=== PATIENT | male | born 1945 | race Caucasian/White ===

== ENCOUNTER → 2018-06-22 08:08 | Outpatient (CLI) | payer OTHER, SELFPAY ==
[2018-06-22 09:08] LABS: Hemoglobin A1C% w Est Avg Glu 6.1 % (4.0-6.0)
== END ==
PROVIDERS: PCP Family Medicine; Visit Provider Family Medicine
DX: R73.09 Other abnormal glucose (principal); R73.03 Prediabetes
CPT/HCPCS: 36415; 83036

== ENCOUNTER → 2019-02-23 07:59 | Outpatient (CLI) | payer OTHER, SELFPAY ==
[2019-02-23 10:01] LABS: Hemoglobin A1C% w Est Avg Glu 6.3 % (4.0-6.0)
[2019-02-23 10:44] LABS: Alanine Aminotransferase 43 IU/L (21-72); Albumin 4.4 g/dL (3.5-5.0); Alkaline Phosphatase 59 U/L (38-126); Aspartate Aminotransferase 32 IU/L (17-59); BUN Creatinine Ratio 23.8 (6-22); Bilirubin Total 0.6 mg/dL (0.2-1.3); Blood Urea Nitrogen 19 mg/dL (9-20); Calcium 9.7 mg/dL (8.4-10.2); Carbon Dioxide 29 mmol/L (22-32); Chloride 102 mmol/L (98-107); Cholesterol 106 mg/dL (140-199); Estimated Glomerular Filt Rate > 60.0 mL/min (>60); Globulin 2.2 g/dL (1.7-4.1); Glucose 120 mg/dL (80-110); HDL Cholesterol 24 mg/dL (40-60); HEMOLYSIS < 15 (0-50); LDL Cholesterol Calculated 39 mg/dL (<100); Potassium 4.8 mmol/L (3.4-5.1); Sodium 141 mmol/L (137-145); Total Protein 6.6 g/dL (6.3-8.2); Triglycerides 216 mg/dL (35-150)
== END ==
PROVIDERS: PCP Family Medicine; Visit Provider Family Medicine
DX: R73.03 Prediabetes (principal); E78.2 Mixed hyperlipidemia
CPT/HCPCS: 36415; 80053; 80061; 83036

== ENCOUNTER → 2020-04-17 08:29 | Outpatient (CLI) | payer MEDICARE, SELFPAY ==
[2020-04-17 09:35] LABS: Hemoglobin A1C% w Est Avg Glu 6.8 % (4.0-6.0)
[2020-04-17 10:03] LABS: Alanine Aminotransferase 45 IU/L (<50); Albumin 4.7 g/dL (3.5-5.0); Albumin Globulin Ratio 1.9 (1.0-2.8); Alkaline Phosphatase 66 U/L (38-126); Aspartate Aminotransferase 47 IU/L (17-59); BUN Creatinine Ratio 21.3 (6-22); Bilirubin Total 0.7 mg/dL (0.2-1.3); Blood Urea Nitrogen 17 mg/dL (9-20); Calcium 9.8 mg/dL (8.4-10.2); Carbon Dioxide 30 mmol/L (22-32); Chloride 105 mmol/L (98-107); Estimated Glomerular Filt Rate > 60.0 mL/min (>60); Globulin 2.5 g/dL (1.7-4.1); Glucose 126 mg/dL (80-110); HEMOLYSIS < 15 (0-50); Potassium 4.4 mmol/L (3.4-5.1); Sodium 143 mmol/L (137-145); Total Protein 7.2 g/dL (6.3-8.2)
[2020-04-17 11:15] LABS: Creatinine Urine Random 111.9 mg/dL
[2020-04-17 11:17] LABS: Microalbumi Creatinin Ratio Ur 17.8 ug/mg CR (<30)
== END ==
PROVIDERS: PCP Family Medicine; Referring Provider Family Medicine; Visit Provider Family Medicine
DX: E66.01 Morbid (severe) obesity due to excess calories (principal); E78.2 Mixed hyperlipidemia; I10 Essential (primary) hypertension; Z68.41 Body mass index [BMI] 40.0-44.9, adult
CPT/HCPCS: 36415; 80053; 82043; 82570; 83036

== ENCOUNTER → 2020-07-26 08:01 | Outpatient (CLI) | payer MEDICARE, SELFPAY ==
[2020-07-26 09:57] LABS: Hemoglobin A1C% w Est Avg Glu 6.7 % (4.0-6.0)
== END ==
PROVIDERS: PCP Family Medicine; Referring Provider Family Medicine; Visit Provider Family Medicine
DX: E11.9 Type 2 diabetes mellitus without complications (principal)
CPT/HCPCS: 36415; 83036

== ENCOUNTER 2020-11-23 14:43 | Emergency (ER) | payer MEDICARE, SELFPAY ==
[2020-11-23 14:49] VITALS: BP 185/97; PULSE 82; RESP 17; TEMP 36.9; O2SAT 95; BMI 40.1
--- NOTE | 2020-11-23 18:22 | ED.SKABFB ---
HPI - Skin/Abscess/Foreign Bdy General Chief complaint: Skin/Abscess/Foreign Body Stated complaint: bump on right inner thigh Time Seen by Provider: 11/23/20 18:03 Source: patient Mode of arrival: Ambulatory Limitations: no limitations History of Present Illness HPI narrative: Patient is a 75-year-old male here for evaluation of redness and discomfort to his left upper thigh. He states that the symptoms occurred when his dog was approximately 70 lb jumped up on his lap to lay down. This was a couple days ago. He does not remember the dog injuring his leg. He has had no procedures on his leg. He is not having any fevers. Has not tried anything for symptoms prior to arrival. Related Data Home Medications Medication Instructions Recorded Confirmed amlodipine [Norvasc] 5 mg PO QDAY #30 tab 07/19/16 08/01/20 aspirin 325 mg PO QDAY #0 tab 07/19/16 08/01/20 atorvastatin 40 mg PO QDAY #0 tab 07/19/16 08/01/20 carvedilol [Coreg] 25 mg PO BID #0 tab 07/19/16 08/01/20 omeprazole 20 mg PO QDAY #0 cap 07/19/16 08/01/20 [HERBAL DRUG CAP] 1 cap PO QDAY #0 01/09/18 08/01/20 guaifenesin 1,200 mg tablet, 1,200 mg PO Q12H 03/30/18 08/01/20 extended release 12 hr multivitamin 1 cap PO DAILY 03/30/18 08/01/20 nitroglycerin 0.4 mg sublingual 0.4 mg SUBLINGUAL PRN #0 tab 07/09/19 08/01/20 tablet Previous Rx's Medication Instructions Recorded fluticasone propionate 110 1 puff INHALATION BID #12 gram 04/27/20 mcg/actuation HFA aerosol inhaler losartan 100 mg tablet See Rx Instructions .ROUTE 07/04/20 .COMPLEX #90 tablet metformin 500 mg tablet 500 mg PO DAILY #90 tab 08/11/20 fenofibrate nanocrystallized 145 See Rx Instructions .ROUTE 09/18/20 mg tablet .COMPLEX #90 tablet albuterol sulfate 90 mcg/actuation See Rx Instructions .ROUTE 11/06/20 aerosol inhaler .COMPLEX #8.5 gram cephalexin [Keflex] 500 mg PO QID 5 Days #20 cap 11/23/20 Allergies Allergy/AdvReac Type Severity Reaction Status Date / Time hops [HOPS] Allergy Mild Verified 11/23/20 14:49 Review of Systems Constitutional Constitutional: Denies fever(s) and Denies headache(s) ENT Ears, Nose, Mouth, and Throat: Denies headache(s) Cardiovascular Cardiovascular: Denies chest pain and Denies dyspnea Respiratory Respiratory: Denies dyspnea Gastrointestinal Gastrointestinal: Denies abdominal pain Musculoskeletal Musculoskeletal: Denies arthralgias Integumentary/Breasts Comments: Redness and lump to left upper thigh Neurologic Neurologic: Denies behavioral changes and Denies headache(s) Psychiatric Psychiatric: Denies behavioral changes Hematologic/Lymphatic On Anticoagulants: No Allergic/Immunologic Allergic/Immunologic: Denies urticaria Patient History Medical History Asthma Carotid artery disease (~2002) Chronic back pain Chronic cough Colon polyps Gout Hay fever Hearing deficit Hyperlipidemia Hypertension LEONARD (obstructive sleep apnea) Psoriasis Type 2 diabetes mellitus Surgical History History of angioplasty Family History Mother Heart disease High cholesterol Stroke Hypertension Father No problems noted. Social History marital status: unmarried,single housing: house pets and animals: Yes current occupational exposures/hazards: Yes ([facility]) Smoking Status: Former smoker alcohol intake: current substance use type: does not use Smoking Status: Former smoker alcohol intake frequency: a few times a week Substance Use Type: does not use Exam Initial Vital Signs Initial Vital Signs: Vital Signs Temperature 98.4 F 11/23/20 14:49 Pulse Rate 82 11/23/20 14:49 Respiratory Rate 17 11/23/20 14:49 Blood Pressure 185/97 H 11/23/20 14:49 Pulse Oximetry 95 11/23/20 14:49 Const General: cooperative and comfortable Limitations: mental status not altered HENMT Head: normal to inspection and normocephalic Resp Effort & Inspection: normal respiratory effort Cardio Rate: regular rate Skin Other: Patient with a area of redness and firmness to the anterior/medial portion of the left upper thigh. It is warm to the touch. Does have surrounding erythema that is also warm to the touch. There is no blistering. Neuro General: patient alert and patient awake Cognition: normal cognition Speech: speech normal Extrem General: normal to inspection and capillary refill normal Psych Appearance: grossly normal and well kempt Course Vital Signs Vital signs: Vital Signs - 8 hr 11/23/20 14:49 Temperature 98.4 F Pulse Rate 82 Respiratory Rate 17 Blood Pressure 185/97 H Pulse Oximetry 95 MDM - Skin/Abscess/Foreign Bdy Imaging Data US - DVT: Radiologist's Impression: [address] [address]Hngvkorons ReportSigned Patient: Noble Garcia [facility]#: [id number]: [id number]:[id number]/Sex: 75 / MDate of Service: 11/23/20Loc: EDAccession Number: [id number] Procedure: US perip venous low extrem lt Ordering Provider: Rohit Worthington D.O. PROCEDURE: US PERIPH VENOUS LOW EXTREM LT INDICATIONS: eval for DVT TECHNIQUE: Real-time imaging, as well as color and pulse Doppler interrogation, were performed of the lower extremity deep veins from the inguinal ligament to the popliteal fossa. COMPARISON: None. FINDINGS: Thrombus is seen within the greater saphenous vein, which is occlusive. IMPRESSION: Superficial thrombophlebitis involving the greater saphenous vein. Dictated by: Marv Lal M.D. on 11/23/2020 at 19:27 Approved by: Marv Lal M.D. on 11/23/2020 at 19:28 [facility] Narrative Medical decision making narrative: Patient does have what appeared to be induration and redness to his left upper thigh. A bedside ultrasound showed what appeared to be of a pocket of fluid in this area however I was not 100% convinced that this was an abscess so a small area was anesthetized and I attempted to aspirate any purulent material. This was unsuccessful and only a small amount of blood was returned. Given the appearance he did have concern that this was now a clot and he potentially had a thrombophlebitis. A formal ultrasound was obtained and he had no DVT but did confirm a superficial thrombophlebitis of the left greater saphenous vein. This does fit with the bedside ultrasound in his presentation. There is surrounding erythema and also warmth to the area. I have some concern about infection so I will start him on antibiotics. We did discuss the use of anti-inflammatories. We also discussed other conservative measures. He was given return precautions and follow-up instructions. He expressed understanding and agreement. Discharge Plan Departure Patient Disposition: Home Clinical Impression: Superficial thrombophlebitis, Cellulitis Instructions: Cellulitis, DI for Superficial Thrombophlebitis Activity Restrictions/Additional Instructions: A prescription for antibiotics as electronically transmitted to [facility]. You can take anti-inflammatories for the discomfort. Contact your primary provider for follow-up. Return to the emergency department for any new or worsening symptoms Prescriptions: New cephalexin [Keflex] 500 mg capsule 500 mg PO QID 5 Days Qty: 20 RF: 0 No Action amlodipine [Norvasc] 5 MG tablet 5 mg PO QDAY Qty: 30 RF: 0 atorvastatin 40 MG tablet 40 mg PO QDAY Qty: 0 RF: 0 aspirin 325 MG tablet 325 mg PO QDAY Qty: 0 RF: 0 carvedilol [Coreg] 25 MG tablet 25 mg PO BID Qty: 0 RF: 0 omeprazole 20 MG capsule,delayed release(DR/EC) 20 mg PO QDAY Qty: 0 RF: 0 [HERBAL DRUG CAP] 1 cap PO QDAY Qty: 0 RF: 0 nitroglycerin [Nitrostat] 0.4 mg tablet, sublingual 0.4 mg Sublingual PRNQty: 0 RF: 0 Flovent HFA 110 mcg/actuation HFA aerosol inhaler 1 puff INHALATION BID Qty: 12 RF: 6 losartan 100 mg tablet See Rx Instructions .ROUTE .COMPLEX Qty: 90 RF: 3 metformin 500 mg tablet 500 mg PO DAILY Qty: 90 RF: 3 fenofibrate nanocrystallized 145 mg tablet See Rx Instructions .ROUTE .COMPLEX Qty: 90 RF: 3 albuterol sulfate [ProAir HFA] 90 mcg/actuation HFA aerosol inhaler See Rx Instructions .ROUTE .COMPLEX Qty: 8.5 RF: 6 guaifenesin [Mucinex] 1,200 mg tablet extended release 12hr 1,200 mg PO Q12H RF: 0 multivitamin capsule 1 cap PO DAILY RF: 0 Referrals: Michelle Anthony DO [Primary Care Provider] -
--- NOTE | 2020-11-23 20:16 | PC.NURSE ---
Sterile 4 by 4 dressing with boston wrap to left thigh aspiration site,no bleeding.f
== END 2020-11-23 20:17 | disposition home or self-care (01) ==
PROVIDERS: Emergency Provider Emergency Medicine; PCP Family Medicine
DX: I80.02 Phlebitis and thrombophlebitis of superficial vessels of left lower extremity (principal); L03.116 Cellulitis of left lower limb; E11.9 Type 2 diabetes mellitus without complications; E78.5 Hyperlipidemia, unspecified; I10 Essential (primary) hypertension
CPT/HCPCS: 93971; 99283

== ENCOUNTER → 2020-11-30 14:43 | Outpatient (CLI) | payer MEDICARE, SELFPAY ==
--- NOTE | 2020-11-30 14:46 | DI.RAD.S_ITS ---
PROCEDURE: XR CHEST 2V INDICATIONS: coughs; thrombophlebitis TECHNIQUE: 2 views of the chest were acquired. COMPARISON: [facility], , CHEST 2 VIEW, 01/09/2018, 18:27. FINDINGS: Surgical changes and devices: None. Lungs and pleura: Mild prominence of the central pulmonary vasculature may be related to mildly low lung volumes. No pleural effusions or pneumothorax. The appearance does not appear significantly changed when compared to the radiographs from 01/09/2018. Mediastinum: Mediastinal contours are normal. Heart size is normal. Bones and chest wall: No suspicious bony abnormalities. Soft tissues appear unremarkable. IMPRESSION: No acute cardiopulmonary abnormality. Dictated by: Jarad Dunbar M.D. on 11/30/2020 at 15:06 Approved by: Jarad Dunbar M.D. on 11/30/2020 at 15:08
--- NOTE | 2020-11-30 14:46 | DI.US.S_ITS ---
PROCEDURE: [facility]3] VENOUS LOW EXTREM LT INDICATIONS: thrombophlebitis, left TECHNIQUE: Real-time imaging, as well as color and pulse Doppler interrogation, were performed of the lower extremity deep veins from the inguinal ligament to the popliteal fossa. COMPARISON: [facility], [facility]] VENOUS LOW EXTREM LT, 11/23/2020, 18:58. FINDINGS: There is occlusion of the greater saphenous vein. Partial occlusion is noted in the common femoral vein as well as profundal and popliteal veins. The lesser saphenous vein is occluded. The superficial femoral vein appears patent. IMPRESSION: Deep venous thrombosis as above. Dictated by: Martha Tabor M.D. on 11/30/2020 at 14:38 Approved by: Martha Tabor M.D. on 11/30/2020 at 14:40
== END ==
PROVIDERS: PCP Family Medicine; Referring Provider Registered Nurse; Visit Provider Registered Nurse
DX: I82.412 Acute embolism and thrombosis of left femoral vein (principal); I82.432 Acute embolism and thrombosis of left popliteal vein; I82.812 Embolism and thrombosis of superficial veins of left lower extremity; R05 Cough; L03.90 Cellulitis, unspecified
CPT/HCPCS: 71046; 93971

== ENCOUNTER 2020-11-30 15:25 | Emergency (ER) | payer MEDICARE, SELFPAY ==
[2020-11-30] VITALS (9 sets, daily range): BP systolic 141–163; BP diastolic 77–87; PULSE 79–91; RESP 17–27; TEMP 37.1; O2SAT 91–95; BMI 39.9
--- NOTE | 2020-11-30 15:59 | ED_ITS ---
HPI - Extremity Problem General Chief complaint: Extremity Problem,Nontraumatic Stated complaint: sent by doctor for blood clots Time Seen by Provider: 11/30/20 15:30 Source: patient Mode of arrival: Wheelchair Limitations: no limitations History of Present Illness HPI Narrative: 75-year-old male who I saw in the emergency department a few days ago and diagnosed with superficial thrombophlebitis. He was also placed on a short course of antibiotics as I was concerned about cellulitis. He has followed up with his primary doctor and had an outpatient left lower extremity ultrasound performed today. This was secondary to pain and swelling to his left calf region. He was told to come to the emergency department after having this ultrasound performed. He does have a history of asthma but states that he has been somewhat more short of breath recently. He denies any chest pain. He states that the redness for which I evaluated him for a couple days ago has improved tremendously since that time. Related Data Home Medications Medication Instructions Recorded Confirmed amlodipine [Norvasc] 5 mg PO QDAY #30 tab 07/19/16 11/30/20 aspirin 325 mg PO QDAY #0 tab 07/19/16 11/30/20 atorvastatin 40 mg PO QDAY #0 tab 07/19/16 11/30/20 carvedilol [Coreg] 25 mg PO BID #0 tab 07/19/16 11/30/20 omeprazole 20 mg PO QDAY #0 cap 07/19/16 11/30/20 guaifenesin 1,200 mg tablet, 1,200 mg PO Q12H 03/30/18 11/30/20 extended release 12 hr multivitamin 1 cap PO DAILY 03/30/18 11/30/20 nitroglycerin 0.4 mg sublingual 0.4 mg SUBLINGUAL PRN #0 tab 07/09/19 11/30/20 tablet Previous Rx's Medication Instructions Recorded fluticasone propionate 110 1 puff INHALATION BID #12 gram 04/27/20 mcg/actuation HFA aerosol inhaler losartan 100 mg tablet See Rx Instructions .ROUTE 07/04/20 .COMPLEX #90 tablet metformin 500 mg tablet 500 mg PO DAILY #90 tab 08/11/20 fenofibrate nanocrystallized 145 See Rx Instructions .ROUTE 09/18/20 mg tablet .COMPLEX #90 tablet albuterol sulfate 90 mcg/actuation See Rx Instructions .ROUTE 11/06/20 aerosol inhaler .COMPLEX #8.5 gram rivaroxaban [Xarelto] 15 mg PO BID 21 Days #42 tab 11/30/20 Allergies Allergy/AdvReac Type Severity Reaction Status Date / Time hops [HOPS] Allergy Mild Verified 11/30/20 15:36 Review of Systems Constitutional Constitutional: Denies fever(s) Cardiovascular Cardiovascular: Denies chest pain and Reports dyspnea Respiratory Respiratory: Reports cough and Reports dyspnea Gastrointestinal Gastrointestinal: Denies abdominal pain, Denies nausea and Denies vomiting Musculoskeletal Comments: Left lower extremity swelling Integumentary/Breasts Comments: Redness improving of left thigh Neurologic Neurologic: Denies behavioral changes Psychiatric Psychiatric: Denies behavioral changes Hematologic/Lymphatic On Anticoagulants: No Allergic/Immunologic Allergic/Immunologic: Denies urticaria Patient History Medical History Asthma Carotid artery disease (~2002) Chronic back pain Chronic cough Colon polyps Gout Hay fever Hearing deficit Hyperlipidemia Hypertension LEONARD (obstructive sleep apnea) Psoriasis Type 2 diabetes mellitus Surgical History History of angioplasty Family History Mother Heart disease High cholesterol Stroke Hypertension Father No problems noted. Social History marital status: unmarried,single housing: house pets and animals: Yes current occupational exposures/hazards: Yes ([facility]) Smoking Status: Former smoker alcohol intake: current substance use type: does not use Smoking Status: Former smoker alcohol intake frequency: a few times a week Substance Use Type: does not use Exam Initial Vital Signs Initial Vital Signs: Vital Signs Temperature 98.8 F 11/30/20 15:30 Pulse Rate 87 11/30/20 15:30 Respiratory Rate 24 11/30/20 15:30 Blood Pressure 141/87 H 11/30/20 15:30 Pulse Oximetry 94 11/30/20 15:30 Const General: cooperative and comfortable Limitations: mental status not altered HENMT Head: normal to inspection and normocephalic Resp Effort & Inspection: normal respiratory effort, not labored and tachypneic Auscultation: clear to auscultation bilaterally Cardio Rate: regular rate Rhythm: regular rhythm GI Inspection: non-distended Palpation: soft Skin Other: Patient with much improved redness to his left anterior the proximal fine. Neuro General: patient alert, patient awake and patient oriented x3 Cognition: normal cognition Speech: speech normal Extrem Other: Patient with swelling left lower extremity specifically in the calf region. Psych Appearance: grossly normal and well kempt Scores GCS Peter coma scale eye opening: Spontaneous [place] coma scale verbal response: Orientated Peter coma scale motor response: Obey commands Peter coma scale total score: 15 Course Orders Ordered: ED Orders 11/30/20 16:01 CT angio chest PE protocol Stat 11/30/20 16:07 Basic Metabolic Panel Stat Complete Blood Count AUTO DIFF Stat NT-proBNP (BNP-Adult 18+) Stat Partial Thromboplastin Time Stat Prothrombin Time INR Stat Troponin I Stat 11/30/20 17:02 COVID19 Stat Discontinued Medications Sodium Chloride (Normal Saline 0.9%) 1,000 mls @ 1,000 mls/hr IV BOLUS ONE Stop: 11/30/20 16:59 Last Admin: 11/30/20 16:21 Dose: 1,000 mls/hr Documented by: JOSEPHINE Rivaroxaban (Rivaroxaban 10 Mg Tablet) 15 mg PO NOW ONE Stop: 11/30/20 17:50 Vital Signs Vital signs: Vital Signs - 8 hr 11/30/20 15:30 11/30/20 16:35 Temperature 98.8 F Pulse Rate 87 79 Respiratory Rate 24 24 Blood Pressure 141/87 H 147/77 H Pulse Oximetry 94 95 MDM - Extremity (Nontraumatic) Lab Data Result diagrams: 11/30/20 16:07 11/30/20 16:07 Labs: Lab Results 11/30/20 11/30/20 11/30/20 Range/Units 16:07 16:07 16:07 WBC 16.8 H (4.5-11.0) X10^3/uL RBC 7.47 H (4.5-5.9) X10^6/uL Hgb 15.1 (13.5-17.5) g/dL Hct 49.9 (41-53) % MCV 66.8 L (80-100) fL MCH 20.2 L (26-34) PG MCHC 30.3 (30-36) % RDW 19.0 H (11.6-14.8) % Plt Count 217 (150-400) X10^3/uL Neut % (Auto) 79.8 H (50-75) % Lymph % (Auto) 13.1 L (25-40) % [place] % (Auto) 4.8 (3-14) % Eos % (Auto) 1.8 L (2-4) % Baso % (Auto) 0.5 (0-2) % Neut # (Auto) 31619 H (8535-1557) /uL Lymph # (Auto) 2200 (4322-0309) /uL [place] # (Auto) 800 (0-900) /uL Eos # (Auto) 300 (0-450) /uL Baso # (Auto) 100 (0-100) /uL Plt Morphology Comment 1+ large platelets RBC Morphology See below Polychromasia 2+ H Microcytosis 2+ H PT 14.2 H (10.1-12.7) SECONDS INR 1.2 (0.9-1.3) APTT 20 L (26.4-36.2) SECONDS Sodium 138 (137-145) mmol/L Potassium 4.3 (3.4-5.1) mmol/L Chloride 104 (98-107) mmol/L Carbon Dioxide 28 (22-32) mmol/L BUN 22 H (9-20) mg/dL Creatinine 0.90 (0.66-1.25) mg/dL Estimated GFR > 60.0 (>60) mL/min BUN/Creatinine Ratio 24.4 H (6-22) Glucose 113 H (80-110) mg/dL Calcium 9.7 (8.4-10.2) mg/dL Troponin I (0.01-0.034) ng/mL NT-Pro-B Natriuret Pep 153 H (<125) pg/mL SARS-CoV-2 (PCR) (Negative) 11/30/20 11/30/20 Range/Units 16:07 17:02 WBC (4.5-11.0) X10^3/uL RBC (4.5-5.9) X10^6/uL Hgb (13.5-17.5) g/dL Hct (41-53) % MCV (80-100) fL MCH (26-34) PG MCHC (30-36) % RDW (11.6-14.8) % Plt Count (150-400) X10^3/uL Neut % (Auto) (50-75) % Lymph % (Auto) (25-40) % [place] % (Auto) (3-14) % Eos % (Auto) (2-4) % Baso % (Auto) (0-2) % Neut # (Auto) (4780-8474) /uL Lymph # (Auto) (3003-0859) /uL [place] # (Auto) (0-900) /uL Eos # (Auto) (0-450) /uL Baso # (Auto) (0-100) /uL Plt Morphology Comment RBC Morphology Polychromasia Microcytosis PT (10.1-12.7) SECONDS INR (0.9-1.3) APTT (26.4-36.2) SECONDS Sodium (137-145) mmol/L Potassium (3.4-5.1) mmol/L Chloride (98-107) mmol/L Carbon Dioxide (22-32) mmol/L BUN (9-20) mg/dL Creatinine (0.66-1.25) mg/dL Estimated GFR (>60) mL/min BUN/Creatinine Ratio (6-22) Glucose (80-110) mg/dL Calcium (8.4-10.2) mg/dL Troponin I < 0.012 (0.01-0.034) ng/mL NT-Pro-B Natriuret Pep (<125) pg/mL SARS-CoV-2 (PCR) Negative (Negative) Imaging Data US - DVT: Radiologist's Impression: [address] [address]Aphptatxou ReportSigned Patient: Noble Garcia SMR#: [id number]: 7Acct:[id number]/Sex: 75 / MDate of Service: 11/30/20[id number] Procedure: US periph venous low extrem lt Ordering Provider: Sven Lopez PROCEDURE: US PERIPH VENOUS LOW EXTREM LT INDICATIONS: thrombophlebitis, left TECHNIQUE: Real-time imaging, as well as color and pulse Doppler interrogation, were performed of the lower extremity deep veins from the inguinal ligament to the popliteal f mary. COMPARISON: [facility], , US PERIPH VENOUS LOW EXTREM LT, 11/23/2020, 18:58. FINDINGS: There is occlusion of the greater saphenous vein. Partial occlusion is noted in the common femoral vein as well as profundal and popliteal veins. The lesser saphenous vein is occluded. The superficial femoral vein appears patent. IMPRESSION: Deep venous thrombosis as above. Dictated by: Martha Tabor M.D. on 11/30/2020 at 14:38 Approved by: Martha Tabor M.D. on 11/30/2020 at 14:40 CT scan - chest: Radiologist's Impression: [facility] [place] [id number] Scan ReportSigned Patient: Noble Garcia [facility]#: [id number]: 1945cct:[id number]/Sex: 75 / MDate of Service: 11/30/20Loc: EDAccession Number: [id number] Procedure: CT angio chest PE protocol Ordering Provider: Rohit Worthington D.O. PROCEDURE: CT ANGIO CHEST PE PROTOCOL INDICATIONS: Chest pain, shortness of breath, tachycardia TECHNIQUE: After the administration of intravenous contrast, 2 mm thick sections acquired from the pulmonary apices to the posterior costophrenic angles. 3-dimensional maximum intensity projection (MIP) coronal and sagittal reformats were then acquired through the thorax. For radiation dose reduction, the following was used: automated exposure control, adjustment of mA and/or kV according to patient size. COMPARISON: None. FINDINGS: Image quality: Excellent. Pulmonary arteries: Pulmonary arteries are normal in size, and demonstrate no intraluminal filling defects to suggest central pulmonary embolism. Scattered subsegmental atelectasis and/or scarring. No focal consolidation. No pleural effusions or pneumothorax. Airway thickening in keeping with nonspecific bronchitis and/or reactive airways disease. Mediastinum: Heart size is normal, without pericardial effusion. Coronary artery calcifications are present. No mediastinal or hilar adenopathy. Thoracic aorta is normal in caliber and enhancement. Esophagus is normal in caliber, without hiatal hernia. Bones and chest wall: No suspicious bony lesions. Ribs and thoracic spine appear intact throughout. Thyroid gland demonstrates a large hypodense nodule in the right lobe partially visualized measuring 4 cm. No axillary or supraclavicular adenopathy. Abdomen: Incidental cholelithiasis. IMPRESSION: No evidence of pulmonary embolism. No aortic dissection identified. Large right thyroid nodule. Recommend further evaluation with dedicated ultrasound. This is only partially visualized. Additional chronic and incidental findings as above. Dictated by: Jesus Knapp M.D. on 11/30/2020 at 17:23 Approved by: Jesus Knapp M.D. on 11/30/2020 at 17:27 ECG Data Attestation EKG: I personally reviewed and interpreted this ECG as follows: Prior ECG tracings: not available for review Interpretation: Sinus rhythm Ventricular rate 83 Left axis deviation Normal QRS Nonspecific ST T wave changes MDM Narrative Medical decision making narrative: The left lower extremity ultrasound included in this note is for reference purposes only. It was obtained prior to this ED visit. The redness around the skin and the superficial clot area from a couple days ago looks very well. He does have a left lower extremity DVT noticed on a ultrasound that was done prior to this ER visit. Secondary to his reported shortness of breath a CT scan of his chest was ordered for evaluation of PE. Which was negative. Will start on Xarelto. Is given his 1st dose here in the ER. He is given follow-up instructions and return precautions. He expressed understanding and agreement. Discharge Plan Departure Patient Disposition: Home Clinical Impression: DVT (deep venous thrombosis) Instructions: DI for Deep Vein Thrombosis Activity Restrictions/Additional Instructions: Continue all of your medications as directed. Contact your primary provider for follow-up. A prescription for the anticoagulation was electronically transmitted to the pharmacy of your choice. Please take it as directed. It does require a refill by your primary doctor because the dose of the medicine changes after 21 days. Return to the emergency department for any new or worsening symptoms Prescriptions: New Xarelto 15 mg tablet 15 mg PO BID 21 Days Qty: 42 RF: 0 No Action amlodipine [Norvasc] 5 MG tablet 5 mg PO QDAY Qty: 30 RF: 0 atorvastatin 40 MG tablet 40 mg PO QDAY Qty: 0 RF: 0 aspirin 325 MG tablet 325 mg PO QDAY Qty: 0 RF: 0 carvedilol [Coreg] 25 MG tablet 25 mg PO BID Qty: 0 RF: 0 omeprazole 20 MG capsule,delayed release(DR/EC) 20 mg PO QDAY Qty: 0 RF: 0 nitroglycerin [Nitrostat] 0.4 mg tablet, sublingual 0.4 mg Sublingual PRNQty: 0 RF: 0 Flovent HFA 110 mcg/actuation HFA aerosol inhaler 1 puff INHALATION BID Qty: 12 RF: 6 losartan 100 mg tablet See Rx Instructions .ROUTE .COMPLEX Qty: 90 RF: 3 metformin 500 mg tablet 500 mg PO DAILY Qty: 90 RF: 3 fenofibrate nanocrystallized 145 mg tablet See Rx Instructions .ROUTE .COMPLEX Qty: 90 RF: 3 albuterol sulfate [ProAir HFA] 90 mcg/actuation HFA aerosol inhaler See Rx Instructions .ROUTE .COMPLEX Qty: 8.5 RF: 6 guaifenesin [Mucinex] 1,200 mg tablet extended release 12hr 1,200 mg PO Q12H RF: 0 multivitamin capsule 1 cap PO DAILY RF: 0 Referrals: Michelle Anthony DO [Primary Care Provider] -
[2020-11-30 16:15] LABS: Add Manual Diff / Slide Review NO; Basophils Absolute Auto 100 /uL (0-100); Basophils Percent Auto 0.5 % (0-2); Eosinophils Absolute Auto 300 /uL (0-450); Eosinophils Percent Auto 1.8 % (2-4); Hematocrit 49.9 % (41-53); Hemoglobin 15.1 g/dL (13.5-17.5); Lymphocytes Absolute Auto 2200 /uL (1100-4500); Lymphocytes Percent Auto 13.1 % (25-40); Mean Corpuscular HGB Conc 30.3 % (30-36); Mean Corpuscular Hemoglobin 20.2 PG (26-34); Mean Corpuscular Volume 66.8 fL (80-100); Monocytes Absolute Auto 800 /uL (0-900); Monocytes Percent Auto 4.8 % (3-14); Neutrophils Absolute Auto 13400 /uL (1500-7000); Neutrophils Percent Auto 79.8 % (50-75); White Blood Cell Count 16.8 X10^3/uL (4.5-11.0)
[2020-11-30 16:18] LABS: Red Blood Cell Count 7.47 X10^6/uL (4.5-5.9)
[2020-11-30] MEDS: SODIUM CHLORIDE 0.9% 1,000 ML 1000 ML IV (16:21)
[2020-11-30 16:22] LABS: INR 1.2 (0.9-1.3); Prothrombin Time 14.2 SECONDS (10.1-12.7)
[2020-11-30 16:24] LABS: PTT Partial Thromboplastin Tim 20 SECONDS (26.4-36.2)
[2020-11-30 16:28] LABS: BUN Creatinine Ratio 24.4 (6-22); Blood Urea Nitrogen 22 mg/dL (9-20); Calcium 9.7 mg/dL (8.4-10.2); Carbon Dioxide 28 mmol/L (22-32); Chloride 104 mmol/L (98-107); Estimated Glomerular Filt Rate > 60.0 mL/min (>60); Glucose 113 mg/dL (80-110); HEMOLYSIS 32 (0-50); Potassium 4.3 mmol/L (3.4-5.1); Sodium 138 mmol/L (137-145)
[2020-11-30 16:37] LABS: NT-proBNP (BNP-Adult 18+) 153 pg/mL (<125)
[2020-11-30 16:39] LABS: Microcytosis 2+; Platelet Count 217 X10^3/uL (150-400); Polychromasia 2+
[2020-11-30 16:40] LABS: Troponin I < 0.012 ng/mL (0.01-0.034)
[2020-11-30 17:17] LABS: COVID19 -Nasal RAPID Negative (Negative)
[2020-11-30] MEDS: RIVAROXABAN 10 MG TABLET 15 MG PO (17:56)
== END 2020-11-30 18:16 | disposition home or self-care (01) ==
PROVIDERS: Emergency Provider Emergency Medicine; PCP Family Medicine
DX: I82.402 Acute embolism and thrombosis of unspecified deep veins of left lower extremity (principal); R06.02 Shortness of breath; R05 Cough; Z20.822 Contact with and (suspected) exposure to COVID-19; R07.9 Chest pain, unspecified; R00.0 Tachycardia, unspecified; I82.412 Acute embolism and thrombosis of left femoral vein; I82.432 Acute embolism and thrombosis of left popliteal vein; I82.812 Embolism and thrombosis of superficial veins of left lower extremity; L03.90 Cellulitis, unspecified
CPT/HCPCS: 36415; 71046; 71275; 80048; 83880; 84484; 85025; 85610; 85730; 87635; 93005; 93971; 96360; 99283; 99284; C9803; Q9967

== ENCOUNTER → 2020-12-18 15:33 | Outpatient (CLI) | payer MEDICARE, SELFPAY ==
[2020-12-18 16:24] LABS: Add Manual Diff / Slide Review NO; Basophils Absolute Auto 100 /uL (0-100); Basophils Percent Auto 0.7 % (0-2); Eosinophils Absolute Auto 300 /uL (0-450); Eosinophils Percent Auto 1.8 % (2-4); Hematocrit 51.9 % (41-53); Hemoglobin 15.8 g/dL (13.5-17.5); Lymphocytes Absolute Auto 2400 /uL (1100-4500); Lymphocytes Percent Auto 15.3 % (25-40); Mean Corpuscular HGB Conc 30.4 % (30-36); Mean Corpuscular Hemoglobin 20.4 PG (26-34); Mean Corpuscular Volume 67.1 fL (80-100); Monocytes Absolute Auto 600 /uL (0-900); Monocytes Percent Auto 3.6 % (3-14); Neutrophils Absolute Auto 12100 /uL (1500-7000); Neutrophils Percent Auto 78.6 % (50-75); Platelet Count 325 X10^3/uL (150-400); Red Cell Distribution Width 19.7 % (11.6-14.8); White Blood Cell Count 15.4 X10^3/uL (4.5-11.0)
[2020-12-18 16:27] LABS: Red Blood Cell Count 7.73 X10^6/uL (4.5-5.9)
[2020-12-18 16:31] LABS: Hemoglobin A1C% w Est Avg Glu 6.3 % (4.0-6.0)
[2020-12-18 16:36] LABS: Alanine Aminotransferase 21 IU/L (<50); Albumin 4.5 g/dL (3.5-5.0); Albumin Globulin Ratio 1.9 (1.0-2.8); Alkaline Phosphatase 63 U/L (38-126); Aspartate Aminotransferase 28 IU/L (17-59); BUN Creatinine Ratio 21.9 (6-22); Bilirubin Total 0.7 mg/dL (0.2-1.3); Blood Urea Nitrogen 23 mg/dL (9-20); Calcium 9.6 mg/dL (8.4-10.2); Carbon Dioxide 24 mmol/L (22-32); Chloride 104 mmol/L (98-107); Estimated Glomerular Filt Rate > 60.0 mL/min (>60); Globulin 2.4 g/dL (1.7-4.1); Glucose 91 mg/dL (80-110); HEMOLYSIS 33 (0-50); Potassium 4.7 mmol/L (3.4-5.1); Sodium 137 mmol/L (137-145); Total Protein 6.9 g/dL (6.3-8.2)
[2020-12-18 16:52] LABS: Microcytosis 2+; Poikilocytosis 1+
== END ==
PROVIDERS: PCP Family Medicine; Referring Provider Registered Nurse; Visit Provider Registered Nurse
DX: I82.409 Acute embolism and thrombosis of unspecified deep veins of unspecified lower extremity (principal); E11.9 Type 2 diabetes mellitus without complications
CPT/HCPCS: 36415; 80053; 83036; 85025

== ENCOUNTER → 2021-04-06 07:09 | Outpatient (CLI) | payer MEDICARE, SELFPAY ==
[2021-04-06 08:09] LABS: Add Manual Diff / Slide Review NO; Basophils Absolute Auto 100 /uL (0-100); Basophils Percent Auto 0.4 % (0-2); Eosinophils Absolute Auto 200 /uL (0-450); Eosinophils Percent Auto 1.5 % (2-4); Hematocrit 48.7 % (41-53); Hemoglobin 14.8 g/dL (13.5-17.5); Lymphocytes Absolute Auto 2500 /uL (1100-4500); Lymphocytes Percent Auto 16.1 % (25-40); Mean Corpuscular HGB Conc 30.4 % (30-36); Mean Corpuscular Hemoglobin 19.3 PG (26-34); Mean Corpuscular Volume 63.5 fL (80-100); Monocytes Absolute Auto 600 /uL (0-900); Monocytes Percent Auto 3.7 % (3-14); Neutrophils Absolute Auto 12200 /uL (1500-7000); Neutrophils Percent Auto 78.3 % (50-75); Platelet Count 251 X10^3/uL (150-400); Red Cell Distribution Width 20.7 % (11.6-14.8); White Blood Cell Count 15.5 X10^3/uL (4.5-11.0)
[2021-04-06 08:10] LABS: Red Blood Cell Count 7.67 X10^6/uL (4.5-5.9)
[2021-04-06 08:18] LABS: Alanine Aminotransferase 26 IU/L (<50); Albumin 4.3 g/dL (3.5-5.0); Albumin Globulin Ratio 1.8 (1.0-2.8); Alkaline Phosphatase 59 U/L (38-126); Aspartate Aminotransferase 31 IU/L (17-59); BUN Creatinine Ratio 30.1 (6-22); Bilirubin Total 0.6 mg/dL (0.2-1.3); Blood Urea Nitrogen 22 mg/dL (9-20); Calcium 9.5 mg/dL (8.4-10.2); Carbon Dioxide 25 mmol/L (22-32); Chloride 108 mmol/L (98-107); Cholesterol 97 mg/dL (140-199); Estimated Glomerular Filt Rate > 60.0 mL/min (>60); Globulin 2.4 g/dL (1.7-4.1); Glucose 121 mg/dL (80-110); HDL Cholesterol 26 mg/dL (40-60); HEMOLYSIS < 15 (0-50); LDL Cholesterol Calculated 44 mg/dL (<100); Potassium 4.1 mmol/L (3.4-5.1); Sodium 140 mmol/L (137-145); Total Protein 6.7 g/dL (6.3-8.2); Triglycerides 136 mg/dL (35-150)
[2021-04-06 08:51] LABS: Anisocytosis 2+; Microcytosis 2+
[2021-04-06 09:08] LABS: Creatinine Urine Random 128.2 mg/dL
[2021-04-06 09:11] LABS: Microalbumi Creatinin Ratio Ur 52.2 ug/mg CR (<30); Microalbumin Urine Random 6.7 mg/dL (0-1.6)
== END ==
PROVIDERS: PCP Family Medicine; Referring Provider Family Medicine; Visit Provider Family Medicine
DX: E11.9 Type 2 diabetes mellitus without complications (principal); I10 Essential (primary) hypertension; E78.2 Mixed hyperlipidemia
CPT/HCPCS: 36415; 80053; 80061; 82043; 82570; 85025

== ENCOUNTER → 2021-04-07 08:41 | Outpatient (CLI) | payer MEDICARE, SELFPAY ==
[2021-04-07 10:21] LABS: Hemoglobin A1C% w Est Avg Glu 6.2 % (4.0-6.0)
== END ==
PROVIDERS: PCP Family Medicine; Visit Provider Family Medicine
DX: E11.9 Type 2 diabetes mellitus without complications (principal); D75.1 Secondary polycythemia
CPT/HCPCS: 83036

== ENCOUNTER → 2021-04-23 15:29 | Outpatient (CLI) | payer MEDICARE, SELFPAY ==
[2021-04-23 18:06] LABS: Hematocrit 49.6 % (41-53); Hemoglobin 15.1 g/dL (13.5-17.5); Mean Corpuscular HGB Conc 30.5 % (30-36); Mean Corpuscular Hemoglobin 19.3 PG (26-34); Mean Corpuscular Volume 63.3 fL (80-100); Platelet Count 255 X10^3/uL (150-400); Red Cell Distribution Width 21.3 % (11.6-14.8)
[2021-04-23 18:08] LABS: HEMOLYSIS 21 (0-50); Iron 52 ug/dL (49-181); Red Blood Cell Count 7.84 X10^6/uL (4.5-5.9)
[2021-04-23 18:17] LABS: Neutrophils Absolute Manual 12750 /uL (3000-5900); Nucleated Red Blood Cells 2 #/Diff; Total Cells Counted 100
[2021-04-23 18:18] LABS: Microcytosis 2+
[2021-04-23 18:19] LABS: Polychromasia 1+
[2021-04-23 18:20] LABS: Anisocytosis 2+
[2021-04-23 18:22] LABS: Percent Iron Saturation 11 % (20-50); Total Iron Binding Capacity 474 ug/dL (261-462); Transferrin 373 mg/dL (206-381)
== END ==
PROVIDERS: PCP Family Medicine; Referring Provider Family Medicine; Visit Provider Family Medicine
DX: D72.829 Elevated white blood cell count, unspecified (principal)
CPT/HCPCS: 36415; 83540; 83550; 85025

== ENCOUNTER 2021-11-14 02:12 | Emergency (ER) | payer MEDICARE, SELFPAY ==
[2021-11-14] VITALS (10 sets, daily range): BP systolic 123–161; BP diastolic 71–87; PULSE 71–86; RESP 15–29; TEMP 36.6; O2SAT 92–96; BMI 39.1
--- NOTE | 2021-11-14 02:19 | DI.RAD.S_ITS ---
PROCEDURE: XR CHEST 1V INDICATIONS: chest pain TECHNIQUE: One view of the chest was acquired. COMPARISON: [facility], , XR CHEST 2V, 11/30/2020, 14:47. FINDINGS: Surgical changes and devices: None. Lungs and pleura: Shallow inspiration. No pleural effusions or pneumothorax. Mediastinum: Mediastinal contours appear normal. Heart size is mildly increased. Bones and chest wall: No suspicious bony lesions. Overlying soft tissues appear unremarkable. IMPRESSION: 1. Mild cardiomegaly. 2. Shallow inspiration. No significant discrepancy with the data support specialist radiology preliminary report. Dictated by: Aram Palmer M.D. on 11/14/2021 at 7:59 Approved by: Aram Palmer M.D. on 11/14/2021 at 7:59
[2021-11-14] MEDS: NITROGLYCERIN 0.4 MG SL TAB SL ×2 (02:38→02:58)
[2021-11-14] MEDS: ASPIRIN 81 MG CHEW TAB 324 MG PO (02:38)
[2021-11-14 02:41] LABS: Add Manual Diff / Slide Review NO; Basophils Absolute Auto 100 /uL (0-100); Basophils Percent Auto 0.6 % (0-2); Eosinophils Absolute Auto 300 /uL (0-450); Eosinophils Percent Auto 1.4 % (2-4); Hematocrit 44.9 % (41-53); Hemoglobin 13.7 g/dL (13.5-17.5); Lymphocytes Absolute Auto 2400 /uL (1100-4500); Mean Corpuscular HGB Conc 30.6 % (30-36); Mean Corpuscular Hemoglobin 18.7 PG (26-34); Monocytes Absolute Auto 600 /uL (0-900); Monocytes Percent Auto 3.3 % (3-14); Neutrophils Absolute Auto 15200 /uL (1500-7000); Neutrophils Percent Auto 81.7 % (50-75); Platelet Count 265 X10^3/uL (150-400); Red Cell Distribution Width 21.9 % (11.6-14.8); White Blood Cell Count 18.6 X10^3/uL (4.5-11.0)
[2021-11-14 02:48] LABS: Red Blood Cell Count 7.36 X10^6/uL (4.5-5.9)
[2021-11-14 02:52] LABS: Alanine Aminotransferase 27 IU/L (<50); Albumin 4.5 g/dL (3.5-5.0); Albumin Globulin Ratio 1.9 (1.0-2.8); Alkaline Phosphatase 58 U/L (38-126); Aspartate Aminotransferase 28 IU/L (17-59); BUN Creatinine Ratio 24.7 (6-22); Bilirubin Total 0.6 mg/dL (0.2-1.3); Blood Urea Nitrogen 24 mg/dL (9-20); Carbon Dioxide 28 mmol/L (22-32); Chloride 106 mmol/L (98-107); Creatine Kinase 29 U/L (55-170); Estimated Glomerular Filt Rate > 60.0 mL/min (>60); Globulin 2.4 g/dL (1.7-4.1); Glucose 125 mg/dL (80-110); HEMOLYSIS < 15 (0-50); Lipase 131 U/L (23-300); Magnesium 1.9 mg/dL (1.6-2.3); Sodium 143 mmol/L (137-145); Total Protein 6.9 g/dL (6.3-8.2)
--- NOTE | 2021-11-14 03:02 | ED.CHESTPAIN ---
HPI - Chest Pain General Chief Complaint: Chest Pain Stated Complaint: tightness in chest Time Seen by Provider: 11/14/21 02:45 Source: patient Mode of arrival: Ambulatory Limitations: no limitations History of Present Illness HPI narrative: 76-year-old gentleman with history of hypertension, hyperlipidemia, coronary disease followed by cardiology at [facility]. He has had multiple stents and frequently uses nitroglycerin. Over the last week he has had increasing symptoms that he relates to angina. He describes a tightness and achiness across his chest associated with diaphoresis. 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 He has been using nitroglycerin at least daily if not more and has run out. He has been having difficulty lying down flat over the last week which he attributes to his asthma. He has developed dry cough complains of being increasingly fatigued. This evening he went to bed and woke up approximately an hour later with his anginal-type complaints which included this evening chest tightness, substernal pressure and increased cough. He denies any fevers. 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 On further review he notes that in September he had a left lower extremity DVT for which he was given Xarelto 20 mg. He is also on Plavix. States he took to the Xarelto for approximately 6 weeks. Since he still had some around the house, he has taken a couple of doses over the last week to help with his anginal-type pain. He noticed 3 days ago that he had gross hematuria which he attributed to initially the Xarelto and then was fairly convinced it was related to the cranberry juice that he had consumed. Additionally, he complains of pruritus all over his upper chest and abdomen that is been worsening over the last number of weeks. Related Data Home Medications Medication Instructions Recorded Confirmed amlodipine 5 mg tablet (Norvasc) 5 mg PO QDAY #30 tab 07/19/16 04/23/21 aspirin 325 mg tablet 325 mg PO QDAY #0 tab 07/19/16 04/23/21 atorvastatin 40 mg tablet 40 mg PO QDAY #0 tab 07/19/16 04/23/21 carvedilol 25 mg tablet (Coreg) 25 mg PO BID #0 tab 07/19/16 04/23/21 omeprazole 20 mg capsule,delayed 20 mg PO QDAY #0 cap 07/19/16 04/23/21 release multivitamin 1 cap PO DAILY 03/30/18 04/23/21 nitroglycerin 0.4 mg sublingual 0.4 mg SUBLINGUAL PRN #0 tab 07/09/19 04/23/21 tablet (Nitrostat) clopidogrel 75 mg tablet 75 mg PO DAILY 01/02/21 04/23/21 Previous Rx's Medication Instructions Recorded albuterol sulfate 90 mcg/actuation See Rx Instructions .ROUTE 11/06/20 aerosol inhaler (ProAir HFA) .COMPLEX #8.5 gram rivaroxaban 20 mg tablet (Xarelto) 20 mg PO DAILY #30 tab 03/06/21 fluticasone propionate 110 See Rx Instructions .ROUTE 05/07/21 mcg/actuation HFA aerosol inhaler .COMPLEX #12 g (Flovent HFA) losartan 100 mg tablet See Rx Instructions .ROUTE 06/25/21 .COMPLEX #90 tablet metformin 500 mg tablet 500 mg PO DAILY #90 tab 08/06/21 fenofibrate nanocrystallized 145 See Rx Instructions .ROUTE 09/24/21 mg tablet .COMPLEX #90 tablet nitroglycerin 0.4 mg sublingual 0.4 mg SUBLINGUAL Q5M PRN #25 tab 11/14/21 tablet (Nitrostat) Allergies Allergy/AdvReac Type Severity Reaction Status Date / Time hops [HOPS] Allergy Mild Verified 11/14/21 02:19 Review of Systems Review of Systems Narrative: Remainder of complete review of systems is otherwise unremarkable except for that included in the HPI. Patient History Medical History Asthma Carotid artery disease (~2002) Chronic back pain Chronic cough Colon polyps Gout Hay fever Hearing deficit Hyperlipidemia Hypertension Obesity (BMI 30-39.9) LEONARD (obstructive sleep apnea) Psoriasis Skin cancer Type 2 diabetes mellitus Surgical History History of angioplasty Family History Mother Heart disease High cholesterol Stroke Hypertension Father No problems noted. Social History marital status: unmarried,single housing: house pets and animals: Yes current occupational exposures/hazards: Yes ([employer]) Smoking Status: Former smoker alcohol intake: current substance use type: does not use Smoking Status: Former smoker alcohol intake frequency: a few times a week Substance Use Type: does not use Exam Initial Vital Signs Initial Vital Signs: Vital Signs Temperature 98 F 11/14/21 02:15 Pulse Rate 86 11/14/21 02:15 Respiratory Rate 18 11/14/21 02:15 Blood Pressure 144/83 H 11/14/21 02:15 Pulse Oximetry 95 11/14/21 02:15 General: Morbidly overweight, in no acute distress. Able to give a complete and coherent history. Able to speak in full sentences, occasional dry cough HEENT: Moist mucous membranes, normal sclera with reactive pupils, Neck: No JVD, supple Respiratory: Lungs are clear to auscultation, no wheezing no rales no rhonchi. Full and symmetrical air movement Cardiac: Regular rate and rhythm no murmurs no bruits Abdomen: Obese,Soft, nontender, good bowel tones, no flank pain Skin: Warm and dry, no rashes Neurologic: Grossly neurologically intact with no obvious asymmetries or abnormalities Extremities: No trauma, well perfused Psych: Cooperative, appropriate insight and affect Course Orders Ordered: ED Orders 11/14/21 02:19 XR chest 1V Stat 11/14/21 02:29 EKG-12 Lead Stat 11/14/21 02:30 Complete Blood Count AUTO DIFF Stat Comprehensive Metabolic Panel Stat Lipase Stat Magnesium Stat Troponin & CK Cardiac Panel Stat 11/14/21 02:41 COVID19 -Nasal swab/Pre-Proc Stat 11/14/21 04:39 Trop I [Troponin I] Stat Nitroglycerin (Nitroglycerin 0.4 Mg Sl Tab) 0.4 mg SL [id number] PRN PRN Reason: Chest Pain Last Admin: 11/14/21 02:58 Dose: 0.4 mg Documented by: Admin: 11/14/21 02:38 Dose: 0.4 mg Documented by: EUGENIO Discontinued Medications Albuterol/Ipratropium (Albuterol/Ipratropium 3 Ml Ampul) 3 ml INH NOW ONE Stop: 11/14/21 03:13 Last Admin: 11/14/21 03:23 Dose: 3 ml Documented by: CORDELL Aspirin (Aspirin 81 Mg Chew Tab) 324 mg PO NOW ONE Stop: 11/14/21 02:20 Last Admin: 11/14/21 02:38 Dose: 324 mg Documented by: EUGENIO Vital Signs Vital signs: Vital Signs - 8 hr 11/14/21 02:15 11/14/21 02:58 11/14/21 03:00 Temperature 98 F Pulse Rate 86 79 80 Respiratory Rate 18 Blood Pressure 144/83 H 135/79 Pulse Oximetry 95 92 92 11/14/21 03:23 Temperature Pulse Rate 73 Respiratory Rate 20 Blood Pressure Pulse Oximetry 94 MDM - Chest Pain Lab Data Result diagrams: 11/14/21 02:30 11/14/21 02:30 Labs: Lab Results 11/14/21 11/14/21 11/14/21 Range/Units 02:30 02:30 02:41 WBC 18.6 H (4.5-11.0) X10^3/uL RBC 7.36 H (4.5-5.9) X10^6/uL Hgb 13.7 (13.5-17.5) g/dL Hct 44.9 (41-53) % MCV 61.0 L (80-100) fL MCH 18.7 L (26-34) PG MCHC 30.6 (30-36) % RDW 21.9 H (11.6-14.8) % Plt Count 265 (150-400) X10^3/uL Neut % (Auto) 81.7 H (50-75) % Lymph % (Auto) 13.0 L (25-40) % [place] % (Auto) 3.3 (3-14) % Eos % (Auto) 1.4 L (2-4) % Baso % (Auto) 0.6 (0-2) % Neut # (Auto) 22561 H (6248-4439) /uL Lymph # (Auto) 2400 (4926-5393) /uL [place]ard # (Auto) 600 (0-900) /uL Eos # (Auto) 300 (0-450) /uL Baso # (Auto) 100 (0-100) /uL RBC Morphology See below Polychromasia 1+ H Anisocytosis 2+ H Microcytosis 2+ H Sodium 143 (137-145) mmol/L Potassium 4.0 (3.4-5.1) mmol/L Chloride 106 (98-107) mmol/L Carbon Dioxide 28 (22-32) mmol/L BUN 24 H (9-20) mg/dL Creatinine 0.97 (0.66-1.25) mg/dL Estimated GFR > 60.0 (>60) mL/min BUN/Creatinine Ratio 24.7 H (6-22) Glucose 125 H (80-110) mg/dL Calcium 10.0 (8.4-10.2) mg/dL Magnesium 1.9 (1.6-2.3) mg/dL Total Bilirubin 0.6 (0.2-1.3) mg/dL AST 28 (17-59) IU/L ALT 27 (<50) IU/L Alkaline Phosphatase 58 (38-126) U/L Total Creatine Kinase 29 L (55-170) U/L CK-MB (CK-2) TNP CK-MB (CK-2) Rel Index TNP Troponin I < 0.012 (0.01-0.034) ng/mL Total Protein 6.9 (6.3-8.2) g/dL Albumin 4.5 (3.5-5.0) g/dL Globulin 2.4 (1.7-4.1) g/dL Albumin/Globulin Ratio 1.9 (1.0-2.8) Lipase 131 (23-300) U/L SARS-CoV-2 (PCR) Negative (Negative) 11/14/21 Range/Units 04:39 WBC (4.5-11.0) X10^3/uL RBC (4.5-5.9) X10^6/uL Hgb (13.5-17.5) g/dL Hct (41-53) % MCV (80-100) fL MCH (26-34) PG MCHC (30-36) % RDW (11.6-14.8) % Plt Count (150-400) X10^3/uL Neut % (Auto) (50-75) % Lymph % (Auto) (25-40) % Sew[place] % (Auto) (3-14) % Eos % (Auto) (2-4) % Baso % (Auto) (0-2) % Neut # (Auto) (2498-7443) /uL Lymph # (Auto) (2625-7195) /uL Seward # (Auto) (0-900) /uL Eos # (Auto) (0-450) /uL Baso # (Auto) (0-100) /uL RBC Morphology Polychromasia Anisocytosis Microcytosis Sodium (137-145) mmol/L Potassium (3.4-5.1) mmol/L Chloride (98-107) mmol/L Carbon Dioxide (22-32) mmol/L BUN (9-20) mg/dL Creatinine (0.66-1.25) mg/dL Estimated GFR (>60) mL/min BUN/Creatinine Ratio (6-22) Glucose (80-110) mg/dL Calcium (8.4-10.2) mg/dL Magnesium (1.6-2.3) mg/dL Total Bilirubin (0.2-1.3) mg/dL AST (17-59) IU/L ALT (<50) IU/L Alkaline Phosphatase (38-126) U/L Total Creatine Kinase (55-170) U/L CK-MB (CK-2) CK-MB (CK-2) Rel Index Troponin I < 0.012 (0.01-0.034) ng/mL Total Protein (6.3-8.2) g/dL Albumin (3.5-5.0) g/dL Globulin (1.7-4.1) g/dL Albumin/Globulin Ratio (1.0-2.8) Lipase (23-300) U/L SARS-CoV-2 (PCR) (Negative) Imaging Data Chest x-ray: Radiologist's Impression: Cardiomegaly. No active disease in the chest Dr Power Post MD ECG Data Interpretation: Sinus rhythm at a rate of 77 Mild left axis deviation Normal intervals No acute ischemic changes MDM Narrative Medical decision making narrative: 76-year-old gentleman with the a confusing interpretation of his constellation of symptoms. At this point it sounds like he has been having increased difficulty laying flat, increased dry cough, increased chest tightness that response to nitro all worsening over the last week. Episode of hematuria after he took a couple of days of Xarelto that was left over after only a 6 week course taken for his recent left lower Extremity DVT. In reviewing previous labs it looks like he has a mild chronic leukocytosis and has a slightly elevated white blood cell count again today. He has no clinical evidence of infectious etiology. EKG, chest x-ray and labs are reassuring. Troponin and repeat troponin are unremarkable. He did respond nicely to that DuoNeb treatment and his chest tightness completely resolved with 2 doses of nitroglycerin. I am wondering if many of his symptoms of increasing over the last week or actually more asthma related than cardiac related. Will ask him to increase his albuterol, make sure he is continuing to use his inhaled steroid and will also refill his sublingual nitro. Will also strongly encouraged him to follow-up with his sheet metal worker apprentice when the clinic opens later today regarding his increased use of nitrates in the past week. At this time there is no evidence of acute coronary syndrome, congestive heart failure, pneumothorax, acute infectious etiology and patient is feeling significantly improved at this time. Discharge Plan Departure Patient Disposition: Home Clinical Impression: Asthma exacerbation, Chest pain Instructions: DI for Asthma -- Adult Activity Restrictions/Additional Instructions: Thank you for coming in today I am wondering if the worsening symptoms that you been noticing over the last week that you are attributing to your heart are actually your asthma. Your workup today was very reassuring. There is no evidence of heart attack, infection, collapsed lung, congestive heart failure or alternative explanations for the symptoms that you have when your laying flat, your dry cough and that tightening chest feeling. Please make sure that you are using your steroid inhaler regularly and please increase your albuterol to 2 puffs 4 times a day. Would encourage you to contact her sheet metal worker apprentice later today and let them know that you have been using your nitroglycerin more frequently. Please let the no urine the emergency room with a reassuring EKG and normal blood work. If you have worsening symptoms please feel free to return to the ER Prescriptions: New nitroglycerin [Nitrostat] 0.4 mg tablet, sublingual 0.4 mg sublingual Q5M PRN (Reason: chest pain) Qty: 25 1RF Rx Instructions: do not exceed 3 doses per episode No Action amlodipine [Norvasc] 5 MG tablet 5 mg PO QDAY Qty: 30 0RF atorvastatin 40 MG tablet 40 mg PO QDAY Qty: 0 0RF aspirin 325 MG tablet 325 mg PO QDAY Qty: 0 0RF carvedilol [Coreg] 25 MG tablet 25 mg PO BID Qty: 0 0RF omeprazole 20 MG capsule,delayed release(DR/EC) 20 mg PO QDAY Qty: 0 0RF nitroglycerin [Nitrostat] 0.4 mg tablet, sublingual 0.4 mg Sublingual PRNQty: 0 0RF albuterol sulfate [ProAir HFA] 90 mcg/actuation HFA aerosol inhaler See Rx Instructions .ROUTE .COMPLEX Qty: 8.5 6RF Dose Instruction: inhale 1 to 2 puffs by mouth every 4 hours if needed for shortness of breath Rx Instructions: inhale 1 to 2 puffs by mouth every 4 hours if needed for shortness of breath clopidogrel 75 mg tablet 75 mg PO DAILY 0RF Xarelto 20 mg tablet 20 mg PO DAILY Qty: 30 3RF Rx Instructions: must administer with evening meal Flovent HFA 110 mcg/actuation HFA aerosol inhaler See Rx Instructions .ROUTE .COMPLEX Qty: 12 11RF Dose Instruction: inhale 1 puff by mouth and INTO THE LUNGS twice a day Rx Instructions: inhale 1 puff by mouth and INTO THE LUNGS twice a day losartan 100 mg tablet See Rx Instructions .ROUTE .COMPLEX Qty: 90 3RF Dose Instruction: take 1 tablet by mouth once daily Rx Instructions: take 1 tablet by mouth once daily metformin 500 mg tablet 500 mg PO DAILY Qty: 90 3RF fenofibrate nanocrystallized 145 mg tablet See Rx Instructions .ROUTE .COMPLEX Qty: 90 3RF Dose Instruction: take 1 tablet by mouth once daily Rx Instructions: take 1 tablet by mouth once daily multivitamin capsule 1 cap PO DAILY 0RF Referrals: Michelle Anthony DO [Primary Care Provider] -
[2021-11-14 03:03] LABS: Troponin I < 0.012 ng/mL (0.01-0.034)
[2021-11-14 03:09] LABS: COVID19 -Nasal RAPID Negative (Negative)
--- NOTE | 2021-11-14 03:11 | PC.NURSE ---
Pain 0/10 after 2nd nitro. VS WNL
[2021-11-14] MEDS: ALBUTEROL/IPRATROPIUM 3 ML AMPUL INH (03:23)
[2021-11-14 03:41] LABS: Anisocytosis 2+; Microcytosis 2+; Polychromasia 1+
[2021-11-14 05:08] LABS: Troponin I < 0.012 ng/mL (0.01-0.034)
== END 2021-11-14 06:10 | disposition home or self-care (01) ==
PROVIDERS: Emergency Provider Emergency Medicine; PCP Family Medicine
DX: J45.901 Unspecified asthma with (acute) exacerbation (principal); R07.9 Chest pain, unspecified; Z87.891 Personal history of nicotine dependence; Z20.822 Contact with and (suspected) exposure to COVID-19
CPT/HCPCS: 36415; 71045; 80053; 82550; 83690; 83735; 84484; 85025; 87635; 93005; 93010; 94640; 99284; C9803

== ENCOUNTER 2021-11-21 21:22 | Observation (INO) | payer MEDICARE, SELFPAY ==
[2021-11-21 21:25] VITALS: BP 156/81; PULSE 90; RESP 18; TEMP 36.5; O2SAT 97; BMI 39.1
--- NOTE | 2021-11-21 21:39 | DI.RAD.S_ITS ---
PROCEDURE: XR CHEST 1V INDICATIONS: chest pain TECHNIQUE: One view of the chest was acquired. COMPARISON: [facility], [place], XR CHEST 1V, 11/14/2021, 2:36. FINDINGS: Surgical changes and devices: None. Lungs and pleura: Shallow inspiration. Mild left perihilar infiltrate. No pleural effusions or pneumothorax. Mediastinum: Mediastinal contours appear normal. Heart size is mildly increased. Bones and chest wall: No suspicious bony lesions. Overlying soft tissues appear unremarkable. IMPRESSION: 1. Mild left perihilar infiltrate may be secondary to mild asymmetric pulmonary edema or perihilar pneumonia. 2. Mild cardiomegaly. Dictated by: Aram Palmer M.D. on 11/21/2021 at 21:53 Approved by: Aram Palmer M.D. on 11/21/2021 at 21:54
[2021-11-21 21:50] LABS: Basophils Absolute Auto 200 /uL (0-100); Basophils Percent Auto 1.2 % (0-2); Eosinophils Absolute Auto 200 /uL (0-450); Hemoglobin 13.5 g/dL (13.5-17.5); Lymphocytes Absolute Auto 2100 /uL (1100-4500); Lymphocytes Percent Auto 10.3 % (25-40); Mean Corpuscular HGB Conc 30.7 % (30-36); Mean Corpuscular Hemoglobin 18.6 PG (26-34); Mean Corpuscular Volume 60.7 fL (80-100); Monocytes Absolute Auto 700 /uL (0-900); Monocytes Percent Auto 3.3 % (3-14); Neutrophils Absolute Auto 17300 /uL (1500-7000); Neutrophils Percent Auto 84.2 % (50-75); Platelet Count 264 X10^3/uL (150-400); Red Cell Distribution Width 21.3 % (11.6-14.8); White Blood Cell Count 20.5 X10^3/uL (4.5-11.0)
[2021-11-21 21:51] LABS: Add Manual Diff / Slide Review SLIDE REVIEW; Red Blood Cell Count 7.25 X10^6/uL (4.5-5.9)
[2021-11-21 21:52] LABS: Alanine Aminotransferase 27 IU/L (<50); Albumin 4.4 g/dL (3.5-5.0); Albumin Globulin Ratio 1.7 (1.0-2.8); Alkaline Phosphatase 52 U/L (38-126); Aspartate Aminotransferase 31 IU/L (17-59); BUN Creatinine Ratio 22.8 (6-22); Bilirubin Total 0.7 mg/dL (0.2-1.3); Blood Urea Nitrogen 21 mg/dL (9-20); Calcium 9.8 mg/dL (8.4-10.2); Carbon Dioxide 27 mmol/L (22-32); Chloride 104 mmol/L (98-107); Creatine Kinase 41 U/L (55-170); Estimated Glomerular Filt Rate > 60.0 mL/min (>60); Globulin 2.6 g/dL (1.7-4.1); Glucose 214 mg/dL (80-110); HEMOLYSIS < 15 (0-50); Lipase 141 U/L (23-300); Magnesium 1.9 mg/dL (1.6-2.3); Potassium 3.9 mmol/L (3.4-5.1); Sodium 139 mmol/L (137-145)
[2021-11-21 22:03] LABS: Troponin I < 0.012 ng/mL (0.01-0.034)
[2021-11-21 22:43] LABS: NT-proBNP (BNP-Adult 18+) 122 pg/mL (<125)
[2021-11-21 22:49] LABS: COVID19 -Nasal RAPID Negative (Negative)
--- NOTE | 2021-11-21 22:49 | ED.CHESTPAIN ---
HPI - Chest Pain General Chief Complaint: Chest Pain Stated Complaint: chest/back pain/left hand tingle x2 hours Time Seen by Provider: 11/21/21 22:21 Source: patient, RN notes reviewed and old records reviewed Mode of arrival: Ambulatory Limitations: no limitations Limitations: no limitations History of Present Illness HPI narrative: This is a 76-year-old male with history of hypertension, dyslipidemia, coronary artery disease followed by cardiology in [place]. Patient has multiple cardiac stents and has frequent use of nitroglycering. Patient presents today with complaint of chest pain. Patient states that he has a history of angina. He saw Cardiology today. He was prescribed Imdur or isosorbide but has not started it and supposed to start in the morning. Patient states pain is substernal radiates towards the back. He states it started after food. He had a heavy dinner, wine which he states often can cause symptoms and felt like he had some indigestion. He tried 3 nitro at home with no change. He tried Tums which was helpful. He states that he came to emergency department but symptoms resolved so he left for checking in. They came back so he returned again and ultimately checked in. He states resolved at this time. He denies fevers, chills, no shortness of breath that is new. No diaphoresis. Patient denies any nausea or vomiting. He does note that his right arm has been red since last Friday with some increasing swelling, warmth and spreading redness up the arm. He has had some occasional tingling sensation. He states that he did have an IV on that side when he was here for episode of angina at that time as well. At that time he was told his symptoms were out asthma and he was recommended to increase his albuterol to 4 times daily. He is on Plavix daily. Related Data Home Medications Medication Instructions Recorded Confirmed amlodipine 5 mg tablet (Norvasc) 5 mg PO QDAY #30 tab 07/19/16 11/22/21 carvedilol 25 mg tablet (Coreg) 25 mg PO BID #0 tab 07/19/16 11/22/21 omeprazole 20 mg capsule,delayed 20 mg PO QDAY #0 cap 07/19/16 11/22/21 release clopidogrel 75 mg tablet 75 mg PO DAILY 01/02/21 11/22/21 albuterol sulfate 90 mcg/actuation 1 puff INHALATION Q4HR PRN 11/22/21 11/22/21 aerosol inhaler (ProAir HFA) fenofibrate nanocrystallized 145 145 mg PO DAILY 11/22/21 11/22/21 mg tablet fluticasone propionate 110 1 puff INHALATION BID 11/22/21 11/22/21 mcg/actuation HFA aerosol inhaler (Flovent HFA) losartan 100 mg tablet 100 mg PO QPM 11/22/21 11/22/21 metformin 500 mg tablet 500 mg PO QPM 11/22/21 11/22/21 montelukast 10 mg tablet 10 mg PO DAILY 11/22/21 11/22/21 (Singulair) Previous Rx's Medication Instructions Recorded nitroglycerin 0.4 mg sublingual 0.4 mg SUBLINGUAL Q5M PRN #25 tab 11/14/21 tablet (Nitrostat) apixaban 5 mg tablet (Eliquis) 5 mg PO BID 90 Days #180 tab 11/23/21 aspirin 325 mg tablet 81 mg PO QPM 90 Days #23 tab 11/23/21 atorvastatin 20 mg tablet (Lipitor) 80 mg PO BEDTIME 90 Days tab 11/23/21 Allergies Allergy/AdvReac Type Severity Reaction Status Date / Time hops [HOPS] Allergy Mild Verified 11/14/21 02:19 Review of Systems Review of Systems ROS Unobtainable: All systems reviewed & are unremarkable except as noted in HPI and below Patient History Medical History Asthma Carotid artery disease (~2002) Chronic back pain Chronic cough Colon polyps Gout Hay fever Hearing deficit Hyperlipidemia Hypertension Obesity (BMI 30-39.9) LEONARD (obstructive sleep apnea) Psoriasis Skin cancer Type 2 diabetes mellitus Surgical History History of angioplasty Family History (Updated 11/22/21 @ 04:23 by MARILU oPwell) Mother Heart disease High cholesterol Stroke Hypertension Father No problems noted. Sister Myocardial infarction Sister Myocardial infarction Social History marital status: unmarried,single household members: significant other housing: house pets and animals: Yes current occupational exposures/hazards: Yes ([facility]) Smoking Status: Former smoker alcohol intake: current substance use type: does not use Smoking Status: Former smoker alcohol intake frequency: a few times a week Substance Use Type: does not use Exam Narrative Exam Narrative: GENERAL: Alert and oriented x three, obese male in mild distress. HEENT: Head normocephalic, atraumatic, EOMI, pupils reactive, face symmetric, moist mucous membranes NECK: Supple, full range of motion CARDIOVASCULAR: Regular rate and rhythm without murmurs, rubs or gallops. Nontender to palpation of the chest. RESPIRATORY: Breath sounds equal bilaterally, no wheezes rales or rhonchi. ABDOMEN: Soft, nontender. Normoactive bowel sounds all 4 quadrants. No guarding or rebound, rigidity, no mass : No CVA tenderness EXTREMITIES: Normal range of motion, no clubbing. Patient has localized swelling of the right upper extremity with warmth and erythema extending from mid just above the right AC. There is some slight induration. No fluctuance. Patient does have abrasion over the dorsum of his hand which he states is from a dog's nails scraping his skin. Patient has full range of motion 2+ radial pulse bilaterally. Sensation intact. NEUROLOGICAL: Cranial nerves II through XII grossly intact. Moving all extremities SKIN: Warm, dry, no petechiae, no rashes or lesions. Initial Vital Signs Initial Vital Signs: Vital Signs Temperature 97.7 F 11/21/21 21:25 Pulse Rate 90 11/21/21 21:25 Respiratory Rate 18 11/21/21 21:25 Blood Pressure 156/81 H 11/21/21 21:25 Pulse Oximetry 97 11/21/21 21:25 Course Orders Ordered: Discontinued Medications Albuterol (Albuterol Hfa Mdi 60 Puff/8 Gm Inhaler) 1 puff INH Q4HR PRN PRN Reason: Shortness Of Breath Albuterol (Albuterol 2.5 Mg/3 Ml Neb (Adult)) 2.5 mg INH Q4H PRN PRN Reason: SHORTNESS OF BREATH Amlodipine Besylate (Amlodipine 5 Mg Tablet) 5 mg PO DAILY [facility] Admin: 11/23/21 08:39 Dose: 5 mg Documented by: Admin: 11/22/21 09:21 Dose: 5 mg Documented by: JV Apixaban (Apixaban 5 Mg Tablet) 10 mg PO BID [facility] Aspirin (Aspirin 325 Mg Tablet) 325 mg PO QPM [facility] Last Admin: 11/22/21 17:04 Dose: 325 mg Documented by: JV Aspirin (Aspirin Ec 81 Mg Tablet) 81 mg PO QPM [facility] Atorvastatin Calcium (Atorvastatin 20 Mg Tablet) 40 mg PO BEDTIME [facility] Last Admin: 11/22/21 20:39 Dose: 40 mg Documented by: RFUENT Carvedilol (Carvedilol 12.5 Mg Tablet) 25 mg PO BID [facility] Last Admin: 11/23/21 08:39 Dose: 25 mg Documented by: Admin: 11/22/21 20:38 Dose: 25 mg Documented by: Admin: 11/22/21 09:21 Dose: 25 mg Documented by: JV Clopidogrel Bisulfate (Clopidogrel 75 Mg Tablet) 75 mg PO DAILY [facility] Last Admin: 11/23/21 08:40 Dose: 75 mg Documented by: Admin: 11/22/21 09:22 Dose: 75 mg Documented by: JV Dextrose (Dextrose 50 % In Water 25 Gm/50 Ml Syringe) 25 gm IV PRN PRN PRN Reason: Hypoglycemia Enoxaparin Sodium (Enoxaparin 40 Mg/0.4 Ml Syringe) 115 mg 1 mg/kg (115 mg) SUBCUT NOW ONE Stop: 11/22/21 01:35 Last Admin: 11/22/21 01:42 Dose: 115 mg Documented by: ROYRE Enoxaparin Sodium (Enoxaparin 80 Mg/0.8 Ml Syringe) 110 mg SUBCUT BID [facility] Last Admin: 11/23/21 08:42 Dose: 110 mg Documented by: Admin: 11/22/21 20:39 Dose: 110 mg Documented by: [email or web address] Fenofibrate (Fenofibrate, Micronized 67 Mg Capsule) 201 mg PO DAILY [facility] Last Admin: 11/23/21 08:41 Dose: 201 mg Documented by: Admin: 11/22/21 09:20 Dose: 201 mg Documented by: JV Clindamycin Phosphate (Cleocin) 900 mg in 50 mls @ 50 mls/hr IV NOW ONE Stop: 11/22/21 00:12 Last Infusion: 11/22/21 00:40 Dose: 0 mls/hr Documented by: Admin: 11/21/21 23:38 Dose: 50 mls/hr Documented by: ROYER Ceftriaxone Sodium 1,000 mg/ (Sodium Chloride) 100 mls @ 200 mls/hr IV Q24H [facility] Last Infusion: 11/23/21 04:17 Dose: 0 mls/hr Documented by: [email or web address] Admin: 11/23/21 03:47 Dose: 200 mls/hr Documented by: Infusion: 11/22/21 05:37 Dose: 200 mls/hr Documented by: Admin: 11/22/21 05:07 Dose: 200 mls/hr Documented by: DANII Insulin Human Lispro (Insulin Lispro 100 Unit/Ml 3ml Vial) 0 unit SUBCUT ACHS [facility]; Protocol Last Admin: 11/23/21 08:39 Dose: Not Given Documented by: Admin: 11/22/21 21:33 Dose: Not Given Documented by: Admin: 11/22/21 16:56 Dose: Not Given Documented by: Admin: 11/22/21 12:07 Dose: Not Given Documented by: Admin: 11/22/21 08:39 Dose: Not Given Documented by: JV Losartan Potassium (Losartan 50 Mg Tablet) 100 mg PO QPM [facility] Last Admin: 11/22/21 17:04 Dose: 100 mg Documented by: JV Montelukast Sodium (Montelukast 10 Mg Tablet) 10 mg PO DAILY [facility] Last Admin: 11/23/21 08:48 Dose: 10 mg Documented by: Admin: 11/22/21 09:23 Dose: Not Given Documented by: VJ Naloxone HCl (Naloxone 0.4 Mg/Ml Vial) 0.2 mg IV Q2MIN PRN PRN Reason: Opiate Reversal Non-Formulary Medication (Carvedilol [Coreg]) 25 mg PO BID [facility] Non-Formulary Medication (Fenofibrate Nanocrystallized) 145 mg PO DAILY [facility] Stored In Pharmacy 0 each PO . [facility] Ondansetron HCl (Ondansetron 4 Mg/2 Ml Inj) 4 mg IV Q8HR PRN PRN Reason: Nausea And Vomiting Reevaluation(s) Reevaluation #1: Patient US shows dvt with recurrent chest pain patient sent for CT angio. Reevaluation #2: Patient updated on recent findings including PE. Patient vitals are appropriate his PESI score is 3 and with his known cardiac history feels appropriate to be observed have echo in the morning and if reassuing with persistently reassuring vitals patient likely be discharged home on appropriate anticoagulation tomorrow. Patient is agreeable. Consultations Consultation #1: RUDDY Knapp, this is a 76-year-old male comes in with complaint of recurrent chest pain with known cardiac history. As noted patient had what appeared to be a cellulitis over his right arm but has had recent IVs with recent ER visits. Ultrasound showed DVT, CT angio shows PE. Patient's vitals are reassuring but his PESI score is 3 and would like to keep overnight for observation with his cardiac history for echo in the a.m. and likely discharge home on appropriate oral anticoagulants. They asked that we give a dose of Lovenox here in the department and accept for observation. Vital Signs Vital signs: Vital Signs - 8 hr 11/21/21 21:25 11/21/21 23:06 11/21/21 23:10 Temperature 97.7 F Pulse Rate 90 90 90 Respiratory Rate 18 Blood Pressure 156/81 H 178/88 H Pulse Oximetry 97 95 96 11/21/21 23:30 11/21/21 23:59 11/22/21 00:00 Temperature Pulse Rate 105 H 85 85 Respiratory Rate Blood Pressure 162/89 H 152/81 H Pulse Oximetry 95 95 11/22/21 00:30 11/22/21 00:46 Temperature Pulse Rate 86 92 H Respiratory Rate 24 Blood Pressure 155/80 H 163/90 H Pulse Oximetry 94 95 MDM - Chest Pain Lab Data Result diagrams: 11/22/21 05:00 11/21/21 21:30 Labs: Lab Results 11/21/21 11/21/21 11/21/21 Range/Units 21:30 21:30 21:30 WBC 20.5 H (4.5-11.0) X10^3/uL RBC 7.25 H (4.5-5.9) X10^6/uL Hgb 13.5 (13.5-17.5) g/dL Hct 44.0 (41-53) % MCV 60.7 L (80-100) fL MCH 18.6 L (26-34) PG MCHC 30.7 (30-36) % RDW 21.3 H (11.6-14.8) % Plt Count 264 (150-400) X10^3/uL Neut % (Auto) 84.2 H (50-75) % Lymph % (Auto) 10.3 L (25-40) % Mower % (Auto) 3.3 (3-14) % Eos % (Auto) 1.0 L (2-4) % Baso % (Auto) 1.2 (0-2) % Neut # (Auto) 97588 H (2729-2059) /uL Lymph # (Auto) 2100 (3208-7664) /uL Mower # (Auto) 700 (0-900) /uL Eos # (Auto) 200 (0-450) /uL Baso # (Auto) 200 H (0-100) /uL RBC Morphology See below Anisocytosis 3+ H Microcytosis 1+ H Sodium 139 (137-145) mmol/L Potassium 3.9 (3.4-5.1) mmol/L Chloride 104 (98-107) mmol/L Carbon Dioxide 27 (22-32) mmol/L BUN 21 H (9-20) mg/dL Creatinine 0.92 (0.66-1.25) mg/dL Estimated GFR > 60.0 (>60) mL/min BUN/Creatinine Ratio 22.8 H (6-22) Glucose 214 H (80-110) mg/dL Hemoglobin A1c (4.0-6.0) % Lactate (0.7-2.1) mmol/L Calcium 9.8 (8.4-10.2) mg/dL Magnesium 1.9 (1.6-2.3) mg/dL Total Bilirubin 0.7 (0.2-1.3) mg/dL AST 31 (17-59) IU/L ALT 27 (<50) IU/L Alkaline Phosphatase 52 (38-126) U/L Total Creatine Kinase 41 L (55-170) U/L CK-MB (CK-2) TNP CK-MB (CK-2) Rel Index TNP Troponin I < 0.012 (0.01-0.034) ng/mL NT-Pro-B Natriuret Pep 122 (<125) pg/mL Total Protein 7.0 (6.3-8.2) g/dL Albumin 4.4 (3.5-5.0) g/dL Globulin 2.6 (1.7-4.1) g/dL Albumin/Globulin Ratio 1.7 (1.0-2.8) Lipase 141 (23-300) U/L SARS-CoV-2 (PCR) (Negative) 11/21/21 11/21/21 11/21/21 Range/Units 21:30 21:30 22:31 WBC (4.5-11.0) X10^3/uL RBC (4.5-5.9) X10^6/uL Hgb (13.5-17.5) g/dL Hct (41-53) % MCV (80-100) fL MCH (26-34) PG MCHC (30-36) % RDW (11.6-14.8) % Plt Count (150-400) X10^3/uL Neut % (Auto) (50-75) % Lymph % (Auto) (25-40) % Mower % (Auto) (3-14) % Eos % (Auto) (2-4) % Baso % (Auto) (0-2) % Neut # (Auto) (1479-3970) /uL Lymph # (Auto) (1201-8567) /uL Mower # (Auto) (0-900) /uL Eos # (Auto) (0-450) /uL Baso # (Auto) (0-100) /uL RBC Morphology Anisocytosis Microcytosis Sodium (137-145) mmol/L Potassium (3.4-5.1) mmol/L Chloride (98-107) mmol/L Carbon Dioxide (22-32) mmol/L BUN (9-20) mg/dL Creatinine (0.66-1.25) mg/dL Estimated GFR (>60) mL/min BUN/Creatinine Ratio (6-22) Glucose (80-110) mg/dL Hemoglobin A1c 6.9 H (4.0-6.0) % Lactate 1.7 (0.7-2.1) mmol/L Calcium (8.4-10.2) mg/dL Magnesium (1.6-2.3) mg/dL Total Bilirubin (0.2-1.3) mg/dL AST (17-59) IU/L ALT (<50) IU/L Alkaline Phosphatase (38-126) U/L Total Creatine Kinase (55-170) U/L CK-MB (CK-2) CK-MB (CK-2) Rel Index Troponin I (0.01-0.034) ng/mL NT-Pro-B Natriuret Pep (<125) pg/mL Total Protein (6.3-8.2) g/dL Albumin (3.5-5.0) g/dL Globulin (1.7-4.1) g/dL Albumin/Globulin Ratio (1.0-2.8) Lipase (23-300) U/L SARS-CoV-2 (PCR) Negative (Negative) 11/21/21 Range/Units 23:30 WBC (4.5-11.0) X10^3/uL RBC (4.5-5.9) X10^6/uL Hgb (13.5-17.5) g/dL Hct (41-53) % MCV (80-100) fL MCH (26-34) PG MCHC (30-36) % RDW (11.6-14.8) % Plt Count (150-400) X10^3/uL Neut % (Auto) (50-75) % Lymph % (Auto) (25-40) % Mower % (Auto) (3-14) % Eos % (Auto) (2-4) % Baso % (Auto) (0-2) % Neut # (Auto) (8902-2819) /uL Lymph # (Auto) (4843-2103) /uL Mower # (Auto) (0-900) /uL Eos # (Auto) (0-450) /uL Baso # (Auto) (0-100) /uL RBC Morphology Anisocytosis Microcytosis Sodium (137-145) mmol/L Potassium (3.4-5.1) mmol/L Chloride (98-107) mmol/L Carbon Dioxide (22-32) mmol/L BUN (9-20) mg/dL Creatinine (0.66-1.25) mg/dL Estimated GFR (>60) mL/min BUN/Creatinine Ratio (6-22) Glucose (80-110) mg/dL Hemoglobin A1c (4.0-6.0) % Lactate (0.7-2.1) mmol/L Calcium (8.4-10.2) mg/dL Magnesium (1.6-2.3) mg/dL Total Bilirubin (0.2-1.3) mg/dL AST (17-59) IU/L ALT (<50) IU/L Alkaline Phosphatase (38-126) U/L Total Creatine Kinase (55-170) U/L CK-MB (CK-2) CK-MB (CK-2) Rel Index Troponin I 0.015 (0.01-0.034) ng/mL NT-Pro-B Natriuret Pep (<125) pg/mL Total Protein (6.3-8.2) g/dL Albumin (3.5-5.0) g/dL Globulin (1.7-4.1) g/dL Albumin/Globulin Ratio (1.0-2.8) Lipase (23-300) U/L SARS-CoV-2 (PCR) (Negative) Imaging Data Chest x-ray: Radiologist's Impression: [address] [address] XRay Report Signed Patient: Noble Garcia MR#: [id number] : 1945 Acct:[id number] Age/Sex: 76 / M Date of Service: 11/21/21 Loc: ED Accession Number: [id number] ?? Procedure: XR chest 1V Ordering Provider: Shakira Perdue D.O. PROCEDURE:? XR CHEST 1V ? INDICATIONS:? chest pain ? TECHNIQUE:? One view of the chest was acquired.? ? COMPARISON:? [facility], CR, XR CHEST 1V, 11/14/2021, 2:36. ? FINDINGS:? ? Surgical changes and devices:? None.? ? Lungs and pleura:? Shallow inspiration.? Mild left perihilar infiltrate.? No pleural effusions or pneumothorax.? ? Mediastinum:? Mediastinal contours appear normal.? Heart size is mildly increased.? ? Bones and chest wall:? No suspicious bony lesions.? Overlying soft tissues appear unremarkable.? ? IMPRESSION:? ? 1. Mild left perihilar infiltrate may be secondary to mild asymmetric pulmonary edema or perihilar pneumonia. 2. Mild cardiomegaly.? ? ? Dictated by: Aram Palmer M.D. on 11/21/2021 at 21:53 ? ? Approved by: Aram Palmer M.D. on 11/21/2021 at 21:54?? CT scan - chest: Radiologist's Impression: Close Chest CTA 11/22/21 Peripheral Vascular Ultrasound (Signed) Estela,Surendralawsonkimberly - 11/21/21 Chest X-Ray (Signed) Pranav Palmerkimberly - 11/21/21 Chest X-Ray (Signed) EstelaPranav ferrarikimberly - 11/14/21 Chest CTA (Signed) Jesus Knapp - 11/30/20 Vascular Ultrasound (Signed) Martha Tabor - 11/30/20 Chest X-Ray (Signed) Jarad Dunbar - 11/30/20 Vascular Ultrasound (Signed) Marv Lal - 11/23/20 DI Result CC 02/09/18 Radiology - Historical 06/23/17 Launch?[place] [address] Ultrasound Report Signed Patient: Noble Garcia MR#: [id number] : 1945 Acct:[id number] Age/Sex: 76 / M Date of Service: 11/21/21 Loc: Accession Number: [id number] ?? Procedure: US periph venous up extrem rt Ordering Provider: Shakira Perdue D.O. PROCEDURE:? US PERIPH VENOUS UP EXTREM RT ? INDICATIONS:? WARMTH, ERYTHEMA; RECENT IV ? TECHNIQUE:? Real-time imaging, as well as color and pulse Doppler interrogation, was performed of the right upper extremity deep veins from the inferior neck to the antecubital fossa.? ? COMPARISON:? [facility], CT, CT ANGIO CHEST PE PROTOCOL, 11/22/2021, 0:19. ? FINDINGS:? The internal jugular vein, visualized portions of the subclavian vein, axillary, and brachial veins are free of intraluminal thrombus.? Where physically possible, the veins are normally compressible.? Color and pulse Doppler demonstrate normal intraluminal flow, with expected phasicity and pulsatility.? Additional scanning of the suprasellar lungs are obtained.? There is intraluminal filling defect involving the basilic vein consistent with thrombus.? Cephalic vein is patent. ? IMPRESSION:? ? 1. Thrombosis of the basilic vein.? ? ? Dictated by: Aram Palmer M.D. on 11/22/2021 at 0:52 ? ? Approved by: Aram Palmer M.D. on 11/22/2021 at 0:56? ECG Data Attestation: I personally reviewed and interpreted this ECG as follows: Prior ECG tracings: available for review Interpretation: Sinus rhythm, possible left atrial enlargement. Left axis deviation. Incomplete right bundle branch. Rate 81 IA 190 QRS of 110 and QTC 462. Prior EKG from 11/14/2021 appears similar to todays EKG 2. Sinus rhythm. Left axis deviation. Incomplete right bundle branch. Rate 86 IA 188. QRS of 114 and QTC of 471. MDM Narrative Medical decision making narrative: 76-year-old male with history of recurrent chest pain and angina presents again today for similar. During his evaluation it was noted he had what appeared to be a cellulitis in his right upper extremity he had recent IV placement there with ER visit so DVT was ordered which does show a basilic vein DVT and with his recurrent chest pain CT angio was performed which does show a PE. Patient's troponin is negative, his chest x-ray does not show acute changes otherwise. His vital signs have been reassuring but with his cardiac history and multiple medical issues, PESI score of 3 was felt to be appropriate to keep for observation for echo and likely disposition home on oral anticoagulation tomorrow. It is noted patient has had one prior DVT he was anticoagulated for about 6 weeks but had issues with scratching his skin and bleeding and he in conjunction with his physician stopped that medication. Patient was given initial dose of IV antibiotics as suspected to have cellulitis with his white count of 20s but this may be more of a thrombophlebitis. Discharge Plan Departure Patient Disposition: Admitted as Observation Clinical Impression: Cellulitis of arm, right, Basilic vein thrombosis, Pulmonary embolism Admit Date/Time: 11/22/21 01:45 Admit Provider: Maddie Knapp
[2021-11-21 23:06] VITALS: PULSE 90; O2SAT 95
[2021-11-21 23:10] VITALS: BP 178/88; PULSE 90; O2SAT 96
--- NOTE | 2021-11-21 23:13 | DI.US.S_ITS ---
PROCEDURE: US PERIPH VENOUS UP EXTREM RT INDICATIONS: WARMTH, ERYTHEMA; RECENT IV TECHNIQUE: Real-time imaging, as well as color and pulse Doppler interrogation, was performed of the right upper extremity deep veins from the inferior neck to the antecubital fossa. COMPARISON: [facility], CT, CT ANGIO CHEST PE PROTOCOL, 11/22/2021, 0:19. FINDINGS: The internal jugular vein, visualized portions of the subclavian vein, axillary, and brachial veins are free of intraluminal thrombus. Where physically possible, the veins are normally compressible. Color and pulse Doppler demonstrate normal intraluminal flow, with expected phasicity and pulsatility. Additional scanning of the suprasellar lungs are obtained. There is intraluminal filling defect involving the basilic vein consistent with thrombus. Cephalic vein is patent. IMPRESSION: 1. Thrombosis of the basilic vein. Dictated by: Aram Palmer M.D. on 11/22/2021 at 0:52 Approved by: Aram Palmer M.D. on 11/22/2021 at 0:56
[2021-11-21 23:30] VITALS: BP 162/89; PULSE 105
[2021-11-21 23:30] LABS: Lactate (Lactic Acid) 1.7 mmol/L (0.7-2.1)
[2021-11-21] MEDS: CLINDAMYCIN 900 MG/50 ML PIGGYBACK 50 MG IV (23:38)
[2021-11-21 23:59] VITALS: PULSE 85; O2SAT 95
[2021-11-22] VITALS (16 sets, daily range): BP systolic 129–173; BP diastolic 66–93; PULSE 79–92; RESP 14–26; TEMP 36.1–36.7; O2SAT 92–97; BMI 39.4
[2021-11-22 00:02] LABS: Troponin I 0.015 ng/mL (0.01-0.034)
--- NOTE | 2021-11-22 00:14 | DI.CT.S_ITS ---
PROCEDURE: CT ANGIO CHEST PE PROTOCOL INDICATIONS: chest pain, hx angina, + cellulitis/dvt in right arm. TECHNIQUE: After the administration of intravenous contrast, 2 mm thick sections acquired from the pulmonary apices to the posterior costophrenic angles. 3-dimensional maximum intensity projection (MIP) coronal and sagittal reformats were then acquired through the thorax. For radiation dose reduction, the following was used: automated exposure control, adjustment of mA and/or kV according to patient size. COMPARISON: [facility], CT, CT ANGIO CHEST PE PROTOCOL, 11/30/2020, 16:59. FINDINGS: Image quality: Suboptimal due to respiratory motion artifacts. Pulmonary arteries: Pulmonary arteries are normal in size. There are intraluminal filling defects in the right middle lobe and lower lobe segmental arteries consistent with pulmonary embolism. Lungs and pleura: Right medial lobe and lingular atelectasis. Lungs are otherwise clear. No pleural effusions or pneumothorax. Central and peripheral airways are patent. Mediastinum: Heart size is mildly increased. No pericardial effusion. There is moderate to severe coronary artery calcification. No mediastinal or hilar adenopathy. Thoracic aorta is normal in caliber and enhancement. Esophagus is normal in caliber, without hiatal hernia. Bones and chest wall: No suspicious bony lesions. Ribs and thoracic spine appear intact throughout. There is a large right thyroid nodule measuring 4.4 x 4.1 cm. No axillary or supraclavicular adenopathy. Abdomen: There is hepatosplenomegaly. IMPRESSION: 1. There are pulmonary emboli involving the right middle lobe and lower lobe segmental arteries consistent with pulmonary embolism. 2. Mild cardiomegaly. There is moderate to severe coronary artery atherosclerosis. 3. Hepatosplenomegaly. 4. A large right thyroid nodule. Recommend thyroid ultrasound for follow-up evaluation. Dictated by: Aram Palmer M.D. on 11/22/2021 at 1:00 Approved by: Aram Palmer M.D. on 11/22/2021 at 1:10
[2021-11-22 00:52] LABS: Anisocytosis 3+; Microcytosis 1+
[2021-11-22] MEDS: ENOXAPARIN 40 MG/0.4 ML SYRINGE 115 MG SUBCUT (01:42)
--- NOTE | 2021-11-22 03:58 | DI.ECHO.S_ITS ---
[facility] +---------+ [facility] +---------+ : : [address] : : : : [id number] : : : : Phone: [phone]+ Echocardiogram Report + + :Name: JUSTIN BENTON Study Date: 11/22/2021 Height: 67 in : :[facility] ReadingLocation: Weight: 252 lb : : Gender: Male BSA: 2.2 m2 : :: 1945 Age: 76 yrs BP: 155/83 mmHg: :Reason For Study: PE : :Ordering Physician: Dave YOUSIFformed By: Dejah Dubose : :Referring: BREN YOUSIF : + + Interpretation Summary The ejection fraction is estimated to be 55-60%. Diastolic function is indeterminate. Possible mild RV dilation. The right ventricular systolic function is normal. The left atrium is moderately dilated. No significant valvular abnormalities. Unable to estimate PASP. The ascending aorta is mildly enlarged. Procedure: A two-dimensional transthoracic echocardiogram with color flow and Doppler was performed. The study quality was technically adequate. There is no prior echocardiogram noted for this patient. The patient was in sinus rhythm with heart rates between 76-80 bpm during the exam. Left Ventricle: The left ventricle is normal in size and wall thickness. The ejection fraction is estimated to be 55-60%. Diastolic function is indeterminate. Right Ventricle: The right ventricle is not well visualized. Possible mild RV dilation. The right ventricular systolic function is normal. Atria: The left atrium is moderately dilated. The right atrium is normal in size. There is no Doppler evidence for an interatrial shunt. Mitral Valve: The mitral valve is normal in structure and function. There is trace mitral regurgitation. Aortic Valve: The aortic valve is trileaflet. The aortic valve opens well. The aortic valve is slightly calcified. There is no aortic valve stenosis. No aortic regurgitation is present. Tricuspid Valve: The tricuspid valve is normal in structure and function. There is trace tricuspid regurgitation. Pulmonic Valve: The pulmonic valve leaflets are thin and pliable; valve motion is normal. There is no pulmonic valvular regurgitation. Great Vessels: The aortic root is normal size. The ascending aorta is mildly enlarged. The inferior vena cava was not well visualized. Pericardium/ Pleura There is no pericardial effusion. There is no pleural effusion. MMode/2D Measurements & Calculations LVIDd: 5.2 cm LVOT diam: 2.1 cm LVIDs: 3.6 cm Ao root diam: 3.5 cm FS: 31.0 % asc Aorta Diam: 4.0 cm IVSd: 0.75 cm LVPWd: 0.96 cm LV finnegan. diameter/BSA (cm/m^2): 2.3 LV sys. diameter/BSA (cm/m^2): 1.6 LA A2 area: 30.1 cm2 RA long axis: 6.0 cm LA A4 area: 25.5 cm2 RA area: 21.4 cm2 LA length (vol): 6.3 cm RA vol: 64.6 ml LA vol: 103.7 ml RA : 28.9 ml/m2 LA vol index: 46.5 ml/m2 RVD1 (basal): 4.0 cm RVD2 (mid): 4.5 cm TAPSE: 2.1 cm Doppler Measurements & Calculations Ao V2 max: 130.5 cm/sec LVOT Max Dada: 107.1 cm/sec Ao V2 mean: 95.4 cm/sec LV V1 max P.6 mmHg Ao max P.8 mmHg LV V1 VTI: 20.8 cm Ao mean P.0 mmHg CHERELLE(I,D): 2.7 cm2 Ao V2 VTI: 27.3 cm CHERELLE(V,D): 2.9 cm2 sev ratio: 0.76 CHERELLE indexed to BSA (cm^2/m^2): 1.2 MV E max dada: 71.9 cm/sec PA V2 max: 85.4 cm/sec MV A max dada: 83.0 cm/sec PA V2 mean: 63.2 cm/sec MV E/A: 0.87 PA mean P.7 mmHg Med Peak E' Dada: 4.3 cm/sec PA pr(Accel): 39.6 mmHg E/E' med: 16.7 Lat Peak E' Dada: 8.6 cm/sec E/E' lat: 8.3 E/e' average: 12.5 MV dec time: 0.20 sec SV(LVOT): 72.8 ml Reading Physician:12:09 PM
--- NOTE | 2021-11-22 04:11 | P.HP_ITS ---
History of Present Illness History of Present Illness Date Patient Seen: 11/22/21 Time Patient Seen: 04:11 Chief complaint: chest/back pain/left hand tingle x2 hours Narrative: Noble Garcia a 80-year-old male a history of a left-sided femoral DVT, coronary artery disease with stents placed in 2002, ?prediabetes? remote history of an inferior [place], who presented to the emergency department with a complaint of chest pain. He was seen by Dr. Rodriguez in cardiology at [facility] today as he was using more more nitroglycerin for angina. He states that the pain is under his chest and radiates to his back. He told the ED provider that he had taken 3 nitro followed by Tums which seemed to relieve some of his symptoms. He also has a complaint of pain in his right arm. He was seen in the emergency department a week ago and had an IV placed and it appeared to be infected. He denies fevers sweats or chills, denies shortness of breath, denies nausea or vomiting, denies abdominal pain but appears to be developing a ventral hernia, he complains of having gout which is chronic, denies have any any upper lower extremity neuropathy. He denies any recent air travel, long driving trips, but did endorse being very physically sedentary. Upon review of the records he had developed a left-sided femoral clot earlier this month and was seen initially for what was initially thought to be an abscess and then on 2nd visit was diagnosed with diagnosed with the DVT. He was discharged on a 21 day course of Xarelto with instructions to follow-up with his PCP. Per the patient he states that he had a one-week supply left with no refills when he quit taking the Xarelto due to having a rash on his belly and scratching it and having quite a bit of bleeding. He thought at that point he is DVT was resolved. When he presented today to the emergency department, there was concern for a phlebitis on his right arm, ultrasound of that arm indicated a thrombosis of the basilic vein. He was then ordered for a CTA to determine if he had a PE which indicated presence of pulmonary embolus in the right middle lobe and the lower lobe. He was given a 1 time dose of enoxaparin 115 mg subQ once in the ED. Patient is afebrile, blood pressure 155-83, heart rate 89, respiratory rate 16, oxygen saturation of 97% on room air, he weighs 114.4 kg with a BMI of 39.4. Hi s WBC is markedly elevated at 20.5, RBC 7.25, platelet count 264, he does have a left shift with a neutrophil count of over 17,000, glucose is 214, A1c is pending, rest of his chemistries are normal and COVID-19 PCR is negative. Patient History Medical History Asthma Carotid artery disease (~2002) Chronic back pain Chronic cough Colon polyps Gout Hay fever Hearing deficit Hyperlipidemia Hypertension Obesity (BMI 30-39.9) LEONARD (obstructive sleep apnea) Psoriasis Skin cancer Type 2 diabetes mellitus Surgical History History of angioplasty Family & Social History Family History (Updated 11/22/21 @ 04:23 by MARILU Powell) Mother Heart disease High cholesterol Stroke Hypertension Father No problems noted. Sister Myocardial infarction Sister Myocardial infarction Social History: household members friend(s) Prior Living Arrangements House Safety & Behavioral: Feels Safe in Current Yes Environment Been Physically Hurt or No Threatened By a Person Suicidal Ideation Description None Suicide Plan Description No Plan Tobacco & Substance use: Smoking Status Former smoker alcohol intake current alcohol intake frequency a few times a week Substance Use Type does not use Meds Home Medications and Allergies Home Medications Medication Instructions Recorded Confirmed Type amlodipine 5 mg tablet (Norvasc) 5 mg PO QDAY #30 tab 07/19/16 11/22/21 History aspirin 325 mg tablet 325 mg PO QPM #0 tab 07/19/16 11/22/21 History atorvastatin 40 mg tablet 40 mg PO QPM #0 tab 07/19/16 11/22/21 History carvedilol 25 mg tablet (Coreg) 25 mg PO BID #0 tab 07/19/16 11/22/21 History omeprazole 20 mg capsule,delayed 20 mg PO QDAY #0 cap 07/19/16 11/22/21 History release clopidogrel 75 mg tablet 75 mg PO DAILY 01/02/21 11/22/21 History nitroglycerin 0.4 mg sublingual 0.4 mg SUBLINGUAL Q5M PRN #25 tab 11/14/21 11/22/21 Rx tablet (Nitrostat) albuterol sulfate 90 mcg/actuation 1 puff INHALATION Q4HR PRN 11/22/21 11/22/21 History aerosol inhaler (ProAir HFA) fenofibrate nanocrystallized 145 145 mg PO DAILY 11/22/21 11/22/21 History mg tablet fluticasone propionate 110 1 puff INHALATION BID 11/22/21 11/22/21 History mcg/actuation HFA aerosol inhaler (Flovent HFA) losartan 100 mg tablet 100 mg PO QPM 11/22/21 11/22/21 History metformin 500 mg tablet 500 mg PO QPM 11/22/21 11/22/21 History montelukast 10 mg tablet 10 mg PO DAILY 11/22/21 11/22/21 History (Travisulair) Allergies Allergy/AdvReac Type Severity Reaction Status Date / Time hops [HOPS] Allergy Mild Verified 11/14/21 02:19 Review of Systems Review of Systems ROS: Yes All systems reviewed with the patient and are negative except as othe rwise documented Exam Vital Signs (past 8 hours): - 11/21/21 21:25 11/21/21 23:06 11/21/21 23:10 Temperature 97.7 F Pulse Rate 90 90 90 Respiratory Rate 18 Blood Pressure 156/81 H 178/88 H Pulse Oximetry 97 95 96 11/21/21 23:30 11/21/21 23:59 11/22/21 00:00 Temperature Pulse Rate 105 H 85 85 Respiratory Rate Blood Pressure 162/89 H 152/81 H Pulse Oximetry 95 95 11/22/21 00:30 11/22/21 00:46 11/22/21 01:00 Temperature Pulse Rate 86 92 H 85 Respiratory Rate 24 23 Blood Pressure 155/80 H 163/90 H 129/66 Pulse Oximetry 94 95 94 11/22/21 01:15 11/22/21 01:30 11/22/21 01:45 Temperature Pulse Rate 87 83 90 Respiratory Rate 23 23 26 H Blood Pressure 130/70 135/82 154/93 H Pulse Oximetry 93 94 95 11/22/21 02:00 11/22/21 02:27 Temperature 97.5 F L Pulse Rate 86 89 Respiratory Rate 23 16 Blood Pressure 155/83 H Pulse Oximetry 94 97 Oxygen Delivery Method Room Air Oxygen Flow Rate 0 Narrative Exam Narrative: Gen: Alert, oriented,obese 76 y.o. male, NAD HEENT: normocephalic, atraumatic, conjunctiva clear, sclera non-icteric, oral mucosa pink and moist Neck: supple, full ROM, no JVD, trachea is midline Resp: Lungs CTA, non-labored breathing CV: RRR, no murmur or rubs Abd: obese soft, non-tender, normoactive BTs, appears to be developing a ventral hernia Skin: Right upper extremity is erythematous and tender, multiple superficial scars on his abdomen, dry and intact Neuro: Alert and oriented X 4 w/no focal deficits. Speech clear and coherent. Extremities: moves all 4 extremities, is ambulatory, negative Ciera?s sign Psyche: talkative, normal mood and affect. Objective Labs Result Diagrams: 11/21/21 21:30 11/21/21 21:30 Labs: Laboratory Results - last 24 hr 11/21/21 11/21/21 11/21/21 21:30 21:30 21:30 WBC 20.5 H RBC 7.25 H Hgb 13.5 Hct 44.0 MCV 60.7 L MCH 18.6 L MCHC 30.7 RDW 21.3 H Plt Count 264 Neut % (Auto) 84.2 H Lymph % (Auto) 10.3 L [place] % (Auto) 3.3 Eos % (Auto) 1.0 L Baso % (Auto) 1.2 Neut # (Auto) 58174 H Lymph # (Auto) 2100 [place] # (Auto) 700 Eos # (Auto) 200 Baso # (Auto) 200 H RBC Morphology See below Anisocytosis 3+ H Microcytosis 1+ H Sodium 139 Potassium 3.9 Chloride 104 Carbon Dioxide 27 BUN 21 H Creatinine 0.92 Estimated GFR > 60.0 BUN/Creatinine Ratio 22.8 H Glucose 214 H Lactate Calcium 9.8 Magnesium 1.9 Total Bilirubin 0.7 AST 31 ALT 27 Alkaline Phosphatase 52 Total Creatine Kinase 41 L CK-MB (CK-2) TNP CK-MB (CK-2) Rel Index TNP Troponin I < 0.012 NT-Pro-B Natriuret Pep 122 Total Protein 7.0 Albumin 4.4 Globulin 2.6 Albumin/Globulin Ratio 1.7 Lipase 141 SARS-CoV-2 (PCR) 02/16/22 02/16/22 02/16/22 21:30 22:31 23:30 WBC RBC Hgb Hct MCV MCH MCHC RDW Plt Count Neut % (Auto) Lymph % (Auto) [place] % (Auto) Eos % (Auto) Baso % (Auto) Neut # (Auto) Lymph # (Auto) [place] # (Auto) Eos # (Auto) Baso # (Auto) RBC Morphology Anisocytosis Microcytosis Sodium Potassium Chloride Carbon Dioxide BUN Creatinine Estimated GFR BUN/Creatinine Ratio Glucose Lactate 1.7 Calcium Magnesium Total Bilirubin AST ALT Alkaline Phosphatase Total Creatine Kinase CK-MB (CK-2) CK-MB (CK-2) Rel Index Troponin I 0.015 NT-Pro-B Natriuret Pep Total Protein Albumin Globulin Albumin/Globulin Ratio Lipase SARS-CoV-2 (PCR) Negative Assessment & Plan Assessment & Plan narrative: Noble Garcia will be overserved overnight in order to start anticoagulation therapy and to undergo echocardiogram testing for a pulmonary embolism to determine if he has right-sided heart strain. 1. Pulmonary embolism and right-sided upper extremity DVT, acute, present on admission * Patient did not complete his course of anticoagulation therapy for prior left leg DVT * He will undergo echocardiogram later today * Will inform Dr. Rodriguez of his admission * He will receive therapeutic Lovenox and may be discharged on rivaroxaban 2. Cellulitis/thrombophlebitis of the right upper extremity * He received a 1 time dose of clindamycin in the emergency department * I have put him on ceftriaxone 1 g IV daily 3. Coronary artery disease, chronic * Continue home dose of aspirin 325 mg p.o. daily, carvedilol 25 mg p.o. b.i.d., clopidogrel 75 mg p.o. daily * Continue home dose of nitroglycerin as needed for angina 4. Essential hypertension, chronic * Continue home dose of amlodipine 5 mg p.o. daily, losartan 100 mg in the evening 5. Diabetes type 2 * He will receive low-dose correctional insulin * A1c is 6.9 * He will need diabetic education is he has been being monitored for this. 6. Hyperlipidemia, chronic * Continue home dose of atorvastatin 40 mg p.o. daily VTE Prophylaxis: Wells risk score 9 Enoxaparin 115 mg subQ twice daily therapeutic dose Patient is placed into observation as his stay is not expected to exceed 2 midnights. FEN: IV fluids: saline lock, diet: carb control, labs: CBC, C/BMP, liver enzymes, Mag, PT/INR Consultants None Dispo: Probable discharge to home Code status: Full code as discussed with the patient. [X] I have utilized all available immediate resources to obtain, update, or review of the patient's current medications COVID-19 COVID-19 status: Negative Result date/Date tested (Pos, Neg/Pending): 11/22/21 Scores Wells' Criteria for PE Clinical signs and symptoms of DVT: Yes PE is #1 Dx or equally likely: Yes Heart rate > 100: No Immobilization at least 3 days or surg in previous 4 weeks: Yes History of PE or DVT: Yes Hemoptysis: No Malignancy w/Treatment within 6 months or palliative: No Wells' PE Score total: 9.0 Quality VTE Deep Vein Thrombosis/Pulmonary Embolism Present on Admission: Yes MIPS - Admit I confirm the patient?s Advance Care Plan is present, Code status is documented, Surrogate decision maker is in patient?s record [If Yes, STOP here]: Yes MIPS - DC The patient has current or prior documentation of left ventricular ejection fraction (LVEF) less than 40%, or moderate or severely depressed left ventricular systolic function.: No
[2021-11-22 04:39] LABS: Hemoglobin A1C% w Est Avg Glu 6.9 % (4.0-6.0)
[2021-11-22] MEDS: cefTRIAXone 1,000 MG in SODIUM CHLORIDE 0.9% 100 ML 200 ML IV (05:07)
[2021-11-22 05:28] LABS: Add Manual Diff / Slide Review SLIDE REVIEW; Basophils Absolute Auto 100 /uL (0-100); Basophils Percent Auto 0.3 % (0-2); Eosinophils Absolute Auto 200 /uL (0-450); Eosinophils Percent Auto 1.3 % (2-4); Hematocrit 44.7 % (41-53); Hemoglobin 13.8 g/dL (13.5-17.5); Lymphocytes Absolute Auto 2400 /uL (1100-4500); Lymphocytes Percent Auto 13.7 % (25-40); Mean Corpuscular HGB Conc 30.8 % (30-36); Mean Corpuscular Hemoglobin 18.6 PG (26-34); Mean Corpuscular Volume 60.3 fL (80-100); Monocytes Absolute Auto 600 /uL (0-900); Monocytes Percent Auto 3.2 % (3-14); Neutrophils Absolute Auto 14500 /uL (1500-7000); Neutrophils Percent Auto 81.5 % (50-75); Platelet Count 249 X10^3/uL (150-400); Red Blood Cell Count 7.41 X10^6/uL (4.5-5.9); Red Cell Distribution Width 21.3 % (11.6-14.8); White Blood Cell Count 17.8 X10^3/uL (4.5-11.0)
[2021-11-22 05:32] LABS: Alanine Aminotransferase 25 IU/L (<50); Albumin 4.5 g/dL (3.5-5.0); Albumin Globulin Ratio 1.8 (1.0-2.8); Alkaline Phosphatase 64 U/L (38-126); Aspartate Aminotransferase 31 IU/L (17-59); Bilirubin Total 0.7 mg/dL (0.2-1.3); Bilirubin Unconjugated 0.7 mg/dL (0.0-1.1); Globulin 2.5 g/dL (1.7-4.1); HEMOLYSIS < 15 (0-50); Magnesium 1.9 mg/dL (1.6-2.3)
[2021-11-22 05:40] LABS: NT-proBNP (BNP-Adult 18+) 138 pg/mL (<125)
[2021-11-22 06:54] LABS: Anisocytosis 3+; Microcytosis 1+
[2021-11-22] MEDS: FENOFIBRATE, MICRONIZED 67 MG CAPSULE 201 MG PO (09:20)
[2021-11-22] MEDS: carvediloL 12.5 MG TABLET 25 MG PO ×2 (09:21→20:38)
[2021-11-22] MEDS: AMLODIPINE 5 MG TABLET PO (09:21)
[2021-11-22] MEDS: CLOPIDOGREL 75 MG TABLET PO (09:22)
--- NOTE | 2021-11-22 13:24 | PC.NURSE ---
pt A&Ox4, 94%RA, slightly sob w/exertion but improved from yesterday. no chest pain. Rt. FA erythema and edema. pt has been ambulating independently in his room.
--- NOTE | 2021-11-22 15:26 | CM.IDA ---
Initial DCP Assessment Note Pt is a 76 yo male, resident of [place], arrives w/chest pain and admitted; H+P: to start anticoagulation therapy and to undergo echocardiogram testing for a pulmonary embolism to determine if he has right-sided heart strain. Patient w/multiple co-morbidities to include H+P: history of a left-sided femoral DVT, coronary artery disease with stents placed in 2002, ?prediabetes? remote history of an inferior [place] PCP:Michelle Anthony Payer: Rossi ARMAS Reviewed chart, met w/patient, introduced role. Patient is very pleasant, mostly in good spirits, becomes tearful at times talking about his partner of 40+ years, Wilfrido, who patient states worries about him often. Patient is indp at baseline, retired, expects to DC back home upon DC, no needs expected from this [employer]. Will plan to follow closely in case thins changes before patient's medical DC TOM Parikh Discharge Planning/Care Management CM Discharge Assessment Start: 11/22/21 15:22 Freq: Status: Active Protocol: Document 11/22/21 15:23 MAISHA (Rec: 11/22/21 15:26 MAISHA [id number]) Discharge Planning Assessment Assigned Quality Management Nurse TOM Ochoa DPOA/Assigned Designee Name Wilfrido Wade, partner Contact Information [phone] Advance Directives? Yes Advance Directives on File No History Provided By Patient Prior Living Arrangements House Household Members significant other Comment Partner 40+ years Type of transporation used prior to Drives own vehicle admit Independent with ADL's Yes Is patient alert and oriented? Yes Barriers to Discharge No Comment Expect patient will DC back w/ partner upon DC, both are retired Discharge Plan Home Transportation Arrangement Partner Referrals Initiated None needed Additional Comment No referrals needed at this time
[2021-11-22] MEDS: LOSARTAN 50 MG TABLET 100 MG PO (17:04)
[2021-11-22] MEDS: ASPIRIN 325 MG TABLET PO (17:04)
[2021-11-22] MEDS: ATORVASTATIN 20 MG TABLET 40 MG PO (20:39)
[2021-11-22] MEDS: ENOXAPARIN 80 MG/0.8 ML SYRINGE 110 MG SUBCUT (20:39)
[2021-11-23 00:48] VITALS: BP 106/64; PULSE 77; RESP 17; TEMP 36.4; O2SAT 92
[2021-11-23] MEDS: cefTRIAXone 1,000 MG in SODIUM CHLORIDE 0.9% 100 ML 200 ML IV (03:47)
--- NOTE | 2021-11-23 04:41 | PC.NURSE ---
Shift Note: Patient was alert and orientedx4, denies any pain/discomfort. Afebrile, vital signs within acceptable limits, no signs of cardiorespiratory distress. O2 sat maintained >90% at room air. Will continue to monitor.
[2021-11-23 05:48] VITALS: BP 133/84; PULSE 77; RESP 17; TEMP 36.7; O2SAT 93
[2021-11-23 07:41] VITALS: O2SAT 92
[2021-11-23 08:39] VITALS: BP 132/61; PULSE 87
[2021-11-23] MEDS: AMLODIPINE 5 MG TABLET PO (08:39)
[2021-11-23] MEDS: carvediloL 12.5 MG TABLET 25 MG PO (08:39)
[2021-11-23] MEDS: CLOPIDOGREL 75 MG TABLET PO (08:40)
[2021-11-23] MEDS: FENOFIBRATE, MICRONIZED 67 MG CAPSULE 201 MG PO (08:41)
[2021-11-23] MEDS: ENOXAPARIN 80 MG/0.8 ML SYRINGE 110 MG SUBCUT (08:42)
[2021-11-23] MEDS: MONTELUKAST 10 MG TABLET PO (08:48)
[2021-11-23 11:37] VITALS: BP 118/63; PULSE 85
--- NOTE | 2021-11-23 11:38 | PC.NURSE ---
Addendum entered by Juan Umana R.N. 11/23/21 15:31: Pt readied for d/c. Seen by Pharmacist for med teaching. IV d/c'd intact. Instructions given Pt escorted to car via w/c with PARTS REMOVER Original Note: Pt's alert and oriented, follows commands, offers no complaint. Will continue to monitor. Continues on Tele. Up in room with SBA.
--- NOTE | 2021-11-23 12:43 | P.PN_ITS ---
Subjective Subjective Interval history: The patient denies any acute complaints this morning. We discussed that he should be on baby aspirin at home with his Plavix, and not full dose aspirin, as he will be started on anticoagulation now, too, with Eliquis. We also discussed NSAID's like Motrin, Advil, etc., should be avoided by him, and use Tylenol instead. Patient was also advised to follow-up outpatient for sleep study, and CPAP for likely LEONARD. Exam Vital Signs (past 8 hours): - 11/23/21 05:48 11/23/21 07:41 11/23/21 08:39 Temperature 98.0 F Pulse Rate 77 87 Respiratory Rate 17 Blood Pressure 133/84 132/61 Pulse Oximetry 93 92 11/23/21 11:37 Temperature Pulse Rate 85 Respiratory Rate Blood Pressure 118/63 Pulse Oximetry Oxygen Delivery Method Room Air Oxygen Flow Rate 0 Const Other: Patient sitting up in bed comfortably upon my entering the room, speaking with his partner at bedside HENMT Other: Facial hair complexion appreciated Eyes Other: No scleral icterus appreciated Neck Other: No carotid bruits appreciated Resp Other: Lungs clear to auscultation bilaterally, without adventitious breath sounds Cardio Other: RRR, S1 and S2 heart sounds normal, with no extra heart sounds or murmurs appreciated GI Other: Soft, non-distended, non-tender, bowel sounds present Skin Other: Hair skin complexion appreciated Extrem Other: Good dorsalis pedis pulses bilaterally Objective Labs Result Diagrams: 11/22/21 05:00 11/21/21 21:30 [facility] Medical History Asthma Carotid artery disease (~2002) Chronic back pain Chronic cough Colon polyps Gout Hay fever Hearing deficit Hyperlipidemia Hypertension Obesity (BMI 30-39.9) LEONARD (obstructive sleep apnea) Psoriasis Skin cancer Type 2 diabetes mellitus Surgical History History of angioplasty Family History (Updated 11/22/21 @ 04:23 by MARILU Powell) Mother Heart disease High cholesterol Stroke Hypertension Father No problems noted. Sister Myocardial infarction Sister Myocardial infarction Social History marital status: unmarried,single household members: significant other housing: house pets and animals: Yes current occupational exposures/hazards: Yes ([facility]) Smoking Status: Former smoker alcohol intake: current substance use type: does not use Assessment & Plan Assessment & Plan narrative: Noble Garcia is here to start anticoagulation therapy and to undergo echocardiogram testing for a pulmonary embolism to determine if he has right- sided heart strain. 1. Pulmonary embolism and right-sided upper extremity DVT, acute, present on admission * Patient did not complete his course of anticoagulation therapy for prior left leg DVT * Echocardiogram does not show significant right heart strain * Will discharge on PO Eliquis 10 mg bid for 7 days, afterward he can take Eliquis 5 mg bid indefinitely 2. Thrombophlebitis of the right upper extremity * Will continue conservative therapy with warm compresses 3. Coronary artery disease, chronic * Home dose of aspirin 325 mg daily changed to aspirin 81 mg daily, given that he's on Plavix and Eliquis, too * We extensively discussed that he's on dual antiplatelet therapy and anticoagulation, and must avoid NSAIDS or other blood thinning medications, and watch out for bleeds while on these meds * Continue home carvedilol 25 mg p.o. b.i.d., clopidogrel 75 mg p.o. daily 4. Essential hypertension, chronic * Continue home dose of amlodipine 5 mg p.o. daily, losartan 100 mg in the evening 5. Diabetes type 2 * Can continue home medication regimen 6. Hyperlipidemia, chronic * Uptitrated home dose of atorvastatin 40 mg p.o. daily to 80 mg daily, given severe CAD VTE Prophylaxis: Eliquis for DVT/PE, as above Code status: Full code? I have utilized all available immediate resources to obtain, update, or review of the patient's current medications Time Spent With Patient Critical Care time: I spent a total of [] minutes of critical care time on this patient's care today; this time is exclusive of procedural time. Quality VTE Deep Vein Thrombosis/Pulmonary Embolism Present on Admission: Yes MIPS - Admit I confirm the patient?s Advance Care Plan is present, Code status is documented, Surrogate decision maker is in patient?s record [If Yes, STOP here]: Yes
--- NOTE | 2021-11-23 12:53 | P.DS_ITS ---
History of Present Illness History of Present Illness Chief complaint: chest/back pain/left hand tingle x2 hours Narrative: Noble Garcia a 80-year-old male a history of a left-sided femoral DVT, coronary artery disease with stents placed in 2002, ?prediabetes? remote history of an inferior NE, who presented to the emergency department with a complaint of chest pain.? He was seen by Dr. Rodriguez in cardiology at [facility] today as he was using more more nitroglycerin for angina.? He states that the pain is under his chest and radiates to his back.? He told the ED provider that he had taken 3 nitro followed by Tums which seemed to relieve some of his symptoms.? He also has a complaint of pain in his right arm.? He was seen in the emergency department a week ago and had an IV placed and it appeared to be infected.? He denies fevers sweats or chills, denies shortness of breath, denies nausea or vomiting, denies abdominal pain but appears to be developing a ventral hernia, he complains of having gout which is chronic, denies have any any upper lower extremity neuropathy.? He denies any recent air travel, long driving trips, but did endorse being very physically sedentary. Upon review of the records he had developed a left-sided femoral clot earlier this month and was seen initially for what was initially thought to be an abscess and then on 2nd visit was diagnosed with diagnosed with the DVT.? He was discharged on a 21 day course of Xarelto with instructions to follow-up with his PCP.? Per the patient he states that he had a one-week supply left with no refills when he quit taking the Xarelto due to having a rash on his belly and scratching it and having quite a bit of bleeding.? He thought at that point he is DVT was resolved.? When he presented today to the emergency department, there was concern for a phlebitis on his right arm, ultrasound of that arm indicated a thrombosis of the basilic vein.? He was then ordered for a CTA to determine if he had a PE which indicated presence of pulmonary embolus in the right middle lobe and the lower lobe.? He was given a 1 time dose of enoxaparin 115 mg subQ once in the ED. Patient is afebrile, blood pressure 155-83, heart rate 89, respiratory rate 16, oxygen saturation of 97% on room air, he weighs 114.4 kg with a BMI of 39.4.? His WBC is markedly elevated at 20.5, RBC 7.25, platelet count 264, he does have a left shift with a neutrophil count of over 17,000, glucose is 214, A1c is pending, rest of his chemistries are normal and COVID-19 PCR is negative. Written by the admitting provider Discharge Providers Provider Date of admission: 11/22/21 01:45 Discharge Date: 11/23/21 Primary care physician: Michelle Anthony DO Discharge provider: Andrea Mcconnell MD Summary Hospital Course Discharge Diagnosis: Noble Garcia is here to start anticoagulation therapy and to undergo echocardiogram testing for a pulmonary embolism to determine if he has right- sided heart strain. 1. Pulmonary embolism and right-sided upper extremity DVT, acute, present on admission * Patient did not complete his course of anticoagulation therapy for prior left leg DVT * Echocardiogram does not show significant right heart strain * Will discharge on PO Eliquis 10 mg bid for 7 days, afterward he can take Eliquis 5 mg bid indefinitely 2. Thrombophlebitis of the right upper extremity * Will continue conservative therapy with warm compresses 3. Coronary artery disease, chronic * Home dose of aspirin 325 mg daily changed to aspirin 81 mg daily, given that he's on Plavix and Eliquis, too * We extensively discussed that he's on dual antiplatelet therapy and anticoagulation, and must avoid NSAIDS or other blood thinning medications, and watch out for bleeds while on these meds * Continue home carvedilol 25 mg p.o. b.i.d., clopidogrel 75 mg p.o. daily 4. Essential hypertension, chronic * Continue home dose of amlodipine 5 mg p.o. daily, losartan 100 mg in the evening 5. Diabetes type 2 * Can continue home medication regimen 6. Hyperlipidemia, chronic * Uptitrated home dose of atorvastatin 40 mg p.o. daily to 80 mg daily, given severe CAD Exam Vital Signs (past 8 hours): - 11/23/21 05:48 11/23/21 07:41 11/23/21 08:39 Temperature 98.0 F Pulse Rate 77 87 Respiratory Rate 17 Blood Pressure 133/84 132/61 Pulse Oximetry 93 92 11/23/21 11:37 Temperature Pulse Rate 85 Respiratory Rate Blood Pressure 118/63 Pulse Oximetry Oxygen Delivery Method Room Air Oxygen Flow Rate 0 Objective Labs Result Diagrams: 11/22/21 05:00 11/21/21 21:30 [facility] Medical History Asthma Carotid artery disease (~2002) Chronic back pain Chronic cough Colon polyps Gout Hay fever Hearing deficit Hyperlipidemia Hypertension Obesity (BMI 30-39.9) LEONARD (obstructive sleep apnea) Psoriasis Skin cancer Type 2 diabetes mellitus Surgical History History of angioplasty Family History (Updated 11/22/21 @ 04:23 by MARILU Powell) Mother Heart disease High cholesterol Stroke Hypertension Father No problems noted. Sister Myocardial infarction Sister Myocardial infarction Social History marital status: unmarried,single household members: significant other housing: house pets and animals: Yes current occupational exposures/hazards: Yes ([facility]) Smoking Status: Former smoker alcohol intake: current substance use type: does not use Discharge Assessment & Plan Assessment and Plan Assessment: Noble Garcia is here to start anticoagulation therapy and to undergo echocardiogram testing for a pulmonary embolism to determine if he has right- sided heart strain. 1. Pulmonary embolism and right-sided upper extremity DVT, acute, present on admission ? Patient did not complete his course of anticoagulation therapy for prior left leg DVT ? Echocardiogram does not show significant right heart strain ? Will discharge on PO Eliquis 10 mg bid for 7 days, afterward he can take Eliquis 5 mg bid indefinitely 2. Thrombophlebitis of the right upper extremity ? Will continue conservative therapy with warm compresses 3. Coronary artery disease, chronic ? Home dose of aspirin 325 mg daily changed to aspirin 81 mg daily, given that he's on Plavix and Eliquis, too ? We extensively discussed that he's on dual antiplatelet therapy and anti coagulation, and must avoid NSAIDS or other blood thinning medications, and watch out for bleeds while on these meds ? Continue home carvedilol 25 mg p.o. b.i.d., clopidogrel 75 mg p.o. daily 4. Essential hypertension, chronic ? Continue home dose of amlodipine 5 mg p.o. daily, losartan 100 mg in the evening 5. Diabetes type 2 ? Can continue home medication regimen 6. Hyperlipidemia, chronic ? Uptitrated home dose of atorvastatin 40 mg p.o. daily to 80 mg daily, given severe CAD Discharge Plan Discharge Plan Patient Disposition: Home Discharge orders & Medications Prescriptions: New atorvastatin [Lipitor] 20 mg Tablet 80 mg PO BEDTIME 90 Days 0RF aspirin 325 mg Tablet 81 mg PO QPM 90 Days Qty: 23 4RF Eliquis 5 mg Tablet 5 mg PO BID 90 Days Qty: 180 4RF Rx Instructions: Take apixaban 10 mg (2 pills) every 12 hours, by mouth, for 7 days. Afterward, take apixaban 5 mg (1 pill) every 12 hours indefinitely. Continued amlodipine [Norvasc] 5 MG tablet 5 mg PO QDAY Qty: 30 0RF carvedilol [Coreg] 25 MG tablet 25 mg PO BID Qty: 0 0RF omeprazole 20 MG capsule,delayed release(DR/EC) 20 mg PO QDAY Qty: 0 0RF clopidogrel 75 mg tablet 75 mg PO DAILY 0RF montelukast [Singulair] 10 mg Tablet 10 mg PO DAILY 0RF metformin 500 mg tablet 500 mg PO QPM 0RF albuterol sulfate [ProAir HFA] 90 mcg/actuation HFA aerosol inhaler 1 puff inhalation Q4HR PRN (Reason: Shortness Of Breath) 0RF Rx Instructions: inhale 1 to 2 puffs by mouth every 4 hours if needed for shortness of breath losartan 100 mg tablet 100 mg PO QPM 0RF Rx Instructions: take 1 tablet by mouth once daily Flovent HFA 110 mcg/actuation HFA aerosol inhaler 1 puff inhalation BID 0RF Rx Instructions: inhale 1 puff by mouth and INTO THE LUNGS twice a day fenofibrate nanocrystallized 145 mg tablet 145 mg PO DAILY 0RF Rx Instructions: take 1 tablet by mouth once daily nitroglycerin [Nitrostat] 0.4 mg tablet, sublingual 0.4 mg sublingual Q5M PRN (Reason: chest pain) Qty: 25 1RF Rx Instructions: do not exceed 3 doses per episode Discontinued atorvastatin 40 MG tablet 40 mg PO QPM Qty: 0 0RF aspirin 325 MG tablet 325 mg PO QPM Qty: 0 0RF Follow up/Referrals: Michelle Anthony, [Primary Care Provider] - Discharge Data Primary Care Provider: Michelle Anthony Quality VTE Deep Vein Thrombosis/Pulmonary Embolism Present on Admission: Yes
--- NOTE | 2021-11-23 14:10 | CM.DPNOTE ---
DC Note Patient discharged home w/partner today, eager to return home. 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 Close outpatient f/u JW
== END 2021-11-23 14:17 | disposition home or self-care (01) | DRG 176 ==
LOC: ED 11-22 01:35 → AC 11-22 08:09
PROVIDERS: Admitting Provider Nurse Practitioner Family; Emergency Provider Emergency Medicine; PCP Family Medicine; Referring Provider Emergency Medicine; Visit Provider Nurse Practitioner Family
DX: I26.99 Other pulmonary embolism without acute cor pulmonale (principal); I80.8 Phlebitis and thrombophlebitis of other sites; E66.9 Obesity, unspecified; I25.10 Atherosclerotic heart disease of native coronary artery without angina pectoris; I10 Essential (primary) hypertension; E78.5 Hyperlipidemia, unspecified; E11.9 Type 2 diabetes mellitus without complications; J45.909 Unspecified asthma, uncomplicated; Z79.84 Long term (current) use of oral hypoglycemic drugs; Z95.5 Presence of coronary angioplasty implant and graft; Z68.39 Body mass index [BMI] 39.0-39.9, adult; Z20.822 Contact with and (suspected) exposure to COVID-19; Z87.891 Personal history of nicotine dependence
CPT/HCPCS: 36415; 71045; 71275; 80053; 80076; 82550; 82962; 83036; 83605; 83690; 83735; 83880; 84484; 85025; 87040; 87635; 93005; 93010; 93306; 93971; 94640; 94762; 96365; 96372; 99285; C9803; G0378; J0696; J1650; J1815; Q9967

== ENCOUNTER 2021-12-12 01:52 | Emergency (ER) | payer MEDICARE, SELFPAY ==
[2021-11-22 02:29] VITALS: BMI 39.4
[2021-12-12] VITALS (15 sets, daily range): BP systolic 135–178; BP diastolic 69–98; PULSE 75–84; RESP 19–29; TEMP 36.6; O2SAT 90–97; BMI 39.1
--- NOTE | 2021-12-12 02:16 | DI.RAD.S_ITS ---
PROCEDURE: XR CHEST 1V INDICATIONS: chest pain TECHNIQUE: One view of the chest was acquired. COMPARISON: None. FINDINGS: Surgical changes and devices: None. Lungs and pleura: Lungs are clear. Mild prominence of the central pulmonary vasculature. No pleural effusions or pneumothorax. Mediastinum: Mediastinal contours appear normal. Heart is mildly enlarged. Bones and chest wall: No suspicious bony lesions. Overlying soft tissues appear unremarkable. IMPRESSION: Cardiomegaly with mild prominent central pulmonary vasculature concerning for CHF. Dictated by: Barb Moore MD, PhD on 12/12/2021 at 8:11 Approved by: Barb Moore MD, PhD on 12/12/2021 at 8:11
--- NOTE | 2021-12-12 02:19 | ED_ITS ---
HPI - Chest Pain General Chief Complaint: Chest Pain Stated Complaint: chest pain Time Seen by Provider: 12/12/21 02:00 Source: patient Mode of arrival: EMS Limitations: no limitations History of Present Illness HPI narrative: 76-year-old male former smoker with extensive cardiac history including multiple heart catheterization, 6 stents, hypertension, hyperlipidemia, diabetes, pulmonary embolism presents by EMS with a chief complaint of chest pain that woke him from rest at about midnight. He states that it was a 9/10, heavy and squeezing in nature and radiated into his left shoulder and arm. He became adonay rt of breath, nauseated and diaphoretic. He took 2 of his own nitro and had minimal relief and called EMS. On their arrival they had instructed him to take a full-dose aspirin and after giving a few of their nitro his symptoms resolved, however while in route his chest pain came back again and in the similar location and radiation. He is in the process of being scheduled for an outpatient stress test because he has been complaining of increasing exercise intolerance over the past few weeks. He states that earlier in the day yesterday he had 2 episodes of chest pressure brought on by exertion, walking across the room approximately 10 ft that resolved after rest. At our facility on November 21 and was found to have a basilic vein thrombosis in his right arm, given his frequent episodes of chest pain as of late he had a CT angiogram which noted pulmonary embolism. His PESI score was 3, he was admitted here and started on Eliquis. He had an echo at that time and found EF to be 55-60% with possible mild RV dilatation. He is followed by the [facility]. Related Data Home Medications Medication Instructions Recorded Confirmed amlodipine 5 mg tablet (Norvasc) 5 mg PO QDAY #30 tab 07/19/16 11/22/21 carvedilol 25 mg tablet (Coreg) 25 mg PO BID #0 tab 07/19/16 11/22/21 omeprazole 20 mg capsule,delayed 20 mg PO QDAY #0 cap 07/19/16 11/22/21 release clopidogrel 75 mg tablet 75 mg PO DAILY 01/02/21 11/22/21 albuterol sulfate 90 mcg/actuation 1 puff INHALATION Q4HR PRN 11/22/21 11/22/21 aerosol inhaler (ProAir HFA) fenofibrate nanocrystallized 145 145 mg PO DAILY 11/22/21 11/22/21 mg tablet fluticasone propionate 110 1 puff INHALATION BID 11/22/21 11/22/21 mcg/actuation HFA aerosol inhaler (Flovent HFA) losartan 100 mg tablet 100 mg PO QPM 11/22/21 11/22/21 metformin 500 mg tablet 500 mg PO QPM 11/22/21 11/22/21 montelukast 10 mg tablet 10 mg PO DAILY 11/22/21 11/22/21 (Singulair) Previous Rx's Medication Instructions Recorded nitroglycerin 0.4 mg sublingual 0.4 mg SUBLINGUAL Q5M PRN #25 tab 11/14/21 tablet (Nitrostat) apixaban 5 mg tablet (Eliquis) 5 mg PO BID 90 Days #180 tab 11/23/21 aspirin 325 mg tablet 81 mg PO QPM 90 Days #23 tab 11/23/21 atorvastatin 20 mg tablet (Lipitor) 80 mg PO BEDTIME 90 Days tab 11/23/21 Allergies Allergy/AdvReac Type Severity Reaction Status Date / Time hops [HOPS] Allergy Mild Verified 11/14/21 02:19 Review of Systems Review of Systems Narrative: GENERAL: See HPI HEENT: Denies sinus pain, ear pain, sore throat, difficulty swallowing, dizziness. RESPIRATORY: See HPI CARDIOVASCULAR: See HPI GASTROINTESTINAL: See HPI : Denies dysuria, frequency, incontinence, hematuria, urinary retention. MUSCULOSKELETAL: denies weakness, joint pain, or bony pain SKIN: Denies rash, skin lesions, or other NEUROLOGIC: Denies weakness, headache, numbness, change in speech, confusion, seizures, incoordination. PSYCHIATRIC: No concerning psychosocial issues. 12 point review of systems is negative except for those stated above Patient History Medical History Asthma Carotid artery disease (~2002) Chronic back pain Chronic cough Colon polyps Gout Hay fever Hearing deficit Hyperlipidemia Hypertension Obesity (BMI 30-39.9) LEONARD (obstructive sleep apnea) Psoriasis Skin cancer Type 2 diabetes mellitus Surgical History History of angioplasty Family History Mother Heart disease High cholesterol Stroke Hypertension Father No problems noted. Sister Myocardial infarction Sister Myocardial infarction Social History marital status: unmarried,single household members: significant other housing: house pets and animals: Yes current occupational exposures/hazards: Yes ([employer]) Smoking Status: Former smoker alcohol intake: current substance use type: does not use Smoking Status: Former smoker alcohol intake frequency: 0-2 drinks per day Substance Use Type: does not use Exam Narrative Exam Narrative: GENERAL: [76 year old patient appears stated age. Well-developed patient, in mild distress. HEAD: Atraumatic. Normocephalic. EYES: Pupils equal round and reactive. Extraocular motions intact. No scleral icterus. No injection or drainage. ENT: Nose without bleeding, purulent drainage. Throat without erythema, tonsillar hypertrophy or exudate. Airway patent. NECK: Trachea midline. Non tender CARDIOVASCULAR: Regular rate and rhythm without murmurs, gallops, or rubs. RESPIRATORY: Clear to auscultation. Breath sounds equal bilaterally. No wheezes, rales, or rhonchi. GASTROINTESTINAL: Abdomen soft, non-tender, nondistended. EXTREMITIES: No edema or joint tenderness. BACK: Nontender without deformity or crepitance. No flank tenderness. NEURO: AOx3. SKIN: No rash or erythema of visible areas Initial Vital Signs Initial Vital Signs: Vital Signs Pulse Rate 82 12/12/21 01:56 Respiratory Rate 22 12/12/21 01:56 Course Orders Ordered: ED Orders 12/12/21 EKG-12 Lead Routine 12/12/21 01:40 Complete Blood Count AUTO DIFF Stat Comprehensive Metabolic Panel Stat Lipase Stat Magnesium Stat Troponin & CK Cardiac Panel Stat 12/12/21 01:58 EKG-12 Lead Routine 12/12/21 02:16 XR chest 1V Stat EKG-12 Lead Stat 12/12/21 03:18 COVID19 -Nasal swab/Pre-Proc Stat Heparin Sodium/Dextrose (Heparin Drip) 25,000 unit in 500 mls @ 20 mls/hr IV CONT TRENT; Protocol Last Admin: 12/12/21 03:10 Dose: 1,000 units/hr, 20 mls/hr Documented by: CTRJADA Discontinued Medications Heparin Sodium (Porcine) (Heparin 5,000 Unit/Ml Vial) 5,000 unit IV NOW ONE Stop: 12/12/21 02:59 Last Admin: 12/12/21 03:10 Dose: 5,000 unit Documented by: UDAY Metoprolol Tartrate (Metoprolol Tartrate 5 Mg/5 Ml Inj) 5 mg IV Q5M TRENT Stop: 12/12/21 03:11 Last Admin: 12/12/21 03:13 Dose: 5 mg Documented by: Admin: 12/12/21 03:03 Dose: 5 mg Documented by: Admin: 12/12/21 03:00 Dose: Not Given Documented by: UDAY Morphine Sulfate (Morphine 4 Mg/Ml Inj) 4 mg IV NOW ONE Stop: 12/12/21 02:47 Last Admin: 12/12/21 02:51 Dose: 4 mg Documented by: UDAY Morphine Sulfate (Morphine 4 Mg/Ml Inj) 4 mg IV NOW ONE Stop: 12/12/21 04:55 Last Admin: 12/12/21 04:57 Dose: 4 mg Documented by: UDAY Nitroglycerin (Nitroglycerin Oint 1 Inch/Gm Oint...G.) 1 inch TOP NOW ONE Stop: 12/12/21 02:41 Last Admin: 12/12/21 02:45 Dose: 1 inch Documented by: UDAY Reevaluation(s) Reevaluation #1: called to see patient having significant increase in pain, repeat EKG ordered, nitro paste ordered, second line placed. call to [facility]. Time: 03:00 Reevaluation #2: pain down to 1/10 after above stated therapies Consultations Consultation #1: call to cardiology at [facility] ([facility]). Agrees with treatment plan, diagnosis, and need for transfer. Discussed Heparin in the setting of Aspirin, Plavix, and Eliquis and he recommends it's use. NG drip if needed. Call to hospitalist when labs back. Consultation #2: Dr. Spencer ([facility] hospitalist) is happy to accept patient in transfer Vital Signs Vital signs: Vital Signs - 8 hr 12/12/21 01:56 12/12/21 01:57 12/12/21 02:00 Temperature 97.9 F Pulse Rate 82 79 76 Respiratory Rate 22 22 19 Blood Pressure 146/78 H 135/69 Pulse Oximetry 97 96 12/12/21 02:30 12/12/21 02:31 12/12/21 02:45 Temperature Pulse Rate 80 79 84 Respiratory Rate 24 23 23 Blood Pressure 157/75 H 178/96 H Pulse Oximetry 95 95 97 12/12/21 02:52 12/12/21 03:00 12/12/21 03:02 Temperature Pulse Rate 80 77 75 Respiratory Rate 24 24 28 H Blood Pressure 169/98 H 172/92 H 160/87 H Pulse Oximetry 97 93 92 12/12/21 03:06 12/12/21 03:17 12/12/21 03:30 Temperature Pulse Rate 77 75 78 Respiratory Rate 21 29 H 26 H Blood Pressure 161/88 H 155/85 H 175/90 H Pulse Oximetry 92 91 92 12/12/21 04:00 12/12/21 04:30 Temperature Pulse Rate 79 81 Respiratory Rate 22 Blood Pressure 152/77 H 157/85 H Pulse Oximetry 90 L 91 MDM - Chest Pain Lab Data Result diagrams: 12/12/21 01:40 12/12/21 01:40 Labs: Lab Results 12/12/21 12/12/21 12/12/21 Range/Units 01:40 01:40 03:18 WBC 19.4 H (4.5-11.0) X10^3/uL RBC 6.87 H (4.5-5.9) X10^6/uL Hgb 12.4 L (13.5-17.5) g/dL Hct 41.2 (41-53) % MCV 60.0 L (80-100) fL MCH 18.0 L (26-34) PG MCHC 29.9 L (30-36) % RDW 21.3 H (11.6-14.8) % Plt Count 240 (150-400) X10^3/uL Neut % (Auto) 83.5 H (50-75) % Lymph % (Auto) 11.5 L (25-40) % [place] % (Auto) 3.7 (3-14) % Eos % (Auto) 1.1 L (2-4) % Baso % (Auto) 0.2 (0-2) % Neut # (Auto) 08078 H (7644-9501) /uL Lymph # (Auto) 2200 (7410-3542) /uL [place] # (Auto) 700 (0-900) /uL Eos # (Auto) 200 (0-450) /uL Baso # (Auto) 0 (0-100) /uL RBC Morphology See below Hypochromasia 1+ H Anisocytosis 3+ H Microcytosis 2+ H Ovalocytes 1+ H Sodium 137 (137-145) mmol/L Potassium 3.9 (3.4-5.1) mmol/L Chloride 103 (98-107) mmol/L Carbon Dioxide 27 (22-32) mmol/L BUN 25 H (9-20) mg/dL Creatinine 0.94 (0.66-1.25) mg/dL Estimated GFR > 60.0 (>60) mL/min BUN/Creatinine Ratio 26.6 H (6-22) Glucose 164 H (80-110) mg/dL Calcium 9.7 (8.4-10.2) mg/dL Magnesium 1.7 (1.6-2.3) mg/dL Total Bilirubin 1.1 (0.2-1.3) mg/dL AST 28 (17-59) IU/L ALT 26 (<50) IU/L Alkaline Phosphatase 52 (38-126) U/L Total Creatine Kinase 23 L (55-170) U/L CK-MB (CK-2) TNP CK-MB (CK-2) Rel Index TNP Troponin I < 0.012 (0.01-0.034) ng/mL Total Protein 7.2 (6.3-8.2) g/dL Albumin 4.4 (3.5-5.0) g/dL Globulin 2.8 (1.7-4.1) g/dL Albumin/Globulin Ratio 1.6 (1.0-2.8) Lipase 97 (23-300) U/L SARS-CoV-2 (PCR) Negative (Negative) ECG Data Interpretation: EKG 1 @ 0158: EKG is normal sinus rhythm rate [76 ] and free of any signs of ischemia or ectopy. No ST segmental elevation or depression. No T wave inversions EKG @ 0451: NSR with ST depressions worsening in lateral leads. Critical Care Time Critical Care Time Critical Care Time: Yes Total Critical Care Time: 60 Attestation: The high probability of a clinically significant, sudden or life threatening deterioration of the [CV] system(s) required my full and direct attention, intervention and personal management. The aggregate critical care time was [60] minutes. This time is in addition to time spent performing reported procedures but includes the following: [x] Data Review and interpretation [x] Patient assessment and monitoring of vital signs [x] Documentation []x Medication orders and management Discharge Plan Departure Patient Disposition: [facility] Clinical Impression: Angina pectoris, unstable Prescriptions: No Action amlodipine [Norvasc] 5 MG tablet 5 mg PO QDAY Qty: 30 0RF carvedilol [Coreg] 25 MG tablet 25 mg PO BID Qty: 0 0RF omeprazole 20 MG capsule,delayed release(DR/EC) 20 mg PO QDAY Qty: 0 0RF clopidogrel 75 mg tablet 75 mg PO DAILY 0RF montelukast [Singulair] 10 mg Tablet 10 mg PO DAILY 0RF metformin 500 mg tablet 500 mg PO QPM 0RF albuterol sulfate [ProAir HFA] 90 mcg/actuation HFA aerosol inhaler 1 puff inhalation Q4HR PRN (Reason: Shortness Of Breath) 0RF Rx Instructions: inhale 1 to 2 puffs by mouth every 4 hours if needed for shortness of breath losartan 100 mg tablet 100 mg PO QPM 0RF Rx Instructions: take 1 tablet by mouth once daily Flovent HFA 110 mcg/actuation HFA aerosol inhaler 1 puff inhalation BID 0RF Rx Instructions: inhale 1 puff by mouth and INTO THE LUNGS twice a day fenofibrate nanocrystallized 145 mg tablet 145 mg PO DAILY 0RF Rx Instructions: take 1 tablet by mouth once daily atorvastatin [Lipitor] 20 mg Tablet 80 mg PO BEDTIME 90 Days 0RF aspirin 325 mg Tablet 81 mg PO QPM 90 Days Qty: 23 4RF Eliquis 5 mg Tablet 5 mg PO BID 90 Days Qty: 180 4RF Rx Instructions: Take apixaban 10 mg (2 pills) every 12 hours, by mouth, for 7 days. Afterward, take apixaban 5 mg (1 pill) every 12 hours indefinitely. nitroglycerin [Nitrostat] 0.4 mg tablet, sublingual 0.4 mg sublingual Q5M PRN (Reason: chest pain) Qty: 25 1RF Rx Instructions: do not exceed 3 doses per episode Referrals: Michelle Anthony, [Primary Care Provider] -
[2021-12-12 02:39] LABS: Add Manual Diff / Slide Review NO; Basophils Absolute Auto 0 /uL (0-100); Basophils Percent Auto 0.2 % (0-2); Eosinophils Absolute Auto 200 /uL (0-450); Eosinophils Percent Auto 1.1 % (2-4); Hematocrit 41.2 % (41-53); Hemoglobin 12.4 g/dL (13.5-17.5); Lymphocytes Absolute Auto 2200 /uL (1100-4500); Lymphocytes Percent Auto 11.5 % (25-40); Mean Corpuscular HGB Conc 29.9 % (30-36); Monocytes Absolute Auto 700 /uL (0-900); Monocytes Percent Auto 3.7 % (3-14); Neutrophils Absolute Auto 16100 /uL (1500-7000); Neutrophils Percent Auto 83.5 % (50-75); Platelet Count 240 X10^3/uL (150-400); Red Blood Cell Count 6.87 X10^6/uL (4.5-5.9); Red Cell Distribution Width 21.3 % (11.6-14.8); White Blood Cell Count 19.4 X10^3/uL (4.5-11.0)
[2021-12-12] MEDS: NITROGLYCERIN OINT 1 INCH/GM OINT...G. TOP (02:45)
[2021-12-12] MEDS: MORPHINE 4 MG/ML INJ IV ×3 (02:51→05:30)
[2021-12-12] MEDS: METOPROLOL TARTRATE 5 MG/5 ML INJ IV ×3 (02:55→03:13)
[2021-12-12 03:08] LABS: Alanine Aminotransferase 26 IU/L (<50); Albumin 4.4 g/dL (3.5-5.0); Albumin Globulin Ratio 1.6 (1.0-2.8); Alkaline Phosphatase 52 U/L (38-126); Aspartate Aminotransferase 28 IU/L (17-59); BUN Creatinine Ratio 26.6 (6-22); Bilirubin Total 1.1 mg/dL (0.2-1.3); Blood Urea Nitrogen 25 mg/dL (9-20); Calcium 9.7 mg/dL (8.4-10.2); Carbon Dioxide 27 mmol/L (22-32); Chloride 103 mmol/L (98-107); Creatine Kinase 23 U/L (55-170); Estimated Glomerular Filt Rate > 60.0 mL/min (>60); Globulin 2.8 g/dL (1.7-4.1); Glucose 164 mg/dL (80-110); HEMOLYSIS < 15 (0-50); Lipase 97 U/L (23-300); Magnesium 1.7 mg/dL (1.6-2.3); Potassium 3.9 mmol/L (3.4-5.1); Sodium 137 mmol/L (137-145); Total Protein 7.2 g/dL (6.3-8.2)
[2021-12-12 03:10] LABS: Hypochromasia 1+; Microcytosis 2+
[2021-12-12] MEDS: HEPARIN DRIP 25,000 UNIT/500 ML IV.SOLN 20 UNIT IV (03:10)
[2021-12-12] MEDS: HEPARIN 5,000 UNIT/ML VIAL 5000 UNIT IV (03:10)
--- NOTE | 2021-12-12 03:10 | PC.NURSE ---
pt states pain is relieved, pt is laughing and joking
[2021-12-12 03:12] LABS: Anisocytosis 3+; Ovalocytes 1+
[2021-12-12 03:18] LABS: Troponin I < 0.012 ng/mL (0.01-0.034)
[2021-12-12 03:41] LABS: COVID19 -Nasal RAPID Negative (Negative)
--- NOTE | 2021-12-12 05:01 | PC.NURSE ---
pt states the pain is starting to return doctor informed and pt medicated for pain
--- NOTE | 2021-12-12 05:51 | PC.NURSE ---
called to give report @ [phone] and now nurse on break she will call back
== END 2021-12-12 05:40 | disposition short-term general hospital (02) ==
PROVIDERS: Emergency Provider Emergency Medicine; PCP Family Medicine
DX: I25.110 Atherosclerotic heart disease of native coronary artery with unstable angina pectoris (principal); Z20.822 Contact with and (suspected) exposure to COVID-19; Z95.5 Presence of coronary angioplasty implant and graft; Z87.891 Personal history of nicotine dependence
CPT/HCPCS: 71045; 80053; 82550; 83690; 83735; 84484; 85025; 87635; 93005; 93010; 96374; 96375; 96376; 99284; 99291; C9803; J1644; J2270

== ENCOUNTER → 2022-02-27 07:38 | Outpatient (CLI) | payer MEDICARE, SELFPAY ==
[2021-11-22 02:29] VITALS: BMI 39.4
[2022-02-27 09:04] LABS: Add Manual Diff / Slide Review NO; Basophils Absolute Auto 100 /uL (0-100); Basophils Percent Auto 0.6 % (0-2); Eosinophils Absolute Auto 200 /uL (0-450); Eosinophils Percent Auto 1.4 % (2-4); Hematocrit 29.4 % (41-53); Hemoglobin 8.7 g/dL (13.5-17.5); Lymphocytes Absolute Auto 2200 /uL (1100-4500); Lymphocytes Percent Auto 15.3 % (25-40); Mean Corpuscular HGB Conc 29.6 % (30-36); Mean Corpuscular Hemoglobin 17.8 PG (26-34); Mean Corpuscular Volume 60.2 fL (80-100); Monocytes Absolute Auto 400 /uL (0-900); Monocytes Percent Auto 2.7 % (3-14); Neutrophils Absolute Auto 11400 /uL (1500-7000); Platelet Count 195 X10^3/uL (150-400); Red Blood Cell Count 4.88 X10^6/uL (4.5-5.9); White Blood Cell Count 14.3 X10^3/uL (4.5-11.0)
[2022-02-27 09:12] LABS: Hemoglobin A1C% w Est Avg Glu 5.6 % (4.0-6.0)
[2022-02-27 09:24] LABS: Alanine Aminotransferase 12 IU/L (<50); Albumin 4.3 g/dL (3.5-5.0); Alkaline Phosphatase 52 U/L (38-126); Aspartate Aminotransferase 23 IU/L (17-59); BUN Creatinine Ratio 21.6 (6-22); Bilirubin Total 0.7 mg/dL (0.2-1.3); Blood Urea Nitrogen 22 mg/dL (9-20); Calcium 9.3 mg/dL (8.4-10.2); Carbon Dioxide 24 mmol/L (22-32); Chloride 106 mmol/L (98-107); Estimated Glomerular Filt Rate > 60 mL/min (>60); Globulin 2.2 g/dL (1.7-4.1); Glucose 84 mg/dL (80-110); HEMOLYSIS < 15 (0-50); Potassium 4.3 mmol/L (3.4-5.1); Sodium 141 mmol/L (137-145); Total Protein 6.5 g/dL (6.3-8.2)
[2022-02-27 09:52] LABS: Microcytosis 3+
[2022-02-27 09:53] LABS: Anisocytosis 3+; Hypochromasia 3+
[2022-02-27 09:54] LABS: Poikilocytosis 2+; Polychromasia 2+
== END ==
PROVIDERS: PCP Family Medicine; Referring Provider Family Medicine; Visit Provider Family Medicine
DX: D45 Polycythemia vera (principal); E11.9 Type 2 diabetes mellitus without complications; I25.10 Atherosclerotic heart disease of native coronary artery without angina pectoris
CPT/HCPCS: 36415; 80053; 83036; 85025

== ENCOUNTER 2022-03-31 08:05 | Observation (INO) | payer MEDICARE, SELFPAY ==
[2021-11-22 02:29] VITALS: BMI 39.4
[2022-03-31] VITALS (31 sets, daily range): BP systolic 111–152; BP diastolic 65–86; PULSE 92–117; RESP 13–35; TEMP 36.3–36.8; O2SAT 95–99; BMI 31.3
--- NOTE | 2022-03-31 08:43 | DI.RAD.S_ITS ---
PROCEDURE: XR CHEST 2V INDICATIONS: cough TECHNIQUE: 2 views of the chest were acquired. COMPARISON: Merged With [facility], CR, XR CHEST 1V, 12/12/2021, 2:16. FINDINGS: Surgical changes and devices: Status post median sternotomy and CABG. Lungs and pleura: Small left-sided pleural effusion. Left basilar opacity. Mediastinum: Mediastinal contours are normal. Heart size is along the upper limits of normal, unchanged. Bones and chest wall: No suspicious bony abnormalities. Soft tissues appear unremarkable. IMPRESSION: Small left-sided pleural effusion along with left basilar opacity which may represent atelectasis versus developing consolidation. Dictated by: Javier Resendez D.O. on 03/31/2022 at 8:36 Approved by: Javier Resendez D.O. on 03/31/2022 at 8:37
[2022-03-31 09:58] LABS: Add Manual Diff / Slide Review NO; Basophils Absolute Auto 100 /uL (0-100); Basophils Percent Auto 0.4 % (0-2); Eosinophils Absolute Auto 300 /uL (0-450); Hematocrit 30.8 % (41-53); Hemoglobin 8.9 g/dL (13.5-17.5); Lymphocytes Absolute Auto 2400 /uL (1100-4500); Lymphocytes Percent Auto 9.4 % (25-40); Mean Corpuscular Hemoglobin 17.3 PG (26-34); Mean Corpuscular Volume 59.7 fL (80-100); Monocytes Absolute Auto 900 /uL (0-900); Monocytes Percent Auto 3.6 % (3-14); Neutrophils Absolute Auto 21600 /uL (1500-7000); Neutrophils Percent Auto 85.6 % (50-75); Platelet Count 291 X10^3/uL (150-400); Red Blood Cell Count 5.16 X10^6/uL (4.5-5.9); White Blood Cell Count 25.3 X10^3/uL (4.5-11.0)
[2022-03-31 10:09] LABS: Alanine Aminotransferase 14 IU/L (<50); Albumin 3.8 g/dL (3.5-5.0); Albumin Globulin Ratio 1.4 (1.0-2.8); Alkaline Phosphatase 54 U/L (38-126); Aspartate Aminotransferase 24 IU/L (17-59); BUN Creatinine Ratio 18.9 (6-22); Bilirubin Total 0.6 mg/dL (0.2-1.3); Blood Urea Nitrogen 18 mg/dL (9-20); Calcium 8.9 mg/dL (8.4-10.2); Carbon Dioxide 25 mmol/L (22-32); Chloride 108 mmol/L (98-107); Estimated Glomerular Filt Rate > 60 mL/min (>60); Globulin 2.7 g/dL (1.7-4.1); Glucose 141 mg/dL (80-110); HEMOLYSIS < 15 (0-50); Potassium 4.1 mmol/L (3.4-5.1); Sodium 138 mmol/L (137-145); Total Protein 6.5 g/dL (6.3-8.2)
[2022-03-31 10:10] LABS: Lactate (Lactic Acid) 1.5 mmol/L (0.7-2.1)
[2022-03-31 10:16] LABS: Anisocytosis 3+; Microcytosis 2+; Platelet Estimate Adequate on smear
[2022-03-31 10:17] LABS: Hypochromasia 2+; Ovalocytes 1+; Poikilocytosis 1+; Polychromasia 2+
[2022-03-31] MEDS: SODIUM CHLORIDE 0.9% 1,000 ML 1000 ML IV (10:19)
[2022-03-31 10:21] LABS: Troponin I < 0.012 ng/mL (0.01-0.034)
[2022-03-31 10:37] LABS: Appearance Urine UA SL CLOUDY; Bilirubin Urine UA NEGATIVE (NEGATIVE); Color Urine UA YELLOW; Glucose Urine UA NEGATIVE (Negative); Ketones Urine UA NEGATIVE (NEGATIVE); Leukocyte Esterase Urine UA TRACE (NEGATIVE); Nitrite Urine UA NEGATIVE (Negative); Occult Blood Urine UA TRACE-INTACT (Negative); Protein Urine UA 2+ (Negative); pH Urine UA 6.5 (4.5-8.0)
[2022-03-31 10:39] LABS: Amorphous Sediment Urine 1+; Bacteria Urine Moderate (10-30); Culture Indicated Urine Specimen Cultured; Mucus Urine 1+ (Negative); RBC Urine 0-1/HPF (0-5/HPF); Squamous Epithelial Cell Urine 1-5 /HPF (0-5/HPF); WBC Urine 30-100/HPF (0-5/HPF)
[2022-03-31 10:40] LABS: Thyroid Stimulating Hormone 1.59 uIU/mL (0.47-4.68)
--- NOTE | 2022-03-31 14:01 | DI.CT.S_ITS ---
PROCEDURE: CT ANGIO CHEST PE PROTOCOL INDICATIONS: tachycardia, pleural effusion history of PE TECHNIQUE: After the administration of intravenous contrast, 2 mm thick sections acquired from the pulmonary apices to the posterior costophrenic angles. 3-dimensional maximum intensity projection (MIP) coronal and sagittal reformats were then acquired through the thorax. For radiation dose reduction, the following was used: automated exposure control, adjustment of mA and/or kV according to patient size. COMPARISON: [facility], CT, CT ANGIO CHEST PE PROTOCOL, 11/22/2021, 0:19. FINDINGS: Image quality: Excellent. Pulmonary arteries: Pulmonary arteries are normal in size. Previously noted right-sided emboli are not well appreciated on today's examination. There are however a few new filling defects of the left lower lobe distal segmental and subsegmental vessels. Lungs and pleura: Small-moderate left-sided pleural effusion with adjacent atelectasis/partial collapse of the left lower lobe. Mild atelectasis of the anterior aspect of the right upper and right middle lobes. Mediastinum: Heart size is normal, without pericardial effusion. Marked multi-vessel coronary vascular calcifications. Small -moderate high pericardial effusion. No evidence of right heart strain. No mediastinal or hilar adenopathy. Thoracic aorta is normal in caliber and enhancement. Esophagus is normal in caliber, without hiatal hernia. Bones and chest wall: No suspicious bony lesions. Ribs and thoracic spine appear intact throughout. Thyroid gland again demonstrates a large right heterogeneous thyroid nodule measuring up to the 3.8 cm. No axillary or supraclavicular adenopathy. Abdomen: Again noted is enlargement of the liver and spleen. There are multiple calcified gallstones without evidence of cholecystitis. IMPRESSION: Multiple new distal segmental and subsegmental emboli noted within the left lower lobe. Small-moderate left-sided pleural effusion with adjacent atelectasis. Small-moderate pericardial effusion. Marked coronary vascular calcifications. Large right thyroid nodule. Recommend thyroid ultrasound for further evaluation. Dictated by: Javier Resendez D.O. on 03/31/2022 at 13:47 Approved by: Javier Resendez D.O. on 03/31/2022 at 14:06
[2022-03-31 14:34] LABS: Procalcitonin 0.13 ng/mL (<0.5)
[2022-03-31 16:53] LABS: NT-proBNP (BNP-Adult 18+) 615 pg/mL (<125)
--- NOTE | 2022-03-31 18:21 | DI.US.S_ITS ---
PROCEDURE: US PERIPH VENOUS LOW EXTREM RT INDICATIONS: Pulmonary emboli, eval for right heart strain TECHNIQUE: Real-time imaging, as well as color and pulse Doppler interrogation, were performed of the lower extremity deep veins from the inguinal ligament to the popliteal fossa. COMPARISON: None. FINDINGS: The common femoral, femoral and popliteal veins are normally compressible, and free of intraluminal thrombus. Color and pulse Doppler demonstrate normal phasic intraluminal flow. There is normal augmentation response to distal compression maneuver. IMPRESSION: 1. No evidence of deep venous thrombosis in the right lower extremity. Dictated by: Clifton Shook M.D. on 04/01/2022 at 0:02 Approved by: Clifton Shook M.D. on 04/01/2022 at 0:02
--- NOTE | 2022-03-31 18:21 | DI.ECHO.S_ITS ---
[place] [facility]---------+ [facility] +---------+ : : [address] : : : : [id number] : : : : Phone: [phone] Echocardiogram Report + + :Name: JUSTIN BENTON Study Date: 04/01/2022 Height: 67 in : :[facility] ReadingLocation: Weight: 200 lb : : Gender: Male BSA: 2.0 m2 : :: 1945 Age: 76 yrs BP: 131/81 mmHg: :Reason For Study: RIGHT HEART STRAIN, PULMONARY EMBOLISM : :Ordering Physician: ALESIA, : :ALFRED ZABALA Performed By: Dejah Dubose : :Referring: ALFRED DUMAS MD : + + Interpretation Summary Normal left ventricle size with ejection fraction 60-65%. Borderline dilated right ventricle with normal right ventricular systolic function. Mildly dilated left atrium. Mild to moderately dilated right atrium. Comparison is made with the echocardiogram of 11/22/2021, there has been no significant change. Procedure: A two-dimensional transthoracic echocardiogram with color flow and Doppler was performed in limited views only to assess Right Heart Strain.. Comparison is made with the echocardiogram of 11/22/2021. Left Ventricle: The left ventricle is normal in size. The ejection fraction is estimated to be 60-65%. There are no focal wall motion abnormalities. Right Ventricle: The right ventricle is borderline dilated. The right ventricular systolic function is normal. Atria: The left atrium is mildly dilated. The right atrium is mild to moderately dilated. Tricuspid Valve: There is trace tricuspid regurgitation. Great Vessels: The IVC is of normal diameter and collapses greater than 50% with a sniff. This suggests a low right atrial pressure of 3 mm Hg. Pericardium/ Pleura There is no pericardial effusion. MMode/2D Measurements & Calculations LVIDd: 4.5 cm LA A2 area: 22.0 cm2 LVIDs: 3.1 cm LA A4 area: 26.3 cm2 FS: 31.3 % LA length (vol): 6.7 cm IVSd: 1.0 cm LA vol: 73.7 ml LVPWd: 1.1 cm LA vol index: 36.5 ml/m2 LV finnegan. diameter/BSA (cm/m^2): 2.2 LV sys. diameter/BSA (cm/m^2): 1.5 RA long axis: 6.8 cm RVD1 (basal): 4.0 cm RA area: 27.0 cm2 RVD2 (mid): 4.2 cm RA vol: 91.8 ml TAPSE: 1.7 cm RA : 45.4 ml/m2 IVC diam: 2.0 cm Electronically signed by: Kristen Box on Reading Physician:04/01/2022 03:13 PM
--- NOTE | 2022-03-31 18:21 | DI.US.S_ITS ---
PROCEDURE: US PERIPH VENOUS LOW EXTREM LT INDICATIONS: Pulmonary emboli, eval for right heart strain TECHNIQUE: Real-time imaging, as well as color and pulse Doppler interrogation, were performed of the lower extremity deep veins from the inguinal ligament to the popliteal fossa. COMPARISON: None. FINDINGS: The common femoral, femoral and popliteal veins are normally compressible, and free of intraluminal thrombus. Color and pulse Doppler demonstrate normal phasic intraluminal flow. There is normal augmentation response to distal compression maneuver. IMPRESSION: 1. No evidence of deep venous thrombosis in the left lower extremity. Dictated by: Clifton Shook M.D. on 04/01/2022 at 0:02 Approved by: Clifton Shook M.D. on 04/01/2022 at 0:03
--- NOTE | 2022-03-31 18:23 | PM.HP.1 ---
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 Patient reports in December of this year he thought he had an asthma attack and presented to the emergency department. He states that it was here but there is no record of this. He evidently was found to have had left lower extremity DVT and right-sided pulmonary emboli. He states he had been on some type of anticoagulant prior to that. They subsequently elected to place him on Eliquis as they felt it would be a better anticoagulant. He had been doing well since that time with the exception of his cancer treatments as listed above and his 4 vessel CABG in mid December. He started BCG treatments on March 29 and was advised that he would be feeling poorly as a result. He was also advised that he has leukocytosis as part of his malignancy and that is to be expected. He was feeling poorly yesterday but attributed it to the BCG. However, symptoms persisted today and he presented to the emergency department for further evaluation. On arrival to the emergency department, he was found to have a heart rate of 130. He also was noted to be mildly hypotensive at home with a systolic pressure of 86. Blood pressures have been normal in the emergency department. In the emergency department, he underwent workup inclusive of labs with a white blood cell count of 25, hemoglobin of 9, and normal platelet count. There were no priors for comparison. He had a normal lactate, normal TSH, normal procalcitonin. UA was performed and unremarkable. Troponin was within normal limits. Chest x-ray revealed a new left-sided pleural effusion. Given symptoms as well as the chest x-ray abnormalities, a CT pulmonary angiogram was performed to evaluate for PEs. He was found to have multiple new distal segmental and subsegmental emboli in the left lower lobe. There is a small to moderate size left pleural effusion with adjacent atelectasis. As well it was noted he had a small to moderate pericardial effusion. An enlarged right thyroid was noted with recommendation for thyroid ultrasound. Apparently, patient reports he is feeling slightly short of breath. He is able to ambulate to and from the bathroom without difficulty. He denies any chest pain. He has not noted any leg swelling but has had some chronic mild right lower extremity edema related to his vein harvesting for his CABG. Patient History Comment: Past medical history: Coronary artery disease status post four-vessel CABG in December of 2021 -he reports he has been weaned off of beta-blockers, Plavix and aspirin since his surgery. Currently treated with losartan and statin therapy Hyperlipidemia Diabetes mellitus type 2 now diet controlled Class 1 obesity, previously intentionally lost 40 lb Hypertension Paroxysmal atrial fibrillation for which he was treated with amiodarone for 2 weeks after his CABG Bladder cancer, recently diagnosed Splenomegaly/SILVINA 2 mutation followed by [facility], Dr. Mcmahon, presently treated with hydroxyurea Family & Social History Social History: household members significant other Prior Living Arrangements House Safety & Behavioral: Feels Safe in Current Yes Environment Been Physically Hurt or No Threatened By a Person Tobacco & Substance use: Tobacco type cigars Smoking Status Former smoker alcohol intake frequency 0-2 drinks per day Substance Use Type does not use Comment: Family history: Paternal aunt had type 1 diabetes, multiple other paternal Relatives have type 2 diabetes social history: Patient used to drink a bottle of wine nightly, now he drinks only occasionally, he has a hops allergy Smoked for 10 years remotely Lives in [place] his partner Wilfrido, they have been together for 43 years Meds Home Medications and Allergies Home Medications Medication Instructions Recorded Confirmed Type albuterol sulfate 90 mcg/actuation 1 inh inhalation PRN PRN Shortness 03/31/22 03/31/22 History aerosol inhaler Of Breath apixaban 5 mg tablet (Eliquis) 5 tab PO BID 03/31/22 03/31/22 History aspirin 81 mg tablet,delayed 81 mg PO DAILY 03/31/22 03/31/22 History release atorvastatin 40 mg tablet 40 tab PO BEDTIME 03/31/22 03/31/22 History bisacodyl 5 mg tablet,delayed 5 mg PO BID 03/31/22 03/31/22 History release (Dulcolax (bisacodyl)) fenofibrate nanocrystallized 145 1 tab PO DAILY 03/31/22 03/31/22 History mg tablet ferrous sulfate 325 mg (65 mg 325 mg PO DAILY 03/31/22 03/31/22 History iron) tablet fluticasone propionate 50 2 spray intranasal PRN PRN Allergy 03/31/22 03/31/22 History mcg/actuation nasal Symptoms spray,suspension (Flonase Allergy Relief) hydroxyurea 500 mg capsule 1 cap PO DAILY 03/31/22 03/31/22 History losartan 25 mg tablet 1 tab PO DAILY 03/31/22 03/31/22 History omeprazole 20 mg capsule,delayed 20 mg PO DAILY 03/31/22 03/31/22 History release Review of Systems Review of Systems Narrative: All other systems were reviewed negative Exam Vital Signs (past 8 hours): - 03/31/22 10:30 03/31/22 10:30 03/31/22 10:46 Temperature Pulse Rate 97 H 100 H Respiratory Rate Blood Pressure 120/70 Pulse Oximetry 95 97 03/31/22 10:46 03/31/22 11:00 03/31/22 11:00 Temperature Pulse Rate 100 H Respiratory Rate Blood Pressure 122/72 120/75 Pulse Oximetry 96 03/31/22 11:30 03/31/22 12:00 03/31/22 12:30 Temperature Pulse Rate 101 H 95 H 96 H Respiratory Rate 20 13 20 Blood Pressure Pulse Oximetry 98 97 96 03/31/22 13:00 03/31/22 13:30 03/31/22 13:53 Temperature Pulse Rate 99 H 96 H 97 H Respiratory Rate 21 Blood Pressure Pulse Oximetry 99 97 97 03/31/22 13:53 03/31/22 14:00 03/31/22 14:00 Temperature Pulse Rate 97 H Respiratory Rate 24 Blood Pressure 145/82 H 150/83 H Pulse Oximetry 97 03/31/22 14:30 03/31/22 15:00 03/31/22 15:15 Temperature Pulse Rate 102 H 98 H Respiratory Rate 16 18 Blood Pressure 147/84 H Pulse Oximetry 98 97 03/31/22 15:15 03/31/22 15:30 03/31/22 15:30 Temperature Pulse Rate 100 H 101 H Respiratory Rate 31 H 21 Blood Pressure 146/86 H Pulse Oximetry 97 97 03/31/22 16:00 03/31/22 16:30 03/31/22 17:00 Temperature Pulse Rate 104 H 101 H 104 H Respiratory Rate 28 H 22 26 H Blood Pressure Pulse Oximetry 97 96 96 03/31/22 17:19 03/31/22 17:20 03/31/22 17:20 Temperature Pulse Rate 98 H 97 H Respiratory Rate 35 H 14 Blood Pressure 147/75 H Pulse Oximetry 96 96 03/31/22 17:30 Temperature 97.7 F Pulse Rate 98 H Respiratory Rate 16 Blood Pressure 143/85 H Pulse Oximetry 96 Oxygen Delivery Method Room Air Narrative Exam Narrative: GEN: Very pleasant elderly male, Alert and oriented x3, no acute distress HEENT: Normocephalic, face symmetric, pupils equal round reactive to light, extraocular movements intact, sclerae anicteric, conjunctiva clear, nares patent, oropharynx reveals an intact soft and hard palate with moist mucous membranes, dentition is fair NECK: Supple, no lymphadenopathy, thyroid without enlargement or nodularity, carotids no bruits CHEST: Respiratory excursions symmetric, clear to auscultation bilaterally CV: Regular rate and rhythm, no murmurs, rubs, gallops, PMI cannot be palpated ABD: Soft, obese, nontender, nondistended, bowel sounds present in all 4 quadrants, no organomegaly or masses appreciated EXTR: Warm, well perfused, no clubbing/cyanosis, moderate right ankle/lower extremity swelling at site of previous vein harvesting SKIN: Warm and dry, without rash NEURO: Alert and oriented x3, cranial nerves 2 through 12 are intact and symmetric bilaterally, motor strength 5/5 throughout, sensation intact throughout PSYCH: Mood and affect is within normal limits, judgment and insight are appropriate Objective Labs Result Diagrams: 03/31/22 09:35 03/31/22 09:35 Labs: Laboratory Results - last 24 hr 03/31/22 03/31/22 03/31/22 09:35 09:35 09:35 WBC 25.3 H RBC 5.16 Hgb 8.9 L Hct 30.8 L MCV 59.7 L MCH 17.3 L MCHC 29.0 L RDW 25.0 H Plt Count 291 Neut % (Auto) 85.6 H Lymph % (Auto) 9.4 L [place] % (Auto) 3.6 Eos % (Auto) 1.0 L Baso % (Auto) 0.4 Neut # (Auto) 62702 H Lymph # (Auto) 2400 [place] # (Auto) 900 Eos # (Auto) 300 Baso # (Auto) 100 Platelet Estimate Adequate on smear RBC Morphology See below Polychromasia 2+ H Hypochromasia 2+ H Poikilocytosis 1+ H Anisocytosis 3+ H Microcytosis 2+ H Ovalocytes 1+ H Sodium 138 Potassium 4.1 Chloride 108 H Carbon Dioxide 25 BUN 18 Creatinine 0.95 Estimated GFR > 60 BUN/Creatinine Ratio 18.9 Glucose 141 H Lactate Calcium 8.9 Total Bilirubin 0.6 AST 24 ALT 14 Alkaline Phosphatase 54 Troponin I < 0.012 NT-Pro-B Natriuret Pep Total Protein 6.5 Albumin 3.8 Globulin 2.7 Albumin/Globulin Ratio 1.4 Procalcitonin TSH Urine Color Urine Appearance Urine pH Ur Specific [place] Urine Protein Urine Glucose (UA) Urine Ketones Urine Occult Blood Urine Nitrate Urine Bilirubin Urine Urobilinogen Ur Leukocyte Esterase Urine RBC Urine WBC Ur Squamous Epith Cells Amorphous Sediment Urine Bacteria Urine Mucus Ur Culture Indicated? 03/31/22 03/31/22 03/31/22 09:35 09:35 09:35 WBC RBC Hgb Hct MCV MCH MCHC RDW Plt Count Neut % (Auto) Lymph % (Auto) [place] % (Auto) Eos % (Auto) Baso % (Auto) Neut # (Auto) Lymph # (Auto) [place] # (Auto) Eos # (Auto) Baso # (Auto) Platelet Estimate RBC Morphology Polychromasia Hypochromasia Poikilocytosis Anisocytosis Microcytosis Ovalocytes Sodium Potassium Chloride Carbon Dioxide BUN Creatinine Estimated GFR BUN/Creatinine Ratio Glucose Lactate 1.5 Calcium Total Bilirubin AST ALT Alkaline Phosphatase Troponin I NT-Pro-B Natriuret Pep Total Protein Albumin Globulin Albumin/Globulin Ratio Procalcitonin 0.13 TSH 1.59 Urine Color Urine Appearance Urine pH Ur Specific [place] Urine Protein Urine Glucose (UA) Urine Ketones Urine Occult Blood Urine Nitrate Urine Bilirubin Urine Urobilinogen Ur Leukocyte Esterase Urine RBC Urine WBC Ur Squamous Epith Cells Amorphous Sediment Urine Bacteria Urine Mucus Ur Culture Indicated? 03/31/22 03/31/22 09:35 09:45 WBC RBC Hgb Hct MCV MCH MCHC RDW Plt Count Neut % (Auto) Lymph % (Auto) [place] % (Auto) Eos % (Auto) Baso % (Auto) Neut # (Auto) Lymph # (Auto) [place] # (Auto) Eos # (Auto) Baso # (Auto) Platelet Estimate RBC Morphology Polychromasia Hypochromasia Poikilocytosis Anisocytosis Microcytosis Ovalocytes Sodium Potassium Chloride Carbon Dioxide BUN Creatinine Estimated GFR BUN/Creatinine Ratio Glucose Lactate Calcium Total Bilirubin AST ALT Alkaline Phosphatase Troponin I NT-Pro-B Natriuret Pep 615 H Total Protein Albumin Globulin Albumin/Globulin Ratio Procalcitonin TSH Urine Color Yellow Urine Appearance Sl cloudy Urine pH 6.5 Ur Specific [place] 1.010 Urine Protein 2+ H Urine Glucose (UA) Negative Urine Ketones Negative Urine Occult Blood Trace-intact Urine Nitrate Negative Urine Bilirubin Negative Urine Urobilinogen 1.0 Ur Leukocyte Esterase Trace H Urine RBC 0-1/hpf Urine WBC 30-100/hpf H Ur Squamous Epith Cells 1-5 /hpf Amorphous Sediment 1+ Urine Bacteria Moderate (10-30) H Urine Mucus 1+ H Ur Culture Indicated? Specimen cultured Assessment & Plan Assessment & Plan narrative: 1. Acute left lower lobe segmental and subsegmental pulmonary emboli in the setting of a known hypercoagulable state and chronically anticoagulated with Eliquis Patient presents with acute left-sided pulmonary emboli. He does have evidence of pleural effusion as well as a pericardial effusion on imaging. Patient is admitted and will be placed on Lovenox tonight. Would be prudent to discuss the his oncologist given his now having had 2 discrete episodes of pulmonary emboli in the setting of anticoagulation. As noted he is followed by [facility]. Will obtain an echocardiogram and lower extremity duplex ultrasounds to evaluate for any additional clot burden. No evidence of right heart strain by CT. 2. Tachycardia As noted, patient had sinus tachycardia on admission. Negative troponin. Echocardiogram has been ordered. Likely etiology is pulmonary emboli. 3. Leukocytosis White blood cell count is 25 on admission. We have no prior labs for comparison. He is not endorsing any acute ill symptoms. This may be related to his hematologic disorder versus his bladder cancer. 4. Microcytic anemia Patient has a pretty profound microcytosis with an MCV of 59.7. Hemoglobin is 8.9. Significant polychromasia, hypochromasia, anisocytosis, Val[place]te ptosis, and poikilocytosis. This is all consistent with his known hematologic disorder. Will repeat labs in the morning to rule out any active bleeding. No evidence of bleeding at this time. 5. Coronary artery disease status post four-vessel CABG 3 months ago Patient is chest pain-free. He has been weaned off of his beta-fuad. He remains on an Arb and statin only. 6. Diabetes mellitus type 2 Blood sugar is mildly elevated in the emergency department. He was previously treated with medications but after losing 40 lb is now diet controlled. We will plan a cardiac/controlled carb diet. 7. Bladder cancer Presently receiving BCG infusions weekly x6 weeks. His 1st infusion was March 29. 8. Hypertension Patient is on losartan at baseline. This will be continued. 9. Splenomegaly/SILVINA 2 mutation Followed by [facility] is noted. Continue hydroxyurea. 10. . History of paroxysmal atrial fibrillation post operatively from his bypass surgery Patient is in sinus rhythm presently. Will be placed on telemetry. Code status Full, his partner is his POA in the event he is unable to make decisions Prophylaxis Will place on treatment dose Lovenox Disposition Possible discharge home tomorrow once recommendations are obtained from Oncology on the best anticoagulant moving forward. Time Spent With Patient Critical Care time: I spent a total of [] minutes of critical care time on this patient's care today; this time is exclusive of procedural time.
--- NOTE | 2022-03-31 19:11 | ED.ARRPALP ---
HPI - Arrhythmia/Palpitations General Chief Complaint: Arrhythmia/Palpitations Stated Complaint: general unwellness Mode of arrival: EMS History of Present Illness HPI narrative: This gentleman had bladder tumor resection about 6 weeks ago and then subsequently was found to have splenomegaly and has been receiving chemotherapy as of Friday for this. He also did an infusion of BCG into the bladder yesterday for the 1st time. The specifics of the cancer are unknown at this point. Yesterday he was spending most of the day in bed because he was so fatigued and felt clammy with a little bit of a cough yesterday which is subsequently resolved. He says he took some of his ?electrolyte pills? which usually help him feel better but have not helped so much this weekend. He has not had a fever. He says this morning he noticed an increased heart rate which she had not previously experienced and was tempted to attribute this to the recent chemotherapy both the bladder infusion and the chemo received on Friday. He also reports having had a DVT and pulmonary embolism and has had a hypercoagulable workup and is on Eliquis chronically. Paramedics reported blood pressure 86 systolic and a heart rate of 128 prior to arrival. He also endorses some sweats. Related Data Home Medications Medication Instructions Recorded Confirmed albuterol sulfate 90 mcg/actuation 1 inh inhalation PRN PRN Shortness 03/31/22 03/31/22 aerosol inhaler Of Breath apixaban 5 mg tablet (Eliquis) 5 tab PO BID 03/31/22 03/31/22 aspirin 81 mg tablet,delayed 81 mg PO DAILY 03/31/22 03/31/22 release atorvastatin 40 mg tablet 40 tab PO BEDTIME 03/31/22 03/31/22 bisacodyl 5 mg tablet,delayed 5 mg PO BID 03/31/22 03/31/22 release (Dulcolax (bisacodyl)) fenofibrate nanocrystallized 145 1 tab PO DAILY 03/31/22 03/31/22 mg tablet ferrous sulfate 325 mg (65 mg 325 mg PO DAILY 03/31/22 03/31/22 iron) tablet fluticasone propionate 50 2 spray intranasal PRN PRN Allergy 03/31/22 03/31/22 mcg/actuation nasal Symptoms spray,suspension (Flonase Allergy Relief) hydroxyurea 500 mg capsule 1 cap PO DAILY 03/31/22 03/31/22 losartan 25 mg tablet 1 tab PO DAILY 03/31/22 03/31/22 omeprazole 20 mg capsule,delayed 20 mg PO DAILY 03/31/22 03/31/22 release Review of Systems Review of Systems Narrative: Negative review of systems other than as noted above. Patient History Social History household members: significant other Smoking Status: Former smoker Smoking Status: Former smoker alcohol intake frequency: 0-2 drinks per day Substance Use Type: does not use Exam Narrative Exam Narrative: GENERAL: Alert, cooperative and in no distress. HEAD: Atraumatic. Normocephalic. EYES: Sclera are clear without icterus. Extraocular movements are full. ENT: No rhinorrhea. Oropharynx is moist. Mouth exam is benign. NECK: Supple. Full range of motion. CARDIOVASCULAR: Tachycardia and regular rhythm without murmur gallop or rub. RESPIRATORY: Clear to auscultation. Breath sounds equal bilaterally. No wheezes, rales, or rhonchi. GASTROINTESTINAL: Abdomen soft, non-tender, nondistended. EXTREMITIES: No edema, full range of motion. No obvious trauma. BACK: Normal inspection, no CVA tenderness. NEURO: Nonfocal examination, normal speech, normal gait. SKIN: No rash or erythema of visible areas PSYCH: Normally oriented. Normal range of affect. Appropriate behavior Initial Vital Signs Initial Vital Signs: Vital Signs Temperature 98.3 F 03/31/22 08:22 Pulse Rate 117 H 03/31/22 08:22 Respiratory Rate 18 03/31/22 08:22 Blood Pressure 135/65 03/31/22 08:22 Pulse Oximetry 97 03/31/22 08:22 Oxygen Delivery Method 03/31/22 08:22 Course Orders Ordered: ED Orders 03/31/22 14:01 CT angio chest PE protocol Stat Acetaminophen (Acetaminophen 325 Mg Tablet) 650 mg PO Q6HR PRN PRN Reason: Fever/Mild Pain (1-3) Atorvastatin Calcium (Atorvastatin 20 Mg Tablet) 40 mg PO BEDTIME TRENT Enoxaparin Sodium (Enoxaparin 100 Mg/Ml Syringe) 90 mg SUBCUT BID TRENT Hydroxyurea (Hydroxyurea 500 Mg Capsule) 500 mg PO DAILY TRENT Ondansetron HCl (Ondansetron 4 Mg Odt) 4 mg PO Q8HR PRN PRN Reason: Nausea And Vomiting Discontinued Medications Sodium Chloride (Normal Saline 0.9%) 1,000 mls @ 1,000 mls/hr IV BOLUS ONE Stop: 03/31/22 09:45 Last Infusion: 03/31/22 12:23 Dose: 0 mls/hr Documented By: Admin: 03/31/22 10:19 Dose: 1,000 mls/hr Documented By: LUZ MARIA Vital Signs Vital signs: Vital Signs - 8 hr 03/31/22 11:30 03/31/22 12:00 03/31/22 12:30 Pulse Rate 101 H 95 H 96 H Respiratory Rate 20 13 20 Blood Pressure Pulse Oximetry 98 97 96 03/31/22 13:00 03/31/22 13:30 03/31/22 13:53 Pulse Rate 99 H 96 H 97 H Respiratory Rate 21 Blood Pressure Pulse Oximetry 99 97 97 03/31/22 13:53 03/31/22 14:00 03/31/22 14:00 Pulse Rate 97 H Respiratory Rate 24 Blood Pressure 145/82 H 150/83 H Pulse Oximetry 97 03/31/22 14:30 03/31/22 15:00 03/31/22 15:15 Pulse Rate 102 H 98 H Respiratory Rate 16 18 Blood Pressure 147/84 H Pulse Oximetry 98 97 03/31/22 15:15 03/31/22 15:30 03/31/22 15:30 Pulse Rate 100 H 101 H Respiratory Rate 31 H 21 Blood Pressure 146/86 H Pulse Oximetry 97 97 03/31/22 16:00 Pulse Rate 104 H Respiratory Rate 28 H Blood Pressure Pulse Oximetry 97 MDM - Arrhythmia/Palpitations Lab Data Result diagrams: 03/31/22 09:35 03/31/22 09:35 Labs: Lab Results 03/31/22 03/31/22 03/31/22 Range/Units 09:35 09:35 09:35 WBC 25.3 H (4.5-11.0) X10^3/uL RBC 5.16 (4.5-5.9) X10^6/uL Hgb 8.9 L (13.5-17.5) g/dL Hct 30.8 L (41-53) % MCV 59.7 L (80-100) fL MCH 17.3 L (26-34) PG MCHC 29.0 L (30-36) % RDW 25.0 H (11.6-14.8) % Plt Count 291 (150-400) X10^3/uL Neut % (Auto) 85.6 H (50-75) % Lymph % (Auto) 9.4 L (25-40) % [place] % (Auto) 3.6 (3-14) % Eos % (Auto) 1.0 L (2-4) % Baso % (Auto) 0.4 (0-2) % Neut # (Auto) 42719 H (6807-6961) /uL Lymph # (Auto) 2400 (1867-4027) /uL [place] # (Auto) 900 (0-900) /uL Eos # (Auto) 300 (0-450) /uL Baso # (Auto) 100 (0-100) /uL Platelet Estimate Adequate on smear RBC Morphology See below Polychromasia 2+ H Hypochromasia 2+ H Poikilocytosis 1+ H Anisocytosis 3+ H Microcytosis 2+ H Ovalocytes 1+ H Sodium 138 (137-145) mmol/L Potassium 4.1 (3.4-5.1) mmol/L Chloride 108 H (98-107) mmol/L Carbon Dioxide 25 (22-32) mmol/L BUN 18 (9-20) mg/dL Creatinine 0.95 (0.66-1.25) mg/dL Estimated GFR > 60 (>60) mL/min BUN/Creatinine Ratio 18.9 (6-22) Glucose 141 H (80-110) mg/dL Lactate (0.7-2.1) mmol/L Calcium 8.9 (8.4-10.2) mg/dL Total Bilirubin 0.6 (0.2-1.3) mg/dL AST 24 (17-59) IU/L ALT 14 (<50) IU/L Alkaline Phosphatase 54 (38-126) U/L Troponin I < 0.012 (0.01-0.034) ng/mL NT-Pro-B Natriuret Pep (<125) pg/mL Total Protein 6.5 (6.3-8.2) g/dL Albumin 3.8 (3.5-5.0) g/dL Globulin 2.7 (1.7-4.1) g/dL Albumin/Globulin Ratio 1.4 (1.0-2.8) Procalcitonin (<0.5) ng/mL TSH (0.47-4.68) uIU/mL Urine Color Urine Appearance Urine pH (4.5-8.0) Ur Specific [place] (1.000-1.035) Urine Protein (Negative) Urine Glucose (UA) (Negative) g/dL Urine Ketones (NEGATIVE) Urine Occult Blood (Negative) Urine Nitrate (Negative) Urine Bilirubin (NEGATIVE) Urine Urobilinogen (0.2) E.U./dL Ur Leukocyte Esterase (NEGATIVE) Urine RBC (0-5/HPF) Urine WBC (0-5/HPF) Ur Squamous Epith Cells (0-5/HPF) Amorphous Sediment Urine Bacteria (None) Urine Mucus (Negative) Ur Culture Indicated? 03/31/22 03/31/22 03/31/22 Range/Units 09:35 09:35 09:35 WBC (4.5-11.0) X10^3/uL RBC (4.5-5.9) X10^6/uL Hgb (13.5-17.5) g/dL Hct (41-53) % MCV (80-100) fL MCH (26-34) PG MCHC (30-36) % RDW (11.6-14.8) % Plt Count (150-400) X10^3/uL Neut % (Auto) (50-75) % Lymph % (Auto) (25-40) % [place] % (Auto) (3-14) % Eos % (Auto) (2-4) % Baso % (Auto) (0-2) % Neut # (Auto) (5700-5034) /uL Lymph # (Auto) (8324-3164) /uL [place] # (Auto) (0-900) /uL Eos # (Auto) (0-450) /uL Baso # (Auto) (0-100) /uL Platelet Estimate RBC Morphology Polychromasia Hypochromasia Poikilocytosis Anisocytosis Microcytosis Ovalocytes Sodium (137-145) mmol/L Potassium (3.4-5.1) mmol/L Chloride (98-107) mmol/L Carbon Dioxide (22-32) mmol/L BUN (9-20) mg/dL Creatinine (0.66-1.25) mg/dL Estimated GFR (>60) mL/min BUN/Creatinine Ratio (6-22) Glucose (80-110) mg/dL Lactate 1.5 (0.7-2.1) mmol/L Calcium (8.4-10.2) mg/dL Total Bilirubin (0.2-1.3) mg/dL AST (17-59) IU/L ALT (<50) IU/L Alkaline Phosphatase (38-126) U/L Troponin I (0.01-0.034) ng/mL NT-Pro-B Natriuret Pep (<125) pg/mL Total Protein (6.3-8.2) g/dL Albumin (3.5-5.0) g/dL Globulin (1.7-4.1) g/dL Albumin/Globulin Ratio (1.0-2.8) Procalcitonin 0.13 (<0.5) ng/mL TSH 1.59 (0.47-4.68) uIU/mL Urine Color Urine Appearance Urine pH (4.5-8.0) Ur Specific [place] (1.000-1.035) Urine Protein (Negative) Urine Glucose (UA) (Negative) g/dL Urine Ketones (NEGATIVE) Urine Occult Blood (Negative) Urine Nitrate (Negative) Urine Bilirubin (NEGATIVE) Urine Urobilinogen (0.2) E.U./dL Ur Leukocyte Esterase (NEGATIVE) Urine RBC (0-5/HPF) Urine WBC (0-5/HPF) Ur Squamous Epith Cells (0-5/HPF) Amorphous Sediment Urine Bacteria (None) Urine Mucus (Negative) Ur Culture Indicated? 03/31/22 03/31/22 Range/Units 09:35 09:45 WBC (4.5-11.0) X10^3/uL RBC (4.5-5.9) X10^6/uL Hgb (13.5-17.5) g/dL Hct (41-53) % MCV (80-100) fL MCH (26-34) PG MCHC (30-36) % RDW (11.6-14.8) % Plt Count (150-400) X10^3/uL Neut % (Auto) (50-75) % Lymph % (Auto) (25-40) % [place] % (Auto) (3-14) % Eos % (Auto) (2-4) % Baso % (Auto) (0-2) % Neut # (Auto) (2358-5661) /uL Lymph # (Auto) (5023-0903) /uL [place] # (Auto) (0-900) /uL Eos # (Auto) (0-450) /uL Baso # (Auto) (0-100) /uL Platelet Estimate RBC Morphology Polychromasia Hypochromasia Poikilocytosis Anisocytosis Microcytosis Ovalocytes Sodium (137-145) mmol/L Potassium (3.4-5.1) mmol/L Chloride (98-107) mmol/L Carbon Dioxide (22-32) mmol/L BUN (9-20) mg/dL Creatinine (0.66-1.25) mg/dL Estimated GFR (>60) mL/min BUN/Creatinine Ratio (6-22) Glucose (80-110) mg/dL Lactate (0.7-2.1) mmol/L Calcium (8.4-10.2) mg/dL Total Bilirubin (0.2-1.3) mg/dL AST (17-59) IU/L ALT (<50) IU/L Alkaline Phosphatase (38-126) U/L Troponin I (0.01-0.034) ng/mL NT-Pro-B Natriuret Pep 615 H (<125) pg/mL Total Protein (6.3-8.2) g/dL Albumin (3.5-5.0) g/dL Globulin (1.7-4.1) g/dL Albumin/Globulin Ratio (1.0-2.8) Procalcitonin (<0.5) ng/mL TSH (0.47-4.68) uIU/mL Urine Color Yellow Urine Appearance Sl cloudy Urine pH 6.5 (4.5-8.0) Ur Specific [place] 1.010 (1.000-1.035) Urine Protein 2+ H (Negative) Urine Glucose (UA) Negative (Negative) g/dL Urine Ketones Negative (NEGATIVE) Urine Occult Blood Trace-intact (Negative) Urine Nitrate Negative (Negative) Urine Bilirubin Negative (NEGATIVE) Urine Urobilinogen 1.0 (0.2) E.U./dL Ur Leukocyte Esterase Trace H (NEGATIVE) Urine RBC 0-1/hpf (0-5/HPF) Urine WBC 30-100/hpf H (0-5/HPF) Ur Squamous Epith Cells 1-5 /hpf (0-5/HPF) Amorphous Sediment 1+ Urine Bacteria Moderate (10-30) H (None) Urine Mucus 1+ H (Negative) Ur Culture Indicated? Specimen cultured Urine Dip Bedside Urine Glucose Negative Bedside Urine Bilirubin - Negative Bedside Urine Ketone - Negative Urine Specific [place] 1.015 Bedside Urine Occult Blood + Bedside Urine pH 6 Bedside Urine Protein ++ 100 Bedside Urine Urobilinogen +/- 1mg Bedside Urine Nitrite - Negative Bedside Urine Leukocytes + [address] scan - chest: Radiologist's Impresson: [address] [address] [address] Scan Report Signed Patient: Noble Garcia MR#: [id number] : 1945 Acct:[id number] Age/Sex: 76 / M Date of Service: 03/31/22 Loc: Accession Number: [id number] ?? Procedure: CT angio chest PE protocol Ordering Provider: Eran Duong MD PROCEDURE:? CT ANGIO CHEST PE PROTOCOL ? INDICATIONS:? tachycardia, pleural effusion history of PE ? TECHNIQUE:? After the administration of intravenous contrast, 2 mm thick sections acquired from the pulmonary apices to the posterior costophrenic angles.? 3-dimensional maximum intensity projection (MIP) coronal and sagittal reformats were then acquired through the thorax.? For radiation dose reduction, the following was used:? automated exposure control, adjustment of mA and/or kV according to patient size.? ? COMPARISON:? [facility], CT, CT ANGIO CHEST PE PROTOCOL, 11/22/2021, 0:19. ? FINDINGS:? Image quality:? Excellent.? ? Pulmonary arteries:? Pulmonary arteries are normal in size.? Previously noted right-sided emboli are not well appreciated on today's examination.? There are however a few new filling defects of the left lower lobe distal segmental and subsegmental vessels. ? Lungs and pleura:? Small-moderate left-sided pleural effusion with adjacent atelectasis/partial collapse of the left lower lobe.? Mild atelectasis of the anterior aspect of the right upper and right middle lobes. ? Mediastinum:? Heart size is normal, without pericardial effusion.? Marked multi-vessel coronary vascular calcifications.? Small -moderate high pericardial effusion.? No evidence of right heart strain.? No mediastinal or hilar adenopathy.? Thoracic aorta is normal in caliber and enhancement.? Esophagus is normal in caliber, without hiatal hernia.? ? Bones and chest wall:? No suspicious bony lesions.? Ribs and thoracic spine appear intact throughout.? Thyroid gland again demonstrates a large right heterogeneous thyroid nodule measuring up to the 3.8 cm.? No axillary or supraclavicular adenopathy.? ? Abdomen:? Again noted is enlargement of the liver and spleen.? There are multiple calcified gallstones without evidence of cholecystitis. ? IMPRESSION:? ? Multiple new distal segmental and subsegmental emboli noted within the left lower lobe. ? Small-moderate left-sided pleural effusion with adjacent atelectasis.? Small-moderate pericardial effusion. ? Marked coronary vascular calcifications. ? Large right thyroid nodule.? Recommend thyroid ultrasound for further evaluation. ? ? ? Dictated by: Javier Resendez D.O. on 03/31/2022 at 13:47 ? ? Approved by: Javier Resendez D.O. on 03/31/2022 at 14:06 ? Discharge Plan Departure Clinical Impression: Pulmonary embolism Admit Date/Time: 03/31/22 16:05 Admit Provider: Ju Hanson
[2022-03-31 19:32] LABS: COVID19 - ADMIT (NP swab/PCR) Negative (Negative)
[2022-03-31] MEDS: ATORVASTATIN 20 MG TABLET 40 MG PO (21:39)
[2022-03-31] MEDS: ENOXAPARIN 100 MG/ML SYRINGE 90 MG SUBCUT (21:39)
[2022-04-01] VITALS: BP 131/81; PULSE 102; RESP 20; TEMP 36.6; O2SAT 96
[2022-04-01 02:00] VITALS: O2SAT 96
[2022-04-01 05:57] VITALS: O2SAT 96
[2022-04-01 06:15] VITALS: BP 138/52; PULSE 94; RESP 14; TEMP 36.7; O2SAT 96
[2022-04-01 07:06] LABS: Add Manual Diff / Slide Review NO; Basophils Absolute Auto 100 /uL (0-100); Basophils Percent Auto 0.6 % (0-2); Eosinophils Absolute Auto 300 /uL (0-450); Eosinophils Percent Auto 1.4 % (2-4); Hematocrit 31.8 % (41-53); Hemoglobin 9.1 g/dL (13.5-17.5); Lymphocytes Absolute Auto 2400 /uL (1100-4500); Lymphocytes Percent Auto 11.5 % (25-40); Mean Corpuscular HGB Conc 28.7 % (30-36); Mean Corpuscular Hemoglobin 17.2 PG (26-34); Mean Corpuscular Volume 59.8 fL (80-100); Monocytes Absolute Auto 700 /uL (0-900); Monocytes Percent Auto 3.2 % (3-14); Neutrophils Absolute Auto 17700 /uL (1500-7000); Neutrophils Percent Auto 83.3 % (50-75); Platelet Count 331 X10^3/uL (150-400); Red Blood Cell Count 5.32 X10^6/uL (4.5-5.9); Red Cell Distribution Width 25.8 % (11.6-14.8); White Blood Cell Count 21.3 X10^3/uL (4.5-11.0)
[2022-04-01 07:22] LABS: Anisocytosis 2+; BUN Creatinine Ratio 16.7 (6-22); Blood Urea Nitrogen 16 mg/dL (9-20); Calcium 9.2 mg/dL (8.4-10.2); Carbon Dioxide 25 mmol/L (22-32); Chloride 108 mmol/L (98-107); Estimated Glomerular Filt Rate > 60 mL/min (>60); Glucose 102 mg/dL (80-110); HEMOLYSIS < 15 (0-50); Microcytosis 3+; Poikilocytosis 2+; Potassium 3.7 mmol/L (3.4-5.1); Sodium 141 mmol/L (137-145)
[2022-04-01 08:05] VITALS: BP 141/91; PULSE 105; RESP 19; TEMP 36.4; O2SAT 98
[2022-04-01] MEDS: HYDROXYUREA 500 MG CAPSULE PO (09:06)
[2022-04-01] MEDS: ENOXAPARIN 100 MG/ML SYRINGE 90 MG SUBCUT (09:06)
--- NOTE | 2022-04-01 11:20 | CM.DANOTE ---
Patient is a 76 yo male who was admitted on 03/31/22 for General Unwellness. Pt has PRE BC MCR for insurance and his PCP is Dr. Michelle Anthony. EMR was reviewed. 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 Pt was last admitted in Nov 2021 this year and was able to d/c home with Sig Other and no needs. SW met bedside with pt and explained role and he confirms he still lives with Sig Angelia Mo in [place] since 2002 and is mostly independent with ADL's at baseline and does not use DME and sometimes drives. Pt denies any hx of HH or SNF and states [place] is his DPOA. Pt states he has been taking oral chemo meds which he has gotten used to now, I just know I need a nap after I take them. Pt also confirms he's been getting chemo injections into his bladder that are much more intense and toxic which has made him incontinent and therefore he wears briefs but is slowly improving and pt has been told by Oncologist it could take 2 months to get his continence fully back. Pt confirms that his Sig Other is great at being organized and managing his med list and they both have lost 20-40 lbs since all of pt's medical complications and chemo and they now are cooking very clean and healthy meals and I know longer have to wear my fatty clothes. Pt denies any needs for d/c and confirms Sig Other can transport home and provide assist and pt already has outpt PT set up but to begin in May after he has Urology procedure in April. Plan: SW to follow closely for plan of d/c home via Sig Other POV and assist and any further identified discharge planning needs. TOM Richards Discharge Planning/Care Management CM Discharge Assessment Start: 04/01/22 11:18 Freq: Status: Active Protocol: Document 04/01/22 11:18 BF (Rec: 04/01/22 11:20 BF [id number]) Discharge Planning Assessment Assigned Special Warfare Operator TOM Dougherty DPOA/Assigned Designee Name Life Partner Thomas Wade Advance Directives? Yes Advance Directives on File No History Provided By Patient,Medical Record Has Patient been admitted in last 30 No days? Prior Living Arrangements House Household Members significant other Type of transporation used prior to Relies on Others admit Independent with ADL's Yes Is patient alert and oriented? Yes Needs Assistance With Managing Medications,Home Chores / Shopping Caregiver for Another No Patient/Family Preference OP PT Therapy Barriers to Discharge No Comment Expect patient will DC back w/ partner upon DC, both are retired Discharge Plan Home Transportation Arrangement Partner Referrals Initiated None needed Additional Comment No referrals needed at this time Whiteboard Updated in Patient Room with Yes name and ext. # of Special Warfare Operator Review Status In Process Please Provide Date Initial DC 04/01/22 Assessment Was Performed Next Review Type Continued Stay Review
[2022-04-01 12:00] VITALS: BP 131/81; PULSE 98; RESP 19; TEMP 37.1; O2SAT 96
--- NOTE | 2022-04-01 15:13 | P.DS_ITS ---
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 Discharge Providers Provider Date of admission: 03/31/22 16:05 Discharge Date: 04/01/22 Primary care physician: Michelle Anthony DO Consults: 03/31/22 18:21 Consult to Discharge Planning Routine Comment: Discharge provider: Ana Paula Freeman MD Summary Hospital Course Discharge Diagnosis: Pulmonary embolism. Multiple new distal segmental and subsegmental emboli noted within the left lower lobe. Hospital Course: Patient presented feeling weak and with the cough. Patient has a known history of previous DVT. Ultrasounds of both the upper and lower extremity shows no DVT. However CT angio of the chest showed multiple new distal segmental and subsegmental emboli noted within the left lower lobe. Patient's Eliquis was discontinued and the patient was placed on therapeutic Lovenox of 90 mg subQ every 12 hours. On discussion with the patient's stem cleaning machine feeder in [place], it would advise that the patient should continue on the Lovenox until he becomes therapeutic on warfarin. He can be discharged with warfarin 5 mg daily with continuing Lovenox subQ every 12 hours and follow up with his family physician to ensure therapeutic level of warfarin with discontinuation of the Lovenox at that time. As well the stem cleaning machine feeder will follow-up with him. Status at Discharge Cognitive/behavioral status at discharge: at baseline, oriented Functional status at discharge: independent ambulation Overall status at discharge: patient is progressing back to baseline Exam Vital Signs (past 8 hours): - 04/01/22 08:05 04/01/22 08:00 04/01/22 12:00 Temperature 97.5 F L 98.7 F Pulse Rate 105 H 98 H Respiratory Rate 19 19 Blood Pressure 141/91 H 131/81 Pulse Oximetry 98 96 Oxygen Delivery Method Room Air Oxygen Flow Rate 0 0 Oxygen Delivery Method Room Air Oxygen Flow Rate 0 Narrative Exam Narrative: Unchanged from presentation. GENERAL:? Alert, cooperative and in no distress. HEAD: Atraumatic. Normocephalic. EYES:? Sclera are clear without icterus.? Extraocular movements are full. ENT:? No rhinorrhea.? Oropharynx is moist.? Mouth exam is benign. NECK:? Supple.? Full range of motion. CARDIOVASCULAR:? Tachycardia and regular rhythm without murmur gallop or rub. RESPIRATORY: Clear to auscultation. Breath sounds equal bilaterally. No wheezes, rales, or rhonchi.? GASTROINTESTINAL: Abdomen soft, non-tender, nondistended. EXTREMITIES: No edema, full range of motion.? No obvious trauma. BACK:? Normal inspection, no CVA tenderness. NEURO:? Nonfocal examination, normal speech, normal gait. SKIN: No rash or erythema of visible areas PSYCH:? Normally oriented.? Normal range of affect.? Appropriate behavior Objective Labs Result Diagrams: 04/01/22 06:31 04/01/22 06:31 Labs: Laboratory Results - last 24 hr 03/31/22 03/31/22 04/01/22 09:35 18:30 06:31 WBC 21.3 H RBC 5.32 Hgb 9.1 L Hct 31.8 L MCV 59.8 L MCH 17.2 L MCHC 28.7 L RDW 25.8 H Plt Count 331 Neut % (Auto) 83.3 H Lymph % (Auto) 11.5 L [place] % (Auto) 3.2 Eos % (Auto) 1.4 L Baso % (Auto) 0.6 Neut # (Auto) 65233 H Lymph # (Auto) 2400 [place] # (Auto) 700 Eos # (Auto) 300 Baso # (Auto) 100 RBC Morphology Not Reportable Poikilocytosis 2+ H Anisocytosis 2+ H Microcytosis 3+ H Sodium Potassium Chloride Carbon Dioxide BUN Creatinine Estimated GFR BUN/Creatinine Ratio Glucose Calcium NT-Pro-B Natriuret Pep 615 H SARS-CoV-2 (PCR) Negative 04/01/22 06:31 WBC RBC Hgb Hct MCV MCH MCHC RDW Plt Count Neut % (Auto) Lymph % (Auto) [place] % (Auto) Eos % (Auto) Baso % (Auto) Neut # (Auto) Lymph # (Auto) [place] # (Auto) Eos # (Auto) Baso # (Auto) RBC Morphology Poikilocytosis Anisocytosis Microcytosis Sodium 141 Potassium 3.7 Chloride 108 H Carbon Dioxide 25 BUN 16 Creatinine 0.96 Estimated GFR > 60 BUN/Creatinine Ratio 16.7 Glucose 102 Calcium 9.2 NT-Pro-B Natriuret Pep SARS-CoV-2 (PCR) PFSH Medical History Asthma Carotid artery disease (~2002) Chronic back pain Chronic cough Colon polyps Gout Hay fever Hearing deficit Hyperlipidemia Hypertension Obesity (BMI 30-39.9) LEONARD (obstructive sleep apnea) Polycythemia vera Psoriasis Skin cancer Type 2 diabetes mellitus Surgical History History of angioplasty S/P CABG (coronary artery bypass graft) Family History Mother Heart disease High cholesterol Stroke Hypertension Father No problems noted. Sister Myocardial infarction Sister Myocardial infarction Social History (System 04/01/22 @ 07:13 by Lady Annabel Ingram) marital status: unmarried,single household members: significant other housing: house pets and animals: Yes current occupational exposures/hazards: Yes ([employer]) Smoking Status: Former smoker alcohol intake: current substance use type: does not use Discharge Assessment & Plan Assessment and Plan Assessment: Discharge to home. Follow up with family physician. Plan of Treatment: Discharge with Lovenox 90 mg subQ every 12 hours until warfarin and dose is t herapeutic. Initiated on warfarin 5 mg daily. Prescription to be written for both. Patient to follow-up with family physician and stem cleaning machine feeder following discharge. Discharge Plan Discharge Plan Patient Disposition: Home Discharge orders & Medications Prescriptions: New enoxaparin [Lovenox] 100 mg/mL Syringe 90 mg SUBCUT BID Qty: 14 0RF warfarin 5 mg tablet 5 mg PO DAILY Qty: 7 0RF Continued aspirin 81 mg tablet,delayed release (DR/EC) 81 mg PO DAILY Qty: 90 0RF carvedilol [Coreg] 25 mg tablet 12.5 mg PO BID Qty: 0 fluticasone propionate 50 mcg/actuation spray,suspension 1 spray intranasal DAILY Rx Instructions: administer into each nostril bisacodyl [Dulcolax (bisacodyl)] 5 mg tablet,delayed release (DR/EC) 5 mg PO BID hydroxyurea 500 mg capsule 500 mg PO DAILY amiodarone 200 mg tablet 200 mg PO DAILY omeprazole 20 MG capsule,delayed release(DR/EC) 20 mg PO QDAY Qty: 0 losartan 25 mg tablet 25 mg PO DAILY Qty: 90 1RF montelukast [Singulair] 10 mg Tablet 10 mg PO DAILY albuterol sulfate [ProAir HFA] 90 mcg/actuation HFA aerosol inhaler 1 puff inhalation Q4HR PRN (Reason: Shortness Of Breath) Rx Instructions: inhale 1 to 2 puffs by mouth every 4 hours if needed for shortness of breath Flovent HFA 110 mcg/actuation HFA aerosol inhaler 1 puff inhalation BID Rx Instructions: inhale 1 puff by mouth and INTO THE LUNGS twice a day fenofibrate nanocrystallized 145 mg tablet 145 mg PO DAILY Rx Instructions: take 1 tablet by mouth once daily atorvastatin 40 mg tablet 40 tab PO BEDTIME hydroxyurea 500 mg capsule 1 cap PO DAILY Label Comments: take 1 capsule by mouth once daily aspirin [Aspir-81] 81 mg Tablet,Delayed Release (Dr/Ec) 81 mg PO DAILY ferrous sulfate [Daily Iron] 325 mg (65 mg iron) Tablet 325 mg PO DAILY losartan 25 mg tablet 1 tab PO DAILY Label Comments: take 1 tablet by mouth daily omeprazole 20 mg Capsule,Delayed Release(Dr/Ec) 20 mg PO DAILY bisacodyl [Dulcolax (bisacodyl)] 5 mg Tablet,Delayed Release (Dr/Ec) 5 mg PO BID albuterol sulfate 90 mcg/actuation HFA aerosol inhaler 1 inh INHALATION PRN PRN (Reason: Shortness Of Breath) Label Comments: inhale 1 to 2 puffs by mouth every 4 hours if needed for shortness of breath fluticasone propionate [Flonase Allergy Relief] 50 mcg/actuation [place],Suspension 2 spray INTRANASAL PRN PRN (Reason: Allergy Symptoms) Rx Instructions: administer into each nostril fenofibrate nanocrystallized 145 mg tablet 1 tab PO DAILY Label Comments: take 1 tablet by mouth once daily nitroglycerin [Nitrostat] 0.4 mg tablet, sublingual 0.4 mg sublingual Q5M PRN (Reason: chest pain) Qty: 25 1RF Rx Instructions: do not exceed 3 doses per episode Discontinued Eliquis 5 mg tablet 5 tab PO BID Label Comments: take 2 tablet by mouth every 12 hours for 7 days then 1 tablet by mouth every 12 hours Follow up/Referrals: Michelle Anthony DO [Primary Care Provider] - Visit Report/Discharge Packet Instructions: DI for Pulmonary Embolism, How to Give a Subcutaneous Injection With a Pre-filled Syringe, DI for Warfarin Therapy Discharge Data Primary Care Provider: Michelle Anthony Attending Provider: Ju Hanson
--- NOTE | 2022-04-01 16:06 | PC.NURSE ---
Patient has been up independently in room today, denies pain or shortness of breath. Occasional dry cough noted. Patient has no other questions or concerns today, and feels ready for discharge. Discharge instructions and home care handouts reviewed with patient and he feels competent and capable of administering this to himself. Patient agrees to make a follow up appointment with his doctor PCP and oncologist juventino. Escorted out via wheelchair with all his belongings to be discharged to home with his partner Wilfrido.
== END 2022-04-01 16:19 | disposition home or self-care (01) ==
LOC: ED 15:38 → AC 17:34
PROVIDERS: Admitting Provider Family Medicine; Emergency Provider Family Medicine Addiction Medicine; PCP Family Medicine; Referring Provider Family Medicine Addiction Medicine; Visit Provider Family Medicine
DX: I26.94 Multiple subsegmental thrombotic pulmonary emboli without acute cor pulmonale (principal); R00.0 Tachycardia, unspecified; R16.1 Splenomegaly, not elsewhere classified; I25.10 Atherosclerotic heart disease of native coronary artery without angina pectoris; I10 Essential (primary) hypertension; E11.9 Type 2 diabetes mellitus without complications; Z86.718 Personal history of other venous thrombosis and embolism; E78.5 Hyperlipidemia, unspecified; C67.9 Malignant neoplasm of bladder, unspecified; D72.829 Elevated white blood cell count, unspecified; D50.9 Iron deficiency anemia, unspecified; Z95.1 Presence of aortocoronary bypass graft; Z20.822 Contact with and (suspected) exposure to COVID-19
CPT/HCPCS: 36415; 71046; 71275; 80048; 80053; 81001; 81003; 83605; 83880; 84145; 84443; 84484; 85025; 87086; 87635; 93005; 93307; 93971; 96360; 96361; 96372; 99284; C9803; G0378; J1650; Q9967

== ENCOUNTER → 2022-06-12 11:26 | Outpatient (CLI) | payer MEDICARE, SELFPAY ==
[2022-03-31 18:06] VITALS: BMI 31.3
[2022-06-12 13:31] LABS: Hemoglobin A1C% w Est Avg Glu 5.5 % (4.0-6.0)
== END ==
PROVIDERS: PCP Family Medicine; Referring Provider Family Medicine; Visit Provider Family Medicine
DX: E11.9 Type 2 diabetes mellitus without complications (principal)
CPT/HCPCS: 36415; 83036

== ENCOUNTER 2022-08-05 10:15 | Outpatient (RCR) | payer MEDICARE, SELFPAY ==
[2021-11-22 02:29] VITALS: BMI 39.4
[2022-03-31 18:06] VITALS: BMI 31.3
== END 2022-08-05 14:15 ==
LOC: CAR 10:15
PROVIDERS: PCP Family Medicine; Referring Provider Internal Medicine Cardiovascular Disease; Visit Provider Internal Medicine Cardiovascular Disease
DX: Z95.1 Presence of aortocoronary bypass graft (principal)
CPT/HCPCS: 93798

== ENCOUNTER → 2022-10-16 09:18 | Outpatient (CLI) | payer MEDICARE, SELFPAY ==
[2022-03-31 18:06] VITALS: BMI 31.3
[2022-10-16 12:45] LABS: COVID19 -Nasal RAPID Negative (Negative)
== END ==
PROVIDERS: PCP Family Medicine; Visit Provider Surgery
DX: Z01.812 Encounter for preprocedural laboratory examination (principal); Z20.822 Contact with and (suspected) exposure to COVID-19
CPT/HCPCS: 87635; C9803

== ENCOUNTER 2022-10-17 07:57 | Day surgery (SDC) | payer MEDICARE, SELFPAY ==
[2022-03-31 18:06] VITALS: BMI 31.3
--- NOTE | 2022-10-17 | PATH_ITS ---
[facility] Accession Number: [id number] No. of containers..03 Tissue . 01 Material submitted: . PART A: gastrointestinal site - GASTRIC POLYP X2 PART B: colon - ASCENDING POLYP X2 PART C: sigmoid colon - SIGMOID POLYP . 01 Diagnosis: A. Stomach, Polyp x2, Biopsy: Fundic gland polyps. No evidence of Helicobacter organisms on H/E stain. Negative for intestinal metaplasia. Negative for dysplasia and malignancy. . B. Ascending Colon, Polyp x2, Biopsies: Tubular adenomas. . C. Sigmoid Colon, Polyp, Biopsy: Tubular adenoma. [facility] 10/21/2022 1041 Local . 01 Electronically signed: . Mandy Live MD, Pathologist NPI- [id number] . 01 Gross description: . Part A: GASTRIC POLYP X2: Received in formalin are 2 fragment(s) of barber, soft tissue measuring 0.4 x 0.3 x 0.2 cm to 0.2 x 0.2 x 0.2 cm submitted entirely in 1 cassette(s) Part B: ASCENDING POLYP X2: Received in formalin are 2 fragment(s) of barber, soft tissue measuring 0.5 x 0.5 x 0.3 cm to 0.3 x 0.2 x 0.2 cm submitted entirely in 1 cassette(s) Part C: SIGMOID POLYP: Received in formalin are multiple fragment(s) of barber, soft tissue measuring 1.0 x 0.8 x 0.1 cm in aggregate submitted entirely in 1 cassette(s) /CPE 10/18/2022 0622 Local . 01 Pathologist provided ICD-10: K31.7, D12.2, D12.5 . 01 CPT . 193731, 477460, 444715 Specimen Comment: A courtesy copy of this report has been sent to [phone] Performed at: 01 [facility] [address] [facility], [place], [place] [id number] MD Clifton Vickers MD Phone: [phone]
[2022-10-17 08:27] VITALS: BP 155/95; PULSE 96; RESP 20; TEMP 36.2; O2SAT 97; BMI 36.8
[2022-10-17] MEDS: LACTATED RINGERS 1,000 ML 42 ML IV (08:34)
--- NOTE | 2022-10-17 09:30 | PM.PREOP ---
Pre-operative Note COVID-19 COVID-19 status: Negative Result date/Date tested (Pos, Neg/Pending): 10/16/22 Interval Note History & Physical reviewed/Exam performed by Physician: Yes Changes to H&P: No ASA Class (for procedural sedation): III
[2022-10-17 10:30] VITALS: BP 126/77; PULSE 86; RESP 16; TEMP 36.6; O2SAT 92
[2022-10-17 10:35] VITALS: BP 133/80; PULSE 83; RESP 16; O2SAT 95
--- NOTE | 2022-10-17 10:54 | PM.OP.EC ---
Operative Date/Time/Diagnoses Date of procedure: 10/17/22 Time of procedure: 10:54 Pre-op diagnosis: Anemia Post-op diagnosis: same Procedure & Clinicians Study performed: EGD and colonoscopy Same procedure as scheduled: Yes Surgeon: Jian Sousa Procedure Notes Procedure in detail: Surgeon: Jian Sousa MD Anesthesia: Anjali Rodriguez CRNA Procedure in detail: A timeout was performed. A bite blocked was placed and monitors were attached to the patient. The patient was positioned in a left lateral decubitus position. Sedation was administered by Anjali Rodriguez CRNA. Once the patient was sedated the endoscope was inserted through the bite block and passed through the esophagus and stomach and into the duodenum. The duodenum was normal. We then withdrew the scope into the stomach. There were multiple large fundic gland type polyps in the proximal stomach and biopsies were taken from 2 of these polyps using the forceps. The endoscope was retroflexed and no other abnormalities were noted. The endoscope was straightned and withdrawn into the esophagus. No other abnormalities were noted. Findings: Fundic gland polyps in the proximal stomach Next we repositioned the patient for a colonoscopy. A digital rectal exam was performed and was normal. The colonoscope was inserted and advanced to the cecum. The appendiceal orifice was identified and photographed. The scope was slowly withdrawn over greater than 6 minutes. There were 2 5 mm polyps in the ascending colon removed with a combination of cold snare and forceps and sent together. There was a 7 mm pedunculated polyp in the sigmoid colon removed with a cold snare and sent as sigmoid polyp. The scope was retroflexed in the rectum and no abnormalities were seen. Findings: To 5 mm polyps in the ascending colon and a 7 mm sigmoid colon polyp EBL: 5 mL Scope withdrawal time: 15 minutes Sedation minutes: 33 minutes Post-procedure Disposition: PACU
[2022-10-17 11:23] VITALS: BP 133/80; PULSE 83; RESP 16; O2SAT 95
== END 2022-10-17 11:25 | disposition home or self-care (01) ==
PROVIDERS: PCP Family Medicine; Referring Provider Surgery; Visit Provider Surgery
PROC: 0DJ08ZZ Inspection of Upper Intestinal Tract, Via Natural or Artificial Opening Endoscopic (ICD-10-PCS; CPT 43235; principal; 2022-10-17 09:15)
PROC: 0DJD8ZZ Inspection of Lower Intestinal Tract, Via Natural or Artificial Opening Endoscopic (ICD-10-PCS; CPT 45378; 2022-10-17 09:15)
DX: D50.9 Iron deficiency anemia, unspecified (principal); K31.7 Polyp of stomach and duodenum; D12.5 Benign neoplasm of sigmoid colon; D12.2 Benign neoplasm of ascending colon
CPT/HCPCS: 45385; 45380; 43239; J2704

== ENCOUNTER → 2022-11-29 09:00 | Outpatient (CLI) | payer MEDICARE, SELFPAY ==
[2022-03-31 18:06] VITALS: BMI 31.3
[2022-11-29 09:51] LABS: Hemoglobin A1C% w Est Avg Glu 7.3 % (4.0-6.0)
[2022-11-29 09:59] LABS: Hematocrit 36.8 % (41-53); Hemoglobin 10.5 g/dL (13.5-17.5); Mean Corpuscular HGB Conc 28.5 % (30-36); Mean Corpuscular Hemoglobin 17.2 PG (26-34); Mean Corpuscular Volume 60.4 fL (80-100); Red Blood Cell Count 6.09 X10^6/uL (4.5-5.9); Red Cell Distribution Width 21.3 % (11.6-14.8); White Blood Cell Count 25.3 X10^3/uL (4.5-11.0)
[2022-11-29 10:00] LABS: Alanine Aminotransferase 22 IU/L (<50); Albumin 4.3 g/dL (3.5-5.0); Albumin Globulin Ratio 1.8 (1.0-2.8); Alkaline Phosphatase 70 U/L (38-126); Aspartate Aminotransferase 22 IU/L (17-59); BUN Creatinine Ratio 14.8 (6-22); Bilirubin Total 0.9 mg/dL (0.2-1.3); Blood Urea Nitrogen 12 mg/dL (9-20); Calcium 8.5 mg/dL (8.4-10.2); Carbon Dioxide 27 mmol/L (22-32); Chloride 100 mmol/L (98-107); Estimated Glomerular Filt Rate > 60 mL/min (>60); Globulin 2.4 g/dL (1.7-4.1); Glucose 156 mg/dL (80-110); HEMOLYSIS < 15 (0-50); Potassium 4.2 mmol/L (3.4-5.1); Sodium 139 mmol/L (137-145); Total Protein 6.7 g/dL (6.3-8.2)
[2022-11-29 10:01] LABS: Add Manual Diff / Slide Review YES
[2022-11-29 11:21] LABS: Neutrophils Absolute Manual 22264 /uL (3000-5900); Nucleated Red Blood Cells 1 #/Diff; Total Cells Counted 100
[2022-11-29 11:22] LABS: Microcytosis 3+
[2022-11-29 11:23] LABS: Hypochromasia 2+
[2022-11-29 11:24] LABS: Ovalocytes 2+; Tear Drop Cells 1+
[2022-11-29 11:26] LABS: Anisocytosis 2+
[2022-11-29 11:27] LABS: Polychromasia 1+
[2022-11-29 11:29] LABS: Platelet Count 147 X10^3/uL (150-400)
== END ==
PROVIDERS: PCP Family Medicine; Referring Provider Family Medicine; Visit Provider Family Medicine
DX: E11.9 Type 2 diabetes mellitus without complications (principal); D45 Polycythemia vera
CPT/HCPCS: 36415; 80053; 83036; 85007; 85025

== ENCOUNTER → 2023-02-17 14:16 | Outpatient (CLI) | payer MEDICARE, SELFPAY ==
[2022-03-31 18:06] VITALS: BMI 31.3
[2023-02-17 16:46] LABS: Creatinine Urine Random 125.8 mg/dL
[2023-02-17 17:08] LABS: Microalbumi Creatinin Ratio Ur 193.1 ug/mg CR (<30); Microalbumin Urine Random 24.3 mg/dL (0-1.6)
[2023-02-18 08:35] LABS: x Labcorp Estim. Avg Glu (eAG) 163 mg/dL (.); x Labcorp Hemoglobin A1c 7.3 % (4.8-5.6)
== END ==
PROVIDERS: PCP Family Medicine; Referring Provider Family Medicine; Visit Provider Family Medicine
DX: E11.9 Type 2 diabetes mellitus without complications (principal)
CPT/HCPCS: 36415; 82043; 82570; 83036

== ENCOUNTER → 2023-04-15 10:29 | Outpatient (CLI) | payer MEDICARE, SELFPAY ==
[2022-03-31 18:06] VITALS: BMI 31.3
[2023-04-15 11:35] LABS: INR 5.6 (0.9-1.3); Prothrombin Time 65.9 SECONDS (10.1-12.7)
== END ==
PROVIDERS: PCP Family Medicine; Referring Provider Family Medicine; Visit Provider Family Medicine
DX: I82.409 Acute embolism and thrombosis of unspecified deep veins of unspecified lower extremity (principal)
CPT/HCPCS: 36415; 85610

== ENCOUNTER 2023-04-28 09:03 | Emergency (ER) | payer MEDICARE, SELFPAY ==
[2022-03-31 18:06] VITALS: BMI 31.3
[2023-04-28] VITALS (23 sets, daily range): BP systolic 147–206; BP diastolic 84–111; PULSE 70–91; RESP 16–28; TEMP 36.9; O2SAT 86–98; BMI 38.5
--- NOTE | 2023-04-28 09:13 | DI.RAD.S_ITS ---
PROCEDURE: XR SHOULDER RT MIN 2V INDICATIONS: pain in shoulder after fall 3 months ago TECHNIQUE: 3 views of the shoulder were acquired. COMPARISON: None. FINDINGS: Bones: There is anterior-inferior dislocation/subluxation of humeral head in relation to glenoid. No definite fracture is seen. Moderate acromioclavicular joint osteoarthritic changes are seen. No suspicious bony lesions. Visualized ribs appear intact. Soft tissues: Small calcifications superior to greater tuberosity of humeral head is seen which may represent hydroxyapatite deposition disease. IMPRESSION: 1. Anterior-inferior dislocation/subluxation at glenohumeral joint as above. No definite fracture is seen. 2. Moderate acromioclavicular joint osteoarthritis. Suggestion of calcific tendinitis involving distal rotator cuff tendons. Dictated by: Cl Mcclure M.D. on 04/28/2023 at 9:27 Approved by: Cl Mcclure M.D. on 04/28/2023 at 9:29
--- NOTE | 2023-04-28 09:14 | ED_ITS ---
HPI - Fall General Chief Complaint: Fall Stated Complaint: RT shoulder pain shooting, right hand going numb, Time Seen by Provider: 04/28/23 09:13 History of Present Illness HPI Narrative: Patient is a 77-year-old male multiple comorbidities including coronary artery disease, sleep apnea, diabetes, polycythemia vera on warfarin presenting today with ongoing right shoulder pain gotten worse. He reports that about 2 or 3 months ago he fell it has been sore ever since. He saw his primary start him in physical [place] be. However last night he was sleeping and woke up with severe pain in his shoulder and a little bit of numbness in his hand but was new. He has had significant decreased range of motion since he fell but increasing pain today. He thinks he rolled over slept on it wrong Related Data Home Medications Medication Instructions Recorded Confirmed hydroxyurea 500 mg capsule 500 mg PO DAILY 01/17/22 03/12/23 aspirin 81 mg tablet,delayed 81 mg PO DAILY 03/31/22 03/12/23 release atorvastatin 40 mg tablet 40 tab PO BEDTIME 03/31/22 03/12/23 bisacodyl 5 mg tablet,delayed 5 mg PO BID 03/31/22 03/12/23 release (Dulcolax (bisacodyl)) omeprazole 20 mg capsule,delayed 20 mg PO DAILY 03/31/22 03/12/23 release gabapentin 300 mg capsule 300 mg PO TID 12/02/22 03/12/23 carvedilol 12.5 mg tablet 12.5 mg PO BID 02/17/23 03/12/23 amoxicillin 500 mg capsule 500 mg PO TID 03/12/23 03/12/23 Previous Rx's Medication Instructions Recorded fenofibrate nanocrystallized 145 See Rx Instructions .Route 10/08/22 mg tablet .COMPLEX #90 tabs albuterol sulfate 90 mcg/actuation 1 inh inhalation PRN PRN Shortness 10/11/22 aerosol inhaler Of Breath #8.5 grams fluticasone propionate 50 2 spray intranasal PRN PRN Allergy 10/23/22 mcg/actuation nasal Symptoms #16 grams spray,suspension (Flonase Allergy Relief) warfarin 5 mg tablet 5 mg PO DAILY #90 tabs 12/16/22 losartan 25 mg tablet See Rx Instructions .Route 02/18/23 .COMPLEX #90 tabs fluticasone propionate 110 1 puff inhalation BID #12 grams 03/12/23 mcg/actuation HFA aerosol inhaler (Flovent HFA) metformin 500 mg tablet 1,000 mg PO BID #360 tabs 03/12/23 hydrocodone 5 mg-acetaminophen 325 1 tab PO Q6H PRN pain #10 tabs 04/28/23 mg tablet Allergies Allergy/AdvReac Type Severity Reaction Status Date / Time No Known Drug Allergies Allergy Verified 03/12/23 13:26 Review of Systems Review of Systems ROS Unobtainable: All systems reviewed & are unremarkable except as noted in HPI and below Patient History Medical History Asthma Carotid artery disease (~2002) Chronic back pain Chronic cough Colon polyps Gout Hay fever Hearing deficit Hyperlipidemia Hypertension Obesity (BMI 30-39.9) LEONARD (obstructive sleep apnea) Polycythemia vera Psoriasis Skin cancer Type 2 diabetes mellitus Surgical History H/O primary malignant neoplasm of urinary bladder (~02/05/22) History of angioplasty S/P CABG (coronary artery bypass graft) Family History Mother Heart disease High cholesterol Stroke Hypertension Father No problems noted. Sister Myocardial infarction Sister Myocardial infarction Social History marital status: unmarried,single household members: significant other housing: house pets and animals: Yes current occupational exposures/hazards: Yes ([facility]) Smoking Status: Former smoker alcohol intake: current substance use type: does not use Smoking Status: Former smoker alcohol intake frequency: holidays/special occasions only Substance Use Type: does not use Exam Initial Vital Signs Initial Vital Signs: Vital Signs Temperature 98.4 F 04/28/23 09:09 Pulse Rate 84 04/28/23 09:09 Respiratory Rate 16 04/28/23 09:09 Blood Pressure 187/101 H 04/28/23 09:09 Pulse Oximetry 98 04/28/23 09:09 Oxygen Delivery Method Room Air 04/28/23 09:09 GENERAL: Alert pleasant 77-year-old male CARDIOVASCULAR: peripheral pulses in tact, cap refill <2 sec RESPIRATORY: No respiratory distress, speaks in full sentences without difficulty EXTREMITIES: Normal range of motion, no clubbing or edema. Neurovascularly inta ct Right shoulder mild anterior step-off appreciated significantly tender to touch. Sensation deltoid intact. Distal radial pulse intact NEUROLOGICAL: Cranial nerves II through XII grossly intact. Normal gait and speech. SKIN: Warm, dry, no petechiae, no rashes or lesions. Procedures Orthopedic Joint Reduction Joint #1: Joint Reduction Location: shoulder Analgesia: procedural sedation Shoulder Technique Used (if applicable): traction/counter-traction and external rotation Post-reduction neuro exam: intact Post-reduction vascular: intact Post Reduction X-Ray Obtained: Yes Post Reduction X-Ray Results: reduced Patient Tolerated Procedure: Well and No complications Procedural Sedation Consent signed: Yes Time out performed: Yes Indication: fracture/dislocation reduction ASA Class: II Mallampati Airway Classification: Class II IV Propofol dose (mg): 100 Intraservice time/total sedation time (min): 16 ED Sedation Level: Moderate (Concious) Patient Tolerated Procedure: Well and No complications Complications: hypoxia Interventions: Airway repositioned and Oxygen applied Course Orders Ordered: ED Orders 04/28/23 10:41 XR shoulder RT min 2V Stat Discontinued Medications Propofol (Propofol 200 Mg/20 Ml Vial) 110 mg 1 mg/kg (110 mg) IV NOW ONE Stop: 04/28/23 09:49 Last Admin: 04/28/23 10:35 Dose: 100 mg Documented By: CTS Vital Signs Vital signs: Vital Signs - 8 hr 04/28/23 11:20 04/28/23 11:20 04/28/23 11:25 Pulse Rate 85 84 Blood Pressure 168/97 H Pulse Oximetry 95 94 04/28/23 11:25 Pulse Rate Blood Pressure 158/90 H Pulse Oximetry MDM - Fall Imaging Data Extremity x-ray #1: Radiologist's Impression: PROCEDURE:? XR SHOULDER RT MIN 2V ? INDICATIONS:? pain in shoulder after fall 3 months ago ? TECHNIQUE:? 3 views of the shoulder were acquired.? ? COMPARISON:? None. ? FINDINGS:? ? Bones:? There is anterior-inferior dislocation/subluxation of humeral head in relation to glenoid.? No definite fracture is seen.? Moderate acromioclavicular joint osteoarthritic changes are seen.? No suspicious bony lesions.? Visualized ribs appear intact.? ? Soft tissues:? Small calcifications superior to greater tuberosity of humeral head is seen which may represent hydroxyapatite deposition disease. ? IMPRESSION:? ? 1.? Anterior-inferior dislocation/subluxation at glenohumeral joint as above.? No definite fracture is seen. ? 2. Moderate acromioclavicular joint osteoarthritis.? Suggestion of calcific tendinitis involving distal rotator cuff tendons.? ? ? Dictated by: Cl Mcclure M.D. on 04/28/2023 at 9:27 ? ? Approved by: Cl Mcclure M.D. on 04/28/2023 at 9:29 ? Extremity x-ray #2: Radiologist's Impression: PROCEDURE:? XR SHOULDER RT MIN 2V ? INDICATIONS:? post reduction ? TECHNIQUE:? 2 views of the shoulder were acquired.? ? COMPARISON:? [facility], CR, XR SHOULDER RT MIN 2V, 04/28/2023, 9:08. ? FINDINGS:? ? Bones:? There is interval reduction of earlier noted glenohumeral joint dislocation.? Right shoulder joint alignment is now anatomic.? Hill-Sachs deformity involving posterior lateral humeral head is seen..? No suspicious bony lesions.? Visualized ribs appear intact.? ? Soft tissues:? No suspicious soft tissue calcifications.? ? IMPRESSION:? Interval reduction of earlier noted anterior-inferior glenohumeral joint dislocation with anatomic shoulder alignment.? Suggestion of Hill-Sachs deformity in posterior lateral humeral head.? ? Dictated by: Cl Mcclure M.D. on 04/28/2023 at 11:10 ?? MDM Narrative Medical decision making narrative: Patient is 77-year-old male presents with left anterior inferior shoulder dislocation. He has had pain ongoing for the last 3 months however pain intensified after sleeping and only over last night. He is significant decreased range of motion x-ray and clinical ego exam consistent with shoulder dislocation. Procedure sedation with propofol and reduction. X-ray confirms redo shoulder he is feeling much better full range of motion. Tolerated procedure well though he did require some oxygen. Discharge Plan Departure Patient Disposition: Home Clinical Impression: Anterior shoulder dislocation Instructions: Shoulder Dislocation Activity Restrictions/Additional Instructions: *You have been diagnosed with right shoulder dislocation *What to do: At this time move shoulder as needed you have a small fracture should heal without any problem. Wear sling only if you need to. *Continue to take medications as directed Exmore 1 tablet every 6 hours if needed for severe pain *Follow up with your primary care provider in 2-3 days or call [phone] *Return to ER if you should have increasing pain numbness tingling weakness or any new, worsening or concerning symptoms CONTROLLED SUBSTANCE DISCHARGE (Narcotoic/benzodiazepine/Flexeril/Phenergan) 1. You have been prescribed narcotic medications, it does have acetaminophen/Tylenol/paracetamol in it, DO NOT TAKE MORE THAN 4,00mg in 24 hours of Tylenol. TRAMADOL DOES NOT CONTAIN TYLENOL 2. Please understand that we cannot provide further refills of narcotics, benzodiazepines or controlled substances through the ED and her pain management will need to be through your provider. 3. While on these medications you cannot drive or operate heavy machinery. 4. You cannot sign legal documents or perform any duties such as this. 5. As long as you're taking opiate pain medications he should also be taking a stool softener such as Colace, Dulcolax, MiraLAX or prune juice, to help avoid constipation. Prescriptions: New hydrocodone-acetaminophen 5-325 mg tablet 1 tab PO Q6H PRN (Reason: pain) Qty: 10 0RF No Action hydroxyurea 500 mg capsule 500 mg PO DAILY carvedilol 12.5 mg tablet 12.5 mg PO BID Rx Instructions: must administer with a meal/food fenofibrate nanocrystallized 145 mg tablet See Rx Instructions .ROUTE .COMPLEX Qty: 90 3RF Dose Instruction: Take 1 tablet by mouth once daily Rx Instructions: Take 1 tablet by mouth once daily albuterol sulfate 90 mcg/actuation HFA aerosol inhaler 1 inh INHALATION PRN PRN (Reason: Shortness Of Breath) Qty: 8.5 6RF fluticasone propionate [Flonase Allergy Relief] 50 mcg/actuation spray,suspension 2 spray INTRANASAL PRN PRN (Reason: Allergy Symptoms) Qty: 16 2RF Rx Instructions: administer into each nostril gabapentin 300 mg capsule 300 mg PO TID Rx Instructions: patient is using this medication for itching of his skin, prescribed by the Oncologist losartan 25 mg tablet See Rx Instructions .ROUTE .COMPLEX Qty: 90 3RF Dose Instruction: Take 1 tablet by mouth once daily Rx Instructions: Take 1 tablet by mouth once daily warfarin 5 mg tablet 5 mg PO DAILY Qty: 90 1RF Rx Instructions: Take as directed, or one tab daily. amoxicillin 500 mg capsule 500 mg PO TID metformin 500 mg tablet 1,000 mg PO BID Qty: 360 3RF Flovent HFA 110 mcg/actuation HFA aerosol inhaler 1 puff INHALATION BID Qty: 12 11RF atorvastatin 40 mg tablet 40 tab PO BEDTIME aspirin 81 mg Tablet,Delayed Release (Dr/Ec) 81 mg PO DAILY omeprazole 20 mg Capsule,Delayed Release(Dr/Ec) 20 mg PO DAILY bisacodyl [Dulcolax (bisacodyl)] 5 mg Tablet,Delayed Release (Dr/Ec) 5 mg PO BID Referrals: Enedina Keating DO [Primary Care Provider] - Stand Alone Forms: Patient Portal/API
[2023-04-28] MEDS: propofoL 200 MG/20 ML VIAL 110 MG IV (10:35)
--- NOTE | 2023-04-28 10:41 | DI.RAD.S_ITS ---
PROCEDURE: XR SHOULDER RT MIN 2V INDICATIONS: post reduction TECHNIQUE: 2 views of the shoulder were acquired. COMPARISON: [facility], CR, XR SHOULDER RT MIN 2V, 04/28/2023, 9:08. FINDINGS: Bones: There is interval reduction of earlier noted glenohumeral joint dislocation. Right shoulder joint alignment is now anatomic. Hill-Sachs deformity involving posterior lateral humeral head is seen.. No suspicious bony lesions. Visualized ribs appear intact. Soft tissues: No suspicious soft tissue calcifications. IMPRESSION: Interval reduction of earlier noted anterior-inferior glenohumeral joint dislocation with anatomic shoulder alignment. Suggestion of Hill-Sachs deformity in posterior lateral humeral head. Dictated by: Cl Mcclure M.D. on 04/28/2023 at 11:10 Approved by: Cl Mcclure M.D. on 04/28/2023 at 11:11
== END 2023-04-28 11:37 | disposition home or self-care (01) ==
PROVIDERS: Emergency Provider Emergency Medicine; PCP Family Medicine
DX: S43.014A Anterior dislocation of right humerus, initial encounter (principal); W19.XXXA Unspecified fall, initial encounter
CPT/HCPCS: 23650; 73030; 99152; 99283; 99285; J2704

== ENCOUNTER → 2023-05-01 09:51 | Outpatient (CLI) | payer MEDICARE, SELFPAY ==
[2022-03-31 18:06] VITALS: BMI 31.3
[2023-05-01 11:44] LABS: INR 5.8 (0.9-1.3)
[2023-05-02 06:33] LABS: x Labcorp Estim. Avg Glu (eAG) 143 mg/dL (.); x Labcorp Hemoglobin A1c 6.6 % (4.8-5.6)
== END ==
PROVIDERS: PCP Family Medicine; Referring Provider Family Medicine; Visit Provider Family Medicine
DX: I82.409 Acute embolism and thrombosis of unspecified deep veins of unspecified lower extremity; E11.9 Type 2 diabetes mellitus without complications
CPT/HCPCS: 36415; 83036; 85610

== ENCOUNTER → 2023-05-19 09:57 | Outpatient (CLI) | payer MEDICARE, SELFPAY ==
[2022-03-31 18:06] VITALS: BMI 31.3
[2023-05-19 11:13] LABS: Prothrombin Time 56.3 SECONDS (10.1-12.7)
[2023-05-19 11:22] LABS: INR 4.8 (0.9-1.3)
== END ==
PROVIDERS: PCP Family Medicine; Referring Provider Family Medicine; Visit Provider Family Medicine
DX: I25.10 Atherosclerotic heart disease of native coronary artery without angina pectoris (principal); I26.99 Other pulmonary embolism without acute cor pulmonale; Z95.1 Presence of aortocoronary bypass graft; I82.619 Acute embolism and thrombosis of superficial veins of unspecified upper extremity
CPT/HCPCS: 36415; 85610

== ENCOUNTER → 2023-08-11 09:32 | Outpatient (CLI) | payer MEDICARE, SELFPAY ==
[2023-06-12 12:12] VITALS: BMI 31.3
[2023-08-11 11:38] LABS: INR 2.1 (0.9-1.3); Prothrombin Time 24.2 SECONDS (10.1-12.7)
[2023-08-11 11:46] LABS: Hemoglobin A1C% w Est Avg Glu 6.8 % (4.0-6.0)
[2023-08-11 11:49] LABS: Blood Urea Nitrogen 12 mg/dL (9-20); Calcium 9.5 mg/dL (8.4-10.2); Carbon Dioxide 24 mmol/L (22-32); Chloride 103 mmol/L (98-107); Estimated Glomerular Filt Rate > 60 mL/min (>60); Glucose 129 mg/dL (80-110); HEMOLYSIS < 15 (0-50); Potassium 4.5 mmol/L (3.4-5.1); Sodium 139 mmol/L (137-145)
== END ==
PROVIDERS: PCP Family Medicine; Referring Provider Family Medicine; Visit Provider Family Medicine
DX: Z51.81 Encounter for therapeutic drug level monitoring (principal); E11.9 Type 2 diabetes mellitus without complications; I26.99 Other pulmonary embolism without acute cor pulmonale; Z79.01 Long term (current) use of anticoagulants; Z95.1 Presence of aortocoronary bypass graft; I25.10 Atherosclerotic heart disease of native coronary artery without angina pectoris; I82.619 Acute embolism and thrombosis of superficial veins of unspecified upper extremity
CPT/HCPCS: 36415; 80048; 83036; 85610

== ENCOUNTER → 2023-11-03 10:14 | Outpatient (CLI) | payer MEDICARE, SELFPAY ==
[2023-06-12 12:12] VITALS: BMI 31.3
[2023-11-03 10:53] LABS: Prothrombin Time 23.6 SECONDS (9.4-12.5)
== END ==
PROVIDERS: PCP Family Medicine; Referring Provider Family Medicine; Visit Provider Family Medicine
DX: I82.409 Acute embolism and thrombosis of unspecified deep veins of unspecified lower extremity (principal)
CPT/HCPCS: 36415; 85610

== ENCOUNTER 2023-12-24 15:58 | Emergency (ER) | payer MEDICARE, SELFPAY ==
[2023-06-12 12:12] VITALS: BMI 31.3
[2023-12-24 16:03] VITALS: BP 166/96; PULSE 90; RESP 18; TEMP 36.8; O2SAT 98; BMI 38.3
--- NOTE | 2023-12-24 16:16 | DI.RAD.S_ITS ---
PROCEDURE: XR CHEST 1V INDICATIONS: chest pain TECHNIQUE: One view of the chest was acquired. COMPARISON: CR, XR CHEST 2V, 03/31/2022, 8:56. [facility], CR, XR CHEST 1V, 12/12/2021, 2:16. FINDINGS: Surgical changes and devices: Sternotomy and CABG. Lungs and pleura: Lung volumes are small consistent with shallow inspiration. Lungs are clear. No pleural effusions or pneumothorax. Mediastinum: Mediastinal contours appear normal. Heart size is normal. Bones and chest wall: No suspicious bony lesions. Overlying soft tissues appear unremarkable. IMPRESSION: Shallow inspiration. No acute cardiopulmonary abnormality is seen. Dictated by: Aram Palmer M.D. on 12/24/2023 at 17:16 Approved by: Aram Palmer M.D. on 12/24/2023 at 17:17
[2023-12-24 16:20] VITALS: BP 171/89; PULSE 89; RESP 26; O2SAT 93
[2023-12-24 16:30] VITALS: BP 167/91; PULSE 90; RESP 20; O2SAT 93
[2023-12-24 16:57] LABS: Add Manual Diff / Slide Review YES; Hematocrit 42.5 % (41-53); Hemoglobin 12.4 g/dL (13.5-17.5); Mean Corpuscular HGB Conc 29.2 % (30-36); Mean Corpuscular Hemoglobin 18.8 PG (26-34); Mean Corpuscular Volume 64.4 fL (80-100); Platelet Count 177 X10^3/uL (150-400); White Blood Cell Count 25.3 X10^3/uL (4.5-11.0)
[2023-12-24 17:00] VITALS: PULSE 86; O2SAT 93
[2023-12-24 17:03] LABS: INR 3.6 (0.9-1.3); Prothrombin Time 41.9 SECONDS (9.4-12.5)
[2023-12-24 17:06] LABS: PTT Partial Thromboplastin Tim 55 SECONDS (25.1-36.5)
[2023-12-24 17:08] LABS: HEMOLYSIS < 15 (0-50); Potassium 4.2 mmol/L (3.4-5.1)
[2023-12-24 17:09] LABS: Alanine Aminotransferase 16 IU/L (<50); Albumin 4.5 g/dL (3.5-5.0); Albumin Globulin Ratio 1.6 (1.0-2.8); Alkaline Phosphatase 62 U/L (38-126); Aspartate Aminotransferase 25 IU/L (17-59); BUN Creatinine Ratio 15.8 (6-22); Bilirubin Total 1.1 mg/dL (0.2-1.3); Blood Urea Nitrogen 12 mg/dL (9-20); Calcium 9.5 mg/dL (8.4-10.2); Carbon Dioxide 24 mmol/L (22-32); Chloride 107 mmol/L (98-107); Creatine Kinase 32 U/L (55-170); Estimated Glomerular Filt Rate > 60 mL/min (>60); Globulin 2.9 g/dL (1.7-4.1); Glucose 118 mg/dL (80-110); Lipase 75 U/L (23-300); Magnesium 1.5 mg/dL (1.6-2.3); Sodium 139 mmol/L (137-145); Total Protein 7.4 g/dL (6.3-8.2)
[2023-12-24 17:14] LABS: Neutrophils Absolute Manual 22770 /uL (3000-5900); Nucleated Red Blood Cells 1 #/Diff; Total Cells Counted 100
[2023-12-24 17:15] LABS: Anisocytosis 3+; Ovalocytes 1+
[2023-12-24 17:20] LABS: Troponin I < 0.012 ng/mL (0.01-0.034)
[2023-12-24 17:30] VITALS: PULSE 87; O2SAT 93
[2023-12-24 18:00] VITALS: PULSE 82; RESP 25; O2SAT 91
--- NOTE | 2023-12-24 18:22 | ED.CHESTPAIN ---
HPI - Chest Pain General Chief Complaint: Chest Pain Stated Complaint: sent by [facility], gout, indigestion Time Seen by Provider: 12/24/23 16:03 Source: patient Mode of arrival: Wheelchair Limitations: no limitations History of Present Illness HPI narrative: Patient is a 78-year-old male. He has a history of gout that occurs in his right toe and right foot. He used to be on medications regularly for this but has not had an issue with gout for quite some time. Earlier this week he started to have pain in his right foot. It has progressed into what he states is gout. He feels like it is just like his prior episodes. He went to the walk-in clinic because his conservative measures that he tries at home have not been working. He mentioned to the walk-in clinic that he was having indigestion. They sent him to the emergency department for further evaluation. He currently is not having indigestion. He does have pain in the right great toe and right foot. No fevers. He states that the indigestion as most likely because he has been taking ?tart zaragoza ?for the gout. He states this is caused him GI issues in the past. When he gets the discomfort in the center of the chest he burps in the symptoms resolve. Related Data Home Medications Medication Instructions Recorded Confirmed hydroxyurea 500 mg capsule 500 mg PO DAILY 01/17/22 12/24/23 bisacodyl 5 mg tablet,delayed 5 mg PO BID 03/31/22 12/24/23 release (Dulcolax (bisacodyl)) omeprazole 20 mg capsule,delayed 20 mg PO DAILY 03/31/22 12/24/23 release carvedilol 12.5 mg tablet 12.5 mg PO BID 02/17/23 12/24/23 atorvastatin 80 mg tablet 80 mg PO DAILY 06/11/23 12/24/23 gabapentin 600 mg tablet 600 mg PO 3XD 06/11/23 12/24/23 Previous Rx's Medication Instructions Recorded fluticasone propionate 50 2 spray intranasal PRN PRN Allergy 10/23/22 mcg/actuation nasal Symptoms #16 grams spray,suspension (Flonase Allergy Relief) losartan 25 mg tablet See Rx Instructions .Route 02/18/23 .COMPLEX #90 tabs metformin 500 mg tablet 1,000 mg (2 x 500 mg) PO BID #360 03/12/23 tabs warfarin 5 mg tablet 5 mg PO DAILY #90 tabs 06/10/23 fenofibrate nanocrystallized 145 See Rx Instructions .Route 10/09/23 mg tablet .COMPLEX #90 tabs albuterol sulfate 90 mcg/actuation 1 inh inhalation PRN PRN Shortness 10/17/23 aerosol inhaler Of Breath #8.5 grams fluticasone furoate 100 1 inh inhalation DAILY #30 ea 11/24/23 mcg/actuation blister powder for inhalation (Arnuity Ellipta) colchicine 0.6 mg capsule 0.6 mg PO DAILY #1 cap 12/24/23 prednisone 20 mg tablet 40 mg (2 x 20 mg) PO DAILY #6 tabs 12/24/23 Allergies Allergy/AdvReac Type Severity Reaction Status Date / Time No Known Drug Allergies Allergy Verified 12/24/23 15:21 Review of Systems Review of Systems ROS Unobtainable: All systems reviewed & are unremarkable except as noted in HPI and below Patient History Medical History Polycythemia vera Obesity (BMI 30-39.9) Skin cancer LEONARD (obstructive sleep apnea) Type 2 diabetes mellitus Hearing deficit Chronic cough Asthma Hay fever Gout Chronic back pain Psoriasis Colon polyps Hypertension Hyperlipidemia Carotid artery disease (~2002) Surgical History H/O primary malignant neoplasm of urinary bladder (~02/05/22) History of angioplasty S/P CABG (coronary artery bypass graft) Family History Mother Heart disease High cholesterol Stroke Hypertension Father No problems noted. Sister Myocardial infarction Sister Myocardial infarction Social History marital status: unmarried,single household members: significant other housing: house pets and animals: Yes current occupational exposures/hazards: Yes ([facility]) Smoking Status: Former smoker alcohol intake: current substance use type: does not use Smoking Status: Former smoker alcohol intake frequency: holidays/special occasions only Substance Use Type: does not use Exam Initial Vital Signs Initial Vital Signs: Vital Signs Temperature 98.3 F 12/24/23 16:03 Pulse Rate 90 12/24/23 16:03 Respiratory Rate 18 12/24/23 16:03 Blood Pressure 166/96 H 12/24/23 16:03 Pulse Oximetry 98 12/24/23 16:03 Oxygen Delivery Method Room Air 12/24/23 16:03 Const General: cooperative and comfortable HENMT Head: normal to inspection and normocephalic Resp Effort & Inspection: normal respiratory effort Auscultation: clear to auscultation bilaterally Cardio Rate: regular rate Rhythm: regular rhythm Skin Other: Redness to the dorsum of the right foot along the base of the right toe and along the medial midfoot. Extrem Other: Mild swelling to the right great toe and right midfoot. Course Orders Ordered: ED Orders 12/24/23 16:16 XR chest 1V Stat EKG-12 Lead Stat 12/24/23 16:43 Complete Blood Count AUTO DIFF Stat Comprehensive Metabolic Panel Stat Lipase Stat Magnesium Stat PTT Partial Thromboplastin Julio Stat Prothrombin Time INR Stat Troponin & CK Cardiac Panel Stat Discontinued Medications Colchicine (Colchicine 0.6 Mg Tablet) 1.2 mg PO NOW ONE Stop: 12/24/23 18:24 Last Admin: 12/24/23 18:40 Dose: 1.2 mg Documented By: LUZ MARIA Vital Signs Vital signs: Vital Signs - 8 hr 12/24/23 17:00 12/24/23 17:30 12/24/23 18:00 Pulse Rate 86 87 82 Respiratory Rate 25 H Pulse Oximetry 93 93 91 MDM - Chest Pain Lab Data Attestation: I reviewed the patient's lab results. 12/24/23 16:43 12/24/23 16:43 Labs: Lab Results 12/24/23 Range/Units 16:43 WBC 25.3 H (4.5-11.0) X10^3/uL RBC 6.60 H (4.5-5.9) X10^6/uL Hgb 12.4 L (13.5-17.5) g/dL Hct 42.5 (41-53) % MCV 64.4 L (80-100) fL MCH 18.8 L (26-34) PG MCHC 29.2 L (30-36) % RDW 22.0 H (11.6-14.8) % Plt Count 177 (150-400) X10^3/uL Neut % (Auto) Not Reportable Lymph % (Auto) Not Reportable [place] % (Auto) Not Reportable Eos % (Auto) Not Reportable Baso % (Auto) Not Reportable Lymph # (Auto) Not Reportable [place] # (Auto) Not Reportable Baso # (Auto) Not Reportable Total Counted 100 Seg Neutrophils % 90.0 H (38-70) % Lymphocytes % (Manual) 8.0 L (25-45) % Monocytes % (Manual) 2.0 (2-11) % Neutrophils # (Manual) 82337 H (8148-6647) /uL Nucleated RBCs 1 H ( - 0) #/Diff RBC Morphology See below Anisocytosis 3+ H Ovalocytes 1+ H PT 41.9 H (9.4-12.5) SECONDS INR 3.6 H (0.9-1.3) APTT 55 H (25.1-36.5) SECONDS Sodium 139 (137-145) mmol/L Potassium 4.2 (3.4-5.1) mmol/L Chloride 107 (98-107) mmol/L Carbon Dioxide 24 (22-32) mmol/L BUN 12 (9-20) mg/dL Creatinine 0.76 (0.66-1.25) mg/dL Estimated GFR > 60 (>60) mL/min BUN/Creatinine Ratio 15.8 (6-22) Glucose 118 H (80-110) mg/dL Calcium 9.5 (8.4-10.2) mg/dL Magnesium 1.5 L (1.6-2.3) mg/dL Total Bilirubin 1.1 (0.2-1.3) mg/dL AST 25 (17-59) IU/L ALT 16 (<50) IU/L Alkaline Phosphatase 62 (38-126) U/L Total Creatine Kinase 32 L (55-170) U/L Troponin I < 0.012 (0.01-0.034) ng/mL Total Protein 7.4 (6.3-8.2) g/dL Albumin 4.5 (3.5-5.0) g/dL Globulin 2.9 (1.7-4.1) g/dL Albumin/Globulin Ratio 1.6 (1.0-2.8) Lipase 75 (23-300) U/L Imaging Data Chest x-ray: Radiologist's Impression: PROCEDURE: XR CHEST 1V INDICATIONS: chest pain TECHNIQUE: One view of the chest was acquired. COMPARISON: CR, XR CHEST 2V, 03/31/2022, 8:56. [facility], CR, XR CHEST 1V, 12/12/2021, 2:16. FINDINGS: Surgical changes and devices: Sternotomy and CABG. Lungs and pleura: Lung volumes are small consistent with shallow inspiration. Lungs are clear. No pleural effusions or pneumothorax. Mediastinum: Mediastinal contours appear normal. Heart size is normal. Bones and chest wall: No suspicious bony lesions. Overlying soft tissues appear unremarkable. IMPRESSION: Shallow inspiration. No acute cardiopulmonary abnormality is seen. ECG Data Attestation: I personally reviewed and interpreted this ECG as follows: Interpretation: Sinus rhythm Ventricular rate 90 Left axis deviation Normal QRS No ST T wave changes MDM Narrative Medical decision making narrative: He states that the discomfort he is having in his right foot is consistent with his prior history of gout. He has had gout in this area in the past. His physical exam is consistent with gout. Also considered cellulitis but given his history I feel that treating for gout would be most appropriate. He is currently asymptomatic with regard to indigestion. This sounds like indigestion. He has been taking medications that has caused him indigestion in the past. When the discomfort comes he burps in his symptoms go away. I have low suspicion for ACS. He is diabetic. Not on insulin. He is on anticoagulation. Was told to not take nonsteroidal anti-inflammatories or aspirin. Plan will be is to put him on colchicine. He was given a dose here in the ER. A prescription for 1 further dose to take in 1 hour from now. He also has a prescription for prednisone for the gout that was prescribed at the walk-in clinic prior to coming here to the emergency department. He was going to try the colchicine 1st as the steroids could potentially cause him issues with his blood sugar. Will discharge patient home with return precautions. He expressed understanding and agreement. Discharge Plan Departure Patient Disposition: Home Clinical Impression: Gout Instructions: Gout (Alternative Therapy), DI for Gout Activity Restrictions/Additional Instructions: The 1st dose of colchicine was given here in the emergency department. A prescription for 1 more dose that should be taken approximately 1 hour after discharged from the emergency department was sent to [facility] per your request. You can fill the prescription for prednisone however I would wait on taking this to see whether or not your symptoms improve with the colchicine. If your symptoms are not improving then you can take the steroids as directed however be sure that you were checking her blood sugars at home on a regular basis. Return to the emergency department for new or worsening symptoms. Prescriptions: New colchicine 0.6 mg capsule 0.6 mg PO DAILY Qty: 1 0RF No Action hydroxyurea 500 mg capsule 500 mg PO DAILY carvedilol 12.5 mg tablet 12.5 mg PO BID Rx Instructions: must administer with a meal/food prednisone 20 mg tablet 40 mg PO DAILY Qty: 6 0RF fluticasone propionate [Flonase Allergy Relief] 50 mcg/actuation spray,suspension 2 spray INTRANASAL PRN PRN (Reason: Allergy Symptoms) Qty: 16 2RF Rx Instructions: administer into each nostril losartan 25 mg tablet See Rx Instructions .ROUTE .COMPLEX Qty: 90 3RF Dose Instruction: Take 1 tablet by mouth once daily Rx Instructions: Take 1 tablet by mouth once daily warfarin 5 mg tablet 5 mg PO DAILY Qty: 90 3RF Rx Instructions: Take as directed, or one tab daily. fenofibrate nanocrystallized 145 mg tablet See Rx Instructions .ROUTE .COMPLEX Qty: 90 3RF Dose Instruction: Take 1 tablet by mouth once daily Rx Instructions: Take 1 tablet by mouth once daily albuterol sulfate 90 mcg/actuation HFA aerosol inhaler 1 inh INHALATION PRN PRN (Reason: Shortness Of Breath) Qty: 8.5 6RF Arnuity Ellipta 100 mcg/actuation blister with device 1 inh inhalation DAILY Qty: 30 11RF metformin 500 mg tablet 1,000 mg PO BID Qty: 360 3RF gabapentin 600 mg tablet 600 mg PO 3XD atorvastatin 80 mg tablet 80 mg PO DAILY omeprazole 20 mg Capsule,Delayed Release(Dr/Ec) 20 mg PO DAILY bisacodyl [Dulcolax (bisacodyl)] 5 mg Tablet,Delayed Release (Dr/Ec) 5 mg PO BID Referrals: Enedina Keating DO [Primary Care Provider] - Stand Alone Forms: Patient Portal/API
[2023-12-24] MEDS: COLCHICINE 0.6 MG TABLET 1.2 MG PO (18:40)
== END 2023-12-24 18:45 | disposition home or self-care (01) ==
PROVIDERS: Emergency Medicine; Emergency Provider Emergency Medicine; PCP Family Medicine
DX: M10.9 Gout, unspecified (principal)
CPT/HCPCS: 36415; 71045; 80053; 82550; 83690; 83735; 84484; 85007; 85025; 85610; 85730; 93005; 99284

== ENCOUNTER 2024-01-01 21:34 | Emergency (ER) | payer MEDICARE, SELFPAY ==
[2023-06-12 12:12] VITALS: BMI 31.3
[2024-01-01 21:41] VITALS: BP 198/95; PULSE 72; RESP 18; O2SAT 94; BMI 37.5
[2024-01-01 22:19] VITALS: BP 184/101; PULSE 84; O2SAT 96
[2024-01-01 22:30] VITALS: BP 174/97; PULSE 85; O2SAT 94
[2024-01-01] MEDS: ONDANSETRON 4 MG/2 ML INJ IV (22:32)
[2024-01-01 23:00] VITALS: PULSE 86; O2SAT 91
[2024-01-01 23:01] VITALS: BP 177/89; PULSE 86; O2SAT 92
[2024-01-01 23:30] VITALS: BP 199/94; PULSE 86; O2SAT 93
--- NOTE | 2024-01-01 23:50 | ED.NAVMDI ---
HPI - Nausea/Vomiting/Diarrhea General Chief complaint: Nausea/Vomiting/Diarrhea Stated complaint: unable to keek anything down, dizzy, unstable Time Seen by Provider: 01/01/24 23:40 Source: patient Mode of arrival: Wheelchair History of Present Illness HPI Narrative: Patient with myelodysplastic disorder, hypertension, diabetes and gout comes to the ED because of repeated vomiting over the past 30 hours. He thought that maybe it was because he took his medicine an unusual way and perhaps combined it with a little bit of mouthwash inadvertently but in any case he has been throwing up fairly frequently over the past 30 hours. He reliably vomits after taking any food or fluids by mouth. He has not had this previously. He has had no fever. No abdominal pain no chest pain no shortness of breath. No diarrhea Related Data Home Medications Medication Instructions Recorded Confirmed hydroxyurea 500 mg capsule 500 mg PO DAILY 01/17/22 12/30/23 bisacodyl 5 mg tablet,delayed 5 mg PO BID 03/31/22 12/30/23 release (Dulcolax (bisacodyl)) omeprazole 20 mg capsule,delayed 20 mg PO DAILY 03/31/22 12/30/23 release carvedilol 12.5 mg tablet 12.5 mg PO BID 02/17/23 12/30/23 atorvastatin 80 mg tablet 80 mg PO DAILY 06/11/23 12/30/23 gabapentin 600 mg tablet 600 mg PO 3XD 06/11/23 12/30/23 Previous Rx's Medication Instructions Recorded fluticasone propionate 50 2 spray intranasal PRN PRN Allergy 10/23/22 mcg/actuation nasal Symptoms #16 grams spray,suspension (Flonase Allergy Relief) losartan 25 mg tablet See Rx Instructions .Route 02/18/23 .COMPLEX #90 tabs metformin 500 mg tablet 1,000 mg (2 x 500 mg) PO BID #360 03/12/23 tabs warfarin 5 mg tablet 5 mg PO DAILY #90 tabs 06/10/23 fenofibrate nanocrystallized 145 See Rx Instructions .Route 10/09/23 mg tablet .COMPLEX #90 tabs fluticasone furoate 100 1 inh inhalation DAILY #30 ea 11/24/23 mcg/actuation blister powder for inhalation (Arnuity Ellipta) prednisone 20 mg tablet 40 mg (2 x 20 mg) PO DAILY #6 tabs 12/24/23 albuterol sulfate 90 mcg/actuation 1 - 2 inh inhalation Q4-6H PRN 12/30/23 aerosol inhaler shortness of breath or wheezing #8.5 grams colchicine 0.6 mg capsule 0.6 mg PO DAILY #30 caps 12/30/23 cephalexin 500 mg capsule 500 mg PO TID #30 caps 01/02/24 ondansetron 4 mg disintegrating 4 mg PO Q6H #20 tabs 01/02/24 tablet Allergies Allergy/AdvReac Type Severity Reaction Status Date / Time No Known Drug Allergies Allergy Verified 12/30/23 09:27 Patient History Medical History Polycythemia vera Obesity (BMI 30-39.9) Skin cancer LEONARD (obstructive sleep apnea) Type 2 diabetes mellitus Hearing deficit Chronic cough Asthma Hay fever Gout Chronic back pain Psoriasis Colon polyps Hypertension Hyperlipidemia Carotid artery disease (~2002) Surgical History H/O primary malignant neoplasm of urinary bladder (~02/05/22) History of angioplasty S/P CABG (coronary artery bypass graft) Family History Mother Heart disease High cholesterol Stroke Hypertension Father No problems noted. Sister Myocardial infarction Sister Myocardial infarction Social History marital status: unmarried,single household members: significant other housing: house pets and animals: Yes current occupational exposures/hazards: Yes ([facility]) Smoking Status: Former smoker alcohol intake: current substance use type: does not use Smoking Status: Former smoker alcohol intake frequency: holidays/special occasions only Substance Use Type: does not use Exam Narrative Exam Narrative: GENERAL: Alert, cooperative and in no distress. HEAD: Atraumatic. Normocephalic. EYES: Sclera are clear without icterus. Extraocular movements are full. ENT: No rhinorrhea. NECK: Supple. Full range of motion. CARDIOVASCULAR: Normal rate and rhythm without murmur gallop or rub. RESPIRATORY: Clear to auscultation. Breath sounds equal bilaterally. No wheezes, rales, or rhonchi. GASTROINTESTINAL: Abdomen soft, non-tender, protuberant EXTREMITIES: No edema, full range of motion. No obvious trauma. BACK: Normal inspection, no CVA tenderness. NEURO: Nonfocal examination, normal speech SKIN: No rash or erythema of visible areas PSYCH: Normally oriented. Normal range of affect. Appropriate behavior Initial Vital Signs Initial Vital Signs: Vital Signs Pulse Rate 72 01/01/24 21:41 Respiratory Rate 18 01/01/24 21:41 Blood Pressure 198/95 H 01/01/24 21:41 Pulse Oximetry 94 01/01/24 21:41 Oxygen Delivery Method Room Air 01/01/24 21:41 Course Orders Ordered: ED Orders 01/01/24 23:52 CBC Auto Diff [Complete Blood Count AUTO DIFF] Stat CMP [Comprehensive Metabolic Panel] Stat Lipase Stat Magnesium Stat Troponin I Stat EKG-12 Lead Stat 01/02/24 01:48 Urine Culture Stat 01/02/24 01:50 UA dip and micro [Urinalysis and Microscopic] Stat Ondansetron HCl (Ondansetron 4 Mg Odt) 4 mg SL NOW PRN PRN Reason: Nausea And Vomiting Ondansetron HCl (Ondansetron 4 Mg/2 Ml Inj) 4 mg IV NOW PRN PRN Reason: Nausea And Vomiting Last Admin: 01/01/24 22:32 Dose: 4 mg Documented By: KALA Discontinued Medications Carvedilol (Carvedilol 12.5 Mg Tablet) 12.5 mg PO NOW ONE Stop: 01/02/24 00:37 Last Admin: 01/02/24 00:45 Dose: 12.5 mg Documented By: KALA Sodium Chloride (Normal Saline 0.9%) 1,000 mls @ 1,000 mls/hr IV BOLUS ONE Stop: 01/02/24 00:51 Last Infusion: 01/02/24 01:00 Dose: Infused Documented By: Admin: 01/02/24 00:05 Dose: 1,000 mls/hr Documented By: KALA Losartan Potassium (Losartan 25 Mg Tablet) 25 mg PO NOW ONE Stop: 01/02/24 00:37 Last Admin: 01/02/24 00:43 Dose: 25 mg Documented By: KALA Vital Signs Vital signs: Vital Signs - 8 hr 01/01/24 21:41 01/01/24 22:19 01/01/24 22:19 Pulse Rate 72 84 Respiratory Rate 18 Blood Pressure 198/95 H 184/101 H Pulse Oximetry 94 96 Oxygen Delivery Method Room Air 01/01/24 22:30 01/01/24 22:30 01/01/24 23:00 Pulse Rate 85 86 Respiratory Rate Blood Pressure 174/97 H Pulse Oximetry 94 91 Oxygen Delivery Method 01/01/24 23:01 01/01/24 23:01 01/01/24 23:30 Pulse Rate 86 86 Respiratory Rate Blood Pressure 177/89 H Pulse Oximetry 92 93 Oxygen Delivery Method 01/01/24 23:30 01/02/24 00:20 01/02/24 00:21 Pulse Rate 71 90 Respiratory Rate Blood Pressure 199/94 H Pulse Oximetry 93 94 Oxygen Delivery Method 01/02/24 00:21 01/02/24 00:25 01/02/24 00:25 Pulse Rate 85 Respiratory Rate Blood Pressure 207/120 H 196/111 H Pulse Oximetry 95 Oxygen Delivery Method 01/02/24 00:30 01/02/24 00:30 01/02/24 00:43 Pulse Rate 88 88 Respiratory Rate Blood Pressure 205/112 H 205/110 H Pulse Oximetry 95 Oxygen Delivery Method 01/02/24 00:45 01/02/24 01:00 01/02/24 01:01 Pulse Rate 88 89 Respiratory Rate Blood Pressure 205/110 H 191/99 H Pulse Oximetry 94 Oxygen Delivery Method Room Air MDM - Nausea/Vomiting/Diarrhea Lab Data 01/02/24 00:11 01/02/24 00:11 Labs: Lab Results 01/02/24 01/02/24 Range/Units 00:11 01:35 WBC 28.4 H (4.5-11.0) X10^3/uL RBC 6.87 H (4.5-5.9) X10^6/uL Hgb 12.9 L (13.5-17.5) g/dL Hct 44.2 (41-53) % MCV 64.3 L (80-100) fL MCH 18.8 L (26-34) PG MCHC 29.2 L (30-36) % RDW 22.3 H (11.6-14.8) % Plt Count 218 (150-400) X10^3/uL Neut % (Auto) Not Reportable Lymph % (Auto) Not Reportable [place] % (Auto) Not Reportable Eos % (Auto) Not Reportable Baso % (Auto) Not Reportable Lymph # (Auto) Not Reportable [place] # (Auto) Not Reportable Baso # (Auto) Not Reportable Total Counted 100 Seg Neutrophils % 91.0 H (38-70) % Band Neutrophils % 2.0 L (3-7) % Lymphocytes % (Manual) 5.0 L (25-45) % Monocytes % (Manual) 2.0 (2-11) % Neutrophils # (Manual) 45921 H (4779-1254) /uL Nucleated RBCs 1 H ( - 0) #/Diff RBC Morphology See below Anisocytosis 3+ H Ovalocytes 1+ H Sodium 142 (137-145) mmol/L Potassium 3.9 (3.4-5.1) mmol/L Chloride 108 H (98-107) mmol/L Carbon Dioxide 26 (22-32) mmol/L BUN 19 (9-20) mg/dL Creatinine 0.87 (0.66-1.25) mg/dL Estimated GFR > 60 (>60) mL/min BUN/Creatinine Ratio 21.8 (6-22) Glucose 128 H (80-110) mg/dL Calcium 9.5 (8.4-10.2) mg/dL Magnesium 1.3 L (1.6-2.3) mg/dL Total Bilirubin 1.0 (0.2-1.3) mg/dL AST 24 (17-59) IU/L ALT 17 (<50) IU/L Alkaline Phosphatase 60 (38-126) U/L Troponin I < 0.012 (0.01-0.034) ng/mL Total Protein 6.9 (6.3-8.2) g/dL Albumin 4.3 (3.5-5.0) g/dL Globulin 2.6 (1.7-4.1) g/dL Albumin/Globulin Ratio 1.7 (1.0-2.8) Lipase 52 (23-300) U/L Urine Color Yellow Urine Appearance Sl cloudy Urine pH 6.0 (4.5-8.0) Ur Specific [place] 1.015 (1.000-1.035) Urine Protein 2+ H (Negative) Urine Glucose (UA) Negative (Negative) g/dL Urine Ketones Negative (NEGATIVE) Urine Occult Blood 3+ H (Negative) Urine Nitrate Negative (Negative) Urine Bilirubin Negative (NEGATIVE) Urine Urobilinogen 1.0 (0.2) E.U./dL Ur Leukocyte Esterase Trace H (NEGATIVE) Urine RBC 30-100/hpf H (0-5/HPF) Urine WBC 30-100/hpf H (0-5/HPF) Ur Squamous Epith Cells 1-5 /hpf (0-5/HPF) Ur Transition Epith Cell 1-5/hpf (0-5/HPF) Urine Bacteria Many (>30) H (None) Urine Yeast 1-5/hpf H (None) Vol Urine Centrifuged 10ml (spun) Urine Dip Bedside Urine Glucose Negative Bedside Urine Bilirubin - Negative Bedside Urine Ketone - Negative Urine Specific [place] 1.015 Bedside Urine Occult Blood +++ Bedside Urine pH 6.0 Bedside Urine Protein +/- 15 Bedside Urine Urobilinogen - Negative Bedside Urine Nitrite - Negative Bedside Urine Leukocytes +++ 500 Esterase ECG Data Interpretation: ECG obtained at 12:18 a.m. shows sinus rhythm at 81 with a QTC of 469. There is left atrial enlargement. Right bundle-branch block. PVCs. No acute ST or T-wave change. MDM Narrative Medical decision making narrative: Reports vomiting and did not fact vomit here in the ED. We will check labs, give IV fluids and antiemetics and reassess. His exam is otherwise quite benign. Urinalysis seems very suspicious for bladder infection and will treat for same. His symptoms are dramatically improved with the ondansetron administered here so we will prescribe this as well. Discharge Plan Departure Patient Disposition: Home Clinical Impression: Urinary tract infection, Vomiting Activity Restrictions/Additional Instructions: Looking at your urine tested seems very plausible that you have a bladder infection. I recommend cephalexin 3 times daily for 7 days. For nausea I recommend ondansetron. Follow-up with your doctor in a few days to re-evaluate. Return to the ED for high fever, repeated vomiting or other severe symptoms. Prescriptions: New cephalexin 500 mg capsule 500 mg PO TID Qty: 30 0RF ondansetron 4 mg tablet,disintegrating 4 mg PO Q6H Qty: 20 0RF No Action hydroxyurea 500 mg capsule 500 mg PO DAILY carvedilol 12.5 mg tablet 12.5 mg PO BID Rx Instructions: must administer with a meal/food prednisone 20 mg tablet 40 mg PO DAILY Qty: 6 0RF fluticasone propionate [Flonase Allergy Relief] 50 mcg/actuation spray,suspension 2 spray INTRANASAL PRN PRN (Reason: Allergy Symptoms) Qty: 16 2RF Rx Instructions: administer into each nostril losartan 25 mg tablet See Rx Instructions .ROUTE .COMPLEX Qty: 90 3RF Dose Instruction: Take 1 tablet by mouth once daily Rx Instructions: Take 1 tablet by mouth once daily warfarin 5 mg tablet 5 mg PO DAILY Qty: 90 3RF Rx Instructions: Take as directed, or one tab daily. fenofibrate nanocrystallized 145 mg tablet See Rx Instructions .ROUTE .COMPLEX Qty: 90 3RF Dose Instruction: Take 1 tablet by mouth once daily Rx Instructions: Take 1 tablet by mouth once daily Arnuity Ellipta 100 mcg/actuation blister with device 1 inh inhalation DAILY Qty: 30 11RF albuterol sulfate 90 mcg/actuation HFA aerosol inhaler 1 - 2 inh inhalation Q4-6H PRN (Reason: shortness of breath or wheezing) Qty: 8.5 11RF metformin 500 mg tablet 1,000 mg PO BID Qty: 360 3RF colchicine 0.6 mg capsule 0.6 mg PO DAILY Qty: 30 0RF gabapentin 600 mg tablet 600 mg PO 3XD atorvastatin 80 mg tablet 80 mg PO DAILY omeprazole 20 mg Capsule,Delayed Release(Dr/Ec) 20 mg PO DAILY bisacodyl [Dulcolax (bisacodyl)] 5 mg Tablet,Delayed Release (Dr/Ec) 5 mg PO BID Referrals: Enedina Keating DO [Primary Care Provider] - Stand Alone Forms: Patient Portal/API
[2024-01-02] VITALS (9 sets, daily range): BP systolic 165–207; BP diastolic 93–120; PULSE 71–90; RESP 18; O2SAT 93–95
[2024-01-02] MEDS: SODIUM CHLORIDE 0.9% 1,000 ML 1000 ML IV (00:05)
[2024-01-02 00:33] LABS: Hematocrit 44.2 % (41-53); Hemoglobin 12.9 g/dL (13.5-17.5); Mean Corpuscular HGB Conc 29.2 % (30-36); Mean Corpuscular Hemoglobin 18.8 PG (26-34); Mean Corpuscular Volume 64.3 fL (80-100); Platelet Count 218 X10^3/uL (150-400); Red Blood Cell Count 6.87 X10^6/uL (4.5-5.9); Red Cell Distribution Width 22.3 % (11.6-14.8); White Blood Cell Count 28.4 X10^3/uL (4.5-11.0)
[2024-01-02 00:42] LABS: Add Manual Diff / Slide Review YES
[2024-01-02] MEDS: LOSARTAN 25 MG TABLET PO (00:43)
[2024-01-02] MEDS: carvediloL 12.5 MG TABLET PO (00:45)
[2024-01-02 00:49] LABS: Alanine Aminotransferase 17 IU/L (<50); Albumin 4.3 g/dL (3.5-5.0); Albumin Globulin Ratio 1.7 (1.0-2.8); Alkaline Phosphatase 60 U/L (38-126); Aspartate Aminotransferase 24 IU/L (17-59); BUN Creatinine Ratio 21.8 (6-22); Blood Urea Nitrogen 19 mg/dL (9-20); Calcium 9.5 mg/dL (8.4-10.2); Carbon Dioxide 26 mmol/L (22-32); Chloride 108 mmol/L (98-107); Estimated Glomerular Filt Rate > 60 mL/min (>60); Globulin 2.6 g/dL (1.7-4.1); Glucose 128 mg/dL (80-110); HEMOLYSIS < 15 (0-50); Lipase 52 U/L (23-300); Magnesium 1.3 mg/dL (1.6-2.3); Potassium 3.9 mmol/L (3.4-5.1); Sodium 142 mmol/L (137-145); Total Protein 6.9 g/dL (6.3-8.2)
[2024-01-02 01:01] LABS: Troponin I < 0.012 ng/mL (0.01-0.034)
[2024-01-02 01:11] LABS: Neutrophils Absolute Manual 26412 /uL (3000-5900); Nucleated Red Blood Cells 1 #/Diff; Total Cells Counted 100
[2024-01-02 01:12] LABS: Anisocytosis 3+; Ovalocytes 1+
[2024-01-02 02:03] LABS: Bilirubin Urine UA NEGATIVE (NEGATIVE); Color Urine UA YELLOW; Glucose Urine UA NEGATIVE (Negative); Ketones Urine UA NEGATIVE (NEGATIVE); Leukocyte Esterase Urine UA TRACE (NEGATIVE); Nitrite Urine UA NEGATIVE (Negative); Occult Blood Urine UA 3+ (Negative); Protein Urine UA 2+ (Negative); Specific Gravity Urine UA 1.015 (1.000-1.035)
[2024-01-02 02:08] LABS: Appearance Urine UA SL CLOUDY
[2024-01-02 02:09] LABS: Bacteria Urine Many (>30); RBC Urine 30-100/HPF (0-5/HPF); Squamous Epithelial Cell Urine 1-5 /HPF (0-5/HPF); Transitional Epi Cells Urine 1-5/HPF (0-5/HPF); Urine Volume 10mL (spun); WBC Urine 30-100/HPF (0-5/HPF)
[2024-01-02] MEDS: cephALEXin 250 MG CAPSULE 500 MG PO (02:33)
== END 2024-01-02 02:40 | disposition home or self-care (01) ==
PROVIDERS: Emergency Provider Family Medicine Addiction Medicine; PCP Family Medicine
DX: N39.0 Urinary tract infection, site not specified (principal); R11.2 Nausea with vomiting, unspecified; Z79.01 Long term (current) use of anticoagulants; Z79.899 Other long term (current) drug therapy
CPT/HCPCS: 36415; 80053; 81001; 81003; 83690; 83735; 84484; 85007; 85025; 87077; 87086; 87186; 93005; 96361; 96374; 99284; J2405

== ENCOUNTER → 2024-01-22 08:02 | Outpatient (CLI) | payer MEDICARE, SELFPAY ==
[2023-06-12 12:12] VITALS: BMI 31.3
[2024-01-22 08:49] LABS: Add Manual Diff / Slide Review NO; Basophils Absolute Auto 100 /uL (0-100); Basophils Percent Auto 0.5 % (0-2); Eosinophils Absolute Auto 200 /uL (0-450); Eosinophils Percent Auto 0.8 % (2-4); Hematocrit 44.3 % (41-53); Hemoglobin 13.3 g/dL (13.5-17.5); Lymphocytes Absolute Auto 2000 /uL (1100-4500); Lymphocytes Percent Auto 8.9 % (25-40); Mean Corpuscular Hemoglobin 19.3 PG (26-34); Mean Corpuscular Volume 64.4 fL (80-100); Monocytes Absolute Auto 600 /uL (0-900); Monocytes Percent Auto 2.8 % (3-14); Neutrophils Absolute Auto 19100 /uL (1500-7000); Platelet Count 210 X10^3/uL (150-400); Red Blood Cell Count 6.88 X10^6/uL (4.5-5.9); Red Cell Distribution Width 21.6 % (11.6-14.8)
[2024-01-22 09:00] LABS: Anisocytosis 3+; Cholesterol 93 mg/dL (140-199); HDL Cholesterol 21 mg/dL (40-60); LDL Cholesterol Calculated 24 mg/dL (<100); Ovalocytes 2+; Triglycerides 242 mg/dL (35-150)
[2024-01-22 09:04] LABS: Uric Acid 12.8 mg/dL (3.5-8.5)
[2024-01-22 13:04] LABS: Hemoglobin A1C% w Est Avg Glu 6.3 % (4.0-6.0)
[2024-01-22 16:48] LABS: Hep C Virus Ab w/Reflex Quant NEGATIVE s/c (NEGATIVE)
== END ==
PROVIDERS: PCP Family Medicine; Referring Provider Family Medicine; Visit Provider Family Medicine
DX: Z11.59 Encounter for screening for other viral diseases (principal); D45 Polycythemia vera; E11.9 Type 2 diabetes mellitus without complications; M10.9 Gout, unspecified
CPT/HCPCS: 36415; 80061; 83036; 84550; 85025; 86803

== ENCOUNTER → 2024-01-23 09:27 | Outpatient (CLI) | payer MEDICARE, SELFPAY ==
[2023-06-12 12:12] VITALS: BMI 31.3
[2024-01-23 12:55] LABS: Prothrombin Time 104.4 SECONDS (9.4-12.5)
[2024-01-23 12:56] LABS: INR 8.9 (0.9-1.3)
== END ==
LOC: LAB 09:28
PROVIDERS: PCP Family Medicine; Referring Provider Family Medicine; Visit Provider Family Medicine
DX: I82.409 Acute embolism and thrombosis of unspecified deep veins of unspecified lower extremity (principal)
CPT/HCPCS: 36415; 85610

== ENCOUNTER → 2024-01-30 10:00 | Outpatient (CLI) | payer MEDICARE, SELFPAY ==
[2023-06-12 12:12] VITALS: BMI 31.3
[2024-01-30 11:02] LABS: INR 6.2 (0.9-1.3)
== END ==
PROVIDERS: PCP Family Medicine; Referring Provider Family Medicine; Visit Provider Family Medicine
DX: I82.619 Acute embolism and thrombosis of superficial veins of unspecified upper extremity (principal); I26.99 Other pulmonary embolism without acute cor pulmonale; Z79.01 Long term (current) use of anticoagulants
CPT/HCPCS: 36415; 85610

== ENCOUNTER → 2024-04-26 16:02 | Outpatient (CLI) | payer MEDICARE, SELFPAY ==
[2023-06-12 12:12] VITALS: BMI 31.3
[2024-04-26 17:43] LABS: INR 2.5 (0.9-1.3); Prothrombin Time 28.8 SECONDS (9.4-12.5)
== END ==
PROVIDERS: PCP Family Medicine; Referring Provider Family Medicine; Visit Provider Family Medicine
DX: Z79.01 Long term (current) use of anticoagulants (principal); Z51.81 Encounter for therapeutic drug level monitoring; I26.99 Other pulmonary embolism without acute cor pulmonale; E79.0 Hyperuricemia without signs of inflammatory arthritis and tophaceous disease
CPT/HCPCS: 36415; 84550; 85610

== ENCOUNTER → 2024-04-27 10:01 | Outpatient (CLI) | payer MEDICARE, SELFPAY ==
[2023-06-12 12:12] VITALS: BMI 31.3
[2024-04-27 12:54] LABS: Hemoglobin A1C% w Est Avg Glu 6.1 % (4.0-6.0)
== END ==
PROVIDERS: PCP Family Medicine; Referring Provider Family Medicine; Visit Provider Family Medicine
DX: E11.9 Type 2 diabetes mellitus without complications (principal); I25.10 Atherosclerotic heart disease of native coronary artery without angina pectoris
CPT/HCPCS: 36415; 83036

== ENCOUNTER → 2024-07-23 09:36 | Outpatient (CLI) | payer MEDICARE, SELFPAY ==
[2023-06-12 12:12] VITALS: BMI 31.3
--- NOTE | 2024-07-23 09:38 | DI.RAD.S_ITS ---
PROCEDURE: XR HAND LT MIN 3V INDICATIONS: fell, pain TECHNIQUE: 4 views of the hand(s) acquired. COMPARISON: [facility], CR, XR WRIST LT MIN 3V, 07/23/2024, 9:36. [facility], CR, XR HUMERUS LT 2V, 07/23/2024, 9:36. FINDINGS: Bones: No fractures or dislocations. Carpal bones are normally aligned. No suspicious bony lesions. Degenerative changes are seen throughout, which are most prominent involving the 1st carpometacarpal joint. Milder degenerative changes are seen elsewhere. Note is made of negative ulnar variance. This can predispose to development of AVN of the lunate. However, no findings of AVN of the lunate are seen on these plain films. Soft tissues: Generalized soft tissue swelling can be seen. IMPRESSION: Soft tissue swelling is seen, without an acute bony abnormality seen by plain film. If there is point tenderness (or other clinical suspicion for a fracture not seen on these images) then a dedicated CT or a short-term followup plain film series could be considered for further evaluation, as clinically appropriate. Dictated by: Chalo Aguila M.D. on 07/24/2024 at 14:12 Approved by: Chalo Aguila M.D. on 07/24/2024 at 14:13
--- NOTE | 2024-07-23 09:38 | DI.RAD.S_ITS ---
PROCEDURE: XR HUMERUS LT 2V INDICATIONS: fell, pain TECHNIQUE: 2 views of the humerus were acquired. COMPARISON: [facility], CR, XR HAND LT MIN 3V, 07/23/2024, 9:36. [facility], CR, XR WRIST LT MIN 3V, 07/23/2024, 9:36. FINDINGS: Bones: No fractures or dislocations. No suspicious bony lesions. Mac row degenerate Soft tissues: No suspicious soft tissue calcifications. IMPRESSION: Humerus plain films within normal limits, without displaced fractures. Dictated by: Chalo Aguila M.D. on 07/24/2024 at 14:14 Approved by: Chalo Aguila M.D. on 07/24/2024 at 14:14
--- NOTE | 2024-07-23 09:38 | DI.RAD.S_ITS ---
PROCEDURE: XR WRIST LT MIN 3V INDICATIONS: fell, pain TECHNIQUE: 4 views of the wrist were acquired. COMPARISON: [facility], CR, XR HAND LT MIN 3V, 07/23/2024, 9:36. [facility], CR, XR HUMERUS LT 2V, 07/23/2024, 9:36. FINDINGS: Bones: No fractures or dislocations. No suspicious bony lesions. Degenerative changes are seen throughout, which are most prominent involving the 1st carpometacarpal joint. Milder degenerative changes are seen elsewhere. Note is made of negative ulnar variance. This can predispose to development of AVN of the lunate. However, no findings of AVN of the lunate are seen on these plain films. Soft tissues: No suspicious soft tissue calcifications. IMPRESSION: No displaced fractures are seen. If there is snuffbox tenderness (or other clinical suspicion for a fracture not seen on these images) then a repeat examination would be recommended in 10 to 14 days, following splinting. Dictated by: Chalo Aguila M.D. on 07/24/2024 at 14:14 Approved by: Chalo Aguila M.D. on 07/24/2024 at 14:15
[2024-07-23 10:36] LABS: Hematocrit 42.3 % (41-53); Hemoglobin 12.4 g/dL (13.5-17.5); Mean Corpuscular HGB Conc 29.4 % (30-36); Mean Corpuscular Hemoglobin 18.8 PG (26-34); Mean Corpuscular Volume 63.9 fL (80-100); Platelet Count 159 X10^3/uL (150-400); Red Blood Cell Count 6.62 X10^6/uL (4.5-5.9); Red Cell Distribution Width 22.3 % (11.6-14.8); White Blood Cell Count 25.4 X10^3/uL (4.5-11.0)
[2024-07-23 10:48] LABS: Hemoglobin A1C% w Est Avg Glu 6.6 % (4.0-6.0)
[2024-07-23 11:03] LABS: Uric Acid 9.1 mg/dL (3.5-8.5)
== END ==
LOC: LAB 09:38
PROVIDERS: PCP Family Medicine; Referring Provider Family Medicine; Visit Provider Family Medicine
DX: S40.019A Contusion of unspecified shoulder, initial encounter (principal); E11.9 Type 2 diabetes mellitus without complications; S60.212A Contusion of left wrist, initial encounter; S60.229A Contusion of unspecified hand, initial encounter; E79.0 Hyperuricemia without signs of inflammatory arthritis and tophaceous disease; E66.9 Obesity, unspecified; D45 Polycythemia vera
CPT/HCPCS: 36415; 73060; 73110; 73130; 83036; 84550; 85027

== ENCOUNTER → 2024-10-26 14:55 | Outpatient (CLI) | payer MEDICARE, SELFPAY ==
[2023-06-12 12:12] VITALS: BMI 31.3
[2024-10-26 15:40] LABS: Hemoglobin A1C% w Est Avg Glu 5.7 % (4.0-6.0)
[2024-10-26 15:52] LABS: Alanine Aminotransferase 25 IU/L (<50); Albumin 4.2 g/dL (3.5-5.0); Albumin Globulin Ratio 1.9 (1.0-2.8); Alkaline Phosphatase 50 U/L (38-126); Aspartate Aminotransferase 32 IU/L (17-59); Bilirubin Total 0.9 mg/dL (0.2-1.3); Blood Urea Nitrogen 31 mg/dL (9-20); Calcium 9.8 mg/dL (8.4-10.2); Carbon Dioxide 26 mmol/L (22-32); Chloride 106 mmol/L (98-107); Estimated Glomerular Filt Rate > 60 mL/min (>60); Globulin 2.2 g/dL (1.7-4.1); Glucose 103 mg/dL (80-110); HEMOLYSIS < 15 (0-50); Potassium 5.3 mmol/L (3.4-5.1); Sodium 139 mmol/L (137-145); Total Protein 6.4 g/dL (6.3-8.2)
[2024-10-26 16:07] LABS: Creatinine Urine Random 135.66 mg/dL
[2024-10-26 16:12] LABS: Microalbumin Urine Random 7.8 mg/dL (0-1.6)
== END ==
PROVIDERS: PCP Family Medicine; Referring Provider Family Medicine; Visit Provider Family Medicine
DX: E11.9 Type 2 diabetes mellitus without complications (principal); E66.9 Obesity, unspecified; G47.33 Obstructive sleep apnea (adult) (pediatric); I25.10 Atherosclerotic heart disease of native coronary artery without angina pectoris; E78.2 Mixed hyperlipidemia; I10 Essential (primary) hypertension
CPT/HCPCS: 36415; 80053; 82043; 82570; 83036

== ENCOUNTER → 2025-01-26 14:37 | Outpatient (CLI) | payer MEDICARE, SELFPAY ==
[2023-06-12 12:12] VITALS: BMI 31.3
[2025-01-26 16:11] LABS: BUN Creatinine Ratio 21.3 (6-22); Blood Urea Nitrogen 16 mg/dL (9-20); Calcium 9.3 mg/dL (8.4-10.2); Carbon Dioxide 22 mmol/L (22-32); Chloride 106 mmol/L (98-107); Estimated Glomerular Filt Rate > 60 mL/min (>60); Glucose 124 mg/dL (70-99); HEMOLYSIS < 15 (0-50); Potassium 4.6 mmol/L (3.4-5.1); Sodium 140 mmol/L (137-145)
== END ==
LOC: LAB 14:38
PROVIDERS: PCP Family Medicine; Referring Provider Family Medicine; Visit Provider Family Medicine
DX: E11.9 Type 2 diabetes mellitus without complications (principal); I10 Essential (primary) hypertension; E78.2 Mixed hyperlipidemia
CPT/HCPCS: 36415; 80048; 83036

== ENCOUNTER 2025-03-24 16:56 | Emergency (ER) | payer MEDICARE, SELFPAY ==
[2023-06-12 12:12] VITALS: BMI 31.3
[2025-03-24] VITALS (9 sets, daily range): BP systolic 129–162; BP diastolic 73–88; PULSE 87–91; RESP 18–20; TEMP 36.7; O2SAT 91–97; BMI 36.6
--- NOTE | 2025-03-24 18:10 | ED.EXTPRO ---
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 States that he has a double the dose as prescribed by his primary care doctor but no symptom alleviation. States that the pain is causing him to be unable to ambulate at his baseline. He denies any trauma or falls. Denies any other symptoms at this time. Related Data Home Medications ?Medication ?Instructions ?Recorded ?Confirmed hydroxyurea 500 mg capsule 500 mg PO DAILY 01/17/22 01/27/25 bisacodyl 5 mg tablet,delayed 5 mg PO BID 03/31/22 01/27/25 release (Dulcolax (bisacodyl)) omeprazole 20 mg capsule,delayed 20 mg PO DAILY 03/31/22 01/27/25 release gabapentin 600 mg tablet 600 mg PO 3XD 06/11/23 01/27/25 carvedilol 25 mg tablet 25 mg PO BID 10/27/24 01/27/25 fluticasone furoate 100 inhalation .nightly 10/27/24 01/27/25 mcg/actuation blister powder for inhalation (Arnuity Ellipta) Previous Rx's ?Medication ?Instructions ?Recorded fluticasone propionate 50 2 spray intranasal PRN PRN Allergy 10/23/22 mcg/actuation nasal Symptoms #16 grams spray,suspension (Flonase Allergy Relief) febuxostat 40 mg tablet (Uloric) 80 mg (2 x 40 mg) PO DAILY #180 08/02/24 Held on 03/09/25. tabs Instructions: insurance warfarin 5 mg tablet 5 mg PO DAILY #90 tabs 08/09/24 fenofibrate nanocrystallized 145 See Rx Instructions .Route 09/27/24 mg tablet .COMPLEX #90 tabs losartan 25 mg tablet See Rx Instructions .Route 10/27/24 .COMPLEX #90 tabs metformin 500 mg tablet 1,000 mg (2 x 500 mg) PO BID #360 10/27/24 tabs albuterol sulfate 90 mcg/actuation 1 - 2 inh inhalation Q4-6H PRN 12/31/24 aerosol inhaler shortness of breath or wheezing #8.5 grams atorvastatin 80 mg tablet 80 mg PO DAILY #100 tabs 01/27/25 ondansetron 4 mg disintegrating 4 mg PO Q6H PRN nausea and 02/01/25 tablet vomiting #30 tabs colchicine 0.6 mg tablet 0.6 mg PO DAILY PRN gout 03/07/25 prophylaxis #90 tabs allopurinol 100 mg tablet See Rx Instructions PO DAILY gout 03/09/25 prevention #180 tabs Allergies Allergy/AdvReac Type Severity Reaction Status Date / Time No Known Drug Allergies Allergy Verified 03/24/25 16:59 Patient History Medical History (Updated 03/24/25 @ 20:26 by Santana Yoo DO) Hyperuricemia Polycythemia vera Obesity (BMI 30-39.9) Skin cancer LEONARD (obstructive sleep apnea) Type 2 diabetes mellitus Hearing deficit Chronic cough Asthma Hay fever Gout Chronic back pain Psoriasis Colon polyps Hypertension Hyperlipidemia Carotid artery disease (~2002) Surgical History H/O primary malignant neoplasm of urinary bladder (~02/05/22) S/P CABG (coronary artery bypass graft) History of angioplasty Family History Mother Heart disease High cholesterol Stroke Hypertension Father No problems noted. Sister Myocardial infarction Sister Myocardial infarction Social History marital status: unmarried,single household members: significant other housing: house pets and animals: Yes current occupational exposures/hazards: Yes ([facility]) Smoking Status: Never smoker alcohol intake: current substance use type: does not use Smoking Status: Never smoker alcohol intake frequency: holidays/special occasions only Exam Narrative Exam Narrative: General: Cooperative, well-developed, not in acute distress HEENT: Normocephalic, atraumatic, PERRLA, normal sclera, eyelids normal Neck: Active full range of motion, atraumatic Chest: Normal to inspection, negative crepitus, no overlying erythema ecchymosis Respiratory: Normal respiratory effort, not in acute respiratory distress, clear to auscultation bilaterally negative cough, wheeze, tachypnea, rhonchi, rales Cardiology: Regular rate rhythm negative gallop, murmur, rubs GI/: No tenderness to palpation, soft, non rigid, normal to inspection, exam deferred MSK: Full active range of motion in all 4 extremities, atraumatic, bilateral lower extremities are neurovascularly intact, +1 pitting edema to bilateral feet, no overlying erythema ecchymosis, neurovascularly intact, there is some tenderness to palpation over the plantar aspect of bilateral feet Skin: No rashes or lesions noted Neuro: Alert awake oriented x3, moves all 4 extremities spontaneously, cranial nerves intact, able to answer all questions appropriately follows commands appropriately Psych: Cooperative, negative suicidal or homicidal ideations Initial Vital Signs Initial Vital Signs: Vital Signs Temperature 98.0 F 03/24/25 17:01 Pulse Rate 89 03/24/25 17:01 Respiratory Rate 20 03/24/25 17:01 Blood Pressure 132/85 03/24/25 17:01 Pulse Oximetry 95 03/24/25 17:01 Oxygen Delivery Method Room Air 03/24/25 17:01 Course Orders Ordered: ED Orders 03/24/25 18:36 US periph venous low extrem bi Stat XR foot LT min 3V Stat XR foot RT min 3V Stat Vital Signs Vital signs: Vital Signs - 8 hr 03/24/25 17:01 03/24/25 18:18 03/24/25 18:20 Temperature 98.0 F Pulse Rate 89 91 H 91 H Respiratory Rate 20 Blood Pressure 132/85 Pulse Oximetry 95 97 95 Oxygen Delivery Method Room Air 03/24/25 18:20 03/24/25 18:30 03/24/25 18:30 Temperature Pulse Rate 91 H Respiratory Rate Blood Pressure 160/88 H 153/83 H Pulse Oximetry 94 Oxygen Delivery Method 03/24/25 19:00 03/24/25 19:00 Temperature Pulse Rate 89 Respiratory Rate Blood Pressure 150/82 H Pulse Oximetry 93 Oxygen Delivery Method MDM - Extremity (Nontraumatic) Differential Diagnosis Differential diagnosis: Likely other (DVT, fracture, tendinitis, plantar fasciitis) Imaging Data US - DVT: Radiologist's Impression: [address] [address] Ultrasound Report Signed Patient: Noble Garcia MR#: [id number] : 1945 Acct:[id number] Age/Sex: 79 / M Date of Service: 03/24/25 Loc: ED Accession Number: [id number] Procedure: US periph venous low extrem bi Ordering Provider: Santana Yoo D.O. PROCEDURE: US PERIPH VENOUS LOW EXTREM BI INDICATIONS: lower extremity swelling b/l TECHNIQUE: Real-time imaging, as well as color and pulse Doppler interrogation, were performed of the deep veins of both legs from the inguinal ligament to the popliteal fossa, with documentation of the visualized calf veins. COMPARISON: None. FINDINGS: Right: The common femoral, femoral, popliteal, and the visualized calf veins are normally compressible, and free of intraluminal thrombus. Color and pulse Doppler demonstrate normal phasic intravascular flow. There is normal augmentation response to distal compression maneuver. Left: The common femoral, femoral, popliteal, and the visualized calf veins are normally compressible, and free of intraluminal thrombus. Color and pulse Doppler demonstrate normal phasic intravascular flow. There is normal augmentation response to distal compression maneuver. IMPRESSION: No findings of deep venous thrombosis in either lower extremity. Extremity x-ray #1: Radiologist's Impression: [place] [id number] [place] [id number] XRay Report Signed Patient: Noble Garcia MR#: [id number] : 1945 Acct:[id number] Age/Sex: 79 / M Date of Service: 03/24/25 Loc: ED Accession Number: [id number] Procedure: XR foot RT min 3V Ordering Provider: Santana Yoo D.O. PROCEDURE: XR FOOT RT MIN 3V INDICATIONS: pain TECHNIQUE: 3 views of the foot were acquired. COMPARISON: None. FINDINGS AND IMPRESSION: Moderate calcaneal enthesopathy. [id number] 1st MTP and mild midfoot degenerative changes. First MTP valgus alignment. Displaced fracture or dislocation. Vascular calcifications. If there is high concern for further derangement, consider MRI evaluation. MDM Narrative Medical decision making narrative: Patient is a 79-year-old male with a history of SILVINA stat 2 mutation on chemo daily, warfarin, diabetes, hyperlipidemia, hypertension, gout presenting from home for evaluation bilateral feet pain, describes it as burning tingling sensation, also states that he has noticed some swelling to his feet, has been compliant with all his medication, states that his INR was normal he is due to get the checked tomorrow. He denies any trauma or falls, he states that he thought it was his gout that was flaring up so took double of his allopurinol, he states that he did not take any of his gabapentin today, however he states that when he does take it it does improve his symptoms. On exam patient is neurovascularly intact bilateral lower extremities, there is +1 pitting edema to bilateral feet otherwise neurovascularly intact. Patient had x-ray and ultrasound of lower extremity ultrasound negative for DVT, x-rays of the right foot showing possible displaced fracture dislocation of the 1st MTP however on physical exam patient without any tenderness to palpation was unable to perform any reduction, this is most likely is a chronic finding with significant valgus alignment, x-ray of the left foot without any acute findings. 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, patient was given dose of his gabapentin here as well as pain medicine instructed follow up with PCP and Podiatry in outpatient setting he was given strict return precautions verbalized understanding of this and agrees to being discharged home with the patient follow up Discharge Plan Departure Patient Disposition: Home Clinical Impression: Bilateral foot pain Activity Restrictions/Additional Instructions: Please continue taking your gabapentin as prescribed Please follow up with primary care and Orthopedics/Podiatry Please read the discharge instructions sheet carefully and bring all papers to all doctor follow-up visits, as it may contain information that your doctor may want to see. Disease processes change and evolve, if your symptoms worsen or if you develop any new symptoms that are concerning to you please return for evaluation. Your evaluation today does not show any evidence of any life-threatening/serious illnesses requiring admission to the hospital or surgery. Please follow-up with your doctor for re-evaluation in approximately 1 day. Seek immediate medical attention for any worrisome symptoms. *If you do not have a primary care provider please contact the [facility] Resource line at [phone]. They will ask some questions about your medical history and help get you set up with a doctor in the community. Prescriptions: No Action hydroxyurea 500 mg capsule 500 mg PO DAILY fluticasone propionate [Flonase Allergy Relief] 50 mcg/actuation spray,suspension 2 spray INTRANASAL PRN PRN (Reason: Allergy Symptoms) Qty: 16 2RF Rx Instructions: administer into each nostril fenofibrate nanocrystallized 145 mg tablet See Rx Instructions .ROUTE .COMPLEX Qty: 90 3RF Dose Instruction: Take 1 tablet by mouth once daily Rx Instructions: Take 1 tablet by mouth once daily albuterol sulfate 90 mcg/actuation HFA aerosol inhaler 1 - 2 inh inhalation Q4-6H PRN (Reason: shortness of breath or wheezing) Qty: 8.5 11RF ondansetron 4 mg tablet,disintegrating 4 mg PO Q6H PRN (Reason: nausea and vomiting) Qty: 30 11RF colchicine 0.6 mg tablet 0.6 mg PO DAILY PRN (Reason: gout prophylaxis) Qty: 90 1RF allopurinol 100 mg tablet See Rx Instructions PO DAILY Qty: 180 3RF Rx Instructions: orally daily; 1 po daily x 2 weeks, then 2 po daily carvedilol 25 mg tablet 25 mg PO BID Arnuity Ellipta 100 mcg/actuation blister with device inhalation .nightly losartan 25 mg tablet See Rx Instructions .ROUTE .COMPLEX Qty: 90 3RF Dose Instruction: Take 1 tablet by mouth once daily Rx Instructions: Take 1 tablet by mouth once daily metformin 500 mg tablet 1,000 mg PO BID Qty: 360 3RF febuxostat [Uloric] 40 mg tablet 80 mg PO DAILY Qty: 180 3RF atorvastatin 80 mg tablet 80 mg PO DAILY Qty: 100 3RF gabapentin 600 mg tablet 600 mg PO 3XD warfarin 5 mg tablet 5 mg PO DAILY Qty: 90 3RF Protocol: Dose Management Condition: Friday (Week One) Dose/Route: 2.5 mg Instruction: 0.5 x 5 mg tablets Condition: Friday Dose/Route: 5 mg Instruction: 1 x 5 mg tablet Condition: Friday Dose/Route: 5 mg Instruction: 1 x 5 mg tablet Condition: Friday Dose/Route: 5 mg Instruction: 1 x 5 mg tablet Condition: Dose/Route: 5 mg Instruction: 1 x 5 mg tablet Condition: Friday Dose/Route: Hold Instruction: No doses Condition: Friday Dose/Route: 2.5 mg Instruction: 0.5 x 5 mg tablets Condition: Friday (Week Two) Dose/Route: 2.5 mg Instruction: 0.5 x 5 mg tablets Condition: Friday Dose/Route: 5 mg Instruction: 1 x 5 mg tablet Condition: Friday Dose/Route: 5 mg Instruction: 1 x 5 mg tablet Condition: Friday Dose/Route: 2.5 mg Instruction: 0.5 x 5 mg tablets Condition: Dose/Route: 5 mg Instruction: 1 x 5 mg tablet Condition: Friday Dose/Route: 5 mg Instruction: 1 x 5 mg tablet Condition: Friday Dose/Route: 2.5 mg Instruction: 0.5 x 5 mg tablets Protocol Text: Adjustment Start Date: Friday03/11/25 INR Value: 3.9 INR Date: 03/11/25 Recheck Date: 03/25/25 Rx Instructions: Take 1/2 tablet (2.5mg) on // and take 1 tablet (5mg) all other days; or as directed. omeprazole 20 mg Capsule,Delayed Release(Dr/Ec) 20 mg PO DAILY bisacodyl [Dulcolax (bisacodyl)] 5 mg Tablet,Delayed Release (Dr/Ec) 5 mg PO BID Referrals: Enedina Keating DO [Primary Care Provider, Family Practice] Stand Alone Forms: Patient Portal/API
--- NOTE | 2025-03-24 18:36 | DI.US.S_ITS ---
PROCEDURE: US PERIPH VENOUS LOW EXTREM BI INDICATIONS: lower extremity swelling b/l TECHNIQUE: Real-time imaging, as well as color and pulse Doppler interrogation, were performed of the deep veins of both legs from the inguinal ligament to the popliteal fossa, with documentation of the visualized calf veins. COMPARISON: None. FINDINGS: Right: The common femoral, femoral, popliteal, and the visualized calf veins are normally compressible, and free of intraluminal thrombus. Color and pulse Doppler demonstrate normal phasic intravascular flow. There is normal augmentation response to distal compression maneuver. Left: The common femoral, femoral, popliteal, and the visualized calf veins are normally compressible, and free of intraluminal thrombus. Color and pulse Doppler demonstrate normal phasic intravascular flow. There is normal augmentation response to distal compression maneuver. IMPRESSION: No findings of deep venous thrombosis in either lower extremity. Dictated by: Trace Estrada M.D. on 03/24/2025 at 20:12 Approved by: Trace Estrada M.D. on 03/24/2025 at 20:12
--- NOTE | 2025-03-24 18:36 | DI.RAD.S_ITS ---
PROCEDURE: XR FOOT LT MIN 3V INDICATIONS: pain TECHNIQUE: 3 views of the foot were acquired. COMPARISON: None. FINDINGS AND IMPRESSION: Mild 1st MTP and midfoot degenerative changes. Moderate calcaneal/plantar enthesopathy. No acute displaced fracture or dislocation No suspicious soft tissue calcifications. Dictated by: Trace Estrada M.D. on 03/24/2025 at 19:37 Approved by: Trace Estrada M.D. on 03/24/2025 at 19:38
--- NOTE | 2025-03-24 18:36 | DI.RAD.S_ITS ---
PROCEDURE: XR FOOT RT MIN 3V INDICATIONS: pain TECHNIQUE: 3 views of the foot were acquired. COMPARISON: None. FINDINGS AND IMPRESSION: Moderate calcaneal enthesopathy. [id number] 1st MTP and mild midfoot degenerative changes. First MTP valgus alignment. Displaced fracture or dislocation. Vascular calcifications. If there is high concern for further derangement, consider MRI evaluation. Dictated by: Trace Estrada M.D. on 03/24/2025 at 19:35 Approved by: Trace Estrada M.D. on 03/24/2025 at 19:37
--- NOTE | 2025-03-24 18:43 | PC.NURSE ---
Lower extremity feet pain. left worse than right. States this is the first flare up in over a month. Left foot slightly red and swollen. Pt states he has been in bed for the last three days. Pt reports he has been using salon pas and wrapping his feet to help manage his pain. Pt reports history of gout. pt states campbells mushroom soup flared up his gout. denies injury.
[2025-03-24] MEDS: GABAPENTIN 300 MG CAPSULE PO (20:34)
[2025-03-24] MEDS: OXYCODONE/APAP 5/325 PREPACK 1 BOTTLE MISC (20:34)
[2025-03-24] MEDS: OXYCODONE/ACETAMINOPHEN 5/325 TABLET 1 TAB PO (20:34)
== END 2025-03-24 21:10 | disposition home or self-care (01) ==
PROVIDERS: Emergency Provider Student in an Organized Health Care Education/Training Program; PCP Family Medicine
DX: M79.672 Pain in left foot (principal); M79.671 Pain in right foot; R60.0 Localized edema; Z87.39 Personal history of other diseases of the musculoskeletal system and connective tissue
CPT/HCPCS: 73630; 93970; 99283

== ENCOUNTER 2025-03-26 14:40 | Inpatient (IN) | payer MEDICARE, SELFPAY ==
[2023-06-12 12:12] VITALS: BMI 31.3
[2025-03-26] VITALS (8 sets, daily range): BP systolic 142–175; BP diastolic 70–97; PULSE 88–103; RESP 16–22; TEMP 36.6–36.8; O2SAT 92–97; BMI 29.9
--- NOTE | 2025-03-26 15:16 | ED_ITS ---
<Statement entered by Ludwin Hunter, DO - 03/27/25 07:02> Co-sign statement: I was available for consultation during this patient's emergency department visit. This chart is signed by myself for administrative purposes only. I do not have direct contact with this patient during this visit. They were seen independently by the APC. HPI - Extremity Problem General Chief complaint: Extremity Problem,Nontraumatic Stated complaint: Bilat Foot Pain Time Seen by Provider: 03/26/25 14:57 History of Present Illness HPI Narrative: Mr. 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 Patient states about 4 days ago he developed gout like pain on both of his feet, worse on the right foot that is now switched to worse on the left foot with redness. He came to the ER for these symptoms on 03/24/2025 and had negative bilateral lower extremity venous ultrasounds, x-rays of both feet, and was recommended to continue taking his gabapentin and follow up with Podiatry. However since the patient was discharge, he has now developed worsening pain of the left foot and redness on the left foot. He is here with a friend/caregiver who states he has been having helping him at home because the patient is having a very hard time walking due to his feet pain, he has been using a rolling computer chair to get around. Patient reports he felt somewhat feverish yesterday, and has been having decreased appetite, and some burning when he pees. States that he experiences these symptoms when he has had gout in the past. Patient has not been taking allopurinol daily however he did start taking it on Friday, his symptoms then began on Friday. He does have a standing prescription for colchicine but was unable to pick this up yet. He has not been taking any pain medications at home. He does rely heavily on his friend for his care as his memory is not consistent. He denies chest pain, shortness of breath, abdominal pain, nausea, vomiting. He is having diarrhea. Denies any medication allergies, or any trauma to the feet. Further record review reveals bladder cancer, 2 new lesions. Related Data Home Medications ?Medication ?Instructions ?Recorded ?Confirmed hydroxyurea 500 mg capsule 500 mg PO DAILY 01/17/22 bisacodyl 5 mg tablet,delayed 5 mg PO BID 03/31/22 release (Dulcolax (bisacodyl)) omeprazole 20 mg capsule,delayed 20 mg PO DAILY 01/27/25 release gabapentin 600 mg tablet 600 mg PO 3XD 06/11/2301/27 carvedilol 25 mg tablet 25 mg PO BID 10/27/24 fluticasone furoate 100 inhalation .nightly 10/27/24 01/27/25 mcg/actuation blister powder for inhalation (Arnuity Ellipta) Previous Rx's ?Medication ?Instructions ?Recorded fluticasone propionate 50 2 spray intranasal PRN PRN A llergy 10/23/22 mcg/actuation nasal Symptoms #16 grams spray,suspension (Flonase Allergy Relief) febuxostat 40 mg tablet (Uloric) 80 mg (2 x 40 mg) PO DAILY #180 08/02/24 Held on 03/09/25. tabs Instructions: insurance warfarin 5 mg tablet 5 mg PO DAILY #90 tabs 08/09 fenofibrate nanocrystallized 145 See Rx Instructions . Route 09/27/24 mg tablet .COMPLEX #90 tabs losartan 25 mg tablet See Rx Instructions .Route 0 10/27/24 .COMPLEX #90 tabs metformin 500 mg tablet 1,000 mg (2 x 500 mg) PO BID #360 10/27/24 tabs albuterol sulfate 90 mcg/actuation 1 - 2 inh inhalatio n Q4-6H PRN 12/31/24 aerosol inhaler shortness of breath or wheez ing #8.5 grams atorvastatin 80 mg tablet 80 mg PO DAILY #100 tabs ondansetron 4 mg disintegrating 4 mg PO Q6H PRN nausea and 02/01/25 tablet vomiting #30 tabs colchicine 0.6 mg tablet 0.6 mg PO DAILY PRN gout 11/30 prophylaxis #90 tabs allopurinol 100 mg tablet See Rx Instructions PO DAILY gout 03/09/25 prevention #180 tabs Allergies Allergy/AdvReac Type Severity Reaction Status Date / Time No Known Drug Allergies Allergy Verified 03/26/25 14:40 Review of Systems Review of Systems ROS Unobtainable: All systems reviewed & are unremarkable except as noted in HPI and below Patient History Medical History Hyperuricemia Polycythemia vera Obesity (BMI 30-39.9) Skin cancer LEONARD (obstructive sleep apnea) Type 2 diabetes mellitus Hearing deficit Chronic cough Asthma Hay fever Gout Chronic back pain Psoriasis Colon polyps Hypertension Hyperlipidemia Carotid artery disease (~2002) Surgical History H/O primary malignant neoplasm of urinary bladder (~02/05/22) S/P CABG (coronary artery bypass graft) History of angioplasty Family History Mother Heart disease High cholesterol Stroke Hypertension Father No problems noted. Sister Myocardial infarction Sister Myocardial infarction Social History marital status: unmarried,single household members: significant other housing: house pets and animals: Yes current occupational exposures/hazards: Yes ([facility]) alcohol intake: current substance use type: does not use alcohol intake frequency: holidays/special occasions only Exam Narrative Exam Narrative: GENERAL: 79 year old patient appears stated age. Obese patient, in no acute distress. HEAD: Atraumatic. Normocephalic. NECK: Trachea midline. Cervical ROM intact. CARDIOVASCULAR: Regular rate and rhythm. RESPIRATORY: ?Nonlabored respirations. ?Speaking in clear, full sentences. ?Clear to auscultation. Breath sounds equal bilaterally. No wheezes, rales, or rhonchi. ? GASTROINTESTINAL: Abdomen soft, non-tender, nondistended. protuberant. Bowel sounds present. EXTREMITIES: Nonfocal tenderness to palpation of bilateral dorsal feet. There is mild edema of bilateral feet, no edema in the lower legs. On the dorsal lateral left foot there is nonblanching erythema. DP pulses are palpable bilaterally, sensation intact to light touch on the distal toes. NEURO: AOx3. ?Clear speech. ?Moves all 4 extremities appropriately. Is able to provide his own history with help from his caregiver at the bedside. SKIN: Warm, dry. Erythema of left lateral dorsal foot described above. Initial Vital Signs Initial Vital Signs: Vital Signs Blood Pressure 175/81 H 03/26/25 14:44 Pulse Oximetry 94 03/26/25 14:44 Course Orders Ordered: ED Orders 03/26/25 15:20 Urine Microscopic Stat 03/26/25 15:25 CBC Auto Diff [Complete Blood Count AUTO DIFF] Stat CMP [Comprehensive Metabolic Panel] Stat CRP [C-Reactive Protein Quant] Stat ESR [Erythrocyte Sedimentation Rate] Stat Lactate (Lactic Acid) Stat PT [Prothrombin Time INR] Stat PTT Partial Thromboplastin Julio Stat Uric Acid Stat Discontinued Medications Colchicine (Colchicine 0.6 Mg Tablet) 1.2 mg PO NOW ONE Stop: 03/26/25 15:45 Last Admin: 03/26/25 15:56 Dose: 1.2 mg Documented By: RB Colchicine (Colchicine 0.6 Mg Tablet) 0.6 mg PO NOW ONE Stop: 03/26/25 16:57 Last Admin: 03/26/25 17:02 Dose: 0.6 mg Documented By: KALA Morphine Sulfate (Morphine 4 Mg/Ml Inj) 4 mg IV NOW ONE Stop: 03/26/25 15:15 Last Admin: 03/26/25 15:33 Dose: 4 mg Documented By: RB Ondansetron HCl (Ondansetron 4 Mg/2 Ml Inj) 4 mg IV NOW ONE Stop: 03/26/25 15:15 Last Admin: 03/26/25 15:33 Dose: 4 mg Documented By: RB Vital Signs Vital signs: Vital Signs - 8 hr 03/26/25 14:44 03/26/25 14:44 03/26/25 14:46 Temperature 97.8 F Pulse Rate 95 H Pulse Rate [Bilateral Posterior Tibial] Respiratory Rate 16 Blood Pressure 175/81 H 175/81 H Pulse Oximetry 94 97 Oxygen Delivery Method Room Air 03/26/25 15:00 03/26/25 15:01 03/26/25 15:01 Temperature Pulse Rate 97 H 94 H Pulse Rate [Bilateral Posterior Tibial] Respiratory Rate Blood Pressure 151/76 H Pulse Oximetry 93 92 Oxygen Delivery Method 03/26/25 15:39 Temperature Pulse Rate Pulse Rate [Bilateral Posterior Tibial] 88 Respiratory Rate Blood Pressure Pulse Oximetry Oxygen Delivery Method MDM - Extremity (Nontraumatic) Medical Records Attestation: I reviewed the patient's medical records. Lab Data 03/26/25 15:25 03/26/25 15:25 Labs: Lab Results 03/26/25 03/26/25 Range/Units 15:20 15:25 WBC 28.8 H (4.5-11.0) X10^3/uL RBC 6.94 H (4.5-5.9) X10^6/uL Hgb 13.1 L (13.5-17.5) g/dL Hct 44.0 (41-53) % MCV 63.4 L (80-100) fL MCH 18.9 L (26-34) PG MCHC 29.7 L (30-36) % RDW 22.0 H (11.6-14.8) % Plt Count 242 (150-400) X10^3/uL Neut % (Auto) Not Reportable Lymph % (Auto) Not Reportable [place] % (Auto) Not Reportable Eos % (Auto) Not Reportable Baso % (Auto) Not Reportable Lymph # (Auto) Not Reportable [place] # (Auto) Not Reportable Baso # (Auto) Not Reportable Total Counted 100 Seg Neutrophils % 83.0 H (38-70) % Band Neutrophils % 2.0 L (3-7) % Lymphocytes % (Manual) 8.0 L (25-45) % Monocytes % (Manual) 4.0 (2-11) % Eosinophils % (Manual) 1.0 L (2-4) % Basophils % (Manual) 2.0 H (0-1) % Neutrophils # (Manual) 80739 H (0869-2279) /uL RBC Morphology See below Anisocytosis 3+ H Ovalocytes 1+ H ESR 3 (0-15) MM/HR PT 95.1 H (9.4-12.5) SECONDS INR 8.9 H* (0.9-1.3) APTT 94 H* (25.1-36.5) SECONDS Sodium 139 (137-145) mmol/L Potassium 4.9 (3.4-5.1) mmol/L Chloride 104 (98-107) mmol/L Carbon Dioxide 24 (22-32) mmol/L BUN 23 H (9-20) mg/dL Creatinine 1.01 (0.66-1.25) mg/dL Estimated GFR > 60 (>60) mL/min BUN/Creatinine Ratio 22.8 H (6-22) Glucose 112 H (70-99) mg/dL Lactate 1.1 (0.7-2.1) mmol/L Uric Acid 7.9 (3.5-8.5) mg/dL Calcium 9.7 (8.4-10.2) mg/dL Total Bilirubin 1.2 (0.2-1.3) mg/dL AST 26 (17-59) IU/L ALT 18 (<50) IU/L Alkaline Phosphatase 61 (38-126) U/L C-Reactive Protein 11.9 H (<1.0) mg/dL Total Protein 7.3 (6.3-8.2) g/dL Albumin 4.5 (3.5-5.0) g/dL Globulin 2.8 (1.7-4.1) g/dL Albumin/Globulin Ratio 1.6 (1.0-2.8) Urine RBC 10-30/hpf H (0-5/HPF) Urine WBC 0-1/hpf (0-5/HPF) Ur Squamous Epith Cells 0-1 /hpf (0-5/HPF) Urine Bacteria Occasional (0-1) D (None) Ur Culture Indicated? 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 Differential diagnosis includes but is not limited to gout, pseudogout, vasculitis, cellulitis, arthritis, erythromelalgia, etc. On exam patient is in no acute distress, nontoxic appearing, vital signs revealed mildly elevated blood pressure and heart rate, he is afebrile, in no respiratory distress. He has tenderness to palpation of bilateral dorsal feet with nonblanching erythema of the lateral left foot. Reviewed prior ED note from 03/24/2025, at that time the patient had no findings of DVT on bilateral venous ultrasounds. Bilateral foot x-rays revealed no acute abnormalities however numerous chronic degenerative changes. We will obtain CBC, CMP, lactic acid, coags, treat with morphine and Zofran at this time. After further discussion with the patient, his symptoms were precipitated by initiating allopurinol. He does have a prescription for colchicine but was unable to take it. CBC is overall baseline with an elevated WBC count of 28.8, elevated RBC count of 6.94, hemoglobin of 13.1. Normal platelets 242. Coags are extremely abnormal with an elevated INR of 8.9, a PTT of 94, P T of 95.1. Patient has been taking his warfarin as prescribed, 5 mg Friday through Friday, 2.5 mg Friday and Friday, he was unable to have his INR checked on Friday due to his foot pain. CMP overall reassuring with a normal sodium 139 potassium 4.9, BUN slightly elevated 23 with a creatinine of 1.01. UA reveals RBCs, no signs of infection, overall consistent with known history of bladder cancer. 1700: Spoke with hospitalist Dr. Hanson, she agrees to admit the patient for observation given his elevated INR and feet pain causing unsteady gait. Patient's pain is actually quite improved at this time. He is agreeable to admission and stable for transfer to the floor. Discharge Plan Departure Patient Disposition: Admitted as Observation Clinical Impression: Elevated INR, Acute pain of left foot, Myelodysplastic disease Admit Date/Time: 03/26/25 17:06 Admit Provider: Ju Hanson
[2025-03-26] MEDS: MORPHINE 4 MG/ML INJ IV (15:33)
[2025-03-26] MEDS: ONDANSETRON 4 MG/2 ML INJ IV (15:33)
[2025-03-26 15:38] LABS: Hemoglobin 13.1 g/dL (13.5-17.5); Mean Corpuscular HGB Conc 29.7 % (30-36); Mean Corpuscular Hemoglobin 18.9 PG (26-34); Mean Corpuscular Volume 63.4 fL (80-100); Platelet Count 242 X10^3/uL (150-400); Red Blood Cell Count 6.94 X10^6/uL (4.5-5.9); White Blood Cell Count 28.8 X10^3/uL (4.5-11.0)
[2025-03-26 15:40] LABS: Add Manual Diff / Slide Review YES
[2025-03-26 15:50] LABS: Lactate (Lactic Acid) 1.1 mmol/L (0.7-2.1)
[2025-03-26 15:51] LABS: Alanine Aminotransferase 18 IU/L (<50); Albumin 4.5 g/dL (3.5-5.0); Albumin Globulin Ratio 1.6 (1.0-2.8); Alkaline Phosphatase 61 U/L (38-126); Aspartate Aminotransferase 26 IU/L (17-59); BUN Creatinine Ratio 22.8 (6-22); Bilirubin Total 1.2 mg/dL (0.2-1.3); Blood Urea Nitrogen 23 mg/dL (9-20); Calcium 9.7 mg/dL (8.4-10.2); Carbon Dioxide 24 mmol/L (22-32); Chloride 104 mmol/L (98-107); Estimated Glomerular Filt Rate > 60 mL/min (>60); Globulin 2.8 g/dL (1.7-4.1); Glucose 112 mg/dL (70-99); HEMOLYSIS < 15 (0-50); Potassium 4.9 mmol/L (3.4-5.1); Sodium 139 mmol/L (137-145); Total Protein 7.3 g/dL (6.3-8.2); Uric Acid 7.9 mg/dL (3.5-8.5)
[2025-03-26 15:56] LABS: Anisocytosis 3+; Neutrophils Absolute Manual 24480 /uL (3000-5900); Ovalocytes 1+; Prothrombin Time 95.1 SECONDS (9.4-12.5); Total Cells Counted 100
[2025-03-26] MEDS: COLCHICINE 0.6 MG TABLET 1.2 MG PO (15:56)
[2025-03-26 15:59] LABS: Bacteria Urine Occasional (0-1); Culture Indicated Urine Cult Not Indicated; RBC Urine 10-30/HPF (0-5/HPF); Squamous Epithelial Cell Urine 0-1 /HPF (0-5/HPF); Urine Volume 10mL (spun); WBC Urine 0-1/HPF (0-5/HPF)
[2025-03-26 16:03] LABS: INR 8.9 (0.9-1.3); PTT Partial Thromboplastin Tim 94 SECONDS (25.1-36.5)
[2025-03-26 16:11] LABS: Erythrocyte Sedimentation Rate 3 MM/HR (0-15)
[2025-03-26 16:28] LABS: C-Reactive Protein Quant 11.9 mg/dL (<1.0)
[2025-03-26] MEDS: COLCHICINE 0.6 MG TABLET PO (17:02)
--- NOTE | 2025-03-26 19:36 | PM.HP.1 ---
History of Present Illness History of Present Illness Date Patient Seen: 03/26/25 Time Patient Seen: 21:40 Chief complaint: Bilat Foot Pain Narrative: 79-year-old male with past medical history of [id number] diabetes, gout, hyperlipidemia, hypertension, JAK2 mutation myelodysplastic disorder on hydroxyurea, PE/DVT on Coumadin and bladder cancer presents with complaint of bilateral foot pain. Per the patient's report, over the last 4 days, the patient started to have gout-like pain in both of his feet. The patient also has some redness in his feet along with the pain. 2 days ago, the patient was seen in our ER with negative bilateral lower extremity venous ultrasounds as well as x-ray of both feet due to similar symptoms. The patient was given gabapentin and instructions to follow-up podiatry as outpatient. However despite taking gabapentin at home the patient continues to have increasing bilateral foot pain and had a hard time ambulating due to the pain. The patient has been having decreased appetite with subjective fever and some dysuria. Per the patient's report, the patient has not been taking his allopurinol recently but does last Friday the patient restarted due to increasing pain. In addition the patient has a standing prescription for colchicine but has not been able to pick this up yet. Otherwise the patient denies any nausea, vomiting, chills, diarrhea, chest pain or shortness of breath. In the emergency room, the patient was hemodynamically stable. Labs shows a WBC of 28 INR of 8.9 UA shows RBC but otherwise no signs of UTI C-reactive protein 11.9 the patient was given IV fluid, morphine and Zofran. Due to ongoing uncontrolled foot pain our ER physician requested admission for pain control as well as supratherapeutic INR. [facility] Medical History Hyperuricemia Polycythemia vera Obesity (BMI 30-39.9) Skin cancer LEONARD (obstructive sleep apnea) Type 2 diabetes mellitus Hearing deficit Chronic cough Asthma Hay fever Gout Chronic back pain Psoriasis Colon polyps Hypertension Hyperlipidemia Carotid artery disease (~2002) Surgical History H/O primary malignant neoplasm of urinary bladder (~02/05/22) S/P CABG (coronary artery bypass graft) History of angioplasty Family History Mother Heart disease High cholesterol Stroke Hypertension Father No problems noted. Sister Myocardial infarction Sister Myocardial infarction Social History marital status: unmarried,single household members: significant other housing: house pets and animals: Yes current occupational exposures/hazards: Yes ([employer]) alcohol intake: current substance use type: does not use Meds Home Medications and Allergies Home Medications ?Medication ?Instructions ?Recorded ?Confirmed ?Type hydroxyurea 500 mg capsule 500 mg PO DAILY 01/17/22 01/27/25 History bisacodyl 5 mg tablet,delayed 5 mg PO BID 03/31/22 01/27/25 History release (Dulcolax (bisacodyl)) omeprazole 20 mg capsule,delayed 20 mg PO DAILY 03/31/22 01/27/25 History release fluticasone propionate 50 2 spray intranasal PRN PRN Allergy 10/23/22 01/27/25 Rx mcg/actuation nasal Symptoms #16 grams spray,suspension (Flonase Allergy Relief) gabapentin 600 mg tablet 600 mg PO 3XD 06/11/23 01/27/25 History febuxostat 40 mg tablet (Uloric) 80 mg (2 x 40 mg) PO DAILY #180 08/02/24 01/27/25 Rx Held on 03/09/25. tabs Instructions: insurance warfarin 5 mg tablet 5 mg PO DAILY #90 tabs 08/09/24 03/11/25 Rx fenofibrate nanocrystallized 145 See Rx Instructions .Route 09/27/24 01/27/25 Rx mg tablet .COMPLEX #90 tabs carvedilol 25 mg tablet 25 mg PO BID 10/27/24 01/27/25 History fluticasone furoate 100 inhalation .nightly 10/27/24 01/27/25 History mcg/actuation blister powder for inhalation (Arnuity Ellipta) losartan 25 mg tablet See Rx Instructions .Route 10/27/24 01/27/25 Rx .COMPLEX #90 tabs metformin 500 mg tablet 1,000 mg (2 x 500 mg) PO BID #360 10/27/24 01/27/25 Rx tabs albuterol sulfate 90 mcg/actuation 1 - 2 inh inhalation Q4-6H PRN 12/31/24 01/27/25 Rx aerosol inhaler shortness of breath or wheezing #8.5 grams atorvastatin 80 mg tablet 80 mg PO DAILY #100 tabs 01/27/25 01/27/25 Rx ondansetron 4 mg disintegrating 4 mg PO Q6H PRN nausea and 02/01/25 Rx tablet vomiting #30 tabs colchicine 0.6 mg tablet 0.6 mg PO DAILY PRN gout 03/07/25 Rx prophylaxis #90 tabs allopurinol 100 mg tablet See Rx Instructions PO DAILY gout 03/09/25 Rx prevention #180 tabs Allergies Allergy/AdvReac Type Severity Reaction Status Date / Time No Known Drug Allergies Allergy Verified 03/26/25 14:40 Review of Systems Review of Systems ROS: Yes All systems reviewed with the patient and are negative except as otherwise documented Exam Vital Signs (past 8 hours): - 03/26/25 14:44 03/26/25 14:44 03/26/25 14:46 Temperature 97.8 F Pulse Rate 95 H Pulse Rate [Bilateral Posterior Tibial] Respiratory Rate 16 Blood Pressure 175/81 H 175/81 H Pulse Oximetry 94 97 Oxygen Delivery Method Room Air 03/26/25 15:00 03/26/25 15:01 03/26/25 15:01 Temperature Pulse Rate 97 H 94 H Pulse Rate [Bilateral Posterior Tibial] Respiratory Rate Blood Pressure 151/76 H Pulse Oximetry 93 92 Oxygen Delivery Method 03/26/25 15:39 03/26/25 18:03 03/26/25 18:10 Temperature 98.3 F Pulse Rate 92 H 103 H Pulse Rate [Bilateral Posterior Tibial] 88 Respiratory Rate 20 22 Blood Pressure 142/70 H 155/89 H Pulse Oximetry 95 93 Oxygen Delivery Method Room Air Oxygen Delivery Method Room Air Narrative Exam Narrative: Physical Exam: GENERAL: The patient is not in any acute distressed. Awake and alert. HEENT: Nonicteric sclerae, PERRLA, EOMI. Oropharynx clear. Moist mucous membranes. Conjunctivae appear well perfused. HEART: Regular rate and rhythm without murmurs. No lower extremities edema. LUNGS: Clear to auscultation bilaterally. No wheezing, crackles or rhonchi ABDOMEN: Soft, positive bowel sounds, nontender. SKIN: beilateral erythema seen in both feet. No rash, no excessive bruising, petechiae, or purpura. NEUROLOGIC: AxO x 3. Cranial nerves II-XII intact without motor/sensory deficit. Objective Labs 03/26/25 15:25 03/26/25 15:25 Labs: Laboratory Results - last 24 hr 03/26/25 03/26/25 15:20 15:25 WBC 28.8 H RBC 6.94 H Hgb 13.1 L Hct 44.0 MCV 63.4 L MCH 18.9 L MCHC 29.7 L RDW 22.0 H Plt Count 242 Neut % (Auto) Not Reportable Lymph % (Auto) Not Reportable [place] % (Auto) Not Reportable Eos % (Auto) Not Reportable Baso % (Auto) Not Reportable Lymph # (Auto) Not Reportable [place] # (Auto) Not Reportable Baso # (Auto) Not Reportable Total Counted 100 Seg Neutrophils % 83.0 H Band Neutrophils % 2.0 L Lymphocytes % (Manual) 8.0 L Monocytes % (Manual) 4.0 Eosinophils % (Manual) 1.0 L Basophils % (Manual) 2.0 H Neutrophils # (Manual) 21637 H RBC Morphology See below Anisocytosis 3+ H Ovalocytes 1+ H ESR 3 PT 95.1 H INR 8.9 H* APTT 94 H* Sodium 139 Potassium 4.9 Chloride 104 Carbon Dioxide 24 BUN 23 H Creatinine 1.01 Estimated GFR > 60 BUN/Creatinine Ratio 22.8 H Glucose 112 H Lactate 1.1 Uric Acid 7.9 Calcium 9.7 Total Bilirubin 1.2 AST 26 ALT 18 Alkaline Phosphatase 61 C-Reactive Protein 11.9 H Total Protein 7.3 Albumin 4.5 Globulin 2.8 Albumin/Globulin Ratio 1.6 Urine RBC 10-30/hpf H Urine WBC 0-1/hpf Ur Squamous Epith Cells 0-1 /hpf Urine Bacteria Occasional (0-1) D Ur Culture Indicated? Cult not indicated Vol Urine Centrifuged 10ml (spun) Assessment & Plan Assessment & Plan narrative: Gout flare up with severe bilateral foot pain. Admit the patient to medical observation. Continue pain control with IV pain medications and to start colchicine. Supratherapeutic INR. Of note patient's INR is 8.9. There is some RBC seen in urine analysis but otherwise no mynor bleeding. Will hold Coumadin and monitor for any signs of bleeding. Hemoglobin and platelet are relatively normal. Will have to consult pharmacy in the morning to manage Coumadin. Leukocytosis. Likely reactive due to gout flareup. No other signs of infection. Patient currently afebrile. Monitor for now. Ccu-nkuahzv-zohlfwpht diabetes. Hold home oral medication. Subcu insulin as needed. History of DVT/PE. As above due to supratherapeutic INR we will hold Coumadin. Will have pharmacy help manage Coumadin while inpatient. Hyperlipidemia. Resume home statin. Hypertension. Monitor blood pressure and resume home medication accordingly. Myelodysplastic disorder. Resume home hydroxyurea. DVT prophylaxis supratherapeutic INR. CODE STATUS full code. Disposition likely home in 1 to 2 days. - As the provider of this telehealth evaluation, requested by the patient's evaluating physician, I attest that I introduced myself to the patient, provided my credentials and determined that telemedicine via a real-time, 2 way interactive audio and video platform is an appropriate and effective means of providing this service. - I reviewed the patient's chart and had a discussion with the member of the patient's treatment team. - The patient and I mutually agreed with continuation of this evaluation via telemedicine. The patient consented for the telemedicine evaluation. - This virtual encounter was taken place from [place] by Dr. Adria Samson. The patient was evaluated at [facility]. The encounter was approximately 35 minutes. The nurse was present during the entire time of the encounter and was able to move the stethoscope in appropriate directions. Time-Based Coding :: [TOTAL MINUTES] spent with patient and on the chart (including review of chart, obtaining history, exam, reviewing outside data, placing orders, documenting exam and treatment plan, and counseling patient) on [DATE].
[2025-03-26] MEDS: SODIUM CHLORIDE 0.9% 1,000 ML 84 ML IV (21:28)
[2025-03-27] VITALS (9 sets, daily range): BP systolic 142–165; BP diastolic 83–95; PULSE 100–106; RESP 18–22; TEMP 35.8–36.5; O2SAT 93–95
[2025-03-27] MEDS: MORPHINE 4 MG/ML INJ IV ×2 (02:26→12:11)
[2025-03-27 06:15] LABS: Hematocrit 43.3 % (41-53); Hemoglobin 12.9 g/dL (13.5-17.5); Mean Corpuscular HGB Conc 29.9 % (30-36); Mean Corpuscular Hemoglobin 18.9 PG (26-34); Mean Corpuscular Volume 63.3 fL (80-100); Platelet Count 222 X10^3/uL (150-400); Red Blood Cell Count 6.83 X10^6/uL (4.5-5.9); Red Cell Distribution Width 22.4 % (11.6-14.8)
[2025-03-27 06:17] LABS: Add Manual Diff / Slide Review YES
[2025-03-27 06:19] LABS: White Blood Cell Count 30.4 X10^3/uL (4.5-11.0)
[2025-03-27 06:25] LABS: Prothrombin Time 118.9 SECONDS (9.4-12.5)
[2025-03-27 06:26] LABS: BUN Creatinine Ratio 23.4 (6-22); Blood Urea Nitrogen 22 mg/dL (9-20); Calcium 9.4 mg/dL (8.4-10.2); Carbon Dioxide 21 mmol/L (22-32); Chloride 104 mmol/L (98-107); Estimated Glomerular Filt Rate > 60 mL/min (>60); Glucose 110 mg/dL (70-99); HEMOLYSIS < 15 (0-50); Potassium 4.5 mmol/L (3.4-5.1); Sodium 138 mmol/L (137-145)
[2025-03-27 06:47] LABS: INR 11.2 (0.9-1.3)
[2025-03-27 06:56] LABS: Anisocytosis 2+; Neutrophils Absolute Manual 25232 /uL (3000-5900); Total Cells Counted 100
[2025-03-27 06:57] LABS: Hypersegmented Neutrophils 2+; Hypochromasia 2+; Microcytosis 2+
--- NOTE | 2025-03-27 07:05 | DI.CT.S_ITS ---
PROCEDURE: CT HEAD/BRAIN WO CON INDICATIONS: augmentation /behavior change TECHNIQUE: Noncontrast 4.5 mm thick angled axial sections acquired from the foramen magnum to the vertex, with coronal and sagittal reformats. For radiation dose reduction, the following was used: automated exposure control, adjustment of mA and/or kV according to patient size. COMPARISON: None. FINDINGS: Image quality: Diagnostic. CSF spaces: Basal cisterns are patent. No extra-axial fluid collections. The ventricles are symmetric in size and shape. Brain: No intracranial bleeds or mass effect. There is cerebral volume loss, with resultant ventricular and sulcal prominence. There are periventricular and deep white matter chronic small vessel ischemic changes. There is intracranial internal carotid artery atherosclerosis. Skull and face: Calvarium and visualized facial bones appear intact, without suspicious lesions. Sinuses: Visualized sinuses and mastoids are clear. IMPRESSION: 1. No acute intracranial process. 2. Moderate atrophy and chronic microvascular ischemic changes. Dictated by: Martha Tabor M.D. on 03/27/2025 at 8:34 Approved by: Martha Tabor M.D. on 03/27/2025 at 8:35
[2025-03-27] MEDS: SODIUM CHLORIDE 0.9% 1,000 ML 84 ML IV (08:35)
[2025-03-27] MEDS: COLCHICINE 0.6 MG TABLET PO (08:38)
[2025-03-27] MEDS: HYDROCODONE/ACET 5/325 TABLET 1 TAB PO (08:38)
--- NOTE | 2025-03-27 13:21 | P.PN_ITS ---
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 He received colchicine in the emergency department with some improvement in pain, but was unable to walk secondary to his discomfort. He notes he did not understand that he was supposed to take allopurinol daily and had been using it only as needed with gout flares. He had eaten a can of gaines mushroom soup several days ago. Mushrooms tend to cause gout flares for him. His last gout flare was in September. Since receiving morphine on admission, he has been having some word-finding difficulties. As morphine wears off, he is better able to find his words. His sister who is at bedside reports this is common for him when he receives pain medication Exam Vital Signs (past 8 hours): - 03/27/25 08:00 03/27/25 10:45 03/27/25 10:54 Temperature 97.7 F 96.9 F L 96.9 F L Pulse Rate 100 H 101 H 104 H Respiratory Rate 21 20 18 Blood Pressure 150/92 H 142/95 H 142/95 H Pulse Oximetry 93 95 03/27/25 11:05 03/27/25 12:55 03/27/25 13:05 Temperature 97.4 F L 97.2 F L 97.3 F L Pulse Rate 102 H 106 H 104 H Respiratory Rate 18 18 20 Blood Pressure 157/83 H 152/90 H 164/94 H Pulse Oximetry 03/27/25 13:17 Temperature 97.3 F L Pulse Rate 104 H Respiratory Rate 20 Blood Pressure 164/94 H Pulse Oximetry 94 Oxygen Delivery Method Room Air Oxygen Flow Rate 0 Narrative Exam Narrative: GEN: Alert and oriented x 3, NAD HEENT:NC, Face symmetric CHEST: Respiratory excursions symmetric, CTAB CV: RRR, no M/R/G ABD: Soft, obese, NT/ND, BT present in all 4 quadrants, no organomegaly or masses EXTR: warm, well perfused, bilateral feet reveal erythema over the lateral 5th metatarsals, no pain with range of motion of his ankles, but he has significant pain with manipulation of his great toes, 2nd and 3rd toes bilaterally, no significant erythema of the toes SKIN: warm and dry, no rash NEURO: Alert and oriented x 3, nonfocal Objective Labs 03/27/25 05:10 03/27/25 05:10 Labs: Laboratory Results - last 24 hr 03/26/25 03/26/25 03/27/25 15:20 15:25 05:10 WBC 28.8 H 30.4 H* RBC 6.94 H 6.83 H Hgb 13.1 L 12.9 L Hct 44.0 43.3 MCV 63.4 L 63.3 L MCH 18.9 L 18.9 L MCHC 29.7 L 29.9 L RDW 22.0 H 22.4 H Plt Count 242 222 Neut % (Auto) Not Reportable Not Reportable Lymph % (Auto) Not Reportable Not Reportable [place] % (Auto) Not Reportable Not Reportable Eos % (Auto) Not Reportable Not Reportable Baso % (Auto) Not Reportable Not Reportable Lymph # (Auto) Not Reportable Not Reportable [place] # (Auto) Not Reportable Not Reportable Baso # (Auto) Not Reportable Not Reportable Total Counted 100 100 Seg Neutrophils % 83.0 H 83.0 H Band Neutrophils % 2.0 L Lymphocytes % (Manual) 8.0 L 13.0 L Atypical Lymphs % 1.0 H Monocytes % (Manual) 4.0 3.0 Eosinophils % (Manual) 1.0 L Basophils % (Manual) 2.0 H Neutrophils # (Manual) 00026 H 19083 H Hypersegmented Neuts 2+ RBC Morphology See below Not Reportable Hypochromasia 2+ H Anisocytosis 3+ H 2+ H Microcytosis 2+ H Ovalocytes 1+ H ESR 3 PT 95.1 H 118.9 H D INR 8.9 H* 11.2 H* APTT 94 H* Sodium 139 138 Potassium 4.9 4.5 Chloride 104 104 Carbon Dioxide 24 21 L BUN 23 H 22 H Creatinine 1.01 0.94 Estimated GFR > 60 > 60 BUN/Creatinine Ratio 22.8 H 23.4 H Glucose 112 H 110 H Lactate 1.1 Uric Acid 7.9 Calcium 9.7 9.4 Total Bilirubin 1.2 AST 26 ALT 18 Alkaline Phosphatase 61 C-Reactive Protein 11.9 H Total Protein 7.3 Albumin 4.5 Globulin 2.8 Albumin/Globulin Ratio 1.6 Urine RBC 10-30/hpf H Urine WBC 0-1/hpf Ur Squamous Epith Cells 0-1 /hpf Urine Bacteria Occasional (0-1) D Ur Culture Indicated? Cult not indicated Vol Urine Centrifuged 10ml (spun) Blood Type 03/27/25 09:08 WBC RBC Hgb Hct MCV MCH MCHC RDW Plt Count Neut % (Auto) Lymph % (Auto) [place] % (Auto) Eos % (Auto) Baso % (Auto) Lymph # (Auto) [place] # (Auto) Baso # (Auto) Total Counted Seg Neutrophils % Band Neutrophils % Lymphocytes % (Manual) Atypical Lymphs % Monocytes % (Manual) Eosinophils % (Manual) Basophils % (Manual) Neutrophils # (Manual) Hypersegmented Neuts RBC Morphology Hypochromasia Anisocytosis Microcytosis Ovalocytes ESR PT INR APTT Sodium Potassium Chloride Carbon Dioxide BUN Creatinine Estimated GFR BUN/Creatinine Ratio Glucose Lactate Uric Acid Calcium Total Bilirubin AST ALT Alkaline Phosphatase C-Reactive Protein Total Protein Albumin Globulin Albumin/Globulin Ratio Urine RBC Urine WBC Ur Squamous Epith Cells Urine Bacteria Ur Culture Indicated? Vol Urine Centrifuged Blood Type A Positive [facility] Medical History Hyperuricemia Polycythemia vera Obesity (BMI 30-39.9) Skin cancer LEONARD (obstructive sleep apnea) Type 2 diabetes mellitus Hearing deficit Chronic cough Asthma Hay fever Gout Chronic back pain Psoriasis Colon polyps Hypertension Hyperlipidemia Carotid artery disease (~2002) Surgical History H/O primary malignant neoplasm of urinary bladder (~02/05/22) S/P CABG (coronary artery bypass graft) History of angioplasty Family History Mother Heart disease High cholesterol Stroke Hypertension Father No problems noted. Sister Myocardial infarction Sister Myocardial infarction Social History marital status: unmarried,single household members: significant other housing: house pets and animals: Yes current occupational exposures/hazards: Yes ([facility]) alcohol intake: former substance use type: does not use Assessment & Plan Assessment & Plan narrative: 1. Acute gouty arthropathy with severe bilateral foot pain Will continue managing pain. He did receive colchicine in the emergency department and it has been ordered for daily use for now. While he would likely benefit from prednisone, his INR is now 11, which would make this pretty unsafe at the moment. The same would be true for indomethacin. Will continue colchicine. Discussed the proper use of allopurinol for gout prophylaxis. Will add oral oxycodone for pain. 2. Coagulopathy secondary to warfarin Given his risks for thromboembolic disease in light of his myelodysplastic syndrome, I will give FFP rather than vitamin K. 2 units have been ordered. Will recheck an INR after FFP has been given 3. Myelodysplastic syndrome Will plan to continue his hydroxyurea 4. Diabetes mellitus type 2 His baseline diabetes is very well controlled. I will defer fingersticks at this time, but will place on a controlled carb diet 5. History of venous thromboembolic disease Holding warfarin due to coagulopathy. 6. Hypertension Await medication reconciliation. Will restart meds once meds have been reconciled as his blood pressures are elevated Code status Full Prophylaxis Holding warfarin as noted Disposition PT consult requested. Plan to discharge home once his pain and mobility are improved Time-Based Coding :: [TOTAL MINUTES] spent with patient and on the chart (including review of chart, obtaining history, exam, reviewing outside data, placing orders, documenting exam and treatment plan, and counseling patient) on [DATE].
--- NOTE | 2025-03-27 13:21 | PC.NURSE ---
Call placed to communication instructor surgeon Dr. Mallory; regarding the change in color of drainage in wound vac. Provider informed of drainage now being light brown in color. Provider states maybe we will have to do a complete take down of wound vac and re-eval at time of take down. Provider states, I will work with the wound care nurse tomorrow and possibly take down the wound vac dressing. No new orders at this time. Will continue to monitor patient and clinical status.
--- NOTE | 2025-03-27 14:18 | CM.DANOTE ---
Addendum entered by TOM Richards 03/27/25 16:00: ADD: Per PT, completed eval with pt and currently due to his significant foot pain he was limited in his ability to participate and currently recommending [facility] for nursing staff and SNF. SW made initial referral to [facility] due to location and requested review and to determine if they can accept his [employer] MCR as auth will be needed. SW to follow closely tomorrow Mon after further PT for progress and ongoing discussion with pt and review by [facility]. PASRR needed if SNF. BF Original Note: Patient is a 79 yo male who was admitted OBS Status on 03/26/25 for Foot Pain. Pt has [employer] MCR for insurance and his PCP is Dr. Enedina Keating. EMR was reviewed. Per MD, pt with hx of gout flare, DM, and bladder CA with new tumors and admitted for pain management of likely gout flare and to get further imaging and work with PT. Pt already established with Urology. PT ordered and pending. SW met bedside with pt and explained role and he confirms he lives at home in [place] with his life partner and is mostly independent with ADLs at baseline and drives and does not typically use DME for mobilty. Pt states his POA is his life partner and pt has sister currently visiting from [place] and life partner has 2 supportive sisters locally. Pt working to utilize mail order pharmacy as sometimes the pharmacy at [facility] messes up our rx. Pt denies any hx of HH or SNF and preference is to d/c home when stable and confirms sister and SO can assist as needed. Plan; SW to follow closely for PT eval and recommendations to confirm pt mobile enough to d/c home with Sig Other and to notify TCM group at d/c for outpt f/u appt with his PCP Dr. Keating. TOM Richards Discharge Planning/Care Management Advanced directive, confirm from FAMILY Start: 03/26/25 22:29 Freq: Q24H Status: Active Protocol: Document 03/26/25 22:29 AKT (Rec: 03/26/25 22:30 AKT Other) Advance Directive, confirm on record Time 22:30 Person contacted Wilfrido (spouse) Copy received No CM Discharge Assessment Start: 03/26/25 18:38 Freq: Status: Active Protocol: Document 03/27/25 14:16 BF (Rec: 03/27/25 14:17 BF [id number]) Discharge Planning Assessment Assigned Discharge TOM Dougherty Tax Attorney DPYUN/Assigned Life Partner Designee Name Contact Information [phone] Advance Directives? Yes Advance Directives No on File History Provided By Patient,Medical Record Has Patient been No admitted in last 30 days? Prior Living House Arrangements Household Members significant other Type of Drives own vehicle transporation used prior to admit Independent with ADL Yes 's Is patient alert and Yes oriented? Needs Assistance Managing Medications,Home Chores / Shopping With Caregiver for No Another DME Already Rented / Cane Owned Comment Pending pain control and PT eval and recommendations Barriers to No Discharge Comment Expect patient will DC back w/partner upon DC, both are retired Discharge Plan Home Transportation Partner Arrangement Additional Comment Pending PT eval and recommendations Whiteboard Updated Yes in Patient Room with name and ext. # of Incinerator Attendant Review Status In Process Please Provide Date 03/27/25 Initial DC Assessment Was Performed Next Review Type Continued Stay Review
[2025-03-27 14:52] LABS: Prothrombin Time 50.8 SECONDS (9.4-12.5)
[2025-03-27 14:53] LABS: INR 4.7 (0.9-1.3)
[2025-03-27] MEDS: OXYCODONE IR 5 MG TABLET PO ×2 (16:20→21:25)
[2025-03-27] MEDS: predniSONE 20 MG TABLET PO (16:44)
[2025-03-27] MEDS: SODIUM CHLORIDE 0.9% FLUSH 10 ML IV (20:07)
[2025-03-28] MEDS: OXYCODONE IR 5 MG TABLET PO ×2 (02:02→20:40)
[2025-03-28 08:00] VITALS: BP 165/93; PULSE 90; RESP 24; TEMP 36; O2SAT 94
[2025-03-28] MEDS: HYDROCODONE/ACET 5/325 TABLET 1 TAB PO ×2 (08:45→13:42)
[2025-03-28] MEDS: COLCHICINE 0.6 MG TABLET PO (08:45)
[2025-03-28 10:57] LABS: Prothrombin Time 72.9 SECONDS (9.4-12.5)
--- NOTE | 2025-03-28 11:00 | PT.IIE ---
Surgical History (Last Reviewed 03/26/25 @ 15:38 by Tena Her PA-C) H/O primary malignant neoplasm of urinary bladder (~02/05/22) History of angioplasty S/P CABG (coronary artery bypass graft) Medical History (Last Reviewed 03/26/25 @ 15:38 by Tena Her PA-C) Asthma Carotid artery disease (~2002) Chronic back pain Chronic cough Colon polyps Gout Hay fever Hearing deficit Hyperlipidemia Hypertension Hyperuricemia Obesity (BMI 30-39.9) LEONARD (obstructive sleep apnea) Polycythemia vera Psoriasis Skin cancer Type 2 diabetes mellitus Physical Therapy Inpatient Evaluation/Re-Eval M1 PT/OT-IP Prior Functional Status Start: 03/27/25 14:14 Freq: NEEDED Status: Active Protocol: Document 03/27/25 14:29 KJ (Rec: 03/27/25 14:29 KJ Desktop) Medical Review Prior Functional Status Medical History Yes Reviewed Communication appears to have word finding difficulty or memory impairments. Pt states this is due to pain medication. RN states family says this is new Mobility and Gait Pt states he ambulated prior to admission, however with further discussion it appears he has been bedridden in recent weeks. Activities of Daily Pt's partner Wilfrido has been caring for him Living and IADL's Social History Household Members significant other Living Arrangements House Number of Floors ( Two Floors Floors) Number of Stairs To pt states 23 steps from first to second floor with one Enter/Railing? rail Home Equipment Straight Cane,Shower Seat without Backrest,Grab Bars Near Toilet Additional Social Wilfrido has had more difficulty caring for pt recently History Comment M2 PT-IP Current Condition Start: 03/27/25 14:14 Freq: NEEDED Status: Active Protocol: Document 03/27/25 14:16 KJ (Rec: 03/27/25 14:29 KJ Desktop) Physical Therapy Current Condition Current Condition Evaluation Date 03/27/25 Treatment Diagnosis Impaired mobility, impaired self care Onset Date 03/06/25 M3 PT-IP Subjective Start: 03/27/25 14:14 Freq: NEEDED Status: Active Protocol: Document 03/27/25 14:16 KJ (Rec: 03/27/25 14:29 KJ Desktop) Subjective Physical Therapy Visit Type Type Initial Evaluation Visit Start Time 13:39 Visit Stop Time 14:14 Physical Therapy Visit Comments Patient Comments Pt reports pain in feet prevents him from standing. Patient Goals To be less of a burden to his partner Therapy Pain Assessment Pain When Pain Assessed At Rest Pain Present Pain Present Pain Reported Location Bilateral Foot Description Aching Pain Behaviors Guarding Pain Management Modification of Treatment,Re-positioning Techniques M4 PT-IP Mobility and Gait Start: 03/27/25 14:14 Freq: NEEDED Status: Active Protocol: Document 03/27/25 14:16 KJ (Rec: 03/27/25 14:29 KJ Desktop) PT-Transfer Assessment Sit to and From Stand Sit to and from Total Assistance Stand Equipment Transfer Assistive Mechanical Lift Device Transfer Ability Level of Assist 2 Person Assistance Gait Assessment Comments Gait Comments Pt refuses to stand and walk due to pain in the feet PT-Balance Assessment Sitting Balance and Reactions Static Sitting Good Balance Ability Dynamic Sitting Good Balance Ability M5 PT-IP Objective Assessments Start: 03/27/25 14:14 Freq: NEEDED Status: Active Protocol: Document 03/27/25 14:16 KJ (Rec: 03/27/25 14:29 KJ Desktop) Orientation Orientation/Cognition Level of Alertness Confusional State Orientation Name Language Function Expressive Aphasia,Word Finding Difficulties Ability Gross Range of Motion Upper Extremity ROM Assessment Bilaterally Impaired Impairments Shoulders decreased ROM R>L Lower Extremity ROM Assessment Right Impaired Impairments Minimal AROM in both feet Strength Upper Extremity Strength Shoulder 3+/5 Elbow 4/5 Hand 2+/5 Lower Extremity Strength Hip 3/5 Knee 3+/5 Ankle 2/5 Comments Strength Comments Pt reports injuring both shoulders about a year ago when a dog tripped him and he fell against a wall causing dislocation of both shoulders. M6 PT-IP Treatment Start: 03/27/25 14:14 Freq: NEEDED Status: Active Protocol: Document 03/27/25 14:16 KJ (Rec: 03/27/25 14:29 KJ Desktop) Physical Therapy Treatment Exercises Exercises Ankle Pumps,Quad Sets M7 PT-IP Assessment and Plan Start: 03/27/25 14:14 Freq: NEEDED Status: Active Protocol: Document 03/27/25 14:29 KJ (Rec: 03/27/25 14:29 KJ Desktop) PT Summary Assessment and Plan Discharge Recommendations Transportation Needs Stretcher/Ambulance at Discharge
[2025-03-28 11:02] LABS: INR 6.8 (0.9-1.3)
[2025-03-28 11:19] VITALS: BP 150/90; PULSE 99
[2025-03-28] MEDS: carvediloL 12.5 MG TABLET 25 MG PO ×2 (11:19→20:42)
[2025-03-28] MEDS: LOSARTAN 25 MG TABLET PO (11:20)
[2025-03-28] MEDS: SODIUM CHLORIDE 0.9% FLUSH 10 ML IV ×2 (11:20→20:44)
[2025-03-28] MEDS: predniSONE 20 MG TABLET 40 MG PO (11:20)
--- NOTE | 2025-03-28 11:29 | CM.DPC ---
Addendum entered by TOM Richards 03/28/25 15:33: ADD: Per [facility] admissions, confirmed they can accept pt and submitted for his [employer] MCR auth today. BF Original Note: DCP SNF Cont: Per MD, pt still getting steriods and pain medication for gout flare and to work more with PT/OT today to determine needs and likely not yet stable for discharge today. Per PT/OT, still recommending SNF although pt able to stand x2 today which is better than yesterday but needing assist. BLAKE met bedside with pt and his SO/POA Chepe and explained role again and they confirm that PT/OT just worked with pt and explained recommendation of SNF and provided SNF Choice list and highlighted [employer] M[employer] contracted SNFs. Pt was hopeful for home but he and Chepe confirm that currently pt would need SNF before discharging home. They had a friend at [facility] and know some of the staff and therefore preference is [facility] and aware [employer] auth will be needed to be approved. Chepe confirms that he has been going to pt's appointments as pt has difficulty remembering all the details and medication recommendations and he has alerted pt's Urologist and Oncologist at [facility] of pt's admission as pt had scheduled appointments this week. Pt's Photograph Printer is also [facility]. Chepe transports pt to and from appointments. BLAKE sent updated PT/OT notes to [facility] and waiting to confirm they can accept and submit [employer] auth. PASRR done in anticipation of SNF. TOM Richards
[2025-03-28 11:47] VITALS: BP 150/90; PULSE 98; RESP 20; TEMP 35.7; O2SAT 95
[2025-03-28] MEDS: SODIUM CHLORIDE 0.9% 1,000 ML 84 ML IV (11:55)
--- NOTE | 2025-03-28 12:14 | PT-OP ANOTE ---
Pt up in chair at arrival, refused PT this early afternoon due to R leg cramping and not able to mobilize due to Gout . He stated can't right now but willing to work together later this afternoon.
--- NOTE | 2025-03-28 12:49 | OT.IP.EVAL ---
Past Medical History (Last Reviewed 03/26/25 @ 15:38 by Tena Her PA-C) Asthma Carotid artery disease (~2002) Chronic back pain Chronic cough Colon polyps Gout Hay fever Hearing deficit Hyperlipidemia Hypertension Hyperuricemia Obesity (BMI 30-39.9) LEONARD (obstructive sleep apnea) Polycythemia vera Psoriasis Skin cancer Type 2 diabetes mellitus Surgical History (Last Reviewed 03/26/25 @ 15:38 by Tena Her PA-C) H/O primary malignant neoplasm of urinary bladder (~02/05/22) History of angioplasty S/P CABG (coronary artery bypass graft) Occupational Therapy Inpatient Evaluation/Re-Eval M1 PT/OT-IP Prior Functional Status Start: 03/27/25 14:14 Freq: NEEDED Status: Active Protocol: Document 03/28/25 10:58 TAYLOR (Rec: 03/28/25 11:24 TAYLOR Desktop) Medical Review Prior Functional Status Medical History Yes Reviewed Communication Pt is able to make needs known. Mobility and Gait Pt states he ambulated prior to admission, and states he was in the bed for about two days prior to admission Activities of Daily Pt reports I with BADL, cooking, and cleaning prior to Living and IADL's recent gout flare up. Prior Functional Pt has a dog and drives and grocery shops. Level (Other details ) Social History Household Members significant other Living Arrangements House Number of Floors ( Two Floors Floors) Number of Stairs To pt states 23 steps from first to second floor with one Enter/Railing? rail. Pt has 1 step to enter from outside house no railing. Home Environment Standard Height Toilet,Walk in Shower Home Equipment Straight Cane,Shower Seat without Backrest,Grab Bars Near Toilet,Grab Bars In Shower M2 OT-IP Current Condition Start: 03/28/25 10:58 Freq: Status: Active Protocol: Document 03/28/25 10:58 TAYLOR (Rec: 03/28/25 11:24 TAYLOR Desktop) Occupational Therapy Current Condition Current Condition Evaluation Date 03/28/25 Treatment Diagnosis gout, impaired mobility, impaired self care Diagnosis Onset Date 03/26/25 M3 OT- IP Subjective and Pain Start: 03/28/25 10:58 Freq: Status: Active Protocol: Document 03/28/25 10:58 TAYLOR (Rec: 03/28/25 11:24 [facility] OT- Subjective Occupational Therapy Visit Type Type Initial Evaluation Visit Start Time 10:00 Visit Stop Time 10:54 Notes Pt reclined in bed eating breakfast on entrance of OT. Occupational Therapy Visit Comments Patient Comments Pt reports he has been in the bed for about two days prior to admission. Prior to that pt reports being I with BADL and IADL. Pt agreeable to participating in skilled OT eval. Patient/Caregiver to go home. Goals OT Pain Assessment Pain When Pain Assessed At Rest Pain Present Pain Present Pain Reported Location Bilateral Foot Intensity 6 Scale Used Numeric (0 - 10) Description Spasm Pain Behaviors Restlessness Management Re-positioning Techniques M4 OT- IP ADL's Start: 03/28/25 10:58 Freq: Status: Active Protocol: Document 03/28/25 10:58 TAYLOR (Rec: 03/28/25 11:24 [facility] OT [id number] General Evaluation Self-Feeding Ability Independent OT ADL-Grooming General Evaluation Grooming Ability Standby Assistance Areas Needing Retrieving/Set-up of Grooming Items Assistance Comments OT Grooming Comments pt brushes his hair on set up while seated EOB. OT ADL-Oral Care General Eval Oral Care Ability Standby Assistance Comments Oral Care Comments pt performs oral hygiene on setup while seated EOB. OT ADL-Dressing General Eval Upper Body Dressing Total Assistance Ability Lower Body Dressing Total Assistance Ability Areas Needing Socks Assistance Comments OT Dressing Comments Pt requires OT to perform due to p! OT ADL-Toileting General Evaluation Toileting Ability Total Assistance Comments OT Toileting Pt is I with use of urinal. Pt attempted to perform t/f Comments to BSC for toileting. After three attempts pt returned to supine and OT and Xander assisted pt with guera lift to BSC. OT ADL-Bathing Comments OT Bathing Comments not observed. Pt would be safest for sponge bath or EOB bathing at this time. M5 OT- IP IADL's Start: 03/28/25 10:58 Freq: Status: Active Protocol: Document 03/28/25 10:58 TAYLOR (Rec: 03/28/25 11:24 [facility]) OT-Instrumental Activities of Daily Living Deficits IADL Deficits Deficits Identified Home Safety Awareness Awareness of Need Decreased Awareness for Assistance at Home Ability to Problem Unable to Problem Solve Solve Emergency Situations Medication Management Medication No Deficits Identified Management Money Management Money Management No Deficits Identified Meal Preparation Meal Preparation pt performed prior to admission and may need assist on Comments d/c Museum Preparator Museum Preparator pt performed prior to admission and may need assist on Comments d/c Driving Driving Comments pt performed prior to admission and may need assist on d/c M6 OT- IP Functional Cognition Start: 03/28/25 10:58 Freq: Status: Active Protocol: Document 03/28/25 10:58 TAYLOR (Rec: 03/28/25 11:24 [facility]ECHO [facility]) Cognitive Factors Limiting Selfcare Function Cognitive Ability Level of Alertness Alert Patient Orientation Name,Age,Birthday,Month,Place,Situation Attention Span Capable of Focused Attention,Capable of Sustained Ability Attention Ability to Follow Able to Follow One Step Commands,Able to Follow Multi- Commands Step Commands Memory Description Short Term Impaired Safety Awareness Underestimates Need for Assistance Problem Solving Needs Assist to Identify Solutions Ability Executive Function Unable to Filter Distractions Ability Cognitive Comments Cognitive Assessment Pt stated the year to be 2025. Pt initially told OT Comments that he had brushed his teeth this morning, however when Xander arrived pt was reminded that this occurred yesterday. Pt may benefit from SLUMs assessment. OT- Vision and Hearing OT- Hearing Assessment OT- Hearing WFL Assessment OT- Vision Assessment Visual Acuity WFL,Glasses All The Time M7 OT- IP Mobility and Balance Start: 03/28/25 10:58 Freq: Status: Active Protocol: Document 03/28/25 10:58 TAYLOR (Rec: 03/28/25 11:24 [facility] OT- Bed Mobility Assessment Supine to Sit Supine to Sit Assist Minimal Assistance,1 Person Assistance,Head of Bed Elevated,Bedrails Sit to Supine Sit to Supine Assist Moderate Assistance,2 Person Assistance,Head of Bed Elevated,Bedrails Scooting Scooting to Edge of Minimal Assistance,1 Person Assistance,Bedrails Bed OT-Transfer Assessment Sit to and From Stand Sit to and from Moderate Assistance,2 Person Assistance,Use of Upper Stand Extremities Comments Mobility Comments While sitting EOB pt asked to use BSC. Pt agreed to attempt to t/f to BSC. OT, nsg aid , and nsg coordinator assisted pt in sit>stand. Pt performed sit> stand x3 attempts, able to full extend LEs and stand tall on second attempt only. Due to p! in feet pt was limiting WB in L LE and was unable to initiate stand pivot t/f to BSC. Pt returned to supine and guera lift was used to t/f pt to BSC. OT- Balance Assessment Sitting Balance and Reactions Static Sitting Good Balance Ability Dynamic Sitting Fair Balance Ability Standing Balance and Reactions Static Standing Fair Balance Ability Dynamic Standing Poor Balance Ability M8 OT- IP Objective Assessments Start: 03/28/25 10:58 Freq: Status: Active Protocol: Document 03/28/25 10:58 TAYLOR (Rec: 03/28/25 11:24 MATHEWDEECHO Desktop) OT Gross Range of Motion Upper Extremity Range of Motion Assessment Right Impaired ROM Impairments Pt has approximately 120 deg of R shoulder flex OT Strength Upper Extremity Strength Assessment Bilaterally Impaired Shoulder B 3+ Elbow B 4 Hand B 4 Hand Coal Equipment Operator Strength Hand Dominance Right OT-Muscle Tone Assessment Muscle Tone WNL Yes OT Sensation Assessment Edema Edema Absent M9 OT- IP Assessment and Plan Start: 03/28/25 10:58 Freq: Status: Active Protocol: Document 03/28/25 10:58 TAYLOR (Rec: 03/28/25 11:24 MATHEWDEECHO Desktop) OT Summary Assessment and Plan Potential Rehabilitation Good Potential Analytic Complexity Low at Evaluation Summary Assessment Summary Pt is 79 yo M admitted via ED due to onset of gout in B , presenting as low complexity eval with impaired mobility and self care. Pt lives with partner and prior to gout flare up reports being I with BADL, cooking, cleaning, and grocery shopping. Pt demonstrates some cognitive deficits and would benefit from additional testing of SLUMs. Pt is somewhat self limiting initially, but with encouragement participated in all aspects of eval. Pt requires min A with bed mobility, mod Ax2-3 for sit>stand, up to total A for BADL, B UE muscle weakness, decreased functional mobility, and activity intolerance. Skilled OT services are appropriate to address pt deficits and promote return toward PLOF. Pt will need 24/7 care on d/c and would benefit from SNF for improved self care and functional mobility. Pt left on BSC with nsg assistant professor of german. Goals Grooming Goal Independent Dressing Goal Independent Toileting Goal Independent Bathing Goal Independent Toilet Transfer Goal Independent,Grab Bars Shower Transfer Goal Independent,Walk-in Shower,Shower Chair Days to Meet Goals 10 Frequency of Treatment Other frequency 5x/wk Treatment Plan OT Treatment Plan ADL Training,Functional Mobility,Therapeutic Exercises, Patient/Family Education,Discharge Planning Other Treatment SLUMS Recommendations and Next Treatment Focus Discharge Recommendations OT Discharge SNF Rehab Recommendations Transportation Needs Wheelchair/Cabulance at Discharge
[2025-03-28] MEDS: methocarbamoL 500 MG TABLET PO ×2 (14:05→20:39)
[2025-03-28] MEDS: GABAPENTIN 600 MG TABLET PO ×2 (14:05→20:38)
--- NOTE | 2025-03-28 14:48 | PT-IP ANOTE ---
Pt declined tx when arrived at 1438. He reported nursing just hoyered him to bed. He thinks the new medication is helping but can't do more activity right now. He requested to return tomorrow.
[2025-03-28 19:00] VITALS: BP 179/97; PULSE 97; RESP 18; TEMP 35.7; O2SAT 93
--- NOTE | 2025-03-28 19:07 | PM.PN.1 ---
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 INR today was 6.8. He has no active bleeding. He was started on prednisone increased to 40 mg today. He struggled with pain this morning, but this afternoon feels improved. Exam Vital Signs (past 8 hours): - 03/28/25 11:19 03/28/25 11:47 Temperature 96.2 F L Pulse Rate 99 H 98 H Respiratory Rate 20 Blood Pressure 150/90 H 150/90 H Pulse Oximetry 95 Oxygen Flow Rate 0 Oxygen Delivery Method Room Air Oxygen Flow Rate 0 Narrative Exam Narrative: GEN: Alert and oriented x 3, NAD HEENT:NC, Face symmetric CHEST: Respiratory excursions symmetric, CTAB CV: RRR, no M/R/G ABD: Soft, obese, NT/ND, BT present in all 4 quadrants, no organomegaly or masses EXTR: warm, well perfused, bilateral feet reveal erythema over the lateral 5th metatarsals SKIN: warm and dry, no rash NEURO: Alert and oriented x 3, nonfocal Objective Labs 03/27/25 05:10 03/27/25 05:10 Labs: Laboratory Results - last 24 hr 03/28/25 10:30 PT 72.9 H D INR 6.8 H* PFSH Medical History Hyperuricemia Polycythemia vera Obesity (BMI 30-39.9) Skin cancer LEONARD (obstructive sleep apnea) Type 2 diabetes mellitus Hearing deficit Chronic cough Asthma Hay fever Gout Chronic back pain Psoriasis Colon polyps Hypertension Hyperlipidemia Carotid artery disease (~2002) Surgical History H/O primary malignant neoplasm of urinary bladder (~02/05/22) S/P CABG (coronary artery bypass graft) History of angioplasty Family History Mother Heart disease High cholesterol Stroke Hypertension Father No problems noted. Sister Myocardial infarction Sister Myocardial infarction Social History (Reviewed 03/26/25 @ 15:38 by MINE [place] marital status: unmarried,single household members: significant other housing: house pets and animals: Yes current occupational exposures/hazards: Yes ([employer]) alcohol intake: former substance use type: does not use Assessment & Plan Assessment & Plan narrative: 1. Acute gouty arthropathy with severe bilateral foot pain Will continue managing pain. He did receive colchicine in the emergency department and it has been ordered for daily use for now. - continue prednisone while monitoring INR and CBC closely. Continue colchicine daily. 2. Coagulopathy secondary to warfarin - INR 6.8. No signs or symptoms of bleeding. Did receive 2 FFP earlier in admission. - warfarin per pharmacy, currently warfarin on hold 3. Myelodysplastic syndrome Will plan to continue his hydroxyurea, recheck CBC tomorrow. 4. Diabetes mellitus type 2 His baseline diabetes is very well controlled. Deferred fingersticks, but placed on a controlled carb diet 5. History of venous thromboembolic disease Holding warfarin due to coagulopathy. 6. Hypertension Await medication reconciliation. Will restart meds once meds have been reconciled as his blood pressures are elevated Code status Full Prophylaxis Holding warfarin as noted Disposition Initial recommendation for SNF, changed to inpatient with continued symptoms and coagulopathy. Continue PT / OT to see if SNF needed or can possibly discharge home in a few days. Time-Based Coding :: [TOTAL MINUTES] spent with patient and on the chart (including review of chart, obtaining history, exam, reviewing outside data, placing orders, documenting exam and treatment plan, and counseling patient) on [DATE].
[2025-03-28 20:42] VITALS: BP 179/97; PULSE 97
[2025-03-29] MEDS: methocarbamoL 500 MG TABLET PO (04:50)
[2025-03-29 06:14] LABS: Hematocrit 41.7 % (41-53); Hemoglobin 12.6 g/dL (13.5-17.5); Mean Corpuscular HGB Conc 30.3 % (30-36); Mean Corpuscular Volume 62.9 fL (80-100); Platelet Count 257 X10^3/uL (150-400); Red Blood Cell Count 6.63 X10^6/uL (4.5-5.9); Red Cell Distribution Width 21.5 % (11.6-14.8)
[2025-03-29 06:16] LABS: Add Manual Diff / Slide Review YES
[2025-03-29 06:17] LABS: White Blood Cell Count 30.5 X10^3/uL (4.5-11.0)
[2025-03-29 06:18] LABS: Alanine Aminotransferase 17 IU/L (<50); Albumin 4.2 g/dL (3.5-5.0); Albumin Globulin Ratio 1.4 (1.0-2.8); Alkaline Phosphatase 67 U/L (38-126); Aspartate Aminotransferase 30 IU/L (17-59); BUN Creatinine Ratio 26.8 (6-22); Bilirubin Total 0.8 mg/dL (0.2-1.3); Blood Urea Nitrogen 22 mg/dL (9-20); Calcium 9.7 mg/dL (8.4-10.2); Carbon Dioxide 23 mmol/L (22-32); Chloride 107 mmol/L (98-107); Estimated Glomerular Filt Rate > 60 mL/min (>60); Glucose 116 mg/dL (70-99); HEMOLYSIS < 15 (0-50); Magnesium 1.5 mg/dL (1.6-2.3); Potassium 4.2 mmol/L (3.4-5.1); Sodium 140 mmol/L (137-145); Total Protein 7.2 g/dL (6.3-8.2)
[2025-03-29 06:36] LABS: Neutrophils Absolute Manual 24705 /uL (3000-5900); Total Cells Counted 100
[2025-03-29 06:37] LABS: Anisocytosis 2+
[2025-03-29 06:38] LABS: Ovalocytes 1+
[2025-03-29 06:39] LABS: Microcytosis 2+
[2025-03-29] MEDS: HYDROCODONE/ACET 5/325 TABLET 1 TAB PO ×4 (07:10→20:32)
[2025-03-29] MEDS: HYDROXYUREA 500 MG CAPSULE PO (08:50)
[2025-03-29 08:51] VITALS: BP 144/83; PULSE 90
[2025-03-29] MEDS: LOSARTAN 25 MG TABLET PO (08:51)
[2025-03-29] MEDS: predniSONE 20 MG TABLET 40 MG PO (08:51)
[2025-03-29] MEDS: GABAPENTIN 600 MG TABLET PO ×3 (08:51→20:35)
[2025-03-29] MEDS: carvediloL 12.5 MG TABLET 25 MG PO ×2 (08:51→20:32)
[2025-03-29] MEDS: COLCHICINE 0.6 MG TABLET PO (08:53)
[2025-03-29] MEDS: SODIUM CHLORIDE 0.9% FLUSH 10 ML IV (08:53)
[2025-03-29 10:01] VITALS: BP 148/83; PULSE 75; RESP 19; TEMP 36.1; O2SAT 95
--- NOTE | 2025-03-29 10:39 | CM.DPNOTE ---
Addendum entered by TOM King 03/29/25 12:53: per provider, INR today was 6.8. cancel dc to [facility]. CC Giselle kindly let Latasha/nursing know while this SALES PLANNING ANALYST was at lunch. P: anticipate dc tomorrow pending medical stability. [facility] time pending. CM team will continue to follow for DCP coordination SL Original Note: DCP note SALES PLANNING ANALYST reviewed EMR per Latasha at [facility], got auth and can pick pt up at 1300. SALES PLANNING ANALYST notified provider. gave RN report number. CC Giselle notified POWER REACTOR OPERATOR. will send dc information when available. SALES PLANNING ANALYST gave Giselle PASRR. SALES PLANNING ANALYST met with pt in room. reviewed plan. pt remains in agreement to dc to [facility] today. SALES PLANNING ANALYST answered questions to best of ability. P: dc today to [facility] at 1300. CM team will continue to follow closely/coordinate DCP as needed TOM King
[2025-03-29 11:01] LABS: Prothrombin Time 67.4 SECONDS (9.4-12.5)
--- NOTE | 2025-03-29 11:20 | PT.IPTN ---
Current Diagnoses Idiopathic gout, right ankle and foot (03/28/25) Physical Therapy Treatment Note M2 PT-IP Current Condition Start: 03/27/25 14:14 Freq: NEEDED Status: Active Protocol: Document 03/27/25 14:16 KJ (Rec: 03/27/25 14:29 KJ Desktop) Physical Therapy Current Condition Current Condition Evaluation Date 03/27/25 Treatment Diagnosis Impaired mobility, impaired self care Onset Date 03/06/25 M3 PT-IP Subjective Start: 03/27/25 14:14 Freq: NEEDED Status: Active Protocol: Document 03/29/25 11:20 AB (Rec: 03/29/25 13:42 AB [id number]) Subjective Physical Therapy Visit Type Type Treatment Note Visit Start Time 11:20 Visit Stop Time 11:45 Number of COLD WORKING INSPECTOR Visits 0 Physical Therapy Visit Comments Patient Comments agreeable to do PT Therapy Pain Assessment Pain When Pain Assessed At Rest Pain Present Pain Present Pain Reported Location Right Foot Intensity 2 Left Foot Intensity 5 M4 PT-IP Mobility and Gait Start: 03/27/25 14:14 Freq: NEEDED Status: Active Protocol: Document 03/29/25 11:20 AB (Rec: 03/29/25 13:42 AB [id number]) PT-Bed Mobility Assessment Supine to Sit Supine to Sit Maximum Assistance PT-Transfer Assessment Sit to and From Stand Sit to and from Maximum Assistance,1 Person Assistance,Use of Upper Stand Extremities Equipment Transfer Assistive Gait Belt,Front Wheeled Walker Device Orthotic/Prosthetic No Devices or Brace: Transfers Transfer Destination Chair Transfer Technique Stand Step Pivot Transfer Ability Level of Assist Maximum Assistance,1 Person Assistance,Use of Upper Extremities Comments Mobility Comments pt in bed and agreeable to do PT. supine to sit max A and cues. able to sit on EOB CGA. sit to stand max A and cues and only tolerated ~ 8 sec of standing and needed to sit down. c/o B feet pain. pt rested and agreed to stand again. sit to stand max A and cues. attempted to ambulate but only able to take step forward using FWW max A. instructed to transfer to chair and completed step transfer to chair using FWW max A and max cues. positioned pt on the chair. call light and table placed within reach. pt's partner arrived. pt and partner informed regarding SNF rehab and both agreed. M5 PT-IP Objective Assessments Start: 03/27/25 14:14 Freq: NEEDED Status: Active Protocol: Document 03/27/25 14:16 KJ (Rec: 03/27/25 14:29 KJ Desktop) Orientation Orientation/Cognition Level of Alertness Confusional State Orientation Name Language Function Expressive Aphasia,Word Finding Difficulties Ability Gross Range of Motion Upper Extremity ROM Assessment Bilaterally Impaired Impairments Shoulders decreased ROM R>L Lower Extremity ROM Assessment Right Impaired Impairments Minimal AROM in both feet Strength Upper Extremity Strength Shoulder 3+/5 Elbow 4/5 Hand 2+/5 Lower Extremity Strength Hip 3/5 Knee 3+/5 Ankle 2/5 Comments Strength Comments Pt reports injuring both shoulders about a year ago when a dog tripped him and he fell against a wall causing dislocation of both shoulders. M6 PT-IP Treatment Start: 03/27/25 14:14 Freq: NEEDED Status: Active Protocol: Document 03/29/25 11:20 AB (Rec: 03/29/25 13:42 AB [id number]) Physical Therapy Treatment Education Education Provided Safety M7 PT-IP Assessment and Plan Start: 03/27/25 14:14 Freq: NEEDED Status: Active Protocol: Document 03/29/25 11:20 AB (Rec: 03/29/25 13:42 AB [id number]) PT Summary Assessment and Plan Potential Rehabilitation Fair Potential Summary Impairments Pain,ROM,Strength,Balance,Coordination,Sensation,Tone, Cognition,Bed Mobility,Transfers,Gait,Activity Tolerance Progress Towards Slow Progress due to Pain,Slow Progress due to Medical Goals Issues,Slow Progress due to Activity Tolerance Assessment Summary pt requiring max A for sit to stand and transfers using FWW. attempted to ambulate but unable and only able to take one step using FWW max A. limited due to B feet pain. pt will benefit from SNF rehab to improve overall strength and function. Goals Bed Mobility Goal Standby Assistance Transfer Goal Standby Assistance,Front Wheeled Walker Gait Goal Standby Assistance,Front Wheel Walker Gait Distance 50 Days to Meet Goals 10 Frequency of Treatment Frequency Of Once a Day Treatment Treatment Plan Physical Therapy Bed Mobility Training,Transfer Training,Gait Training, Treatment Plan Therapeutic Exercise,Balance Retraining,Discharge Planning,Manual Therapy Recommendations To Nursing Amount of Assist 1 Person Assist Needed Discharge Recommendations PT Discharge SNF Rehab Recommendations Transportation Needs Wheelchair/Cabulance at Discharge - PT assist 1
[2025-03-29 11:51] LABS: INR 6.2 (0.9-1.3)
[2025-03-29] MEDS: MAGNESIUM CHLORIDE 64 MG TABLET 128 MG PO (11:59)
--- NOTE | 2025-03-29 12:04 | PM.PN.1 ---
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 INR today was 6.8. He has no active bleeding. He was started on prednisone increased to 40 mg. Pain he thinks is improved today, but hasn't been up and walking yet. Exam Vital Signs (past 8 hours): - 03/29/25 08:51 03/29/25 08:51 03/29/25 10:01 Temperature 97.0 F L Pulse Rate 90 90 75 Respiratory Rate 19 Blood Pressure 144/83 H 144/83 H 148/83 H Pulse Oximetry 95 Oxygen Flow Rate 0 Oxygen Delivery Method Room Air Oxygen Flow Rate 0 Narrative Exam Narrative: GEN: Alert and oriented x 3, NAD HEENT:NC, Face symmetric CHEST: Respiratory excursions symmetric, CTAB CV: RRR, no M/R/G ABD: Soft, obese, NT/ND, BT present in all 4 quadrants, no organomegaly or masses EXTR: warm, well perfused, bilateral feet reveal erythema over the lateral 5th metatarsals. This is non-tender today on exam. SKIN: warm and dry, no rash NEURO: Alert and oriented x 3, nonfocal Objective Labs 03/29/25 04:30 03/29/25 04:30 Labs: Laboratory Results - last 24 hr 03/29/25 03/29/25 04:30 10:00 WBC 30.5 H* RBC 6.63 H Hgb 12.6 L Hct 41.7 MCV 62.9 L MCH 19.0 L MCHC 30.3 RDW 21.5 H Plt Count 257 Neut % (Auto) Not Reportable Lymph % (Auto) Not Reportable Hanson % (Auto) Not Reportable Eos % (Auto) Not Reportable Baso % (Auto) Not Reportable Lymph # (Auto) Not Reportable Hanson # (Auto) Not Reportable Baso # (Auto) Not Reportable Total Counted 100 Seg Neutrophils % 76.0 H Band Neutrophils % 5.0 Lymphocytes % (Manual) 14.0 L Monocytes % (Manual) 3.0 Eosinophils % (Manual) 1.0 L Metamyelocytes % 1.0 H Neutrophils # (Manual) 25691 H RBC Morphology See below Anisocytosis 2+ H Microcytosis 2+ H Ovalocytes 1+ H PT 67.4 H D INR 6.2 H* Sodium 140 Potassium 4.2 Chloride 107 Carbon Dioxide 23 BUN 22 H Creatinine 0.82 Estimated GFR > 60 BUN/Creatinine Ratio 26.8 H Glucose 116 H Calcium 9.7 Magnesium 1.5 L Total Bilirubin 0.8 AST 30 ALT 17 Alkaline Phosphatase 67 Total Protein 7.2 Albumin 4.2 Globulin 3.0 Albumin/Globulin Ratio 1.4 PFSH Medical History Hyperuricemia Polycythemia vera Obesity (BMI 30-39.9) Skin cancer LEONARD (obstructive sleep apnea) Type 2 diabetes mellitus Hearing deficit Chronic cough Asthma Hay fever Gout Chronic back pain Psoriasis Colon polyps Hypertension Hyperlipidemia Carotid artery disease (~2002) Surgical History H/O primary malignant neoplasm of urinary bladder (~02/05/22) S/P CABG (coronary artery bypass graft) History of angioplasty Family History Mother Heart disease High cholesterol Stroke Hypertension Father No problems noted. Sister Myocardial infarction Sister Myocardial infarction Social History marital status: unmarried,single household members: significant other housing: house pets and animals: Yes current occupational exposures/hazards: Yes ([facility]) alcohol intake: former substance use type: does not use Assessment & Plan Assessment & Plan narrative: 1. Acute gouty arthropathy with severe bilateral foot pain Will continue managing pain. He did receive colchicine in the emergency department and it has been ordered for daily use for now. - continue prednisone while monitoring INR and CBC closely. Continue colchicine daily. - Continue PT/OT. 2. Coagulopathy secondary to warfarin - INR 6.4. No signs or symptoms of bleeding. Did receive 2 FFP earlier in admission. - warfarin per pharmacy, currently warfarin on hold 3. Myelodysplastic syndrome Will plan to continue his hydroxyurea, CBC stable today. 4. Diabetes mellitus type 2 His baseline diabetes is very well controlled. Deferred fingersticks, but placed on a controlled carb diet 5. History of venous thromboembolic disease Holding warfarin due to coagulopathy. 6. Hypertension - continue home losartan, coreg Code status Full Prophylaxis Holding warfarin as noted Disposition Initial recommendation for SNF, changed to inpatient with continued symptoms and coagulopathy. Continue PT / OT to see if SNF needed or can possibly discharge home in a few days. Time-Based Coding :: [TOTAL MINUTES] spent with patient and on the chart (including review of chart, obtaining history, exam, reviewing outside data, placing orders, documenting exam and treatment plan, and counseling patient) on [DATE].
[2025-03-29 19:00] VITALS: BP 169/94; PULSE 79; RESP 18; TEMP 35.9; O2SAT 97
[2025-03-29 20:32] VITALS: BP 169/94; PULSE 81
[2025-03-29] MEDS: ATORVASTATIN 20 MG TABLET 80 MG PO (20:32)
[2025-03-30 06:24] LABS: Alanine Aminotransferase 19 IU/L (<50); Albumin 4.2 g/dL (3.5-5.0); Albumin Globulin Ratio 1.5 (1.0-2.8); Alkaline Phosphatase 67 U/L (38-126); Aspartate Aminotransferase 25 IU/L (17-59); BUN Creatinine Ratio 34.1 (6-22); Bilirubin Total 0.7 mg/dL (0.2-1.3); Blood Urea Nitrogen 28 mg/dL (9-20); Calcium 9.8 mg/dL (8.4-10.2); Carbon Dioxide 22 mmol/L (22-32); Chloride 108 mmol/L (98-107); Estimated Glomerular Filt Rate > 60 mL/min (>60); Globulin 2.8 g/dL (1.7-4.1); Glucose 120 mg/dL (70-99); HEMOLYSIS < 15 (0-50); Magnesium 1.6 mg/dL (1.6-2.3); Potassium 4.2 mmol/L (3.4-5.1); Prothrombin Time 62.2 SECONDS (9.4-12.5); Sodium 140 mmol/L (137-145)
[2025-03-30 06:33] LABS: INR 5.7 (0.9-1.3)
[2025-03-30 06:52] LABS: Hematocrit 42.2 % (41-53); Hemoglobin 12.7 g/dL (13.5-17.5); Mean Corpuscular HGB Conc 30.2 % (30-36); Mean Corpuscular Hemoglobin 19.2 PG (26-34); Mean Corpuscular Volume 63.4 fL (80-100); Platelet Count 246 X10^3/uL (150-400); Red Blood Cell Count 6.66 X10^6/uL (4.5-5.9); Red Cell Distribution Width 21.8 % (11.6-14.8)
[2025-03-30] MEDS: PANTOPRAZOLE DR 40 MG TABLET PO (06:55)
[2025-03-30] MEDS: HYDROCODONE/ACET 5/325 TABLET 1 TAB PO (06:58)
[2025-03-30 07:14] LABS: White Blood Cell Count 30.2 X10^3/uL (4.5-11.0)
[2025-03-30 07:15] LABS: Add Manual Diff / Slide Review YES
[2025-03-30 07:17] LABS: Anisocytosis 2+; Hypersegmented Neutrophils 1+; Neutrophils Absolute Manual 25066 /uL (3000-5900); Ovalocytes 1+; Total Cells Counted 100
[2025-03-30 08:00] VITALS: BP 158/77; PULSE 73; RESP 18; TEMP 35.6; O2SAT 95
[2025-03-30] MEDS: COLCHICINE 0.6 MG TABLET PO (08:32)
[2025-03-30] MEDS: HYDROXYUREA 500 MG CAPSULE PO (08:32)
[2025-03-30] MEDS: LOSARTAN 25 MG TABLET PO (08:32)
[2025-03-30] MEDS: predniSONE 20 MG TABLET 40 MG PO (08:33)
[2025-03-30] MEDS: carvediloL 12.5 MG TABLET 25 MG PO (08:33)
[2025-03-30] MEDS: GABAPENTIN 600 MG TABLET PO (08:33)
[2025-03-30] MEDS: methocarbamoL 500 MG TABLET PO (08:33)
--- NOTE | 2025-03-30 08:35 | P.DS_ITS ---
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 Per the patient's report, over the last 4 days, the patient started to have gout-like pain in both of his feet. The patient also has some redness in his feet along with the pain. 2 days ago, the patient was seen in our ER with negative bilateral lower extremity venous ultrasounds as well as x-ray of both feet due to similar symptoms. The patient was given gabapentin and instructions to follow-up podiatry as outpatient. However despite taking gabapentin at home the patient continues to have increasing bilateral foot pain and had a hard time ambulating due to the pain. The patient has been having decreased appetite with subjective fever and some dysuria. Per the patient's report, the patient has not been taking his allopurinol recently but does last Friday the patient restarted due to increasing pain. In addition the patient has a standing prescription for colchicine but has not been able to pick this up yet. Otherwise the patient denies any nausea, vomiting, chills, diarrhea, chest pain or shortness of breath. In the emergency room, the patient was hemodynamically stable. Labs shows a WBC of 28 INR of 8.9 UA shows RBC but otherwise no signs of UTI C-reactive protein 11.9 the patient was given IV fluid, morphine and Zofran. Due to ongoing uncontrolled foot pain our ER physician requested admission for pain control as well as supratherapeutic INR. Discharge Providers Provider Date of admission: 03/28/25 12:23 Discharge Date: 03/30/25 Primary care physician: Enedina Keating DO Consults: 03/27/25 12:45 Consult to Physical Therapy Evaluate & Treat Comment: Physician Instructions: Evaluate and Treat 03/27/25 16:33 Consult to Occupational Therapy Evaluate & Treat Comment: Physician Instructions: Evaluate and treat Discharge provider: Santana Bates DO Summary Hospital Course Discharge Diagnosis: 1. Acute gouty arthropathy with severe bilateral foot pain 2. Coagulopathy secondary to warfarin 3. Myelodysplastic syndrome 4. Diabetes mellitus type 2 5. History of venous thromboembolic disease 6. Hypertension Hospital Course: 79-year-old male with diabetes mellitus type 2, hypertension, hyperlipidemia, SILVINA 2 mutation myelodysplastic disorder on hydroxyurea, history of PE/DVT on warfarin, gout, and bladder cancer who was admitted with bilateral foot pain consistent with his usual gout symptoms and coagulopathy. INR was initially >10, he received 2 FFP shortly after admission. Warfarin was held the entire admission. INR slowly improved, down to 5.7 on the day of discharge. At [facility], recommend daily INR until <3, then restarting coumadin with INR goal of 2-3. He had no signs or symptoms of bleeding. He was started on prednisone with improving bilateral gout pain, and by the time of discharge improving redness. Time Spent with Patient Time spent: Greater than 30 minutes Exam Vital Signs (past 8 hours): Oxygen Delivery Method Room Air Oxygen Flow Rate 0 Narrative Exam Narrative: GEN: Alert and oriented x 3, NAD HEENT:NC, Face symmetric CHEST: Respiratory excursions symmetric, CTAB CV: RRR, no M/R/G ABD: Soft, obese, NT/ND, BT present in all 4 quadrants, no organomegaly or masses EXTR: warm, well perfused, bilateral feet reveal erythema over the lateral 5th metatarsals, improving today. This is non-tender today on exam. SKIN: warm and dry, no rash NEURO: Alert and oriented x 3, nonfocal Objective Labs 03/30/25 04:50 03/30/25 04:50 Labs: Laboratory Results - last 24 hr 03/29/25 03/30/25 10:00 04:50 WBC 30.2 H* RBC 6.66 H Hgb 12.7 L Hct 42.2 MCV 63.4 L MCH 19.2 L MCHC 30.2 RDW 21.8 H Plt Count 246 Neut % (Auto) Not Reportable Lymph % (Auto) Not Reportable [place] % (Auto) Not Reportable Eos % (Auto) Not Reportable Baso % (Auto) Not Reportable Lymph # (Auto) Not Reportable [place] # (Auto) Not Reportable Baso # (Auto) Not Reportable Total Counted 100 Seg Neutrophils % 83.0 H Lymphocytes % (Manual) 7.0 L Atypical Lymphs % 1.0 H Monocytes % (Manual) 4.0 Eosinophils % (Manual) 3.0 Basophils % (Manual) 2.0 H Neutrophils # (Manual) 05446 H Hypersegmented Neuts 1+ RBC Morphology Not Reportable Anisocytosis 2+ H Ovalocytes 1+ H PT 67.4 H D 62.2 H D INR 6.2 H* 5.7 H* Sodium 140 Potassium 4.2 Chloride 108 H Carbon Dioxide 22 BUN 28 H Creatinine 0.82 Estimated GFR > 60 BUN/Creatinine Ratio 34.1 H Glucose 120 H Calcium 9.8 Magnesium 1.6 Total Bilirubin 0.7 AST 25 ALT 19 Alkaline Phosphatase 67 Total Protein 7.0 Albumin 4.2 Globulin 2.8 Albumin/Globulin Ratio 1.5 PFSH Medical History Hyperuricemia Polycythemia vera Obesity (BMI 30-39.9) Skin cancer LEONARD (obstructive sleep apnea) Type 2 diabetes mellitus Hearing deficit Chronic cough Asthma Hay fever Gout Chronic back pain Psoriasis Colon polyps Hypertension Hyperlipidemia Carotid artery disease (~2002) Surgical History H/O primary malignant neoplasm of urinary bladder (~02/05/22) S/P CABG (coronary artery bypass graft) History of angioplasty Family History Mother Heart disease High cholesterol Stroke Hypertension Father No problems noted. Sister Myocardial infarction Sister Myocardial infarction Social History marital status: unmarried,single household members: significant other housing: house pets and animals: Yes current occupational exposures/hazards: Yes ([facility] alcohol intake: former substance use type: does not use Discharge Plan Discharge Plan Patient Disposition: SNF Transfer to: [facility] Rehabilitation and Healthcare Provider Discharge Comment: 79M admitted with gout on bilateral feet. Recommended for senior care for continued therapy prior to return home. INR elevated on admission, slowly improving with INR 5.7 today. Coumadin is currently on hold. Continue daily monitoring of INR and resume coumadin with goal INR of 2-3. He should continue prednisone until his gout symptoms (primarily rash at this time, resolve) or in another 5 days whichever is sooner. Discharge orders & Medications Prescriptions: New methocarbamol 500 mg Tablet 500 mg PO QID PRN (Reason: Muscle Spasm) 8 Days Qty: 30 0RF acetaminophen 325 mg Tablet 650 mg PO Q6H PRN (Reason: Fever/Mild Pain (1-3)) Qty: 30 0RF oxycodone 5 mg Tablet 5 mg PO Q3HR PRN (Reason: pain, severe) 7 Days Qty: 10 0RF prednisone 20 mg Tablet 40 mg PO DAILY 5 Days Qty: 10 0RF Continued hydroxyurea 500 mg capsule 500 mg PO DAILY fluticasone propionate [Flonase Allergy Relief] 50 mcg/actuation spray,suspension 2 spray INTRANASAL PRN PRN (Reason: Allergy Symptoms) Qty: 16 2RF Rx Instructions: administer into each nostril fenofibrate nanocrystallized 145 mg tablet See Rx Instructions .ROUTE .COMPLEX Qty: 90 3RF Dose Instruction: Take 1 tablet by mouth once daily Rx Instructions: Take 1 tablet by mouth once daily albuterol sulfate 90 mcg/actuation HFA aerosol inhaler 1 - 2 inh inhalation Q4-6H PRN (Reason: shortness of breath or wheezing) Qty: 8.5 11RF ondansetron 4 mg tablet,disintegrating 4 mg PO Q6H PRN (Reason: nausea and vomiting) Qty: 30 11RF colchicine 0.6 mg tablet 0.6 mg PO DAILY PRN (Reason: gout prophylaxis) Qty: 90 1RF carvedilol 25 mg tablet 25 mg PO BID Arnuity Ellipta 100 mcg/actuation blister with device 2 inh inhalation .nightly losartan 25 mg tablet See Rx Instructions .ROUTE .COMPLEX Qty: 90 3RF Dose Instruction: Take 1 tablet by mouth once daily Rx Instructions: Take 1 tablet by mouth once daily metformin 500 mg tablet 1,000 mg PO BID Qty: 360 3RF atorvastatin 80 mg tablet 80 mg PO DAILY Qty: 100 3RF gabapentin 600 mg tablet 600 mg PO 3XD omeprazole 20 mg Capsule,Delayed Release(Dr/Ec) 20 mg PO DAILY bisacodyl [Dulcolax (bisacodyl)] 5 mg Tablet,Delayed Release (Dr/Ec) 5 mg PO BID Discontinued allopurinol 100 mg tablet See Rx Instructions PO DAILY Qty: 180 3RF Rx Instructions: orally daily; 1 po daily x 2 weeks, then 2 po daily febuxostat [Uloric] 40 mg tablet 80 mg PO DAILY Qty: 180 3RF warfarin 5 mg tablet 5 mg PO DAILY Qty: 90 3RF Protocol: Dose Management Condition: Friday (Week One) Dose/Route: 2.5 mg Instruction: 0.5 x 5 mg tablets Condition: Friday Dose/Route: 5 mg Instruction: 1 x 5 mg tablet Condition: Friday Dose/Route: 5 mg Instruction: 1 x 5 mg tablet Condition: Friday Dose/Route: 5 mg Instruction: 1 x 5 mg tablet Condition: Dose/Route: 5 mg Instruction: 1 x 5 mg tablet Condition: Friday Dose/Route: Hold Instruction: No doses Condition: Friday Dose/Route: 2.5 mg Instruction: 0.5 x 5 mg tablets Condition: Friday ( Two) Dose/Route: 2.5 mg Instruction: 0.5 x 5 mg tablets Condition: Friday Dose/Route: 5 mg Instruction: 1 x 5 mg tablet Condition: Friday Dose/Route: 5 mg Instruction: 1 x 5 mg tablet Condition: Friday Dose/Route: 2.5 mg Instruction: 0.5 x 5 mg tablets Condition: Dose/Route: 5 mg Instruction: 1 x 5 mg tablet Condition: Friday Dose/Route: 5 mg Instruction: 1 x 5 mg tablet Condition: Friday Dose/Route: 2.5 mg Instruction: 0.5 x 5 mg tablets Protocol Text: Adjustment Start Date: Friday03/11/25 INR Value: 3.9 INR Date: 03/11/25 Recheck Date: 03/25/25 Rx Instructions: Take 1/2 tablet (2.5mg) on // and take 1 tablet (5mg) all other days; or as directed. Follow up/Referrals: Enedina Keating DO [Primary Care Provider, [facility]] Discharge Health Status Multidrug resistant organism: No MDRO Precautions: Ellis Diet/Activity/Treatments Diet: Diet as Tolerated and Carb-consistent/Diabetic Liquid consistency: Normal/Thin Food texture: Regular Activity: As tolerated, no restrictions. Other treatments: INR daily. Restart coumadin with INR goal 2-3. Special Rehabilitation [facility] Reason for rehabilitation: Recovery r/t decondition Rehab type: Physical therapy and Occupational therapy Restrictions to mobility: None Visit Report/Discharge Packet Stand Alone Forms: Patient Portal/API Discharge Data Primary Care Provider: Enedina Keating
[2025-03-30] MEDS: MAGNESIUM CHLORIDE 64 MG TABLET 128 MG PO (10:05)
[2025-03-30] MEDS: DOCUSATE 100 MG CAPSULE PO (10:05)
--- NOTE | 2025-03-30 11:11 | PC.NURSE ---
Day shift: Discharge orders obtained and planned discharge to [facility] this AM. No IV access. No tele. All belongings with patient. Gave packet, including hard scripts, to [facility] transport. Called report to [facility] staff
--- NOTE | 2025-03-30 11:14 | CM.DPNOTE ---
DC Note Discharge to [facility] today which has been pre-arranged. Patient remains agreeable to this plan. Giselle, residential care officer, coordinating this discharge. RN notified, [employer] van picking up at 1100, orders sent to March at . PASRR sent. Clinical emailed to March per request. Plan: Discharge to via [facility] today. MAISHA
== END 2025-03-30 11:12 | DRG 554 ==
LOC: ED 17:04 → AC 17:07
PROVIDERS: Internal Medicine; Admitting Provider Family Medicine; Emergency Provider Physician Assistant; PCP Family Medicine; Referring Provider Physician Assistant; Visit Provider Family Medicine
DX: M10.072 Idiopathic gout, left ankle and foot (principal); D68.8 Other specified coagulation defects; M10.071 Idiopathic gout, right ankle and foot; D46.9 Myelodysplastic syndrome, unspecified; E11.9 Type 2 diabetes mellitus without complications; E78.5 Hyperlipidemia, unspecified; I10 Essential (primary) hypertension; M10.9 Gout, unspecified; I25.10 Atherosclerotic heart disease of native coronary artery without angina pectoris; Z86.718 Personal history of other venous thrombosis and embolism; Z86.711 Personal history of pulmonary embolism; Z79.01 Long term (current) use of anticoagulants; Z79.84 Long term (current) use of oral hypoglycemic drugs; Z85.51 Personal history of malignant neoplasm of bladder; Z95.1 Presence of aortocoronary bypass graft
CPT/HCPCS: 36415; 36430; 70450; 80048; 80053; 81003; 81015; 83605; 83735; 84550; 85007; 85025; 85610; 85651; 85730; 86140; 86900; 86901; 86927; 96374; 96375; 97162; 97165; 97530; 97535; 99284; G0378; P9016; J2270; J2405

== ENCOUNTER → 2025-04-22 15:09 | Outpatient (CLI) | payer MEDICARE, SELFPAY ==
[2025-03-26 22:13] VITALS: BMI 29.9
[2025-04-22 16:12] LABS: Hemoglobin A1C% w Est Avg Glu 5.8 % (4.0-6.0)
[2025-04-22 17:24] LABS: Alanine Aminotransferase 11 IU/L (<50); Albumin 4.5 g/dL (3.5-5.0); Albumin Globulin Ratio 2.0 (1.0-2.8); Alkaline Phosphatase 42 U/L (38-126); Blood Urea Nitrogen 23 mg/dL (9-20); Calcium 9.1 mg/dL (8.4-10.2); Carbon Dioxide 20 mmol/L (22-32); Chloride 107 mmol/L (98-107); Cholesterol 92 mg/dL (140-199); Estimated Glomerular Filt Rate > 60 mL/min (>60); Globulin 2.2 g/dL (1.7-4.1); Glucose 78 mg/dL (70-99); HDL Cholesterol 20 mg/dL (40-60); HEMOLYSIS 34 (0-50); Sodium 141 mmol/L (137-145); Total Protein 6.7 g/dL (6.3-8.2); Triglycerides 295 mg/dL (35-150); Uric Acid 8.0 mg/dL (3.5-8.5)
[2025-04-22 17:25] LABS: Potassium 5.4 mmol/L (3.4-5.1)
== END ==
PROVIDERS: PCP Family Medicine; Referring Provider Family Medicine; Visit Provider Family Medicine
DX: E11.9 Type 2 diabetes mellitus without complications (principal); I10 Essential (primary) hypertension; E78.2 Mixed hyperlipidemia; E79.0 Hyperuricemia without signs of inflammatory arthritis and tophaceous disease
CPT/HCPCS: 80053; 80061; 83036; 84550

== ENCOUNTER → 2025-07-27 11:51 | Outpatient (CLI) | payer MEDICARE, SELFPAY ==
[2025-03-26 22:13] VITALS: BMI 29.9
[2025-07-27 13:24] LABS: Alanine Aminotransferase 17 IU/L (<50); Albumin 4.3 g/dL (3.5-5.0); Albumin Globulin Ratio 1.9 (1.0-2.8); Alkaline Phosphatase 46 U/L (38-126); Blood Urea Nitrogen 14 mg/dL (9-20); Calcium 8.8 mg/dL (8.4-10.2); Carbon Dioxide 23 mmol/L (22-32); Chloride 105 mmol/L (98-107); Estimated Glomerular Filt Rate > 60 mL/min (>60); Globulin 2.3 g/dL (1.7-4.1); Glucose 120 mg/dL (70-99); HEMOLYSIS < 15 (0-50); Potassium 3.9 mmol/L (3.4-5.1); Sodium 141 mmol/L (137-145); Total Protein 6.6 g/dL (6.3-8.2); Uric Acid 6.1 mg/dL (3.5-8.5)
[2025-07-27 15:47] LABS: Microalbumi Creatinin Ratio Ur 209.0 ug/mg CR (<30)
== END ==
LOC: LAB 11:52
PROVIDERS: PCP Family Medicine; Referring Provider Family Medicine; Visit Provider Family Medicine
DX: E79.0 Hyperuricemia without signs of inflammatory arthritis and tophaceous disease (principal); E87.5 Hyperkalemia; I10 Essential (primary) hypertension; E11.9 Type 2 diabetes mellitus without complications
CPT/HCPCS: 36415; 80053; 82043; 82570; 84550

== ENCOUNTER → 2025-09-09 14:12 | Outpatient (CLI) | payer MEDICARE, SELFPAY ==
[2025-03-26 22:13] VITALS: BMI 29.9
[2025-09-09 15:50] LABS: INR 2.9 (0.9-1.3); Prothrombin Time 32.1 SECONDS (9.4-12.5)
== END ==
PROVIDERS: PCP Family Medicine; Referring Provider Family Medicine; Visit Provider Family Medicine
DX: Z51.81 Encounter for therapeutic drug level monitoring (principal); I26.99 Other pulmonary embolism without acute cor pulmonale; D45 Polycythemia vera; Z79.01 Long term (current) use of anticoagulants
CPT/HCPCS: 36415; 85610